=== PATIENT | female | born 1960 | race Caucasian/White ===

== ENCOUNTER 2019-11-22 10:07 | Outpatient (CLI) | payer BC, MEDICARE, SELFPAY ==
--- NOTE | ~2019-11-22 | MM_ITS ---
EXAMINATION: MM screening [facility] BI w mei HISTORY: Screening mammogram TECHNIQUE: Craniocaudal and mediolateral oblique 3-D tomosynthesis images were obtained and synthetic 2-D images were generated. CAD analysis was submitted and interpreted. COMPARISON: 08/11/2017, 01/24/2016, 01/02/2015 BREAST PARENCHYMAL COMPOSITION: The breasts are almost entirely fatty. FINDINGS: There is no evidence of suspicious mass, calcification, or architectural distortion to sugg est malignancy in either breast. There has been no suspicious interval change. IMPRESSION: 1. No mammographic evidence of malignancy. 2. Recommend routine screening mammography in one year. BI-RADS Category 1: Negative Reviewed, dictated and finalized at location A. 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
== END 2019-11-22 10:08 | disposition home or self-care (01) ==
PROVIDERS: PCP Family Medicine; Visit Provider Family Medicine
DX: Z12.31 Encounter for screening mammogram for malignant neoplasm of breast (principal)
CPT/HCPCS: 77063; 77067

== ENCOUNTER 2020-08-05 08:58 | Outpatient (CLI) | payer BC, MEDICARE, SELFPAY ==
--- NOTE | ~2020-08-05 | CT_ITS ---
EXAMINATION:CT chest wo con DATE: 08/05/2020 09:32 INDICATION: Lung nodule. TECHNIQUE: Computed tomography (CT) of the chest was performed without intravenous contrast. Automate d exposure control and iterative reconstruction technique were employed. The dose-length product (DLP ) was 928.08 mGy-cm. COMPARISON: Chest CT 10/05/2019, 09/29/2018 FINDINGS: The lungs demonstrate mild atelectasis. Again seen is a 3 mm nodule in right upper lobe. Ag ain seen is a 4 mm nodule at the minor fissure. There is smooth septal thickening in the lungs, consi stent with mild pulmonary edema. There is a 14 mm nodule with central calcification in left lower lob e, consistent with granulomatous disease. Calcified right lung nodules are consistent with old granul omatous disease. There is a small right pleural effusion. There is mild elevation of right hemidiaphr agm. There is left atrial and left ventricular enlargement of the heart. There are coronary artery ca lcifications. No pericardial effusion. There are changes of cholecystectomy. There are bridging endpl ate osteophytes at multiple levels in the spine, consistent with diffuse idiopathic skeletal hyperost osis (DISH). Again seen is sclerosis in T11 vertebral body, likely degenerative. IMPRESSION: 1. Stable pulmonary nodules, likely benign. 2. Mild pulmonary edema with small right pleural effusion. Reviewed, dictated and finalized at location A.
== END 2020-08-05 08:59 | disposition home or self-care (01) ==
PROVIDERS: PCP Family Medicine; Visit Provider Nurse Practitioner Family
DX: R91.1 Solitary pulmonary nodule (principal); J98.4 Other disorders of lung; R91.8 Other nonspecific abnormal finding of lung field
CPT/HCPCS: 71250

== ENCOUNTER 2020-09-20 07:05 | Outpatient (NON) | payer BC, MEDICARE, SELFPAY ==
[2020-09-20 18:30] LABS: SARS-CoV-2 RNA PCR Positive
== END 2020-09-20 07:06 ==
PROVIDERS: PCP Family Medicine; Visit Provider Physician Assistant
DX: U07.1 COVID-19 (principal)
CPT/HCPCS: 87635; C9803; U0003

== ENCOUNTER 2020-10-20 09:14 | Emergency (ER) | payer BC, MEDICARE, SELFPAY ==
--- NOTE | 2020-10-20 09:18 | ED.SKABFB ---
HPI - Skin/Abscess/Foreign Bdy General Chief complaint: Skin/Abscess/Foreign Body Stated complaint: RASH ON LEG Time Seen by Provider: 10/20/20 09:18 Source: patient and RN notes reviewed History of Present Illness HPI narrative: Patient is a 59-year-old female who presents the urgent care with complaints of a rash on the back of the right leg. Patient states that it started yesterday and she was itching/scratching the right leg and applied lotion. Patient states that it is slightly painful and the leg has been having some increased swelling. Patient states that she does have bilateral lower leg swelling at times. Denies of any shortness of breath or chest pain. Patient is currently on warfarin for history of a stroke approximately 20 years ago. Denies any recent history of DVT or blood clot elsewhere. Denies of any fever, nausea, vomiting. Denies of any history of cellulitis. No other acute complaints. No acute distress noted. Patient aware of the plan of care. Some parts of this dictation were generated by voice recognition software and may contain typographical and/or grammatical inaccuracies. Related Data Home Medications Medication Instructions Recorded Confirmed aspirin 81 mg tablet,delayed 81 mg PO DAILY 12/05/19 10/20/20 release warfarin 2.5 mg tablet 2.5 mg PO ONCE tablet 07/09/20 10/20/20 albuterol sulfate [ProAir HFA] 2 inh INHALATION Q4H PRN 10/20/20 10/20/20 Allergies Allergy/AdvReac Type Severity Reaction Status Date / Time No Known Allergies Allergy Verified 08/09/20 09:48 Review of Systems Review of Systems: Narrative: CONSTITUTIONAL: Denies fever, chills, or sweats. EYES: Denies visual changes, redness, or discharge. ENT: Denies rhinorrhea, congestion, sore throat, or otalgia. CARDIOVASCULAR: Denies chest pain, palpitations, or edema. RESPIRATORY: Denies cough or dyspnea. GASTROINTESTINAL: Denies abdominal pain, nausea, vomiting, or diarrhea. GENITOURINARY: Denies dysuria or hematuria. SKIN: Reports of rash to the right lower extremity MUSCULOSKELETAL: Denies back pain, joint pain, or myalgia. NEUROLOGIC: Denies headache, numbness, or weakness. All other systems reviewed are negative, except as documented in HPI. 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 Kidney stone Lung nodule Non-Hodgkin lymphoma Stroke Surgical History Surgical History H/O colonoscopy H/O lymph node biopsy History of appendectomy History of tonsillectomy Hx of cholecystectomy Family History Family History Father Hypertension, Onset Age: 46 Family history of elevated blood lipids, Onset Age: 46 Acute myocardial infarction Family history of coronary artery disease, Onset Age: 46 Hyperlipidemia Sibling FH: testicular cancer Family history of Hodgkin's lymphoma Mother Family history of malignant neoplasm of ovary Other Family history of malignant neoplasm Social History Social History Smoking status: Never smoker Alcohol intake: current Comments At the time of my signature, I reviewed and agree with the nursing past medical, surgical, social, and family history. There is no relevant family history pertinent to the patient complaint. Exam Narrative: Exam Narrative: GENERAL: This is a well-nourished, well-developed patient, in no apparent distress. HEAD: normocephalic, atraumatic. EYES: PERRL. Sclera clear/white. Vision is grossly intact. EARS: External ears normal NOSE: External nose normal with no obvious nasal discharge, nares without redness, no rhinorrhea. THROAT: Mucous membranes moist NECK: Neck supple CARDIOVASCULAR: Regular rate and rhythm
[2020-10-20 09:20] VITALS: BP 155/95; PULSE 107; RESP 20; TEMP 36.1; O2SAT 100
[2020-10-20 09:25] VITALS: BP 155/95; PULSE 107; RESP 20; TEMP 36.1; O2SAT 100
--- NOTE | 2020-10-20 09:37 | PC.NURSE ---
right calf measures 15.5 cm and left calf measures 15cm
== END 2020-10-20 09:37 | disposition home or self-care (01) ==
PROVIDERS: Emergency Provider Nurse Practitioner Family; PCP Family Medicine
DX: L03.115 Cellulitis of right lower limb (principal); Z86.73 Personal history of transient ischemic attack (TIA), and cerebral infarction without residual deficits; Z85.72 Personal history of non-Hodgkin lymphomas
CPT/HCPCS: 99213; G0463

== ENCOUNTER 2020-10-30 07:33 | Outpatient (CLI) | payer BC, MEDICARE, SELFPAY ==
--- NOTE | ~2020-10-30 | XR_ITS ---
EXAMINATION: XR abdomen/kub 1V INDICATION: Right flank pain TECHNIQUE: Supine views of the abdomen were obtained on 2 radiographs. COMPARISON: 06/07/[address] from today FINDINGS: There is a subtle 3 mm calcification projecting near the right L3 transverse process which may reflect the proximal right ureteral stone seen on the comparison CT. The bowel gas pattern is nor mal. There is mild osteoarthritis of the hips. IMPRESSION: 1. Subtle 3 mm calcification projecting in the expected location of the proximal right ureter. Reviewed, dictated and finalized at location A. HOLOGICAL ANTHROPOLOGIST IMPRESSION: 1. Subtle 3 mm calcification projecting in the expected location of the proxima l right ureter.
--- NOTE | ~2020-10-30 | CT_ITS ---
EXAMINATION: CT abdomen pelvis wo con DATE: 10/30/2020 07:53 INDICATION: Right flank pain TECHNIQUE: Computed tomography (CT) of the abdomen and pelvis was performed without intravenous contr ast. The dose-length product (DLP) was 1616.86 mGy-cm. Automated exposure control and iterative recon struction technique were employed. COMPARISON: None FINDINGS: There are patchy airspace opacities of the visualized lung bases. A stable 1.3 cm nodule is present in the left lower lobe. There is a small right pleural effusion. The heart size is normal. T he gallbladder is surgically absent. There is a 3 mm stone of the proximal right ureter which does no t cause significant hydronephrosis. Punctate nonobstructing stones are present in both kidneys. No pa thologically enlarged abdominal or pelvic lymph nodes are identified. There is no free intraperitonea l gas or evidence of bowel obstruction. There is severe lumbar spondylosis. IMPRESSION: 1. 3 mm stone of the proximal right ureter without significant hydroureter nephrosis. 2. Punctate nonobstructing bilateral nephrolithiasis. 3. Patchy opacities throughout the visualized lung bases, likely pneumonia. Reviewed, dictated and finalized at location A. 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 3 mm stone of the proximal right ureter without significant hydroureter neph rosis. 2. Punctate nonobstructing bilateral nephrolithiasis. 3. Patchy opacities throughout the visualized lung bases, likely pneumonia.
== END 2020-10-30 07:34 | disposition home or self-care (01) ==
PROVIDERS: PCP Family Medicine; Visit Provider Nurse Practitioner Adult Health
DX: R10.9 Unspecified abdominal pain (principal); N20.2 Calculus of kidney with calculus of ureter
CPT/HCPCS: 74018; 74176

== ENCOUNTER 2020-11-06 10:40 | Outpatient (CLI) | payer BC, MEDICARE, SELFPAY ==
--- NOTE | ~2020-11-06 | XR_ITS ---
EXAMINATION: XR abdomen/kub 1V EXAM DATE: 11/06/2020 11:15 INDICATION: RT ureteral stone . TECHNIQUE: Frontal projection of the upper abdomen, frontal projection lower abdomen/pelvis for inter pretation. Comparison is made to prior examination from 10/30/2020. FINDINGS: Difficult to definitively identify the suspected right UPJ stone indicated on prior study a valorie the L3 transverse process. Renal contours are unremarkable. No pelvic calcifications. Nonobstruc tive bowel gas pattern. Mild lumbar levoscoliosis. Moderate bony degenerative changes. IMPRESSION: No suspicious calcifications identified. Reviewed, dictated and finalized at location A. IDE COLLECTOR
== END 2020-11-06 10:41 | disposition home or self-care (01) ==
LOC: ANHIMG 10:47
PROVIDERS: PCP Family Medicine; Visit Provider Nurse Practitioner Adult Health
DX: N20.1 Calculus of ureter (principal)
CPT/HCPCS: 74018

== ENCOUNTER 2020-11-27 16:21 | Outpatient (CLI) | payer BC, MEDICARE, SELFPAY ==
--- NOTE | ~2020-11-27 | MM_ITS ---
EXAMINATION: MM screening tan BI w mei HISTORY: Screening mammogram TECHNIQUE: Craniocaudal and mediolateral oblique 3-D tomosynthesis images were obtained and synthetic 2-D images were generated. CAD analysis was submitted and interpreted. COMPARISON: November 22, 2019 bilateral digital screening mammogram 08/11/2017, 01/24/2016 bilateral digital screening mammogram examinations BREAST PARENCHYMAL COMPOSITION: The breasts are almost entirely fatty. FINDINGS: There is no evidence of suspicious mass, calcification, or architectural distortion to sugg est malignancy in either breast. There has been no suspicious interval change. IMPRESSION: 1. No mammographic evidence of malignancy. 2. Recommend routine screening mammography in one year. BI-RADS Category 1: Negative Reviewed, dictated and finalized at location A. GUARD TESTER
== END 2020-11-27 16:22 | disposition home or self-care (01) ==
LOC: ANHIMG 16:23
PROVIDERS: PCP Family Medicine; Visit Provider Family Medicine
DX: Z12.31 Encounter for screening mammogram for malignant neoplasm of breast (principal)
CPT/HCPCS: 77063; 77067

== ENCOUNTER 2020-12-18 09:25 | Outpatient (CLI) | payer BC, MEDICARE, SELFPAY | END 2020-12-18 09:26 | disposition home or self-care (01) | LOC: ANHCOVIDVC 09:25 | PROVIDERS: PCP Family Medicine; Visit Provider Family Medicine | DX: Z23 Encounter for immunization (principal) | CPT/HCPCS: 0001A; 91300 ==

== ENCOUNTER 2021-01-08 09:24 | Outpatient (CLI) | payer BC, MEDICARE, SELFPAY | END 2021-01-08 09:25 | disposition home or self-care (01) | LOC: ANHCOVIDVC 09:24 | PROVIDERS: PCP Family Medicine | DX: Z23 Encounter for immunization (principal) | CPT/HCPCS: 0002A; 91300 ==

== ENCOUNTER 2021-09-23 16:06 | Outpatient (CLI) | payer BC, MEDICARE, SELFPAY ==
--- NOTE | ~2021-09-23 | XR_ITS ---
EXAMINATION: XR abdomen/kub 1V EXAM DATE: 09/23/2021 16:25 INDICATION: M54.9 - Dorsalgia, unspecified, right flank pain since 09/21. TECHNIQUE: Frontal projection of the upper abdomen, frontal projection lower abdomen/pelvis for inter pretation. Comparison is made to prior examination from 11/06/2020. FINDINGS: There are cholecystectomy clips. There is expected amount of colonic stool and gas. No small bowel dilation, nonobstructive bowel gas pattern. There are no suspicious calcifications jerald ntified. There is no organomegaly suspected. There are bony degenerative changes. There is left lower lobe 1-1.5 cm nodule. This has been previously reported on imaging and is unchanged, probably benign. There are cholecystectomy clips. IMPRESSION: No suspicious calcifications identified. Reviewed, dictated and finalized at location A. 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
== END 2021-09-23 16:07 | disposition home or self-care (01) ==
PROVIDERS: PCP Family Medicine; Visit Provider Family Medicine
DX: M54.9 Dorsalgia, unspecified (principal); R82.90 Unspecified abnormal findings in urine
CPT/HCPCS: 74018

== ENCOUNTER 2021-12-07 07:19 | Outpatient (CLI) | payer BC, MEDICARE, SELFPAY ==
--- NOTE | ~2021-12-07 | MM_ITS ---
EXAMINATION: MM screening tan BI w mei HISTORY: Screening mammogram TECHNIQUE: Craniocaudal and mediolateral oblique 3-D tomosynthesis images were obtained and synthetic 2-D images were generated. CAD analysis was submitted and interpreted. COMPARISON: November 27, 2020, November 22, 2019, August 11, 2017 bilateral screening mammogram examin ations BREAST PARENCHYMAL COMPOSITION: The breasts are almost entirely fatty. FINDINGS: There is no evidence of suspicious mass, calcification, or architectural distortion to sugg est malignancy in either breast. There has been no suspicious interval change. IMPRESSION: 1. No mammographic evidence of malignancy. 2. Recommend routine screening mammography in one year. BI-RADS Category 1: Negative Reviewed, dictated and finalized at location A. 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
== END 2021-12-07 07:20 | disposition home or self-care (01) ==
LOC: ANHIMG 07:23
PROVIDERS: PCP Family Medicine; Visit Provider Family Medicine
DX: Z12.31 Encounter for screening mammogram for malignant neoplasm of breast (principal)
CPT/HCPCS: 77063; 77067

== ENCOUNTER 2022-10-17 08:42 | Inpatient (IN) | payer MEDICARE, BC, SELFPAY ==
[2022-10-17] VITALS (16 sets, daily range): BP systolic 149–205; BP diastolic 44–89; PULSE 31–44; RESP 13–24; TEMP 36.4–37; O2SAT 98–100; BMI 49.4
--- NOTE | 2022-10-17 | ECHO_ITS ---
Patient Info Name: Genesis Griggs Age: 61 years : 1960 Gender: Female Ht: 66 in Wt: 306 lbs BSA: 2.62 m2 HR: 38 bpm BP: 199 / 76 mmHg Heart Rhythm: Sinus Rhythm Technical Quality: Fair Exam Date: 10/17/2022 12:34 PM Exam Location: [facility] Patient Status: Inpatient Admit Date: 10/17/2022 Staff Ordering Physician: Mauro Ridley MD Editing Intern: Meg Blair RDCS Attending Provider: Miles Hartley MD Referring Physician: Khai WOMACK; Exam Type: CA echo dop color flow w con Study Info Indications - heart block Complete two-dimensional, color flow and Doppler transthoracic echocardiogram is performed with contrast to opacify the left ventricle and to improve the deliniation of the left ventricle endocardial borders. Contrast/Agitated Saline Contrast/Ag. Saline: Definity Amount: 3.00 ml Administered By: Meg Blair RDCS Existing IV Access: Yes IV Access Condition: patent with no signs of infiltration Summary 1. Technically difficultEchocardiogram because of obesity. 2. Definity contrast injectedTo improve visualization. 3. Normal appearing left ventricular sizeAnd systolic function. 4. MildlySclerotic aorticValve which is not stenotic. 5. Thickening of mitralValve leaflets withNo stenosis or and trivial regurgitation. Left Ventricle Left ventricular chamber dimension is normal. Left ventricular systolic function is normal, estimated at 55-60%. The left ventricular diastolic function is grade I diastolic dysfunction. Right Ventricle Right ventricular chamber dimension is normal. Left Atria Left atrial chamber dimension is mildly enlarged. Right Atria Right atrial chamber dimension is not well visualized. Aortic Valve The aortic valve is trileaflet. There is mild aortic valve sclerosis. Pulmonic Valve The pulmonic valve is not well visualized. Mitral Valve The mitral valve has thickened leaflets. There is trace mitral valve regurgitation. Tricuspid Valve The tricuspid valve leaflets are normal. Pericardium/Pleural The pericardium appears normal. Aorta The aortic root size at the sinus of Valsalva is normal. Left Ventricular Outflow Tract Name Value Normal LVOT 2D LVOT Diameter 2.04 cm LVOT Doppler LVOT Peak Gradient 2 mmHg LVOT Mean Gradient 1 mmHg LVOT VTI 20.41 cm LVOT VTI/AV VTI Ratio 0.68 LVOT Stroke Volume 66.73 ml LVOT CO 2.12 l/min LVOT CI 0.81 L/min/m2 Pulmonic Valve Name Value Normal RVOT Doppler RVOT Peak Gradient 2 mmHg PV Doppler
--- NOTE | ~2022-10-17 | XR_ITS ---
EXAMINATION: XR chest 1V portable DATE: 10/18/2022 06:34 INDICATION: Shortness of breath. TECHNIQUE: A single frontal view of the chest was obtained. COMPARISON: Chest single view 10/17/2022, chest 2 views 03/02/2019 FINDINGS: There is chronic mild elevation of right hemidiaphragm. There are airspace opacities in the lower lung zones. No pleural effusion or pneumothorax. The heart size is normal. IMPRESSION: 1. Worsened airspace opacities in the lower lung zones, consistent with atelectasis versus pneumonia. Reviewed, dictated and finalized at location A. MAKER IMPRESSION: 1. Worsened airspace opacities in the lower lung zones, consistent with atelect asis versus pneumonia.
--- NOTE | ~2022-10-17 | XR_ITS ---
EXAMINATION: XR chest 1V portable Exam Date/Time: 10/21/2022 13:50 SUBSTATION DESIGN DRAFTSPERSON HISTORY: pacemaker insertion Comparison: 10/18/2022. RESULT: Lines, tubes, and devices: Left chest pacer with intact leads, lead tips projecting over the right a nd left ventricles. Lungs and pleura: Diffuse reticular pattern, slightly decreased since the prior study. Improved bila teral lower lung aeration, with minimal subsegmental bibasilar opacities. Cardiomediastinal silhouette: Stable. Other: No acute osseous or upper abdominal finding. IMPRESSION: New left chest pacer. Mild interstitial edema and bibasilar atelectasis. Reviewed, dictated and finalized at location K. TATION DESIGN DRAFTSPERSON
--- NOTE | ~2022-10-17 | US_ITS ---
EXAMINATION: US venous doppler UE RT DATE: 10/20/2022 12:25 INDICATION: Right upper limb swelling. TECHNIQUE: Grayscale ultrasound images without and with compression and Doppler ultrasound images of the right upper extremity veins were obtained. COMPARISON: PET/CT 06/22/18 FINDINGS: The visualized portions of the right subclavian vein, axillary vein, brachial veins, basilic vein, ce phalic vein, radial vein, and ulnar vein are patent. Again seen is chronic nonocclusive calcified thr ombus in right internal jugular vein. IMPRESSION: 1. 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 Reviewed, dictated and finalized at location A. ING AGENT IMPRESSION: 1. 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
--- NOTE | ~2022-10-17 | XR_ITS ---
Portable chest x-ray Comparison: 03/02/2019 Clinical History: Weakness Findings: Lungs are clear, without focal consolidation or pleural effusion. Cardiomediastinal silho uette is stable. Bones and soft tissues are unremarkable. Impression: Clear lungs. No change from prior exam. Reviewed, dictated and finalized at [facility]. WEAVER CLOTH Impression: Clear lungs. No change from prior exam.
--- NOTE | ~2022-10-17 | XR_ITS ---
Clinical Indication: Pacemaker placement AP view of the chest: Comparison: 10/21/2022 Findings: The lungs are clear, without evidence of focal consolidation or pleural effusion. Cardiome diastinal silhouette is stable, with pacemaker device. Bones and soft tissues are unremarkable. Impression: Pacemaker device in place. Clear lungs. No pneumothorax. Reviewed, dictated and finalized at location . RIDER Impression: Pacemaker device in place. Clear lungs. No pneumothorax.
--- NOTE | 2022-10-17 08:48 | ECG_ITS ---
Measurements Intervals [place] Rate: 42 P: AK: 0 QRS: -49 QRSD: 106 T: 48 QT: 521 QTc: 439 Interpretive Statements NORMAL SINUS RHYTHM WITH THIRD-DEGREE AV BLOCK AND JUNCTIONAL ESCAPE RHYTHM OCCASIONAL PVC INCOMPLETE LEFT BUNDLE BRANCH BLOCK ABNORMAL ECG COMPARED TO ECG 03/02/2019 01:21:52 THIRD-DEGREE AV BLOCK IS NEW Electronically Signed On 10-17-2022 14:52:16 PATHOLOGY SECRETARY/TRANSCRIPTIONIST by Tomy Mejia M.D.
[2022-10-17 09:11] LABS: Basophils Percent Auto 0.2 % (0.2-1.2); Eosinophils Absolute Auto 0.1 K/mm3 (0-0.3); Eosinophils Percent Auto 0.4 % (0-4.4); Hematocrit 42.6 % (37.0-47.0); Hemoglobin 12.9 g/dL (12.0-15.0); Immature Granulocyte Absolute 0.07 K/mm3 (0.00-0.031); Immature Granulocyte Percent A 0.6 % (0-0.5); Lymphocytes Absolute Auto 1.87 K/mm3 (0.9-3.2); Lymphocytes Percent Auto 15.5 % (18.3-44.2); Mean Corpuscular HGB Conc 30.3 g/dl (32-36); Mean Corpuscular Hemoglobin 24.6 pg (26-34); Mean Corpuscular Volume 81.1 fl (80-100); Mean Platelet Volume 10.6 fl (7.4-10.4); Monocytes Absolute Auto 0.5 K/mm3 (0.1-0.6); Monocytes Percent Auto 3.8 % (2.6-8.5); Neutrophils Absolute Auto 9.6 K/mm3 (1.3-6.7); Neutrophils Percent Auto 79.5 % (45.5-73.1); Platelet Count Result 347 k/mm3 (150-375); Red Blood Count 5.25 M/mm3 (4.2-5.4); Red Cell Distribution Width 17.8 % (11.5-14.5)
[2022-10-17] MEDS: GLUCAGON FOR INJ 1 MG VIAL IV PUSH (09:16)
[2022-10-17] MEDS: SODIUM CHLORIDE 0.9% IV 1,000 ML 150 ML IV CONT (09:17)
[2022-10-17 09:20] LABS: Alanine Aminotransferase 62 U/L (6-35); Albumin Level 4.3 g/dL (3.5-5.1); Alkaline Phosphatase 175 U/L (38-126); Anion Gap 11 mmol/L (8-16); Aspartate Amino Transferase 43 U/L (14-36); Bilirubin,Total 1.1 mg/dL (0.2-1.3); Blood Urea Nitrogen 25 mg/dL (7-17); Calcium 8.9 mg/dL (8.4-10.2); Carbon Dioxide 19 mmol/L (22-30); Chloride 105 mmol/L (98-107); Estimated CRCL calculation 59 ml/min; Estimated Glomerular Filt Rate 42; Glucose 192 mg/dL (65-110); Potassium 4.3 mmol/L (3.4-5.0); Sodium 135 mmol/L (137-145)
[2022-10-17 09:21] LABS: INR 3.2; Prothrombin Time 31.6 Seconds (11.1-14.7)
[2022-10-17 09:31] LABS: NT Pro B Type Natriuretic Pept 5170 pg/mL (5-100); Troponin I 0.013 ng/mL (0.000-0.034)
--- NOTE | 2022-10-17 10:28 | ED.GENADULT ---
HPI - General Adult General Chief complaint: Arrhythmia/Palpitations Stated complaint: Low HR Time Seen by Provider: 10/17/22 08:54 Source: patient and family Mode of arrival: wheelchair Limitations: no limitations History of Present Illness HPI narrative: 61-year-old with a history of hypertension, remote history of stroke approximately 20 years ago on warfarin here with complaints of generalized weakness for 2 weeks. Patient states that heart rate has been low for the past several days. She states that she went to her primary doctor who reduce the dosage of metoprolol to 25 mg daily. However patient denies any chest pain complains of shortness of breath with exertion. No history of fever or chills denies any cough. Patient states that heart rate is in 30s. Onset (ago): week(s) (2) Radiation: non-radiation Severity: moderate Pain Consistency: constant Relieving factors: none Exacerbating factors: none Associated symptoms: denies other symptoms Treatments prior to arrival: none Related Data Home Medications Medication Instructions Recorded Confirmed aspirin 81 mg tablet,delayed 81 mg PO DAILY 12/05/19 10/16/22 release metformin 500 mg tablet 500 mg PO BID 10/16/22 10/16/22 Allergies Allergy/AdvReac Type Severity Reaction Status Date / Time No Known Allergies Allergy Verified 10/16/22 14:02 Review of Systems Review of Systems: All systems reviewed & are unremarkable except as noted in HPI and below Constitutional: Constitutional: Reports no additional constitutional complaints Eyes: Eyes: Reports no additional eye complaints ENT: Reports system reviewed and no additional complaints, except as documented Cardiovascular: Cardiovascular: Reports as per HPI Respiratory: Respiratory: Reports no additional respiratory complaints Gastrointestinal: Gastrointestinal: Reports no additional gastrointestinal complaints Genitourinary: Genitourinary: Reports no additional female genitourinary complaints Musculoskeletal: Musculoskeletal: Reports no additional musculoskeletal complaints Integumentary/Breasts: Skin/Breast: Reports system reviewed and no additional complaints, except as docu Neurologic: Reports system reviewed and no additional complaints, except as documented PMFSH Past Medical History Medical History COVID-19 H/O solitary pulmonary nodule Hepatitis C antibody test negative (12/16/17) 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 Kidney stone Lung nodule Non-Hodgkin lymphoma Stroke Visual field loss following cerebrovascular accident Surgical History Surgical History H/O colonoscopy H/O lymph node biopsy History of appendectomy History of tonsillectomy Hx of cholecystectomy Family History Family History Father Hypertension, Onset Age: 46 Family history of elevated blood lipids, Onset Age: 46 Acute myocardial infarction Family history of coronary artery disease, Onset Age: 46 Hyperlipidemia Sibling FH: testicular cancer Family history of Hodgkin's lymphoma Mother Family history of malignant neoplasm of ovary Other Family history of malignant neoplasm Social History Social History Smoking status: Never smoker Second hand tobacco smoke exposure: No Alcohol intake: current Alcohol use details: Social only a couple once a month. Substance use: never Substance use type: does not use Lack of Transportation: No Lack of Food: Never True Current Housing: I Have Housing Concerned About Future Housing: No Difficulty Paying Gas/Electric Bills: No Difficulty Paying for Meds: No Currently Unemployed: Decline to Answer Education: Trade/Vocational Certificate Difficulty w/ Childcare or Family Care: No Gender identity (if verbalized by the pa
[2022-10-17 10:29] LABS: Influenza A QL RT-PCR Negative (Negative); Influenza B QL RT-PCR Negative (Negative); SARS-CoV-2 RNA PCR Negative
--- NOTE | 2022-10-17 11:36 | PC.NURSE ---
Report received by JESSA Howard with the ED department at 1113.
--- NOTE | 2022-10-17 11:36 | ADMGEN ---
This patient, Genesis Griggs, was admitted to Intensive Care Unit-2 at 1130. Patient/family oriented to hospital policies and general routines including ID bracelet, bed and alarms, visiting hours, pain management, procedures, bathroom and other care routines, personal items, smoking policy, room service/diet, and visiting hours. Information on how to activate the Rapid Response Team has been discussed. Patient/Family are encouraged to report perceived risks to care and to ask questions if they do not understand what they are told or what they should do.
--- NOTE | 2022-10-17 12:36 | WPDCNINT ---
Assessment and Plan Assessment and plan (1) High degree atrioventricular block: Code(s): I44.39 - Other atrioventricular block Status: Acute Assessment and Plan: Patient on metoprolol at home, recently the PCP decreased the dose to 25 mg p.o. daily -patient presented with generalized weakness, dizziness, was found to be bradycardic in 30s -glucagon 1 mg IV was given, will repeat glucagon in the ICU -calcium chloride was given -will place pacer pads put patient -she is currently hemodynamically stable -EKG showed with high degree AV block -troponins negative x1 -proBNP of 5170 -will wait for metoprolol to wean off and continue to monitor heart rate closely -cardiology has been consulted, awaiting their evaluation and recommendations (2) Bradycardia: Code(s): R00.1 - Bradycardia, unspecified Status: Acute Assessment and Plan: As above (3) Essential (primary) hypertension: Code(s): I10 - Essential (primary) hypertension Status: Acute Assessment and Plan: Essential hypertension, systolic blood pressures have been elevated in the 180s to 200s -p.r.n. hydralazine has been ordered, given the bradycardia I do not want to drop the blood pressures too low -hold lisinopril which is a home med due to elevated creatinine (4) senior care (current) use of anticoagulants: Code(s): Z79.01 - senior care (current) use of anticoagulants Status: Acute Assessment and Plan: Patient is on Coumadin for a previous stroke, she denies any residual weakness except for some blind spots -will currently hold Coumadin, if patient requires any procedures -INR is therapeutic, for now and if needed will bridge with therapeutic Lovenox -continue aspirin 81 mg (5) Hyperlipidemia: Code(s): E78.5 - Hyperlipidemia, unspecified Status: Acute Assessment and Plan: Continue atorvastatin (6) Diabetes: Code(s): E11.9 - Type 2 diabetes mellitus without complications Status: Acute Assessment and Plan: Accu-Cheks and sliding scale insulin Plan DVT prophylaxis: Currently therapeutic INR, Stress ulcer prophylaxis: Not indicated Nutrition: Will start p.o. diet Code Status: Full code Critical Care Time Spent: 46 minutes Due to a high probability of clinically significant, life threatening deterioration, the patient required my highest level of preparedness to intervene emergently and I personally spent this critical care time directly and personally managing the patient. This critical care time included obtaining a history; examining the patient; pulse oximetry; ordering and review of studies; arranging urgent treatment with development of a management plan; evaluation of patient's response to treatment; frequent reassessment; and discussions with other providers. It was exclusive of separately billable procedures and treating other patients and teaching time. Please see Assessment and Plan section and the rest of the note for further information on patient assessment and treatment This dictation may have been done utilizing a voice recognition system. Attempts have been made to correct errors. However, there may be uncorrected grammatical, spelling, and recognitions errors present. Train Operator Consult Note Consult date: 10/17/22 Reason for consult: Bradycardia, weakness, lightheadedness, high degree AV block HPI: Genesis Griggs is a 61 year old female with past medical history of essential hypertension, stroke with no residual weakness except for some blind spots, on Coumadin for the stroke,, hyperlipidemia, essential hypertension presented the ED on 10/17/2022 with complains of generalized weakness for approximately 2 weeks with slow heart rate for the past few days, she had gone to her primary care doctor who reduced her dose of metoprolol to 25 mg p.o. daily. She denies any chest pain, shortness of breath, abdominal pain, nausea vomiting. Heart rates were found to
[2022-10-17] MEDS: CALCIUM CHLOR 1,000MG/100ML NS 1,000 MG/100 ML BAG 100 MG IVPB (12:40)
[2022-10-17] MEDS: hydrALAZINE HCL 20 MG/ML VIAL 10 MG IV PUSH ×2 (12:40→19:11)
[2022-10-17] MEDS: SODIUM CHLORIDE 0.9% IV 500 ML IV CONT (12:41)
[2022-10-17] MEDS: GLUCAGON FOR INJ 1 MG VIAL 3 MG IV PUSH (12:44)
[2022-10-17] MEDS: PERFLUTREN LIPID MICROSPHERES 1.5 ML VIAL DILUTED TO 10 ML TOTAL VOLUME IV PUSH (13:20)
--- NOTE | 2022-10-17 13:21 | IVDEFINITY ---
Prior to administration of IV Definity the patient was educated on the risks and benefits of the imaging enhancing agent including potential adverse side effects. The patient verbalized understanding. Allergies were verified. No exclusion criteria were identified and at least one of the following inclusion criteria were met: 1) physician request, 2) patient technically difficult to image (per the [place] [employer] guidelines of two or more segments not discernable within the apical view), or 3) questionable left ventricular function. ?
[2022-10-17 13:50] LABS: Glucose Point of Care 80 mg/dl (65-105)
[2022-10-17 14:07] LABS: Add Urine Microscopic? NO; Appearance Urine Clear (Clear); Bilirubin Urine Negative (Negative); Blood Urine Negative (Negative); Color Urine Yellow (Yellow); Glucose Urine UA Negative (Negative); Ketones Urine Negative (Negative); Leukocyte Esterase Ur Negative LEU/UL (Negative); Nitrate Urine Negative (Negative); Protein Urine Negative (Negative); Urobilinogen Urine 0.2 mg/dL (<2.0); pH Urine 5.5 (5.0-9.0)
--- NOTE | 2022-10-17 14:19 | PM.CNCAR ---
Assessment and Plan Assessment and plan (1) High degree atrioventricular block: Code(s): I44.39 - Other atrioventricular block Status: Acute Plan This is a 61-year-old woman with a longstanding hypertension MARCELL-inhibitor and beta-george she also has non insulin-dependent diabetes in the remote history of non-Hodgkin's lymphoma. She presents with bradycardia symptoms of weakness and fatigue and has complete heart block on her ECG. Is anticoagulated with warfarin chronically since the diagnosis of lymphoma couple of decades ago. Her INR is therapeutic. It is almost certain this patient will require a pacemaker as I doubt that withdrawal of the beta-george is going to resolve this issue. Obviously she cannot safely receive a pacemaker implant today in the setting of systemic anticoagulation. Unfortunately it is a 3 day holiday weekend and if she remains stable like this implantation of her pacemaker will presumably occur next week Thursday. Tomy Mejia MD [facility] History of Present Illness History of Present Illness Consult date/time: 10/17/22 14:19 Reason For Visit: Complete Heart Block Narrative: This is a 61-year-old woman I am seeing this afternoon at the request of the hospitalist because of bradycardia in the setting of complete heart block. The patient does not have any complaints seeing her at bed rest in the ICU her only physical complaint recently has been that of generalized fatigue and weakness. She apparently went to her primary care physician yesterday with these complaints and was found to be bradycardic with heart rate in the 40s. She was on a beta-george which was reduced. An electrocardiogram was not done during that office appointment. She was told to call back today and report her heart rate. She had today she was recording heart rates in the 30s at home so rather than calling her doctor she came to the emergency room where she was evaluated and admitted to the hospital. Her electrocardiogram shows sinus rhythm with complete heart block with QRS morphology of right bundle branch block. She has a stable escape rhythm with heart rate in the range of about 40 beats per minute and has occasional ventricular ectopics Pac. Echocardiogram been ordered and not yet performed as of the time of this consultation. She feels well and offers no other complaints she is not having any history of lightheadedness syncope or presyncope. She denies any symptoms with chest pain orthopnea PND or accumulating edema. Once again she said she has never had any cardiac problems in the past. She does see her PCP for treatment of hypertension and diabetes she also has a history of non-Hodgkin's lymphoma in the chest which was treated 20 years ago with chemotherapy. She can not remember getting any radiation therapy. Around the same time she suffered a stroke and anticoagulation with warfarin was recommended apparently an indefinite basis because she is still taking warfarin about 20 years later. I do not have access to any notes from her oncology appointments as to the reason that indefinite anticoagulation was felt to be needed in that setting. In any event I am seeing her in consultation because of this and we discussed her situation a little likelihood that we will have to be recommending a pacemaker implant. Her medical regimen for hypertension did include metoprolol 50 mg per day which obviously has been stopped. Review of Systems Constitutional: Constitutional: Reports lethargy Eyes: Eyes: Reports no additional eye complaints ENT: Reports system reviewed and no additional complaints, except as documented Cardiovascular: Comments: Patient's observation of bradycardia Respiratory: Respiratory: Reports no additional respiratory complaints Gastrointestinal: Gastrointestinal: Reports no additional gastrointestinal complaints Musculoskeletal: Musculoskeletal: Reports no additional musculoskeletal complaints Integumen
--- NOTE | 2022-10-17 14:35 | PM.IMHP ---
H&P: HPI History of Present Illness Date/Time: 10/17/22 12:35 Chief Complaint: Arrhythmia/palpitations Narrative: This is a 61-year-old female patient who has had a history of hypertension and a CVA over 20 years ago. The patient has been complaining of generalized weakness for the last 2 weeks. She noticed that her heart rate has been low for the past several days. She spoke with her primary care doctor who reduce her dosage of metoprolol to 25 mg daily.. The patient denies any dizziness or any syncopal episodes. The patient denies any chest pain or shortness of breath. No fever chills or cough. The patient stated that her heart rate has been in the 30s. The patient has been on both high Dipesh inhibitors and beta-blockers for her hypertension. Her EKG shows a complete heart block. Cardiology has seen the patient and reported that a pacemaker insertion most likely will occur on Thursday. The patient is awake and alert and is talking. White count is 12.0. Creatinine is 1.3. Blood sugar is 192 which is nonfasting. Last A1c was 7.3 on 08/09/2022. Liver enzymes are elevated AST slightly elevated 43 ALT slightly elevated 62 alkaline phosphatase 172. 1st troponin is nonreactive. BNP is 5170. The rn heart has been consulted has already seen the patient. The patient was receiving an echo during my examination. The patient was found to be negative for influenza A/B and COVID. The patient is being admitted to inpatient status on 10/17/2022. Review of Systems Review of Systems: See HPI All systems reviewed & are unremarkable except as noted in HPI and below Constitutional: Constitutional: Reports as per HPI and Reports no additional constitutional complaints Eyes: Eyes: Reports as per HPI and Reports no additional eye complaints ENT: Reports system reviewed and no additional complaints, except as documented and Reports Normal hearing present Cardiovascular: Cardiovascular: Reports no additional cardiovascular complaints Respiratory: Respiratory: Reports no additional respiratory complaints and Reports no additional respiratory complaints Gastrointestinal: Gastrointestinal: Reports as per HPI and Reports no additional gastrointestinal complaints Musculoskeletal: Musculoskeletal: Reports no additional musculoskeletal complaints Integumentary/Breasts: Skin/Breast: Reports system reviewed and no additional complaints, except as docu and Reports as per HPI Neurologic: Reports system reviewed and no additional complaints, except as documented, Reports as per HPI and Reports Normal hearing present Psychiatric: Psychiatric: Reports no additional psychiatric complaints and Reports as per HPI Endocrine: Endocrine: Reports no additional endocrine complaints Hematologic/Lymphatic: Hematologic/Lymphatic: Reports no additional hematologic/lymphatic complaints Allergic/Immunologic: Allergic/Immunologic: Reports no additional allergic/immunologic complaints [facility] Past Medical History Medical History (Updated 10/17/22 @ 14:58 by Fatmata Garsia NP) Anal fistula COVID-19 H/O solitary pulmonary nodule Hepatitis C antibody test negative (12/16/17) 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 had chemotherapy and bone marrow transplant Stroke Visual field loss following cerebrovascular accident Surgical History Surgical History (Updated 10/17/22 @ 14:58 by Fatmata Garsia NP) H/O colonoscopy H/O cystoscopy H/O lymph node biopsy History of appendectomy History of bone marrow transplant History of removal of Port-a-Cath History of tonsillectomy Hx of cholecystectomy Family History Family History Father Hypertension, Onset Age: 46 Family history of elevated blood lipids, Onset Age: 46 Acute myocardial infarction Family history of coronary artery disease, Onset Age: 46 Hyperlipidemia Sibling FH:
[2022-10-17 14:48] LABS: Troponin I 0.015 ng/mL (0.000-0.034)
[2022-10-17 17:39] LABS: Troponin I 0.015 ng/mL (0.000-0.034)
[2022-10-17 19:07] LABS: Glucose Point of Care 133 mg/dl (65-105)
[2022-10-17] MEDS: ACETAMINOPHEN 325 MG TABLET 650 MG PO (19:11)
[2022-10-17] MEDS: ATORVASTATIN 10 MG TABLET PO (20:19)
[2022-10-17 20:25] LABS: Glucose Point of Care 125 mg/dl (65-105)
[2022-10-18] VITALS (15 sets, daily range): BP systolic 143–171; BP diastolic 48–88; PULSE 30–37; RESP 14–22; TEMP 36.1–36.7; O2SAT 97–100
[2022-10-18] MEDS: hydrALAZINE HCL 20 MG/ML VIAL 10 MG IV PUSH (00:15)
[2022-10-18 03:42] LABS: Basophils Percent Auto 0.3 % (0.2-1.2); Eosinophils Percent Auto 0.3 % (0-4.4); Hemoglobin 11.4 g/dL (12.0-15.0); Immature Granulocyte Absolute 0.05 K/mm3 (0.00-0.031); Immature Granulocyte Percent A 0.5 % (0-0.5); Lymphocytes Absolute Auto 1.01 K/mm3 (0.9-3.2); Lymphocytes Percent Auto 9.7 % (18.3-44.2); Mean Corpuscular HGB Conc 30.8 g/dl (32-36); Mean Corpuscular Hemoglobin 24.6 pg (26-34); Mean Corpuscular Volume 79.9 fl (80-100); Monocytes Absolute Auto 0.5 K/mm3 (0.1-0.6); Monocytes Percent Auto 4.7 % (2.6-8.5); Neutrophils Absolute Auto 8.9 K/mm3 (1.3-6.7); Neutrophils Percent Auto 84.5 % (45.5-73.1); Platelet Count Result 263 k/mm3 (150-375); Red Blood Count 4.63 M/mm3 (4.2-5.4); Red Cell Distribution Width 17.8 % (11.5-14.5); White Blood Count 10.5 K/mm3 (4.5-10.0)
[2022-10-18 03:47] LABS: Alanine Aminotransferase 52 U/L (6-35); Albumin Level 3.6 g/dL (3.5-5.1); Alkaline Phosphatase 138 U/L (38-126); Anion Gap 9 mmol/L (8-16); Aspartate Amino Transferase 34 U/L (14-36); Blood Urea Nitrogen 22 mg/dL (7-17); Calcium 8.7 mg/dL (8.4-10.2); Carbon Dioxide 17 mmol/L (22-30); Chloride 109 mmol/L (98-107); Estimated CRCL calculation 70 ml/min; Estimated Glomerular Filt Rate 51; Glucose 137 mg/dL (65-110); Magnesium 1.6 mg/dL (1.6-2.3); Phosphorus 3.1 mg/dL (2.5-4.5); Potassium 4.3 mmol/L (3.4-5.0); Sodium 135 mmol/L (137-145)
[2022-10-18 03:53] LABS: INR 3.4; Prothrombin Time 33.4 Seconds (11.1-14.7)
[2022-10-18] MEDS: MAGNESIUM SULF 2 GM/WATER 50ML 2 GM/50 ML BAG IVPB (05:09)
--- NOTE | 2022-10-18 06:00 | ECG_ITS ---
Measurements Intervals [place] Rate: 37 P: CA: 0 QRS: -49 QRSD: 113 T: 46 QT: 561 QTc: 445 Interpretive Statements SINUS RHYTHM WITH THIRD-DEGREE AV BLOCK AND JUNCTIONAL ESCAPE RHYTHM WITH LEFT BUNDLE BRANCH BLOCK MORPHOLOGY OCCASIONAL PVC ABNORMAL ECG COMPARED TO ECG 10/17/2022 08:54:36 NO SIGNIFICANT DIFFERENCE Electronically Signed On 10-18-2022 9:55:11 RADIAL DRILL PRESS SET UP OPERATOR by Tomy Mejia M.D.
--- NOTE | 2022-10-18 07:46 | PC.NURSE ---
Addendum entered by Racheal White RN 10/18/22 07:52: Pt is in Aflutter with a complete heart block Original Note: Pt now in aflutter. Dr. Mejia at bedside and aware of situation. No new orders.
--- NOTE | 2022-10-18 07:52 | PM.PNCARD ---
Progress Note: A&P Assessment and Plan (1) High degree atrioventricular block: Code(s): I44.39 - Other atrioventricular block Status: Acute (2) Atrial flutter: Code(s): I48.92 - Unspecified atrial flutter Status: Acute Plan 61-year-old lady with complete heart block symptomatic with shortness of breath with modest activity. No syncope or presyncope. This morning she converted from sinus to atrial flutter with slow ventricular response. Obviously has no AV node conduction at all. Continue to follow her as her Coumadin washes out and anticipate implantation of permanent pacemaker device on Thursday. Of course will proceed sooner if this becomes urgent/emergent. we should start seeing the INR declined tomorrow Tomy Mejia MD [facility] Subjective Date/time seen: Date of service:10/18/22 07:52 Interval history: Follow-up visit in this 61-year-old lady with: Symptomatic complete heart block with weakness fatigue and shortness of breath. Plans for permanent pacemaker implant discussed again with the patient this morning. Interestingly this morning while the patient was on the commode she converted from sinus to atrial flutter. Heart rate really has not changed much as she has no AV node conduction. Today's INR is still therapeutic Exam Const: General: comfortable and no acute distress Other: pleasant obese lady no complaints while at bed rest HENMT: Mouth: Yes moist mucous membranes Eyes: Sclera: sclerae normal Neck: Neck: supple Resp: Effort & Inspection: normal respiratory effort Auscultation: clear to auscultation bilaterally Cardio: Rate: bradycardic Rhythm: regular rhythm GI: GI Palp: Yes Soft to palpation Auscultation: normal bowel sounds Skin: General skin exam: normal color Neuro: Other: alert and oriented x3 Extrem: Other: adequate perfusion, no pitting edema Objective Data Vital Signs Vital Signs: Vital Signs - 24 hr 10/17/22 08:51 10/17/22 10:00 10/17/22 09:30 Temperature 36.4 C Pulse Rate 39 L 36 L 44 L Respiratory Rate 16 20 16 Blood Pressure 171/44 H 162/56 H 176/51 H Pulse Oximetry 100 98 98 Oxygen Delivery Room Air 10/17/22 09:00 10/17/22 11:37 10/17/22 11:10 Temperature Pulse Rate 39 L 37 L 39 L Respiratory Rate 16 24 H 18 Blood Pressure 187/52 H 199/76 H 160/45 H Pulse Oximetry 98 98 99 Oxygen Delivery 10/17/22 10:30 10/17/22 12:00 10/17/22 12:40 Temperature 36.6 C Pulse Rate 40 L 36 L Respiratory Rate 16 22 H Blood Pressure 174/44 H 205/74 H 180/53 H Pulse Oximetry 98 98 Oxygen Delivery 10/17/22 13:28 10/17/22 14:00 10/17/22 16:00 Temperature 37.0 C Pulse Rate 37 L 36 L Respiratory Rate 16 15 Blood Pressure 192/74 H 178/89 H 189/69 H Pulse Oximetry 100 99 Oxygen Delivery 10/17/22 12:00 10/17/22 14:00 10/17/22 16:00 Temperature Pulse Rate 36 L 37 L 36 L Respiratory Rate Blood Pressure Pulse Oximetry Oxygen Delivery 10/17/22 16:00 10/17/22 18:00 10/17/22 19:10 Temperature Pulse Rate 35 L Respiratory Rate 18 Blood Pressure 180/55 H 165/64 H Pulse Oximetry 99 Oxygen Delivery Room Air 10/17/22 18:00 10/17/22 20:00 10/17/22 20:00 Temperature 36.9 C Pulse Rate 35 L 34 L Respiratory Rate 13 Blood Pressure 149/53 H Pulse Oximetry 100 Oxygen Delivery Room Air 10/17/22 20:00 10/17/22 22:00 10/18/22 00:00 Temperature 36.7 C Pulse Rate 34 L 31 L 36 L Respiratory Rate 17 Blood Pressure 166/59 H Pulse Oximetry 99 Oxygen Delivery 10/18/22 00:00 10/18/22 00:00 10/18/22 01:30 Temperature Pulse Rate 32 L Respiratory Rate Blood Pressure 152/68 H Pulse Oximetry Oxygen Delivery Room Air 10/18/22 04:00 10/18/22 02:00 10/18/22 04:00 Temperature Pulse Rate 34 L 30 L Respiratory Rate Blood Pressure Pulse Oximetry Oxygen Delivery Room Air 10/18/22 04:02 10/18/22 06
[2022-10-18 08:20] LABS: Glucose Point of Care 131 mg/dl (65-105)
[2022-10-18] MEDS: ASPIRIN 81 MG ENTERIC TABLET PO (08:43)
--- NOTE | 2022-10-18 09:12 | PC.NURSE ---
This patient, Genesis Griggs, was transferred to [ [id number]] on 10/18/22 at 0905. Personal belongings sent with patient. Report given to [JESSA Freeman @ 05 at bedside ]. Appropriate documentation sent with patient.
--- NOTE | 2022-10-18 09:35 | PC.NURSE ---
at 09:23 patient had 11 beat run of VTACH. EKG complete. Dr. Mejia notified. Continue to monitor.
[2022-10-18 12:54] LABS: Glucose Point of Care 164 mg/dl (65-105)
--- NOTE | 2022-10-18 14:15 | PM.IMPN ---
Progress Note: A&P Assessment and Plan (1) Bradycardia: Code(s): R00.1 - Bradycardia, unspecified Status: Acute Assessment and Plan: Complete heart block on EKG. Asymptomatic Coumadin on hold for planned pacemaker in 2 stay on S aunt/impression Hold metoprolol Received: Consent chloride Pacer pads on (2) Essential (primary) hypertension: Code(s): I10 - Essential (primary) hypertension Status: Acute Assessment and Plan: -the patient has p.r.n. hydralazine. -hold lisinopril and metoprolol for now. Patient's heart rate is 30-40. (3) [facility]CI (current) use of anticoagulants: Code(s): Z79.01 - [facility]CI (current) use of anticoagulants Status: Acute Assessment and Plan: -holding Coumadin for possible procedure/pacemaker this next Thursday. -daily PT INR Continue to monitor INR (4) Mixed hyperlipidemia: Code(s): E78.2 - Mixed hyperlipidemia Status: Acute Assessment and Plan: -continue with atorvastatin (5) Type 2 diabetes mellitus without complications: Code(s): E11.9 - Type 2 diabetes mellitus without complications Status: Acute Assessment and Plan: -Accu-Cheks AC and HS with hypoglycemic protocol and sliding scale insulin -last hemoglobin A1c was 7.3 on 08/09/2022. Hold metformin Subjective Date/time seen: 10/18/22 14:15 Interval history: No overnight events. History reviewed. Denies any dizziness or lightheadedness. charge entry reviewed Review of Systems Review of Systems: All systems reviewed & are unremarkable except as noted in HPI and below Exam Narrative: General: Pleasant female in no acute distress HEENT:? Pupils equal reactive, sclera is clear, dry oral mucosa Neck:? Supple, no lymphadenopathy Respiratory:? Clear to auscultation bilaterally, adequate air entry, no wheezing Cardiac:? Bradycardia with irregular rhythm Abdomen:? Soft, nontender, nondistended, normoactive bowel sounds, obese Extremities:? 1+ pitting edema left lower extremities, pedal pulses Neuro:? Patient is awake, alert oriented x3, nonfocal Skin:? Warm and dry, no lesions noted Psych:? Normal affect and mentation Objective Data Vital Signs Vital Signs: Vital Signs - 24 hr 10/17/22 16:00 10/17/22 16:00 10/17/22 16:00 Temperature 98.6 F Pulse Rate 36 L 36 L Respiratory Rate 15 Blood Pressure 189/69 H Pulse Oximetry 99 Oxygen Delivery Room Air 10/17/22 18:00 10/17/22 19:10 10/17/22 18:00 Temperature Pulse Rate 35 L 35 L Respiratory Rate 18 Blood Pressure 180/55 H 165/64 H Pulse Oximetry 99 Oxygen Delivery 10/17/22 20:00 10/17/22 20:00 10/17/22 20:00 Temperature 98.4 F Pulse Rate 34 L 34 L Respiratory Rate 13 Blood Pressure 149/53 H Pulse Oximetry 100 Oxygen Delivery Room Air 10/17/22 22:00 10/18/22 00:00 10/18/22 00:00 Temperature 98.1 F Pulse Rate 31 L 36 L Respiratory Rate 17 Blood Pressure 166/59 H Pulse Oximetry 99 Oxygen Delivery Room Air 10/18/22 00:00 10/18/22 01:30 10/18/22 04:00 Temperature Pulse Rate 32 L Respiratory Rate Blood Pressure 152/68 H Pulse Oximetry Oxygen Delivery Room Air 10/18/22 02:00 10/18/22 04:00 10/18/22 04:02 Temperature 97.7 F Pulse Rate 34 L 30 L 31 L Respiratory Rate 14 Blood Pressure 147/88 H Pulse Oximetry 97 Oxygen Delivery 10/18/22 06:00 10/18/22 08:00 10/18/22 08:00 Temperature 97.4 F L Pulse Rate 30 L 31 L 31 L Respiratory Rate 15 Blood Pressure 155/53 H Pulse Oximetry 98 Oxygen Delivery 10/18/22 08:00 10/18/22 12:00 Temperature 97.5 F L Pulse Rate 35 L Respiratory Rate 18 Blood Pressure 146/51 H Pulse Oximetry 100 Oxygen Delivery Room Air Intake/Output Intake/Output: Intake & Output 10/15/22 10/16/22 10/17/22 10/18/22 23:59 23:59 23:59 23:59 Intake Total 1240 830 Output Total 600 210 Balance 640 620 Meds/Resul
[2022-10-18 17:39] LABS: Glucose Point of Care 102 mg/dl (65-105)
[2022-10-18] MEDS: ATORVASTATIN 10 MG TABLET PO (19:48)
[2022-10-18 20:53] LABS: Glucose Point of Care 126 mg/dl (65-105)
[2022-10-19] VITALS (17 sets, daily range): BP systolic 145–184; BP diastolic 43–88; PULSE 32–83; RESP 20–36; TEMP 35.7–36.6; O2SAT 97–100
[2022-10-19 04:52] LABS: Basophils Percent Auto 0.4 % (0.2-1.2); Eosinophils Absolute Auto 0.1 K/mm3 (0-0.3); Eosinophils Percent Auto 1.3 % (0-4.4); Hematocrit 38.8 % (37.0-47.0); Immature Granulocyte Absolute 0.04 K/mm3 (0.00-0.031); Immature Granulocyte Percent A 0.4 % (0-0.5); Lymphocytes Absolute Auto 1.59 K/mm3 (0.9-3.2); Lymphocytes Percent Auto 16.4 % (18.3-44.2); Mean Corpuscular HGB Conc 30.9 g/dl (32-36); Mean Corpuscular Hemoglobin 24.6 pg (26-34); Mean Corpuscular Volume 79.7 fl (80-100); Mean Platelet Volume 10.1 fl (7.4-10.4); Monocytes Absolute Auto 0.6 K/mm3 (0.1-0.6); Monocytes Percent Auto 6.2 % (2.6-8.5); Neutrophils Absolute Auto 7.3 K/mm3 (1.3-6.7); Neutrophils Percent Auto 75.3 % (45.5-73.1); Platelet Count Result 309 k/mm3 (150-375); Red Blood Count 4.87 M/mm3 (4.2-5.4); Red Cell Distribution Width 17.9 % (11.5-14.5); White Blood Count 9.7 K/mm3 (4.5-10.0)
[2022-10-19 05:03] LABS: Alanine Aminotransferase 46 U/L (6-35); Albumin Level 3.9 g/dL (3.5-5.1); Alkaline Phosphatase 144 U/L (38-126); Anion Gap 8 mmol/L (8-16); Aspartate Amino Transferase 31 U/L (14-36); Blood Urea Nitrogen 23 mg/dL (7-17); Calcium 8.7 mg/dL (8.4-10.2); Carbon Dioxide 18 mmol/L (22-30); Chloride 109 mmol/L (98-107); Estimated CRCL calculation 70 ml/min; Estimated Glomerular Filt Rate 51; Glucose 131 mg/dL (65-110); Magnesium 1.9 mg/dL (1.6-2.3); Potassium 4.2 mmol/L (3.4-5.0); Sodium 135 mmol/L (137-145)
[2022-10-19 08:16] LABS: Glucose Point of Care 117 mg/dl (65-105)
[2022-10-19] MEDS: ASPIRIN 81 MG ENTERIC TABLET PO (09:04)
[2022-10-19 10:11] LABS: Prothrombin Time 30.3 Seconds (11.1-14.7)
--- NOTE | 2022-10-19 10:46 | PM.PNCARD ---
Progress Note: A&P Assessment and Plan (1) High degree atrioventricular block: Code(s): I44.39 - Other atrioventricular block Status: Acute Plan 61-year-old lady with acquired complete heart block requiring pacemaker implantation which is scheduled for Thursday. Because her INR is not coming down at like I would expect I am going to give her some vitamin K today. She did have an episode of asymptomatic atrial flutter/atrial fib yesterday which was self-limited. As her AV node function is non-existent this did not change her ventricular rhythm at all. Tomy Mejia MD [facility] Subjective Date/time seen: Date of service: 10/19/22 10:46 Interval history: Follow-up visit in this 61-year-old lady with: Symptomatic bradycardia with acquired complete heart block. Plans are for pacemaker implantation Thursday. Discussed with patient this morning and her again the details of the procedure. Also discussed with them id of giving her some vitamin K this morning as her INR is still 3 Exam Const: General: comfortable and no acute distress Other: pleasant obese lady no complaints while at bed rest HENMT: Mouth: Yes moist mucous membranes Eyes: Sclera: sclerae normal Neck: Neck: supple Other: Carotid pulses are intact bilaterally there are no audible bruits. The patient has a very thick neck I cannot discern presence or absence of JVD Resp: Effort & Inspection: normal respiratory effort Auscultation: clear to auscultation bilaterally Cardio: Rate: bradycardic Rhythm: regular rhythm Other: PMI is not palpable no murmur no gallop GI: Auscultation: normal bowel sounds Skin: General skin exam: normal color Neuro: Other: alert and oriented x3 Extrem: Other: adequate perfusion, no pitting edema Objective Data Vital Signs Vital Signs: Vital Signs - 24 hr 10/18/22 12:00 10/18/22 12:00 10/18/22 16:00 Temperature 36.4 C L Pulse Rate 35 L Respiratory Rate 18 Blood Pressure 146/51 H Pulse Oximetry 100 100 100 Oxygen Delivery Room Air Room Air 10/18/22 16:00 10/18/22 12:00 10/18/22 14:00 Temperature 36.4 C Pulse Rate 34 L 35 L 35 L Respiratory Rate 22 H Blood Pressure 143/48 H Pulse Oximetry 99 Oxygen Delivery 10/18/22 16:00 12/31/22 18:00 10/18/22 20:00 Temperature 36.1 C L Pulse Rate 35 L 37 L 36 L Respiratory Rate 20 Blood Pressure 171/62 H Pulse Oximetry 99 Oxygen Delivery 10/18/22 20:00 10/18/22 20:00 10/18/22 22:00 Temperature Pulse Rate 37 L 34 L Respiratory Rate Blood Pressure Pulse Oximetry Oxygen Delivery Room Air 10/18/22 23:53 10/19/22 00:00 10/19/22 00:00 Temperature 36.4 C L Pulse Rate 34 L 33 L Respiratory Rate 20 Blood Pressure 158/64 H Pulse Oximetry 98 Oxygen Delivery Room Air 10/19/22 02:00 10/19/22 04:00 10/19/22 04:00 Temperature 36.3 C L Pulse Rate 33 L 83 Respiratory Rate 20 Blood Pressure 157/47 H Pulse Oximetry 98 Oxygen Delivery Room Air 10/19/22 04:00 10/19/22 06:00 10/19/22 08:15 Temperature 35.7 C L Pulse Rate 36 L 32 L 34 L Respiratory Rate 22 H Blood Pressure 178/53 H Pulse Oximetry 98 Oxygen Delivery 10/19/22 08:00 Temperature Pulse Rate Respiratory Rate Blood Pressure Pulse Oximetry Oxygen Delivery Room Air Intake/Output Intake/Output: Intake & Output 10/16/22 10/17/22 10/18/22 10/19/22 23:59 23:59 23:59 23:59 Intake Total 1240 2170 450 Output Total 600 1010 750 Balance 640 1160 -300 Meds/Results Medications: Active Medications Generic Name Dose Route Start Last Admin Trade Name Karissa PRN Reason Stop Dose Admin Acetaminophen 650 mg 10/17/22 10:36 10/17/22 19:11 Acetaminophen 325 Mg Tablet PO 650 mg Q4H PRN Administration Mild Pain (1-3) or Fever Aspirin 81 mg 10/18/22 09:00 10/19/22 09:04 Aspirin 81 Mg Enteric Tablet PO 81 mg DAILY [facility] Ad
[2022-10-19 12:03] LABS: Glucose Point of Care 116 mg/dl (65-105)
[2022-10-19] MEDS: PHYTONADIONE INJ 10 MG/ML AMP SUB-Q (12:20)
--- NOTE | 2022-10-19 13:48 | PM.IMPN ---
Progress Note: A&P Assessment and Plan (1) Bradycardia: Code(s): R00.1 - Bradycardia, unspecified Status: Acute Assessment and Plan: Complete heart block on EKG. Asymptomatic Coumadin on hold for planned pacemaker in 2 stay on S aunt/impression Hold metoprolol Received glucagon and calcium chloride Pacer pads on (2) Essential (primary) hypertension: Code(s): I10 - Essential (primary) hypertension Status: Acute Assessment and Plan: -the patient has p.r.n. hydralazine. -hold lisinopril and metoprolol for now. Patient's heart rate is 30-40. 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 -daily PT INR Continue to monitor INR Vitamin K for reversal as ordered by [employer] products glazer (4) Mixed hyperlipidemia: Code(s): E78.2 - Mixed hyperlipidemia Status: Acute Assessment and Plan: -continue with atorvastatin (5) Type 2 diabetes mellitus without complications: Code(s): E11.9 - Type 2 diabetes mellitus without complications Status: Acute Assessment and Plan: -Accu-Cheks AC and HS with hypoglycemic protocol and sliding scale insulin -last hemoglobin A1c was 7.3 on 08/09/2022. Hold metformin Subjective Date/time seen: 10/19/22 13:48 Interval history: No overnight events. No new complaints. Remains bradycardic with complete heart block telemetry reviewed Review of Systems Review of Systems: All systems reviewed & are unremarkable except as noted in HPI and below Exam Narrative: General: Pleasant female in no acute distress HEENT:? Pupils equal reactive, sclera is clear, dry oral mucosa Neck:? Supple, no lymphadenopathy Respiratory:? Clear to auscultation bilaterally, adequate air entry, no wheezing Cardiac:? Bradycardia with irregular rhythm Abdomen:? Soft, nontender, nondistended, normoactive bowel sounds, obese Extremities:? 1+ pitting edema left lower extremities, pedal pulses Neuro:? Patient is awake, alert oriented x3, nonfocal Skin:? Warm and dry, no lesions noted Psych:? Normal affect and mentation Objective Data Vital Signs Vital Signs: Vital Signs - 24 hr 12/31/22 16:00 10/18/22 16:00 10/18/22 14:00 Temperature 97.6 F Pulse Rate 34 L 35 L Respiratory Rate 22 H Blood Pressure 143/48 H Pulse Oximetry 100 99 Oxygen Delivery Room Air 10/18/22 16:00 10/18/22 18:00 10/18/22 20:00 Temperature 96.9 F L Pulse Rate 35 L 37 L 36 L Respiratory Rate 20 Blood Pressure 171/62 H Pulse Oximetry 99 Oxygen Delivery 10/18/22 20:00 10/18/22 20:00 10/18/22 22:00 Temperature Pulse Rate 37 L 34 L Respiratory Rate Blood Pressure Pulse Oximetry Oxygen Delivery Room Air 10/18/22 23:53 10/19/22 00:00 10/19/22 00:00 Temperature 97.5 F L Pulse Rate 34 L 33 L Respiratory Rate 20 Blood Pressure 158/64 H Pulse Oximetry 98 Oxygen Delivery Room Air 10/19/22 02:00 10/19/22 04:00 10/19/22 04:00 Temperature 97.3 F L Pulse Rate 33 L 83 Respiratory Rate 20 Blood Pressure 157/47 H Pulse Oximetry 98 Oxygen Delivery Room Air 10/19/22 04:00 10/19/22 06:00 10/19/22 08:15 Temperature 96.2 F L Pulse Rate 36 L 32 L 34 L Respiratory Rate 22 H Blood Pressure 178/53 H Pulse Oximetry 98 Oxygen Delivery 10/19/22 08:00 10/19/22 08:00 10/19/22 10:00 Temperature Pulse Rate 33 L 40 L Respiratory Rate Blood Pressure Pulse Oximetry Oxygen Delivery Room Air 10/19/22 12:03 10/19/22 12:00 10/19/22 12:00 Temperature 96.7 F L Pulse Rate 35 L 36 L Respiratory Rate 36 H Blood Pressure 174/53 H Pulse Oximetry 98 Oxygen Delivery Room Air Intake/Output Intake/Output: Intake & Output 10/16/2210/17
[2022-10-19] MEDS: lisinopriL 5 MG TABLET PO (14:58)
[2022-10-19] MEDS: hydrALAZINE HCL 20 MG/ML VIAL 10 MG IV PUSH (15:05)
[2022-10-19 15:25] LABS: Glucose Point of Care 94 mg/dl (65-105)
[2022-10-19] MEDS: FUROSEMIDE INJ 40 MG/4 ML VIAL 20 MG IV PUSH (17:16)
[2022-10-19] MEDS: ATORVASTATIN 10 MG TABLET PO (20:02)
[2022-10-19 20:08] LABS: Glucose Point of Care 145 mg/dl (65-105)
[2022-10-20] VITALS (13 sets, daily range): BP systolic 104–173; BP diastolic 47–77; PULSE 47–98; RESP 12–97; TEMP 36–36.7; O2SAT 97–100
[2022-10-20 04:35] LABS: Basophils Percent Auto 0.2 % (0.2-1.2); Eosinophils Absolute Auto 0.2 K/mm3 (0-0.3); Eosinophils Percent Auto 2.7 % (0-4.4); Hematocrit 36.3 % (37.0-47.0); Hemoglobin 11.1 g/dL (12.0-15.0); Immature Granulocyte Absolute 0.03 K/mm3 (0.00-0.031); Immature Granulocyte Percent A 0.3 % (0-0.5); Lymphocytes Absolute Auto 1.47 K/mm3 (0.9-3.2); Lymphocytes Percent Auto 17.1 % (18.3-44.2); Mean Corpuscular HGB Conc 30.6 g/dl (32-36); Mean Corpuscular Hemoglobin 24.7 pg (26-34); Mean Corpuscular Volume 80.7 fl (80-100); Mean Platelet Volume 9.7 fl (7.4-10.4); Monocytes Absolute Auto 0.6 K/mm3 (0.1-0.6); Monocytes Percent Auto 6.4 % (2.6-8.5); Neutrophils Absolute Auto 6.3 K/mm3 (1.3-6.7); Neutrophils Percent Auto 73.3 % (45.5-73.1); Platelet Count Result 256 k/mm3 (150-375); White Blood Count 8.6 K/mm3 (4.5-10.0)
[2022-10-20 04:48] LABS: Alanine Aminotransferase 37 U/L (6-35); Albumin Level 3.5 g/dL (3.5-5.1); Alkaline Phosphatase 125 U/L (38-126); Anion Gap 7 mmol/L (8-16); Aspartate Amino Transferase 28 U/L (14-36); Bilirubin,Total 1.2 mg/dL (0.2-1.3); Blood Urea Nitrogen 21 mg/dL (7-17); Calcium 8.4 mg/dL (8.4-10.2); Carbon Dioxide 21 mmol/L (22-30); Chloride 108 mmol/L (98-107); Estimated CRCL calculation 78 ml/min; Estimated Glomerular Filt Rate 57; Glucose 112 mg/dL (65-110); Magnesium 1.7 mg/dL (1.6-2.3); Potassium 3.7 mmol/L (3.4-5.0); Sodium 136 mmol/L (137-145)
[2022-10-20 04:51] LABS: INR 1.9; Prothrombin Time 21.1 Seconds (11.1-14.7)
[2022-10-20 08:04] LABS: Glucose Point of Care 113 mg/dl (65-105)
[2022-10-20] MEDS: ASPIRIN 81 MG ENTERIC TABLET PO (08:49)
[2022-10-20] MEDS: lisinopriL 5 MG TABLET PO (08:49)
--- NOTE | 2022-10-20 09:26 | ECG_ITS ---
Measurements Intervals [place] Rate: 45 P: VT: 0 QRS: -47 QRSD: 142 T: 56 QT: 575 QTc: 499 Interpretive Statements SINUS RHYTHM WITH 2ND DEGREE AV BLOCK, 2:1 AV CONDUCTION LEFT BUNDLE BRANCH BLOCK BASELINE ARTIFACT- V6 ABNORMAL ECG COMPARED TO ECG 10/18/2022 09:27:01 THIRD DEGREE AV BLOCK CHANGES TO SECOND DEGREE AV BLOCK Electronically Signed On 10-20-2022 11:23:21 DIRECTOR POST by Vu Leon D.O.
--- NOTE | 2022-10-20 09:33 | PM.PNCARD ---
Progress Note: A&P Assessment and Plan (1) High degree atrioventricular block: Code(s): I44.39 - Other atrioventricular block Status: Acute (2) Bradycardia: Code(s): R00.1 - Bradycardia, unspecified Status: Acute Plan 61-year-old woman with acquired complete heart block symptomatic with bradycardia and plans are for implantation of permanent pacemaker tomorrow. INR has come down to 1.9 with dose of vitamin K yesterday. I am going to repeat another dose today to ensure that she has sufficient reversal of her anticoagulation for tomorrow's procedure. Procedure once again discussed in detail with the patient. I am not sure that it is necessary that she continue anticoagulation indefinitely following this implant as the thrombotic complication that resulted in her being on Coumadin occurred 20 years ago in the setting of chemotherapy for lymphoma. This issue can be revisited with her PCP and if necessary a security test engineer as well. Today's telemetry demonstrates she is less tachycardic and now has 2-1 conduction. Tomy Mejia MD [facility] Subjective Date/time seen: Date of service: 10/20/22 09:33 Interval history: Follow-up visit in this 61-year-old woman with: Symptomatic bradycardia with complete heart block. Patient has been also anticoagulated with Coumadin following blood clots complicating chemotherapy 20 years ago. Anticipating pacemaker implantation. Patient feels relatively well this morning offers no complaints. Exam Const: General: comfortable and no acute distress Other: Very pleasant obese lady no distress HENMT: Mouth: Yes moist mucous membranes Eyes: Sclera: sclerae normal Neck: Neck: supple Other: Normal carotid pulses Resp: Effort & Inspection: normal respiratory effort Auscultation: clear to auscultation bilaterally Cardio: Rate: bradycardic Rhythm: regular rhythm Other: No murmur no gallop GI: GI Palp: Yes Soft to palpation Auscultation: normal bowel sounds Skin: General skin exam: normal color Neuro: Other: Alert and oriented x3 Extrem: General: normal to inspection Objective Data Vital Signs Vital Signs: Vital Signs - 24 hr 10/19/22 10:00 10/19/22 12:03 10/19/22 12:00 Temperature 35.9 C L Pulse Rate 40 L 35 L Respiratory Rate 36 H Blood Pressure 174/53 H Pulse Oximetry 98 Oxygen Delivery Room Air 10/19/22 12:00 10/19/22 14:00 10/19/22 14:55 Temperature Pulse Rate 36 L 37 L 40 L Respiratory Rate Blood Pressure 184/60 H Pulse Oximetry Oxygen Delivery 10/19/22 15:30 10/19/22 16:30 10/19/22 17:44 Temperature 36.1 C L Pulse Rate 38 L 38 L 48 L Respiratory Rate 22 H Blood Pressure 145/88 H Pulse Oximetry Oxygen Delivery 10/19/22 20:00 10/19/22 20:00 10/19/22 20:00 Temperature 36.5 C Pulse Rate 48 L 42 L 43 L Respiratory Rate 22 H 20 Blood Pressure 149/43 H Pulse Oximetry 98 100 Oxygen Delivery Room Air 10/19/22 22:00 10/19/22 23:32 10/20/22 00:00 Temperature 36.6 C Pulse Rate 56 L 62 58 L Respiratory Rate 20 Blood Pressure 159/51 H Pulse Oximetry 97 98 Oxygen Delivery Room Air 10/20/22 00:00 10/20/22 02:00 10/20/22 04:00 Temperature 36.7 C Pulse Rate 56 L 61 98 Respiratory Rate 20 Blood Pressure 138/58 L Pulse Oximetry 99 Oxygen Delivery 10/20/22 04:00 10/20/22 04:00 10/20/22 06:00 Temperature Pulse Rate 66 58 L 47 L Respiratory Rate Blood Pressure Pulse Oximetry 98 Oxygen Delivery Room Air 10/20/22 08:00 10/20/22 08:00 10/20/22 08:00 Temperature 36.0 C L Pulse Rate 49 L 51 L 51 L Respiratory Rate 16 Blood Pressure 159/59 H Pulse Oximetry 100 99 Oxygen Delivery Room Air Intake/Output Intake/Output: Intake & Output 10/17/22 10/18/22 10/19/22 10/20/22 23:59 23:59 23:59 23:59 Intake Total 1240 2170 1640 710 Output Total 600 1010 1150 2150 Balance 640 1160 091 -5361 Meds/Results Med
[2022-10-20] MEDS: PHYTONADIONE INJ 10 MG/ML AMP SUB-Q (10:29)
[2022-10-20 11:58] LABS: Glucose Point of Care 131 mg/dl (65-105)
--- NOTE | 2022-10-20 15:36 | PM.IMPN ---
Progress Note: A&P Assessment and Plan (1) Bradycardia: Code(s): R00.1 - Bradycardia, unspecified Status: Acute Assessment and Plan: Complete heart block on EKG. Asymptomatic Coumadin on hold for planned pacemaker implantation in a.m. INR reversed with vitamin K Hold metoprolol Received glucagon and calcium chloride Pacer pads on (2) Essential (primary) hypertension: Code(s): I10 - Essential (primary) hypertension Status: Acute Assessment and Plan: -the patient has p.r.n. hydralazine. -hold lisinopril and metoprolol for now. Patient's heart rate is 30-40. Resume lisinopril as blood pressure has been high (3) longterm (current) use of anticoagulants: Code(s): Z79.01 - vermin exterminator (current) use of anticoagulants Status: Acute Assessment and Plan: -holding Coumadin for possible procedure/pacemaker this next Thursday. -daily PT INR Continue to monitor INR Vitamin K for reversal as ordered by bagging salvager (4) Mixed hyperlipidemia: Code(s): E78.2 - Mixed hyperlipidemia Status: Acute Assessment and Plan: -continue with atorvastatin (5) Type 2 diabetes mellitus without complications: Code(s): E11.9 - Type 2 diabetes mellitus without complications Status: Acute Assessment and Plan: -Accu-Cheks AC and HS with hypoglycemic protocol and sliding scale insulin -last hemoglobin A1c was 7.3 on 08/09/2022. 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 On anticoagulation. She had a port in the past for chemotherapy Subjective Date/time seen: 10/20/22 15:36 Interval history: She reported some swelling in her right arm yesterday. Unclear etiology. Feels a little bit better today. Heart rate is improved. Telemetry reviewed Review of Systems Review of Systems: All systems reviewed & are unremarkable except as noted in HPI and below Exam Narrative: General: Pleasant female in no acute distress HEENT:? Pupils equal reactive, sclera is clear, dry oral mucosa Neck:? Supple, no lymphadenopathy Respiratory:? Clear to auscultation bilaterally, adequate air entry, no wheezing Cardiac:? Bradycardia with irregular rhythm Abdomen:? Soft, nontender, nondistended, normoactive bowel sounds, obese Extremities:? 1+ pitting edema left lower extremities, pedal pulses, right arm swollen Neuro:? Patient is awake, alert oriented x3, nonfocal Skin:? Warm and dry, no lesions noted Psych:? Normal affect and mentation Objective Data Vital Signs Vital Signs: Vital Signs - 24 hr 10/19/22 16:30 10/19/22 17:44 10/19/22 20:00 Temperature Pulse Rate 38 L 48 L 48 L Respiratory Rate 22 H Blood Pressure Pulse Oximetry 98 Oxygen Delivery Room Air 10/19/22 20:00 10/19/22 20:00 10/19/22 22:00 Temperature 97.7 F Pulse Rate 42 L 43 L 56 L Respiratory Rate 20 Blood Pressure 149/43 H Pulse Oximetry 100 Oxygen Delivery 10/19/22 23:32 10/20/22 00:00 10/20/22 00:00 Temperature 97.9 F Pulse Rate 62 58 L 56 L Respiratory Rate 20 Blood Pressure 159/51 H Pulse Oximetry 97 98 Oxygen Delivery Room Air 10/20/22 02:00 10/20/22 04:00 10/20/22 04:00 Temperature 98.0 F Pulse Rate 61 98 66 Respiratory Rate 20 Blood Pressure 138/58 L Pulse Oximetry 99 Oxygen Delivery 10/20/22 04:00 10/20/22 06:00 10/20/22 08:00 Temperature 96.8 F L Pulse Rate 58 L 47 L 49 L Respiratory Rate 16 Blood Pressure 159/59 H Pulse Oximetry 98 100 Oxygen Delivery Room Air 10/20/22 08:00 10/20/22 08:00 10/20/22 10:00 Temperature Pulse Rate 51 L 51 L 84 Respiratory Rate Blood Pressure Pulse Oximetry 99 Oxygen Delivery Room Air 10/20/22 12:00 10/20/22 12:00 10/20/22 12:00 Temperature 97.3 F L Pulse Rate 50 L 50 L 64 Respiratory Rate 97 H 18 Blood Pressure 173/59 H Pulse Oximetry 100 Oxygen Delivery Room Air Inta
[2022-10-20 16:33] LABS: Glucose Point of Care 102 mg/dl (65-105)
[2022-10-20] MEDS: ATORVASTATIN 10 MG TABLET PO (20:04)
[2022-10-20 20:39] LABS: Glucose Point of Care 129 mg/dl (65-105)
[2022-10-21] VITALS (21 sets, daily range): BP systolic 125–165; BP diastolic 44–76; PULSE 49–99; RESP 11–22; TEMP 36.3–36.7; O2SAT 96–100
[2022-10-21 07:54] LABS: INR 1.3; Prothrombin Time 15.5 Seconds (11.1-14.7)
[2022-10-21 08:33] LABS: Glucose Point of Care 130 mg/dl (65-105)
[2022-10-21] MEDS: ASPIRIN 81 MG ENTERIC TABLET PO (08:52)
[2022-10-21] MEDS: lisinopriL 5 MG TABLET PO (08:52)
--- NOTE | 2022-10-21 09:45 | P.HPUP_ITS ---
History and Physical Update Update Date/Time: 10/21/22 09:45 History and Physical has been reviewed, including an updated exam of the patient. Pt has no known JODY, though says she snores a lot. Right handed, no clavicular fx. INR down to 1.3 There are NO changes in the patient 's condition. Risks, benefits, and alternatives have been discussed and questions answered. Reviewed risks of pacemaker implant with patient. These include breathing problems( particularly with her obesity; BMI 51), allergic reactions, bleeding, infection, pneumothorax, cardiac puncture, need for unanticipated surgery, lead dislodgement among others.Patient agrees to proceed with procedure.
--- NOTE | 2022-10-21 09:49 | WPDMODSED ---
Moderate Sedation Note-Pt Data Patient Data Diagnosis: symptomatic second-degree AV block and intermittent complete heart block Present Complaint: Patient admitted with fatigue and bradycardia, found to have intermittent complete heart block and second-degree AV block type 2. She appears to be in mild diastolic CHF. Echo shows normal systolic fxn. Chronically anticoagulated with warfarin which has been held. INR is down to 1.3 today. History of morbid obesity, remote history of non-Hodgkin's lymphoma, DVT and PE. Has a chronic nonocclusive thrombus of the right IJ. No known sleep apnea. Procedure to be performed/Plan: Conscious sedation Venogram Implantation of permanent dual-chamber pacemaker Allergies Allergy/AdvReac Type Severity Reaction Status Date / Time No Known Allergies Allergy Verified 10/16/22 14:02 Home Medications Medication Instructions Recorded Confirmed Type aspirin 81 mg tablet,delayed 81 mg PO DAILY 12/05/19 10/17/22 History release metoprolol succinate 50 mg 50 mg PO DAILY #90 tabs 09/24/22 10/17/22 Rx tablet,extended release 24 hr lisinopril 5 mg tablet 5 mg PO DAILY #90 tabs 10/07/22 10/17/22 Rx metformin 500 mg tablet 500 mg PO BID 10/16/22 10/17/22 History atorvastatin 10 mg tablet 10 mg PO HS 10/17/22 10/17/22 History warfarin 5 mg tablet 5 mg PO HS 10/17/22 10/17/22 History Current Medications: Active Medications Acetaminophen (Acetaminophen 325 Mg Tablet) 650 mg PO Q4H PRN PRN Reason: Mild Pain (1-3) or Fever Last Admin: 10/17/22 19:11 Dose: 650 mg Aspirin (Aspirin 81 Mg Enteric Tablet) 81 mg PO DAILY [facility] Last Admin: 10/21/22 08:52 Dose: 81 mg Atorvastatin Calcium (Atorvastatin 10 Mg Tablet) 10 mg PO HS [facility] Last Admin: 10/20/22 20:04 Dose: 10 mg Dextrose (Dextrose 50% 25 Gm/50 Ml Syringe) 12.5 gm IV PUSH PRN PRN; Protocol PRN Reason: Hypoglycemia Glucagon (Glucagon For Inj 1 Mg Vial) 1 mg IM PRN PRN; Protocol PRN Reason: Hypoglycemia Glucose (Glucose Oral Gel 15 Gm Of Glucse In 37.5 Gm Tube) 15 gm PO PRN PRN; Protocol PRN Reason: Hypoglycemia Hydralazine HCl (Hydralazine Hcl 20 Mg/Ml Vial) 10 mg IV PUSH Q4H PRN PRN Reason: Blood Pressure - High Last Admin: 10/19/22 15:05 Dose: 10 mg Dextrose (Dextrose 5% 1,000 Ml) 1,000 mls @ 100 mls/hr IVPB PRN PRN; Protocol PRN Reason: Hypoglycemia Insulin Aspart (Insulin Aspart (*Bkc) 100 Units/Ml) 3 - 6 units SUB-Q TIDWM LEANA; Protocol Last Admin: 10/21/22 08:39 Dose: Not Given Lisinopril (Lisinopril 5 Mg Tablet) 5 mg PO DAILY [facility] Last Admin: 10/21/22 08:52 Dose: 5 mg Sedation/Anesthesia: No previous sedation/anesthesia problems (including family history). 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 had chemotherapy and bone marrow transplant Stroke Visual field loss following cerebrovascular accident Surgical History Surgical History H/O colonoscopy H/O cystoscopy H/O lymph node biopsy History of appendectomy History of bone marrow transplant History of removal of Port-a-Cath History of tonsillectomy Hx of cholecystectomy Family History Family History Father Hypertension, Onset Age: 46 Family history of elevated blood lipids, Onset Age: 46 Acute myocardial infarction Family history of coronary artery disease, Onset Age: 46 Hyperlipidemia Sibling FH: testicular cancer Family history of Hodgkin's lymphoma Mother Family history of malignant neoplasm of ovary Other Family history of malignant neoplasm Social History Social History Social H
--- NOTE | 2022-10-21 13:35 | PM.OP ---
Procedure Note - Brief Procedure Note - Brief Date of procedure: 10/21/22 Pre-op diagnosis: Complete Heart Block Post-op diagnosis: Same Procedure performed: Conscious sedation Venogram Implantation of a permanent dual-chamber Biotron[employer] pacemaker Description of procedure: uneventful implantation permanent dual-chamber Surgeon: Nicki Kramer MD Condition: Stable Disposition: Floor Findings: intermittent atrial flutter versus atrial tachycardia
--- NOTE | 2022-10-21 13:36 | ECG_ITS ---
Measurements Intervals [place] Rate: 76 P: 60 NC: 194 QRS: -74 QRSD: 170 T: 95 QT: 443 QTc: 498 Interpretive Statements ATRIAL SENSE- ELECTRONIC VENTRICULAR PACEMAKER BASELINE ARTIFACT- I, II, AVR NO FURTHER INTERPRETATION IS POSSIBLE ATYPICAL ECG COMPARED TO ECG 10/20/2022 10:28:58 ELECTRONIC VENTRICULAR PACEMAKER NOW PRESENT Electronically Signed On 10-21-2022 14:24:34 QUARTZ MINER by Vu Leon D.O.
--- NOTE | 2022-10-21 15:52 | PM.IMPN ---
Progress Note: A&P Assessment and Plan (1) Bradycardia: Code(s): R00.1 - Bradycardia, unspecified Status: Acute Assessment and Plan: Complete heart block on EKG. Asymptomatic Coumadin on hold for planned pacemaker implantation in a.m. INR reversed with vitamin K Hold metoprolol Received glucagon and calcium chloride Pacer pads on Planned pacemaker implantation today (2) Essential (primary) hypertension: Code(s): I10 - Essential (primary) hypertension Status: Acute Assessment and Plan: -the patient has p.r.n. hydralazine. -hold lisinopril and metoprolol for now. Patient's heart rate is 30-40. Resume lisinopril as blood pressure has been high (3) senior living (current) use of anticoagulants: Code(s): Z79.01 - senior living (current) use of anticoagulants Status: Acute Assessment and Plan: -holding Coumadin for possible procedure/pacemaker this next Thursday. -daily PT INR Continue to monitor INR Vitamin K for reversal as ordered by ese teacher (4) Mixed hyperlipidemia: Code(s): E78.2 - Mixed hyperlipidemia Status: Acute Assessment and Plan: -continue with atorvastatin (5) Type 2 diabetes mellitus without complications: Code(s): E11.9 - Type 2 diabetes mellitus without complications Status: Acute Assessment and Plan: -Accu-Cheks AC and HS with hypoglycemic protocol and sliding scale insulin -last hemoglobin A1c was 7.3 on 08/09/2022. 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 On anticoagulation. She had a port in the past for chemotherapy Subjective Date/time seen: 10/21/22 15:52 Interval history: No overnight events. For pacemaker implantation this afternoon. No shortness of breath or chest pain. Review of Systems Review of Systems: All systems reviewed & are unremarkable except as noted in HPI and below Exam Narrative: General: Pleasant female in no acute distress HEENT:? Pupils equal reactive, sclera is clear, dry oral mucosa Neck:? Supple, no lymphadenopathy Respiratory:? Clear to auscultation bilaterally, adequate air entry, no wheezing Cardiac:? Bradycardia with irregular rhythm Abdomen:? Soft, nontender, nondistended, normoactive bowel sounds, obese Extremities:? 1+ pitting edema lower extremities, pedal pulses, right arm swollen but improved slightly Neuro:? Patient is awake, alert oriented x3, nonfocal Skin:? Warm and dry, no lesions noted Psych:? Normal affect and mentation Objective Data Vital Signs Vital Signs: Vital Signs - 24 hr 10/20/22 16:00 10/20/22 16:00 10/20/22 16:00 Temperature 97.8 F Pulse Rate 50 L 49 L 50 L Respiratory Rate 12 97 H Blood Pressure 167/77 H Pulse Oximetry 100 Oxygen Delivery Room Air 10/20/22 18:00 10/20/22 20:00 10/20/22 20:00 Temperature 97.7 F Pulse Rate 58 L 55 L Respiratory Rate 20 Blood Pressure 104/77 Pulse Oximetry 97 Oxygen Delivery Room Air 10/20/22 20:00 10/20/22 22:56 10/20/22 22:00 Temperature 97.8 F Pulse Rate 55 L 54 L 68 Respiratory Rate 20 Blood Pressure 147/47 H Pulse Oximetry 97 Oxygen Delivery 10/21/22 00:00 10/21/22 00:00 10/21/22 02:00 Temperature Pulse Rate 67 79 Respiratory Rate Blood Pressure Pulse Oximetry Oxygen Delivery Room Air 10/21/22 04:00 10/21/22 04:00 10/21/22 04:00 Temperature 97.9 F Pulse Rate 67 49 L Respiratory Rate 20 Blood Pressure 159/45 H Pulse Oximetry 98 Oxygen Delivery Room Air 10/21/22 06:00 10/21/22 08:00 10/21/22 08:00 Temperature 97.7 F Pulse Rate 62 49 L 50 L Respiratory Rate 16 Blood Pressure 153/62 H Pulse Oximetry 97 Oxygen Delivery 10/21/22 10:00 10/21/22 08:00 10/21/22 14:00 Temperature 97.4 F L Pulse Rate 49 L 77 Respiratory Rate 22 H Blood Pressure 143/61 H Pulse Oximetry 97 Oxygen Delivery Room Air Room Air 10/21
[2022-10-21 16:47] LABS: Glucose Point of Care 106 mg/dl (65-105)
[2022-10-21] MEDS: ceFAZolin 2 GM/D5W 50 ML 2 GM/50 ML BAG IVPB (17:04)
[2022-10-21] MEDS: FUROSEMIDE INJ 40 MG/4 ML VIAL IV PUSH (17:04)
--- NOTE | 2022-10-21 19:26 | W.PM.PROC2 ---
Procedure Note - Detailed Date of Procedure 10/21/22 Pre-op Diagnosis Complete Heart Block Post-op Diagnosis Other (Status post dual chamber pacemaker) Procedure Performed Conscious sedation Venogram Implantation of a permanent dual-chamber pacemaker Surgeon Nicki Kramer MD Anesthesia Local (With conscious sedation) Indications 61-year-old female admitted with symptomatic bradycardia, complete heart block and intermittent second-degree AV block. Acute diastolic CHF. Normal left ventricular function. Transient atrial flutter noted yesterday. Findings Intermittent atrial flutter rate 130 during the procedure. Description of Procedure PROCEDURE PERFORMED: Conscious sedation Venogram Placement of a permanent dual-chamber pacemaker SITE: Left prepectoral area MEDICATIONS GIVEN IN SHREDDED FILLER MACHINE WRAPPER LAYER: Ancef 2 gram IV piggyback CONSCIOUS SEDATION: Assessment: The patient has no history of anesthesia problems. The patient's oropharynx is clear. The patient was deemed to be a good candidate for conscious sedation. The patient had continuous hemodynamic monitoring during the procedure. Start time: 11:43 a.m. Completion time: 1:28 p.m. Total conscious sedation time: 105 min Medications: Versed 4 mg, fentanyl 200 mcg IV push Trained observer: Ruel Betancourt RN Outcome: The patient tolerated the procedure well with no complications. PROCEDURE: After informed consent , the patient was brought to the aquatic life laborer and the left prepectoral area was prepped and draped in usual fashion . The patient received preop antibiotic and conscious sedation . The left prepectoral area was anesthetized with lidocaine . A venogram was performed showing the course of the left subclavian vein,which was patent though a bit tortuous. Next a skin incision was made and carried down to the prepectoral fascia. Hemostasis was obtained using electrocautery . The pacer pocket was formed. The left subclavian vein was easily accessed with the micropuncture technique, and a J-tipped guide wire was passed into the right ventricle under fluoroscopic guidance. The needle was withdrawn. A 2nd wire was introduced in an identical fashion. A 6 Malian safety sheath was passed over the lateral wire, the wire withdrawn, and the right ventricular lead was passed into the inferior vena cava under fluoroscopic guidance . The lead was then prolapsed through the tricuspid valve and advanced into the right ventricular apex. When suitable sensing and pacing thresholds were obtained, it was screwed into place. No extra cardiac stimulation was obtained using 10 volts. The sheath was withdrawn. Next, another 6 Malian safety sheath was passed over the more medial wire, the wire withdrawn, and the right atrial lead was passed into the inferior vena cava under fluoroscopic guidance. Right atrial lead was then pulled back to the level of the right atrium and manipulated into the right atrial appendage . When suitable sensing and pacing thresholds were obtained , it was screwed into place . The atrial lead need to be repositioned 3 times as it became dislodged. No extra cardiac stimulation was obtained using 10 volts. The sheath was withdrawn. Both leads were secured to the prepectoral fascia using 2-0 silk over their respective sleeves. The pocket was cleansed with antibiotic containing solution . The pulse generator was introduced into the operative field, and both leads were secured into the generator . A gentle tug showed the leads were securely fastened. The device was introduced into the pocket and sutured to the prepectoral fascia using 2-0 silk suture.. The subcutaneous tissues were closed in a double layer fashion with interrupted sutures, using 2-0 Vicryl suture , and the skin was closed in a continuous fashion using 4-0 Vicryl suture in a continuous fashion. The area was cleansed, and an Aquacel dressing was applied . The patient tolerated the procedure wel
[2022-10-21 19:56] LABS: Glucose Point of Care 149 mg/dl (65-105)
[2022-10-21] MEDS: ATORVASTATIN 10 MG TABLET PO (20:15)
[2022-10-22] VITALS (13 sets, daily range): BP systolic 117–156; BP diastolic 46–88; PULSE 69–113; RESP 18; TEMP 36.1–36.6; O2SAT 97–99
[2022-10-22] MEDS: ceFAZolin 2 GM/D5W 50 ML 2 GM/50 ML BAG IVPB (02:15)
[2022-10-22 05:27] LABS: Alanine Aminotransferase 29 U/L (6-35); Albumin Level 3.5 g/dL (3.5-5.1); Alkaline Phosphatase 129 U/L (38-126); Anion Gap 6 mmol/L (8-16); Aspartate Amino Transferase 32 U/L (14-36); Bilirubin,Total 1.3 mg/dL (0.2-1.3); Blood Urea Nitrogen 15 mg/dL (7-17); Calcium 8.3 mg/dL (8.4-10.2); Carbon Dioxide 25 mmol/L (22-30); Chloride 106 mmol/L (98-107); Estimated CRCL calculation 86 ml/min; Estimated Glomerular Filt Rate > 60; Glucose 128 mg/dL (65-110); Magnesium 1.7 mg/dL (1.6-2.3); Potassium 3.9 mmol/L (3.4-5.0); Sodium 137 mmol/L (137-145)
[2022-10-22 06:55] LABS: Basophils Percent Auto 0.5 % (0.2-1.2); Eosinophils Absolute Auto 0.1 K/mm3 (0-0.3); Eosinophils Percent Auto 1.6 % (0-4.4); Hematocrit 38.1 % (37.0-47.0); Hemoglobin 11.9 g/dL (12.0-15.0); Immature Granulocyte Absolute 0.03 K/mm3 (0.00-0.031); Immature Granulocyte Percent A 0.4 % (0-0.5); Lymphocytes Absolute Auto 1.19 K/mm3 (0.9-3.2); Lymphocytes Percent Auto 14.2 % (18.3-44.2); Mean Corpuscular HGB Conc 31.2 g/dl (32-36); Mean Corpuscular Hemoglobin 24.5 pg (26-34); Mean Corpuscular Volume 78.6 fl (80-100); Mean Platelet Volume 9.4 fl (7.4-10.4); Monocytes Absolute Auto 0.5 K/mm3 (0.1-0.6); Monocytes Percent Auto 6.4 % (2.6-8.5); Neutrophils Absolute Auto 6.5 K/mm3 (1.3-6.7); Neutrophils Percent Auto 76.9 % (45.5-73.1); Platelet Count Result 216 k/mm3 (150-375); Red Blood Count 4.85 M/mm3 (4.2-5.4); Red Cell Distribution Width 17.4 % (11.5-14.5); White Blood Count 8.4 K/mm3 (4.5-10.0)
[2022-10-22 07:54] LABS: Glucose Point of Care 110 mg/dl (65-105)
[2022-10-22] MEDS: ASPIRIN 81 MG ENTERIC TABLET PO (09:39)
[2022-10-22] MEDS: lisinopriL 5 MG TABLET PO (09:39)
[2022-10-22] MEDS: FUROSEMIDE INJ 40 MG/4 ML VIAL IV PUSH (09:39)
[2022-10-22 12:37] LABS: Glucose Point of Care 150 mg/dl (65-105)
--- NOTE | 2022-10-22 13:52 | PM.PNCARD ---
Progress Note: A&P Assessment and Plan (1) Complete heart block: Code(s): I44.2 - Atrioventricular block, complete Status: Acute Assessment and Plan: Patient admitted with complete heart block, symptomatic, with acute diastolic heart failure. Improved after pacemaker implant and IV furosemide. Reviewed patient's discharge instructions and follow-up. Okay for discharge from my point of view. (2) Status post biventricular pacemaker: Code(s): Z95.0 - Presence of cardiac pacemaker Status: Acute Assessment and Plan: Dual-chamber Biotronik pacemaker placed yesterday, normal function. (3) Atrial flutter: Code(s): I48.92 - Unspecified atrial flutter Status: Acute Assessment and Plan: Noted to have paroxysmal atrial flutter over the weekend, no prior history. Still having episodes of modest tachycardia, probably atrial flutter being conducted now to the ventricles. asymptomatic Metoprolol resumed will continue to monitor as an outpatient through the pacemaker interrogations patient has been taking warfarin for history of stroke. Recommend she continue warfarin, resume on . (4) Acute diastolic CHF (congestive heart failure): Code(s): I50.31 - Acute diastolic (congestive) heart failure Status: Acute Assessment and Plan: Acute diastolic CHF due to bradycardia and complete heart block. Improved with pacemaker and IV diuretics. Patient has other predisposing factors for ongoing diastolic CHF and will monitor as an outpatient. Subjective Date/time seen: 61-year-old woman with acquired complete heart block symptomatic with bradycardia and acute diastolic CHF. She underwent a dual-chamber pacemaker implant 10/21/2022. She was noted to have some transient atrial flutter prior to the implant. She has been chronically anticoagulated with warfarin for uncertain reasons. 10/22/22 13:52 Doign well after pacer implant. Given 2 doses of IV Lasix with good diuresis, edema better. NO SOB or CP. Tele shows normal pacer fxn. Occ has tachycardia, HR 100-105 BPM, prob in atrial flutter but p0acer is set to devlope Wenkebach behavior at fast HBso there is a lid on tachycardia. Interogation of pacer shows good thresholds. Review of Systems Review of Systems: No shortness of breath, chest pain, palpitations, dizziness. Up and about in her room with no problems. Minimal discomfort from the pacemaker. Exam Const: General: cooperative and comfortable; No confusion Orientation/consciousness: oriented to person, patient oriented x3 and No confusion Other: Obese HENMT: Mouth: Yes moist mucous membranes Eyes: General: appearance normal, both eyes and all related structures Neck: Neck: supple Resp: Effort & Inspection: normal respiratory effort Auscultation: clear to auscultation bilaterally Cardio: Rate: regular rate Rhythm: regular rhythm Heart sounds: no murmurs GI: Inspection: normal to inspection GI Palp: No abdominal tenderness Skin: Other: pacemaker bandage intact, no surrounding erythema or ecchymosis. Neuro: General: oriented to person, patient oriented x3 and No confusion Extrem: Right lower extremity: edema Left lower extremity: edema Other: Trace to mild lower extremity edema Psych: Appearance: grossly normal Mental Status: mental status grossly normal Objective Data Vital Signs Vital Signs: Vital Signs - 24 hr 10/21/22 14:00 10/21/22 14:30 10/21/22 14:15 Temperature 97.4 F L Pulse Rate 77 77 77 Respiratory Rate 22 H 20 18 Blood Pressure 143/61 H 125/56 L 125/56 L Pulse Oximetry 97 96 96 Oxygen Delivery Room Air Room Air Room Air 10/21/22 14:45 10/21/22 15:00 10/21/22 15:15 Temperature Pulse Rate 73 72 76 Respiratory Rate 12 11 L 16 Blood Pressure 140/61 139/76 134/63 Pulse Oximetry 98 96 97 Oxygen Delivery Room Air Room Air Room Air 10/21/22 15:21 10/21/22 17:15
[2022-10-22] MEDS: METOPROLOL SUCCINATE EXT REL 50 MG TABCR PO (17:01)
--- NOTE | 2022-10-22 18:05 | PM.DS ---
DS: Admitting Diagnosis Discharge Date 10/22/2022 Admitting Diagnosis Arrhythmia/palpitations DS: Discharge Diagnosis Discharge Diagnosis (1) Bradycardia: Code(s): R00.1 - Bradycardia, unspecified Status: Acute Assessment and Plan: Complete heart block on EKG. Asymptomatic Coumadin on hold for planned pacemaker implantation in a.m. INR reversed with vitamin K Hold metoprolol Received glucagon and calcium chloride Pacer pads on Planned pacemaker implantation today (2) Essential (primary) hypertension: Code(s): I10 - Essential (primary) hypertension Status: Acute Assessment and Plan: -the patient has p.r.n. hydralazine. -hold lisinopril and metoprolol for now. Patient's heart rate is 30-40. 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 -daily PT INR Continue to monitor INR Vitamin K for reversal as ordered by answerer (4) Mixed hyperlipidemia: Code(s): E78.2 - Mixed hyperlipidemia Status: Acute Assessment and Plan: -continue with atorvastatin (5) Type 2 diabetes mellitus without complications: Code(s): E11.9 - Type 2 diabetes mellitus without complications Status: Acute Assessment and Plan: -Accu-Cheks AC and HS with hypoglycemic protocol and sliding scale insulin -last hemoglobin A1c was 7.3 on 08/09/2022. 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 On anticoagulation. She had a port in the past for chemotherapy DS: Summary Hospital Course Reason for hospitalization: Arrhythmia/palpitations Narrative: This is a 61-year-old female patient who has had a history of hypertension and a CVA over 20 years ago.? The patient has been complaining of generalized weakness for the last 2 weeks.? She noticed that her heart rate has been low for the past several days.? She spoke with her primary care doctor who reduce her dosage of metoprolol to 25 mg daily..? The patient denies any dizziness or any syncopal episodes.? The patient denies any chest pain or shortness of breath.? No fever chills or cough.? The patient stated that her heart rate has been in the 30s.? The patient has been on both high Dipesh inhibitors and beta-blockers for her hypertension.? Her EKG shows a complete heart block.? Cardiology has seen the patient and reported that a pacemaker insertion most likely will occur on Thursday.? The patient is awake and alert and is talking.? White count is 12.0.? Creatinine is 1.3.? Blood sugar is 192 which is nonfasting.? Last A1c was 7.3 on 08/09/2022.? Liver enzymes are elevated AST slightly elevated 43 ALT slightly elevated 62 alkaline phosphatase 172.? 1st troponin is nonreactive.? BNP is 5170.? The pan washer hand has been consulted has already seen the patient.? The patient was receiving an echo during my examination.? The patient was found to be negative for influenza A/B and COVID.? The patient is being admitted to inpatient status on 10/17/2022. Hospital Course: Complete heart block on EKG.? Asymptomatic Coumadin on hold for planned pacemaker implantation in a.m. INR reversed with vitamin K Hold metoprolol Received glucagon and calcium chloride Pacer pads on 0n 10/21/2021 Dual-chamber Biotronik pacemaker placed normal function. today patient clinically stable seen by answerer patient to follow-up cardiology discharge instruction, discharge the patient today Time Spent with Patient Time attestation: Total time spent providing and/or coordinating discharge services: Exam Narrative: General: Pleasant female in no acute distress HEENT:? Pupils equal reactive, sclera is clear, dry oral mucosa Neck:? Supple, no lymphadenopathy Respiratory:? Clear to au
== END 2022-10-22 18:30 | disposition home or self-care (01) | DRG 243 ==
LOC: ANHED 09:49 → ANHICU 11:46 → ANHIMU 10-18 09:13
PROVIDERS: Internal Medicine; Internal Medicine Cardiovascular Disease; Nurse Practitioner; Admitting Provider Internal Medicine; Emergency Provider Family Medicine; PCP Family Medicine; Visit Provider Family Medicine
PROC: 0JH606Z Insertion of Pacemaker, Dual Chamber into Chest Subcutaneous Tissue and Fascia, Open Approach (ICD-10-PCS; CPT 33208; principal; 2022-10-21 11:00)
DX: I44.2 Atrioventricular block, complete (principal); I82.C21 Chronic embolism and thrombosis of right internal jugular vein; I44.1 Atrioventricular block, second degree; E11.9 Type 2 diabetes mellitus without complications; I69.312 Visuospatial deficit and spatial neglect following cerebral infarction; R91.1 Solitary pulmonary nodule; Z20.822 Contact with and (suspected) exposure to COVID-19; Z79.01 Long term (current) use of anticoagulants; Z86.19 Personal history of other infectious and parasitic diseases; Z87.442 Personal history of urinary calculi; Z85.71 Personal history of Hodgkin lymphoma; Z86.16 Personal history of COVID-19
CPT/HCPCS: 33208; 36415; 71045; 71046; 80053; 81003; 82948; 83735; 83880; 84100; 84443; 84484; 85025; 85610; 87636; 93005; 93971; 96361; 96367; 96372; 96375; 96376; 99285; A9270; C1779; C1785; C1894; C8929; G0378; J0360; J0690; J1610; J1940; J2250; J3010; J3430; J3475; J7030; J7040; Q9957

== ENCOUNTER 2022-11-10 10:35 | Outpatient (CLI) | payer MEDICARE, BC, SELFPAY ==
[2022-11-11 13:40] LABS: Kit Draw Collected
== END 2022-11-10 10:36 | disposition home or self-care (01) ==
LOC: ANHGOSHLAB 10:42
PROVIDERS: PCP Family Medicine; Visit Provider Family Medicine
DX: Z79.01 Long term (current) use of anticoagulants (principal)
CPT/HCPCS: 36415

== ENCOUNTER 2022-12-11 09:01 | Outpatient (CLI) | payer MEDICARE, BC, SELFPAY ==
[2022-12-11 21:23] LABS: Alanine Aminotransferase 27 U/L (6-35); Albumin Level 3.8 g/dL (3.5-5.1); Alkaline Phosphatase 146 U/L (38-126); Anion Gap 8 mmol/L (8-16); Aspartate Amino Transferase 51 U/L (14-36); Bilirubin,Total 0.6 mg/dL (0.2-1.3); Blood Urea Nitrogen 15 mg/dL (7-17); Calcium 8.4 mg/dL (8.4-10.2); Carbon Dioxide 26 mmol/L (22-30); Chloride 102 mmol/L (98-107); Cholesterol 122 mg/dL (0-200); Estimated Glomerular Filt Rate > 60; Glucose 122 mg/dL (65-110); HDL Direct 32 mg/dL; Potassium 4.1 mmol/L (3.4-5.0); Sodium 136 mmol/L (137-145); Triglycerides 119 mg/dL (<150)
[2022-12-11 21:34] LABS: LDL Cholesterol Direct 56 mg/dL
[2022-12-11 22:18] LABS: Hemoglobin A1C 7.1 % (<5.7)
== END 2022-12-11 09:02 | disposition home or self-care (01) ==
LOC: ANHGOSHLAB 09:02
PROVIDERS: PCP Family Medicine; Visit Provider Family Medicine
DX: E11.9 Type 2 diabetes mellitus without complications (principal); E78.2 Mixed hyperlipidemia; E88.81 Metabolic syndrome and other insulin resistance; I10 Essential (primary) hypertension; Z79.01 Long term (current) use of anticoagulants
CPT/HCPCS: 36415; 80053; 80061; 83036

== ENCOUNTER 2022-12-23 10:40 | Outpatient (CLI) | payer MEDICARE, BC, SELFPAY ==
--- NOTE | ~2022-12-23 | US_ITS ---
US right upper quadrant DATE: 12/23/2022 11:16 INDICATION: Elevated serum liver enzymes TECHNIQUE: Real-time imaging of liver, pancreas, gallbladder fossa, Doppler and color flow analysis COMPARISON: 09/23/2021 [facility] 10/30/2020 CT abdomen pelvis FINDINGS: No hepatic space-occupying mass lesion is evident. Normal hepatopedal portal venous flow di rection. The common bile duct measures 4 mm, normal. Status post cholecystectomy. The pancreas is partially visualized, without abnormality identified IMPRESSION: Status post cholecystectomy Reviewed, dictated and finalized at [facility]. Reviewed, dictated and finalized at [facility]. [employer] IMPRESSION: Status post cholecystectomy
== END 2022-12-23 10:41 | disposition home or self-care (01) ==
PROVIDERS: PCP Family Medicine; Visit Provider Family Medicine
DX: R74.8 Abnormal levels of other serum enzymes (principal); Z90.49 Acquired absence of other specified parts of digestive tract
CPT/HCPCS: 76705

== ENCOUNTER 2023-02-03 01:01 | Day surgery (SDC) | payer MEDICARE, BC, SELFPAY ==
[2023-01-21 11:05] VITALS: BMI 45.5
--- NOTE | 2023-02-02 10:07 | WPDANESEPPF ---
Anes - Initial Pre Proc Eval Procedure: Operation Date: 02/03/23 08:30 Proposed Procedures p Screening Colonoscopy - Vasile Castellon MD Date/Time: 02/02/23 10:07 Surgeon: Vasile Castellon MD Pre Op Diagnosis: neoplasm screening Patient Data Age: 62 Gender: F Height: 1.7 m Weight: 131.8 kg Allergies Allergy/AdvReac Type Severity Reaction Status Date / Time No Known Allergies Allergy Verified 02/03/23 07:14 Home Medications Medication Instructions Recorded Confirmed Type aspirin 81 mg tablet,delayed 81 mg PO DAILY 12/05/19 02/03/23 History release metoprolol succinate 50 mg 50 mg PO DAILY #90 tabs 09/24/22 02/03/23 Rx tablet,extended release 24 hr lisinopril 5 mg tablet 5 mg PO DAILY #90 tabs 10/07/22 02/03/23 Rx metformin 500 mg tablet 500 mg PO BID 10/16/22 02/03/23 History atorvastatin 10 mg tablet 10 mg PO HS 10/17/22 02/03/23 History warfarin 5 mg tablet 5 mg PO [id number] 11/21/22 02/03/23 History Patient hx anesthesia problems: none Family hx anesthesia problems: none Results Review: All pre-operative results and documents have been reviewed as part of the pre-operative evaluation. 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 had chemotherapy and bone marrow transplant Stroke Visual field loss following cerebrovascular accident Surgical History Surgical History H/O colonoscopy H/O cystoscopy H/O lymph node biopsy History of appendectomy History of bone marrow transplant History of removal of Port-a-Cath History of tonsillectomy Hx of cholecystectomy Status post biventricular pacemaker 10/2022, Biotronik, for complete heart block Family History Family History Father Hypertension, Onset Age: 46 Family history of elevated blood lipids, Onset Age: 46 Acute myocardial infarction Family history of coronary artery disease, Onset Age: 46 Hyperlipidemia Sibling FH: testicular cancer Family history of Hodgkin's lymphoma Mother Family history of malignant neoplasm of ovary Other Family history of malignant neoplasm Social History Social History (Updated 12/16/22 @ 09:07 by Beatriz Garcia) Social History: She lives with her who is a durable power commonwealth attorney for healthcare. She has no biological children and has 2 step children. She is on disability. She is a lifelong nonsmoker. She denies any alcohol marijuana or illicit drug. Code status full code Caffeine-none Smoking status: Never smoker Second hand tobacco smoke exposure: No Alcohol intake: current Alcohol use details: social Substance use: never Substance use type: does not use Lack of Transportation: No Lack of Food: Never True Current Housing: I Have Housing Concerned About Future Housing: No Difficulty Paying Gas/Electric Bills: No Difficulty Paying for Meds: No Currently Unemployed: No Education: Associate Degree Difficulty w/ Childcare or Family Care: No Living arrangements: with family Occupation/Education: retired Gender identity (if verbalized by the patient): Female Spiritual care concerns: No Agree to blood products: Yes Anes - Eval Final PreProcedure Day of Procedure 02/02/23 10:07 Patient weight: morbidly obese Heart: regular rate and rhythm Lungs: clear to auscultation Airway: Mallampati scale class II Neurological: alert and oriented Last oral intake: >/= 8 hours ASA classification: III Emergent: no Anesthetic plan: proceed Anesthesia type and monitoring: general GIVS and standard monitoring R
[2023-02-03 07:10] VITALS: BP 163/74; PULSE 98; RESP 20; TEMP 36.2; O2SAT 100; BMI 44.9
[2023-02-03] MEDS: LACTATED RINGERS 1,000 ML 150 ML IV CONT (07:41)
[2023-02-03 07:43] LABS: Glucose Point of Care 131 mg/dl (65-105)
--- NOTE | 2023-02-03 07:48 | PM.HPGS ---
History of Present Illness History of Present Illness Consent: Risks, benefits, and alternatives have been discussed and questions answered. Patient agrees to proceed with procedure. Chief complaint: neoplasm screening Narrative: Genesis Griggs is a 62 year old female Presents for screening colonoscopy. Patient's current weight appetite and bowel movements are normal. Patient denies abdominal pain. She has had no bleeding. Family history is noncontributory. Patient has previous colonoscopy 10 years ago was unremarkable. Review of Systems Review of Systems: Review of systems noncontributory. 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 Stroke Visual field loss following cerebrovascular accident Surgical History Surgical History H/O colonoscopy H/O cystoscopy H/O lymph node biopsy History of appendectomy History of bone marrow transplant History of removal of Port-a-Cath History of tonsillectomy Hx of cholecystectomy Status post biventricular pacemaker 10/2022, Biotronik, for complete heart block Family History Family History Father Hypertension, Onset Age: 46 Family history of elevated blood lipids, Onset Age: 46 Acute myocardial infarction Family history of coronary artery disease, Onset Age: 46 Hyperlipidemia Sibling FH: testicular cancer Family history of Hodgkin's lymphoma Mother Family history of malignant neoplasm of ovary Other Family history of malignant neoplasm Social History Social History (Updated 12/16/22 @ 09:07 by Beatriz Garcia) Social History: She lives with her who is a durable power privacy attorney for healthcare. She has no biological children and has 2 step children. She is on disability. She is a lifelong nonsmoker. She denies any alcohol marijuana or illicit drug. Code status full code Caffeine-none Smoking status: Never smoker Second hand tobacco smoke exposure: No Alcohol intake: current Alcohol use details: social Substance use: never Substance use type: does not use Lack of Transportation: No Lack of Food: Never True Current Housing: I Have Housing Concerned About Future Housing: No Difficulty Paying Gas/Electric Bills: No Difficulty Paying for Meds: No Currently Unemployed: No Education: Associate Degree Difficulty w/ Childcare or Family Care: No Living arrangements: with family Occupation/Education: retired Gender identity (if verbalized by the patient): Female Spiritual care concerns: No Agree to blood products: Yes Meds Home Medications and Allergies Home Medications Medication Instructions Recorded Confirmed Type aspirin 81 mg tablet,delayed 81 mg PO DAILY 12/05/19 02/03/23 History release metoprolol succinate 50 mg 50 mg PO DAILY #90 tabs 09/24/22 02/03/23 Rx tablet,extended release 24 hr lisinopril 5 mg tablet 5 mg PO DAILY #90 tabs 10/07/22 02/03/23 Rx metformin 500 mg tablet 500 mg PO BID 10/16/22 02/03/23 History atorvastatin 10 mg tablet 10 mg PO HS 10/17/22 02/03/23 History warfarin 5 mg tablet 5 mg PO [id number] 11/21/22 02/03/23 History Allergies Allergy/AdvReac Type Severity Reaction Status Date / Time No Known Allergies Allergy Verified 02/03/23 07:14 Vital Signs Vital Signs - 24 hr 02/03/23 07:10 Temperature 97.2 F L Pulse Rate 98 Respiratory Rate 20 Blood Pressure 163/74 H Pulse Oximetry 100 Oxygen Delivery Room Air Exam Narrative: Physical exam reveals patient to be aler
[2023-02-03 08:03] LABS: INR 1.4; Prothrombin Time 16.5 Seconds (11.1-14.7)
[2023-02-03 09:01] VITALS: BP 97/65; PULSE 77; RESP 22; O2SAT 97
[2023-02-03 09:11] VITALS: BP 104/65; PULSE 84; RESP 20; O2SAT 97
[2023-02-03 09:21] VITALS: BP 116/70; PULSE 75; RESP 22; O2SAT 98
== END 2023-02-03 09:20 | disposition home or self-care (01) ==
PROVIDERS: PCP Family Medicine; Visit Provider Internal Medicine Gastroenterology
PROC: 0DJD8ZZ Inspection of Lower Intestinal Tract, Via Natural or Artificial Opening Endoscopic (ICD-10-PCS; CPT 45378; principal; 2023-02-03 08:30)
DX: Z12.11 Encounter for screening for malignant neoplasm of colon (principal); K57.30 Diverticulosis of large intestine without perforation or abscess without bleeding; I50.9 Heart failure, unspecified; I44.2 Atrioventricular block, complete; Z79.82 Long term (current) use of aspirin; Z79.01 Long term (current) use of anticoagulants; Z79.84 Long term (current) use of oral hypoglycemic drugs; Z95.0 Presence of cardiac pacemaker; Z85.72 Personal history of non-Hodgkin lymphomas; Z92.21 Personal history of antineoplastic chemotherapy; Z86.73 Personal history of transient ischemic attack (TIA), and cerebral infarction without residual deficits; E66.01 Morbid (severe) obesity due to excess calories; Z68.42 Body mass index [BMI] 45.0-49.9, adult
CPT/HCPCS: G0121; 36415; 82948; 85610; J2704; J7120

== ENCOUNTER 2023-03-04 11:47 | Outpatient (CLI) | payer MEDICARE, BC, SELFPAY ==
--- NOTE | ~2023-03-04 | MM_ITS ---
EXAMINATION: MM screening [facility] BI w mei HISTORY: Screening mammogram TECHNIQUE: Craniocaudal and mediolateral oblique 3-D tomosynthesis images were obtained and synthetic 2-D images were generated. CAD analysis was submitted and interpreted. COMPARISON: 12/07/2021, 11/27/2020, 11/22/2019 BREAST PARENCHYMAL COMPOSITION: The breasts are almost entirely fatty. FINDINGS: No suspicious mass, calcification, or architectural distortion are identified in either maddie ast to suggest malignancy. There has been no suspicious interval change. IMPRESSION: 1. No mammographic evidence of malignancy. 2. Recommend routine screening mammography in one year. BI-RADS Category 1: Negative Reviewed, dictated and finalized at location A.
== END 2023-03-04 11:48 | disposition home or self-care (01) ==
LOC: ANHIMG 11:48
PROVIDERS: PCP Family Medicine; Visit Provider Family Medicine
DX: Z12.31 Encounter for screening mammogram for malignant neoplasm of breast (principal)
CPT/HCPCS: 77063; 77067

== ENCOUNTER 2023-04-13 09:19 | Outpatient (RCR) | payer MEDICARE, BC, SELFPAY ==
[2023-01-20 20:17] LABS: INR 2.7; Prothrombin Time 27.8 Seconds (11.1-14.7)
[2023-03-18 15:19] LABS: INR 2.1; Prothrombin Time 25.4 Seconds (11.1-14.7)
[2023-04-13 16:07] LABS: INR 2.7; Prothrombin Time 30.4 Seconds (11.1-14.7)
== END 2023-04-20 23:59 | disposition home or self-care (01) ==
LOC: ANHGOSHLAB 09:19
PROVIDERS: PCP Family Medicine; Visit Provider Family Medicine
DX: Z51.81 Encounter for therapeutic drug level monitoring (principal); Z79.01 Long term (current) use of anticoagulants
CPT/HCPCS: 36415; 80053; 80061; 83036; 85610

== ENCOUNTER 2023-04-13 09:34 | Outpatient (CLI) | payer MEDICARE, BC, SELFPAY ==
[2023-04-13 18:05] LABS: Hemoglobin A1C 7.1 % (<5.7)
[2023-04-13 18:12] LABS: LDL Cholesterol Direct 54 mg/dL
[2023-04-13 18:24] LABS: Alanine Aminotransferase 32 U/L (6-35); Albumin Level 4.1 g/dL (3.5-5.1); Alkaline Phosphatase 142 U/L (38-126); Anion Gap 8 mmol/L (8-16); Aspartate Amino Transferase 53 U/L (14-36); Bilirubin,Total 0.5 mg/dL (0.2-1.3); Blood Urea Nitrogen 16 mg/dL (7-17); Calcium 9.1 mg/dL (8.4-10.2); Carbon Dioxide 28 mmol/L (22-30); Chloride 103 mmol/L (98-107); Cholesterol 119 mg/dL (0-200); Estimated Glomerular Filt Rate > 60; Glucose 131 mg/dL (65-110); HDL Direct 39 mg/dL; Potassium 3.9 mmol/L (3.4-5.0); Sodium 139 mmol/L (137-145); Triglycerides 119 mg/dL (<150)
== END 2023-04-13 09:35 | disposition home or self-care (01) ==
LOC: ANHGOSHLAB 09:36
PROVIDERS: PCP Family Medicine; Visit Provider Family Medicine
DX: E78.2 Mixed hyperlipidemia (principal); E11.9 Type 2 diabetes mellitus without complications; I10 Essential (primary) hypertension
CPT/HCPCS: 36415; 80053; 80061; 83036

== ENCOUNTER 2023-08-05 08:43 | Outpatient (CLI) | payer MEDICARE, BC, SELFPAY ==
--- NOTE | 2023-08-24 21:07 | WPDSLEEPSTUD ---
Sleep Study Date of Study: 08/05/23 Ordering Provider: Jessy Cobian DO Interpreting Physician: Jessy Cobian DO Sleep Study Type: Split Polysomnogram Height: 1.7 m Weight: 127.006 kg Body Mass Index: 43.8 Neck Circumference (inches): 16 [place]: 6 Reason for Sleep Study Apneic episodes during colonoscopy. Sleep History The patient is a 62-year-old female that had a sleep study ordered for evaluation of sleep apnea. The patient denies awakening from sleep short of breath. She denies awakening at night with heartburn, belching or cough. She frequently snores and is frequently loud enough that others complain. She denies having trouble sleeping when she has a cold. She denies waking up gasping for air throughout the night. She occasionally has breathing problems at night observed by herself or others. She denies sweating excessively at night. She denies having heart palpitations or irregular heartbeats during the night. She frequently falls asleep during the day but never while driving. She denies sleep paralysis, cataplexy and hypnagogic / hypnopompic hallucinations. She denies feeling afraid of going to sleep. He denies having. She rarely remembers her dreams. She denies having thoughts racing through her mind. She denies feeling sad, depressed or anxious. She denies having muscular tension. She rarely notices parts of her body jerk. She denies kicking during the night. He denies having crawling and aching feelings in her legs and denies having leg pain during the night. She denies grinding her teeth during sleep and denies awakening with morning jaw pain. She denies being bothered by pain during the day and denies being awakened by pain during the night. She denies waking up feeling stiff in the morning. She denies waking up with sore or achy muscles. She denies waking up with pain in neck, spine or other joints. She goes to bed at 10:00 p.m. on both weekdays and weekends. She is able to fall asleep immediately. She wakes up twice throughout the night at most to urinate and is able to fall back asleep within 10 minutes. She wakes up at 4:30 a.m. on both weekdays and weekends. She typically gets 7-8 hours of sleep per night. She does not stay in bed after waking up in. He currently lives with her . She denies consuming any caffeinated beverages within 2 hours of bedtime. He denies engaging in physical exercise before bedtime. She denies reading and watching television before falling asleep. She will take naps in afternoon or the evening and they refreshing. She denies consuming caffeinated beverages throughout the day. She denies tobacco, alcohol and recreational drug use. 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 had chemotherapy and bone marrow transplant Stroke Visual field loss following cerebrovascular accident Surgical History Surgical History H/O colonoscopy H/O cystoscopy H/O lymph node biopsy History of appendectomy History of bone marrow transplant History of removal of Port-a-Cath History of tonsillectomy Hx of cholecystectomy Status post biventricular pacemaker 10/2022, Biotronik, for complete heart block Family History Family History Father Hypertension, Onset Age: 46 Family history of elevated blood lipids, Onset Age: 46 Acute myocardial infarction Family history of coronary artery disease, Onset Age: 46 Hyperlipidemia Sibling FH: testicular cancer Family history of Hodgkin's lymphoma Mother Family history of m
[2023-08-24 21:09] VITALS: BMI 43.8
== END 2023-08-06 06:16 | disposition home or self-care (01) ==
LOC: ANHCSM 08:44
PROVIDERS: PCP Family Medicine; Visit Provider Family Medicine
DX: G47.9 Sleep disorder, unspecified (principal); G47.33 Obstructive sleep apnea (adult) (pediatric)
CPT/HCPCS: 95811

== ENCOUNTER 2023-08-11 08:58 | Outpatient (RCR) | payer MEDICARE, BC, SELFPAY ==
[2023-06-17 18:38] LABS: INR 2.3; Prothrombin Time 26.5 Seconds (11.1-14.7)
[2023-08-11 13:04] LABS: INR 2.5; Prothrombin Time 28.9 Seconds (11.1-14.7)
== END 2023-09-15 23:59 | disposition home or self-care (01) ==
LOC: ANHGOSHLAB 08:58
PROVIDERS: PCP Family Medicine; Visit Provider Nurse Practitioner
DX: Z51.81 Encounter for therapeutic drug level monitoring (principal); Z79.01 Long term (current) use of anticoagulants
CPT/HCPCS: 36415; 85610

== ENCOUNTER 2023-08-11 08:59 | Outpatient (CLI) | payer MEDICARE, BC, SELFPAY ==
[2023-08-11 13:01] LABS: Alanine Aminotransferase 27 U/L (6-35); Alkaline Phosphatase 140 U/L (38-126); Anion Gap 7 mmol/L (8-16); Aspartate Amino Transferase 42 U/L (14-36); Bilirubin,Total 0.8 mg/dL (0.2-1.3); Blood Urea Nitrogen 15 mg/dL (7-17); Calcium 8.9 mg/dL (8.4-10.2); Carbon Dioxide 26 mmol/L (22-30); Chloride 102 mmol/L (98-107); Cholesterol 122 mg/dL (0-200); Estimated Glomerular Filt Rate > 60; Glucose 131 mg/dL (65-110); HDL Direct 39 mg/dL; Potassium 4.2 mmol/L (3.4-5.0); Sodium 135 mmol/L (137-145); Triglycerides 123 mg/dL (<150)
[2023-08-11 13:13] LABS: Iron 43 ug/dL (37-170)
[2023-08-11 13:21] LABS: LDL Cholesterol Direct 62 mg/dL
[2023-08-11 13:26] LABS: Percent Iron Saturation 12 % (20-50)
[2023-08-11 13:29] LABS: Hepatitis B Surface Antigen Negative (Negative)
[2023-08-11 13:35] LABS: HAV RESULT Negative (Negative); Hepatitis B Core IgM Result Negative (Negative)
[2023-08-11 13:46] LABS: Hepatitis C Virus Antibody Negative (Negative)
[2023-08-11 15:58] LABS: Hemoglobin A1C 7.2 % (<5.7)
[2023-08-13 15:29] LABS: GGT 23 U/L (3-65)
[2023-08-13 21:29] LABS: Mitochondrial (M2) Ab (IgG) <=20.0 U (<=20.0)
== END 2023-08-11 09:00 | disposition home or self-care (01) ==
PROVIDERS: PCP Family Medicine; Visit Provider Family Medicine
DX: E78.5 Hyperlipidemia, unspecified (principal); R74.8 Abnormal levels of other serum enzymes; E78.2 Mixed hyperlipidemia; I10 Essential (primary) hypertension; E88.819 Insulin resistance, unspecified; R10.9 Unspecified abdominal pain; E11.9 Type 2 diabetes mellitus without complications; E66.9 Obesity, unspecified; Z79.01 Long term (current) use of anticoagulants
CPT/HCPCS: 36415; 80053; 80061; 80074; 82248; 82977; 83036; 83520; 83540; 83550; 84443; 85610

== ENCOUNTER 2023-12-04 09:08 | Outpatient (CLI) | payer MEDICARE, BC, SELFPAY ==
[2023-12-04 17:39] LABS: Iron 51 ug/dL (37-170)
[2023-12-04 17:49] LABS: Percent Iron Saturation 14 % (20-50)
[2023-12-04 18:02] LABS: Alanine Aminotransferase 32 U/L (6-35); Albumin Level 3.8 g/dL (3.5-5.1); Alkaline Phosphatase 156 U/L (38-126); Anion Gap 6 mmol/L (8-16); Aspartate Amino Transferase 57 U/L (14-36); Bilirubin,Total 0.5 mg/dL (0.2-1.3); Blood Urea Nitrogen 21 mg/dL (7-17); Carbon Dioxide 25 mmol/L (22-30); Chloride 103 mmol/L (98-107); Cholesterol 131 mg/dL (0-200); Estimated Glomerular Filt Rate > 60; Glucose 155 mg/dL (65-110); HDL Direct 36 mg/dL; Potassium 4.1 mmol/L (3.4-5.0); Sodium 134 mmol/L (137-145); Triglycerides 128 mg/dL (<150)
[2023-12-04 18:13] LABS: LDL Cholesterol Direct 67 mg/dL
[2023-12-04 18:35] LABS: Hemoglobin A1C 7.9 % (<5.7)
[2023-12-04 19:07] LABS: Hematocrit 37.8 % (37.0-47.0); Hemoglobin 11.3 g/dL (12.0-15.0); Mean Corpuscular HGB Conc 29.9 g/dl (32-36); Mean Corpuscular Hemoglobin 23.3 pg (26-34); Mean Corpuscular Volume 78.1 fl (80-100); Mean Platelet Volume 10.7 fl (7.4-10.4); Platelet Count Result 256 k/mm3 (150-375); Red Blood Count 4.84 M/mm3 (4.2-5.4); Red Cell Distribution Width 17.6 % (11.5-14.5); White Blood Count 8.7 K/mm3 (4.5-10.0)
== END 2023-12-04 09:09 | disposition home or self-care (01) ==
PROVIDERS: PCP Family Medicine; Visit Provider Family Medicine
DX: E11.9 Type 2 diabetes mellitus without complications (principal); E78.2 Mixed hyperlipidemia; I10 Essential (primary) hypertension; R74.8 Abnormal levels of other serum enzymes; Z79.01 Long term (current) use of anticoagulants; E88.810 Metabolic syndrome
CPT/HCPCS: 36415; 80053; 80061; 82728; 83036; 83540; 83550; 85027; 85610

== ENCOUNTER 2023-12-04 09:12 | Outpatient (RCR) | payer MEDICARE, BC, SELFPAY ==
[2023-10-05 19:54] LABS: INR 2.3; Prothrombin Time 26.6 Seconds (11.1-14.7)
[2023-12-04 17:44] LABS: INR 2.5; Prothrombin Time 28.8 Seconds (11.1-14.7)
== END 2024-01-03 23:59 | disposition home or self-care (01) ==
LOC: ANHGOSHLAB 09:12
PROVIDERS: PCP Family Medicine; Visit Provider Nurse Practitioner
DX: Z51.81 Encounter for therapeutic drug level monitoring (principal); Z79.01 Long term (current) use of anticoagulants
CPT/HCPCS: 36415; 85610

== ENCOUNTER 2024-04-04 08:18 | Outpatient (CLI) | payer MEDICARE, BC, SELFPAY ==
[2024-04-04 13:35] LABS: Hematocrit 36.3 % (37.0-47.0); Hemoglobin 11.4 g/dL (12.0-15.0); Mean Corpuscular HGB Conc 31.4 g/dl (32-36); Mean Corpuscular Hemoglobin 25.2 pg (26-34); Mean Corpuscular Volume 80.3 fl (80-100); Mean Platelet Volume 10.9 fl (7.4-10.4); Platelet Count Result 239 k/mm3 (150-375); Red Blood Count 4.52 M/mm3 (4.2-5.4); White Blood Count 7.6 K/mm3 (4.5-10.0)
[2024-04-04 13:49] LABS: Alanine Aminotransferase 26 U/L (6-35); Albumin Level 3.9 g/dL (3.5-5.1); Alkaline Phosphatase 131 U/L (38-126); Anion Gap 8 mmol/L (4-12); Aspartate Amino Transferase 62 U/L (14-36); Bilirubin,Total 0.6 mg/dL (0.2-1.3); Blood Urea Nitrogen 16 mg/dL (7-17); Carbon Dioxide 24 mmol/L (22-30); Chloride 105 mmol/L (98-107); Cholesterol 125 mg/dL (0-200); Estimated Glomerular Filt Rate > 60; Glucose 164 mg/dL (65-110); HDL Direct 36 mg/dL; Potassium 4.3 mmol/L (3.4-5.0); Sodium 137 mmol/L (137-145); Triglycerides 161 mg/dL (<150)
[2024-04-04 14:00] LABS: Iron 45 ug/dL (37-170)
[2024-04-04 14:01] LABS: LDL Cholesterol Direct 66 mg/dL
[2024-04-04 14:09] LABS: Percent Iron Saturation 12 % (20-50)
[2024-04-04 14:12] LABS: Creatinine Urine 96.4 mg/dL; MALB Creatinine Ratio 52.2 mg/g (0-30); Microalbumin Urine Random 50.3 mg/L (0-16.7)
[2024-04-04 14:37] LABS: Hepatitis B Surface Antigen Negative (Negative)
[2024-04-04 14:42] LABS: HAV RESULT Negative (Negative); Hepatitis B Core IgM Result Negative (Negative)
[2024-04-04 14:54] LABS: Hepatitis C Virus Antibody Negative (Negative)
[2024-04-04 15:06] LABS: Hemoglobin A1C 7.4 % (<5.7)
== END 2024-04-04 08:19 | disposition home or self-care (01) ==
PROVIDERS: PCP Family Medicine; Visit Provider Family Medicine
DX: R74.8 Abnormal levels of other serum enzymes (principal); I10 Essential (primary) hypertension; Z79.01 Long term (current) use of anticoagulants; E78.2 Mixed hyperlipidemia; E66.9 Obesity, unspecified; D64.9 Anemia, unspecified; Z11.59 Encounter for screening for other viral diseases; E11.9 Type 2 diabetes mellitus without complications
CPT/HCPCS: 83036; 36415; 80053; 80061; 80074; 82043; 82248; 82728; 82977; 83540; 83550; 84443; 85027

== ENCOUNTER 2024-04-04 08:23 | Outpatient (RCR) | payer MEDICARE, BC, SELFPAY ==
[2024-01-11 13:58] LABS: INR 2.9; Prothrombin Time 32.1 Seconds (11.1-14.7)
[2024-04-04 13:48] LABS: INR 2.9; Prothrombin Time 30.8 Seconds (11.1-14.7)
== END 2024-04-10 23:59 | disposition home or self-care (01) ==
LOC: ANHGOSHLAB 08:23
PROVIDERS: PCP Family Medicine; Visit Provider Nurse Practitioner
DX: Z51.81 Encounter for therapeutic drug level monitoring (principal); Z79.01 Long term (current) use of anticoagulants
CPT/HCPCS: 36415; 80053; 80061; 80074; 82043; 82248; 82728; 82977; 83036; 83540; 83550; 84443; 85027; 85610

== ENCOUNTER 2024-05-18 10:08 | Outpatient (CLI) | payer MEDICARE, BC, SELFPAY ==
--- NOTE | ~2024-05-18 | MM_ITS ---
EXAMINATION: MM screening tan BI w mei HISTORY: Screening TECHNIQUE: Craniocaudal and mediolateral oblique 3-D tomosynthesis images were obtained and synthetic 2-D images were generated. CAD analysis was submitted and interpreted. COMPARISON: Comparison to multiple prior studies sequentially, with oldest reviewed study dated 07/20. BREAST PARENCHYMAL COMPOSITION: Not Dense: The breasts are almost entirely fatty. FINDINGS: There are 2 clusters of developing calcifications in the right breast in the lateral half o f the right breast. The left breast is stable without evidence for malignancy. IMPRESSION: 1. Developing clusters of right breast calcifications. 2. Additional mammographic views and possible breast ultrasound are recommended. BI-RADS Category 0: Incomplete: Needs additional imaging evaluation. Reviewed, dictated and finalized at location B. IMPRESSION: 1. Developing clusters of right breast calcifications. 2. Additional mammographic views and possible breast ultrasound are recommended . BI-RADS Category 0: Incomplete: Needs additional imaging evaluation.
== END 2024-05-18 10:09 | disposition home or self-care (01) ==
LOC: ANHIMG 10:09
PROVIDERS: PCP Family Medicine; Visit Provider Family Medicine
DX: Z12.31 Encounter for screening mammogram for malignant neoplasm of breast (principal); R92.8 Other abnormal and inconclusive findings on diagnostic imaging of breast
CPT/HCPCS: 77063; 77067

== ENCOUNTER 2024-06-06 10:53 | Outpatient (CLI) | payer MEDICARE, BC, SELFPAY ==
--- NOTE | ~2024-06-06 | MM_ITS ---
EXAMINATION: MM diagnostic tan RT w mei HISTORY: Follow-up right breast calcifications TECHNIQUE: Additional 3-D tomosynthesis images of the right breast were performed and synthetic 2-D i mages were generated. CAD analysis was submitted and interpreted. COMPARISON: Comparison to multiple prior studies sequentially, with oldest reviewed study dated 01/2020. BREAST PARENCHYMAL COMPOSITION: Not dense: There are scattered areas of fibroglandular density. FINDINGS: There is a developing cluster of indeterminate calcifications in the upper outer quadrant o f the right breast, middle third. There are additional clusters of punctate calcifications in the rig ht axillary region as well as the lower outer quadrant posteriorly which are likely benign. Six-month follow-up mammogram recommended to assess stability of these calcifications. IMPRESSION: 1. Developing cluster of punctate indeterminate calcifications in the upper outer quadrant of the rig ht breast, middle third. 2. Stereotactic right breast biopsy recommended. BI-RADS category 4, suspicious findings. Reviewed, dictated and finalized at location B. IMPRESSION: 1. Developing cluster of punctate indeterminate calcifications in the upper out er quadrant of the right breast, middle third. 2. Stereotactic right breast biopsy recommended. BI-RADS category 4, suspicious findings.
== END 2024-06-06 10:54 | disposition home or self-care (01) ==
LOC: ANHIMG 10:54
PROVIDERS: PCP Family Medicine; Visit Provider Nurse Practitioner
DX: R92.8 Other abnormal and inconclusive findings on diagnostic imaging of breast (principal)
CPT/HCPCS: 77061; 77065; G0279

== ENCOUNTER 2024-07-01 09:38 | Outpatient (RCR) | payer MEDICARE, BC, SELFPAY ==
[2024-05-13 19:16] LABS: INR 2.2; Prothrombin Time 25.1 Seconds (11.1-14.7)
[2024-07-01 16:33] LABS: INR 2.4; Prothrombin Time 27.1 Seconds (11.1-14.7)
== END 2024-08-11 23:59 | disposition home or self-care (01) ==
LOC: ANHGOSHLAB 09:38
PROVIDERS: PCP Family Medicine; Visit Provider Nurse Practitioner
DX: Z51.81 Encounter for therapeutic drug level monitoring (principal); Z79.01 Long term (current) use of anticoagulants
CPT/HCPCS: 36415; 85610

== ENCOUNTER 2024-07-21 08:59 | Outpatient (CLI) | payer MEDICARE, BC, SELFPAY ==
--- NOTE | ~2024-07-21 | MM_ITS ---
EXAMINATION: MM stereotactic specimen RT, MM post biopsy diagnostic RT, MM stereotactic bx RT INDICATION: Abnormal calcifications in the right breast. Stereotactic core biopsy is requested evalu ate for malignancy.] BREAST PARENCHYMAL COMPOSITION: Not dense: There are scattered areas of fibroglandular density. TECHNIQUE AND FINDINGS: The risks and potential benefits of the procedure were discussed with the patient and written informe d consent was obtained. The patient was placed in the prone position clustered at the table with the right breast in craniocaudal compression, and the area of interest was localized and targeted utiliz ing digital imaging with stereotaxis. After sterile preparation of the skin, 1% lidocaine was utilized for local anesthesia at the skin pun cture site and 1% lidocaine with epinephrine was utilized for deeper local anesthesia/is about the bi opsy site. A 9G [employer] vacuum assisted biopsy needle was advanced to the level of the calcification o f interest from a cephalad/caudal/medial/lateral approach utilizing stereotactic guidance and a total of 6 tissue core biopsies were obtained. A specimen radiograph demonstrates that the calcifications of interest are included within the tissue cores. A tissue marker clip was then placed at the biopsy site. The needle was removed and hemosta sis was achieved. The patient tolerated the procedure well and there is no evidence of significant i mmediate complication. The patient was given verbal as well as written postprocedural instructions p rior to discharge from the department. Tissue cores were submitted to surgical pathology for histolo gic analysis. A 2-view right unilateral digital mammogram was obtained post procedure and this demonstrates that th e tissue marker clip is in expected position.] IMPRESSION: 1. Successful stereotactic biopsy of calcifications in the upper outer quadrant of the right breast with post procedure mammogram for marker placement. Please refer to pathology report for histologic analysis. Reviewed, dictated and finalized at location B. IMPRESSION: 1. Successful stereotactic biopsy of calcifications in the upper outer quadran t of the right breast with post procedure mammogram for marker placement. Plea se refer to pathology report for histologic analysis. IMPRESSION: 1. Successful stereotactic biopsy of calcifications in the upper outer quadran t of the right breast with post procedure mammogram for marker placement. Plea se refer to pathology report for histologic analysis.
== END 2024-07-21 09:00 | disposition home or self-care (01) ==
PROVIDERS: PCP Family Medicine; Visit Provider Nurse Practitioner
DX: R92.8 Other abnormal and inconclusive findings on diagnostic imaging of breast (principal)
CPT/HCPCS: 19081; 77065; 88305

== ENCOUNTER 2024-07-29 09:21 | Outpatient (CLI) | payer MEDICARE, BC, SELFPAY ==
[2024-07-29 16:40] LABS: Hemoglobin A1C 6.4 % (<5.7)
[2024-07-29 17:02] LABS: Creatinine Urine 152.4 mg/dL
[2024-07-29 17:02] LABS: Alanine Aminotransferase 25 U/L (6-35); Albumin Level 3.6 g/dL (3.5-5.1); Alkaline Phosphatase 125 U/L (38-126); Anion Gap 5 mmol/L (4-12); Aspartate Amino Transferase 41 U/L (14-36); Bilirubin,Total 0.5 mg/dL (0.2-1.3); Blood Urea Nitrogen 13 mg/dL (7-17); Calcium 8.6 mg/dL (8.4-10.2); Carbon Dioxide 28 mmol/L (22-30); Chloride 103 mmol/L (98-107); Cholesterol 107 mg/dL (0-200); Estimated Glomerular Filt Rate > 60; Glucose 94 mg/dL (65-110); HDL Direct 38 mg/dL; Potassium 4.2 mmol/L (3.4-5.0); Sodium 136 mmol/L (137-145); Triglycerides 92 mg/dL (<150)
[2024-07-29 17:04] LABS: MALB Creatinine Ratio 19.4 mg/g (0-30); Microalbumin Urine Random 29.6 mg/L (0-16.7)
[2024-07-29 17:12] LABS: LDL Cholesterol Direct 43 mg/dL
[2024-07-29 17:20] LABS: Hematocrit 37.9 % (37.0-47.0); Hemoglobin 11.5 g/dL (12.0-15.0); Mean Corpuscular HGB Conc 30.3 g/dl (32-36); Mean Corpuscular Hemoglobin 24.8 pg (26-34); Mean Corpuscular Volume 81.9 fl (80-100); Mean Platelet Volume 11.1 fl (7.4-10.4); Platelet Count Result 231 k/mm3 (150-375); Red Blood Count 4.63 M/mm3 (4.2-5.4); Red Cell Distribution Width 18.2 % (11.5-14.5); White Blood Count 8.5 K/mm3 (4.5-10.0)
[2024-07-29 18:44] LABS: Iron 46 ug/dL (37-170)
[2024-07-29 18:53] LABS: Percent Iron Saturation 14 % (20-50)
== END 2024-07-29 09:22 | disposition home or self-care (01) ==
PROVIDERS: PCP Family Medicine; Visit Provider Family Medicine
DX: D64.9 Anemia, unspecified (principal); E66.9 Obesity, unspecified; E78.2 Mixed hyperlipidemia; I10 Essential (primary) hypertension; R74.8 Abnormal levels of other serum enzymes; E11.29 Type 2 diabetes mellitus with other diabetic kidney complication; R80.9 Proteinuria, unspecified
CPT/HCPCS: 36415; 80053; 80061; 82043; 82728; 83036; 83540; 83550; 84443; 85027

== ENCOUNTER 2024-10-26 14:21 | Outpatient (CLI) | payer MEDICARE, BC, SELFPAY ==
[2024-10-26 20:08] LABS: Influenza A QL RT-PCR Negative (Negative); Influenza B QL RT-PCR Negative (Negative); RSV RNA, RT-PCR Positive (Negative); SARS-CoV-2 RNA PCR Positive (Negative)
== END 2024-10-26 14:22 | disposition home or self-care (01) ==
LOC: ANHGOSHLAB 14:22
PROVIDERS: PCP Family Medicine; Visit Provider Nurse Practitioner
DX: U07.1 COVID-19 (principal); R50.9 Fever, unspecified
CPT/HCPCS: 87637

== ENCOUNTER 2024-12-01 08:27 | Outpatient (CLI) | payer MEDICARE, BC, SELFPAY ==
--- OUTSIDE RECORDS SUMMARY | 2024-12-01 08:32 | XMS_ITS | Referral Summary ---
Author Organization [facility] Address [address] [place] [address] Care Team Providers Care Mortgage Broker Name Role Phone Colby Soliz MD Primary Care Provider [phone] Source Comments [facility],non-[facility] Affiliates and Associated Physician Practices is amultiple site organization consisting of ambulatory clinics and hospital sitesin [place], [place], [place]. This disclosure is being madepursuant to the Care Everywhere program and may not contain all information available regarding this patient. Last updated 18.[facility] Social History Tobacco Use Types Packs/Day Years Used Date Smoking Tobacco: Never Assessed Sex and Gender Information Value Date Recorded Sex Assigned at Not on file Gender Identity Not on file Sexual Orientation Not on file Plan of Treatment Not on file Administered Medications Care Teams Mortgage Broker Relationship Specialty Start Date End Date Colby Soliz MD [address] [place] [id number] PCP - General Family Medicine 11/11/16
--- OUTSIDE RECORDS SUMMARY | 2024-12-01 08:32 | XMS_ITS | Patient Health Summary ---
Author Organization [facility] Address [address] [place] [address] Care Team Providers Care Metal Furniture Panel Coverer Name Role Phone Colby Soliz MD Primary Care Provider [phone] Note from [facility] [place],non-owned Affiliates and Associated Physician Practices is amultiple site organization consisting of ambulatory clinics and hospital sitesin [place], [place], [place] and [place]. This disclosure is being madepursuant to the Care Everywhere program and may not contain all information available regarding this patient. Last updated 18.[facility] Social History Tobacco Use Types Packs/Day Years Used Date Smoking Tobacco: Never Assessed Sex and Gender Information Value Date Recorded Sex Assigned at Not on file Gender Identity Not on file Sexual Orientation Not on file Procedures * SKIN TEST PPD - POINT OF CARE(Performed 11/11/2016) Performed for Screening-pulmonary TB * LDH BLOOD(Performed 06/17/2012) * COMPREHENSIVE METABOLIC PANEL(Performed 06/17/2012) * RETIC COUNT(Performed 06/17/2012) * CBC W AUTO DIFFERENTIAL(Performed 06/17/2012) * LDH BLOOD(Performed 05/22/2011) * COMPREHENSIVE METABOLIC PANEL(Performed 05/22/2011) * CBC W AUTO DIFFERENTIAL(Performed 05/22/2011) Results * SKIN TEST PPD - POINT OF CARE (11/11/2016) PPD neg MISCELLANEOUS SAMPLE S / Unknown 11/11/2016 Pati Lynn APRN-ASSEMBLER FOR [facility] LAB - POINT OF CARE ORDERABLES * RETIC COUNT (06/17/2012 9:01 AM CDT) Reticulocyte % 1.1 0.3 - 2.0 % [facility] Reticulocyte Absolute 0.05 0.02 - 0.10 # [facility] 06/17/2012 9:01 AM CDT 06/17/2012 9:11 AM CDT Yasir Chadwick MD LAB - HEMATOLOGY ORD ERABLES [facility] [address] [place] [address] * (ABNORMAL) CBC W AUTO DIFFERENTIAL (06/17/2012 9:01 AM CDT) Only the most recent of2 resultswithin the time period is included. Pathologist [facility] WBC 6.2 3.5 - 10.5 10^3/uL [facility] WBC (corrected for NRBC) COMMENT [facility] Comment:THE WBC COUNT IS COR RECTED BY THE INSTRUMENT FOR NRBC'S. RBC 5.00 3.90 - 5.00 10^6/uL [facility] Hemoglobin 12.6 12.0 - 15.5 g/dL [facility] Hematocrit 39.5 35.0 - 45.0 % [facility] MCV 79.0(L) 81.0 - 97.0 FL [facility] MCH 25.2(L) 28.0 - 34.0 PG [facility] MCHC 31.9(L) 32.0 - 36.0 G/DL [facility] Platelet 199 150 - 400 10^3/uL [facility] RDW 15.3(H) 11.2 - 14.8 % [facility] RDW-SD 44.0 36 - 50 FL [facility] MPV 10.3 9.3 - 12.8 FL [facility] Differential Type MANUAL [facility] Neutrophils Absolute Manual 4.53 1.7 - 7.0 10^3/uL [facility] Comment:(BANDS AND SEGS) X W BC = NEUT # (ANC) Lymphocytes Absolute Manual 1.43 0.9 - 2.9 10^3/uL [facility] Monocyte Absolute Manual 0.19(L) 0.3 - 0.9 10^3/uL [facility] Eosinophils Absolute Manual 0.06 0.05 - 0.50 10^3/uL [facility] Neutrophils % manual 73(H) 30 - 60 % [facility] Lymphocytes % manual 23 20 - 45 % [facility] Monocytes % Manual 3 2 - 10 % [facility] Eosinophils % Manual 1 1 - 6 % [facility] Platelet Estimate ADEQUATE [facility] Microcytosis D 1+ [facility] 06/17/2012 9:01 AM CDT 06/17/2012 9:11 AM CDT Yasir Chadwick MD LAB - HEMATOLOGY ORD ERABLES [facility] [address] [phone] * (ABNORMAL) COMPREHENSIVE METABOLIC PANEL (06/17/2012 9:01 AM CDT) Only the most recent of2 resultswithin the time period is included. BUN 18 7 - 26 mg/dL [facility] Creatinine 0.9 0.6 - 1.2 mg/dL [facility] eGFR by MDRD > 60 ML/MIN [facility] Comment: Chronic kidney disease: <60 ml/min Kidney failure: <15 ml/min Based on BSA of 1.73m2. Sodium 142 136 - 145 mmol/L [facility] Potassium 4.0 3.5 - 4.5 mmol/L [facility] Chloride 107 98 - 107 mmol/L [facility] CO2 25 22 - 29 mmol/L [facility] Glucose 97 70 - 115 mg/dL [facility] Calcium 9.4 8.4 - 10.2 mg/dL [facility] Protein Total 7.1 6.0 - 8.3 g/dL [facility] Albumin 3.4 3.4 - 5.0 g/dL [facility] Bilirubin Total 0.6 0.2 - 1.2 mg/dL [facility] Alkaline Phosphatase 109 40 - 150 Units/L [facility] ALT 17 0 - 55 Units/L [facility] AST 22 5 - 34 Units/L [facility] Anion Gap 14 8 - 18 [facility] BUN/Creatinine Ratio 20 7 - 23 [facility] Osmolality Calculation 280 270 - 300 mOsm/kg [facility] Albumin/Globulin Ratio 0.9(L) 1.1 - 2.3 [facility] 06/17/2012 9:01 AM CDT 06/17/2012 9:11 AM CDT Yasir Chadwick MD LAB - CHEMISTRY LEONARDO STEWARD [address] [phone] * (ABNORMAL) LDH BLOOD (06/17/2012 9:01 AM CDT) Only the most recent of2 resultswithin the time period is included. LDH Total 260(H) 125 - 243 Units/L [facility] 06/17/2012 9:01 AM CDT 06/17/2012 9:11 AM CDT Yasir Chadwick MD LAB - CHEMISTRY LEONARDO STEWARD [address] [phone] Care Teams Metal Furniture Panel Coverer Relationship Specialty Start Date End Date Colby Soliz MD [address] [place] [address] PCP - General Family Medicine 11/11/16
--- OUTSIDE RECORDS SUMMARY | 2024-12-01 08:33 | XMS_ITS | Clinical Summary ---
Author Organization [facility] Address [address] [place] [address] Care Team Providers Care Ticket Sorter Name Role Phone Colby Soliz MD Primary Care Provider [phone] Source Comments [facility] [employer],non-owned Affiliates and Associated Physician Practices is amultiple site organization consisting of ambulatory clinics and hospital sitesin [place], [place], [place] and [place]. This disclosure is being madepursuant to the Care Everywhere program and may not contain all information available regarding this patient. Last updated 18.[facility] [employer] Social History Tobacco Use Types Packs/Day Years Used Date Smoking Tobacco: Never Assessed Sex and Gender Information Value Date Recorded Sex Assigned at Not on file Gender Identity Not on file Sexual Orientation Not on file Plan of Treatment Health Maintenance Due Date Last Done Comments COLOGUARD (AGES 45-75) - COL ON CA SCREENING 1961 COLON MONITORING 1961 COLONOSCOPY - COLON CA SCREENING 1961 CT COLONOGRAPHY - COLON CA SCREENING 1961 Colorectal Cancer Screening 1961 FIT - COLON CA SCREENING 1961 FLEX SIG - COLON CA SCREENING 1961 LIPID TESTING 1961 MAMMOGRAM 1961 MEDICARE AWV 12 MONTHS 1961 PAP SMEAR 1961 HIV SCREENING 1976 HEPATITIS C SCREENING 12/10/1979 DTAP/TDAP/TD VACCINES (1 - Tdap) 1980 PNEUMOCOCCAL VACCINE 50+ (1 of 1 - PCV) 2011 ZOSTER VACCINE (1 of 2) 2011 COVID-19 VACCINE (1 - 2023-2 5 season) 2024 INFLUENZA VACCINE (#1) 2024 DEPRESSION SCREENING 10/19/2024 Respiratory Syncytial Virus (RSV) Vaccine Pt: or over 60 yrs (1 - 1-dose 75+ series) 2036 HEPATITIS B VACCINE Aged Out No longe r eligible based on patient's age to complete this topic HIB VACCINE Aged Out No longer eligi ble based on patient's age to complete this topic HPV VACCINE Aged Out No longer eligi ble based on patient's age to complete this topic MENINGOCOCCAL (Group B) VACCINE Aged Out No longer eligible based on patient's age to complete this topic MENINGOCOCCAL VACCINE Aged Out No pascual kelly eligible based on patient's age to complete this topic PNEUMOCOCCAL VACCINE Aged Out No long er eligible based on patient's age to complete this topic Care Teams Ticket Sorter Relationship Specialty Start Date End Date Colby Soliz MD [address] [place] [address] PCP - General Family Medicine 11/11/16
--- OUTSIDE RECORDS SUMMARY | 2024-12-01 08:33 | XMS_ITS | Continuity of Care Document ---
Author Organization [facility] Address [address] [facility] [address] [place] [address] Phone Care Team Providers Care Salon Assistant Name Role Phone Kam Lezama Unavailable Unavailable Procedures Procedure Date Office/outpatient Visit, Est Advance Directives Directive Yes / No Effective Date File Name No Information Encounters Encounter Description Practice Location Reason(s) For Visit Diagnoses Date Provider Providers Copied on Encounter Office/outpat ient Visit, Est [facility], [address], [place], [place], [id number], [place] tel:[phone] [facility] No Information 7 Lise Humphrey. [address], [address], [place], [place], [facility], . tel:[phone] Referring Provider: Kam Sr [address], [place], [place], [facility]. tel:[phone] Family History Family Member Type Diagnosis Age At Onset No Information Payers Payer name Insurance type Covered alliance party ID Authoriza tion(s) No Information Social History [...]
[2024-12-01 19:18] LABS: Hematocrit 21.6 % (37.0-47.0); Hemoglobin 11.4 g/dL (12.0-15.0); Mean Corpuscular HGB Conc 52.8 g/dl (32-36); Mean Corpuscular Hemoglobin 46.3 pg (26-34); Mean Corpuscular Volume 87.8 fl (80-100); Mean Platelet Volume 11.3 fl (7.4-10.4); Platelet Count Result 219 k/mm3 (150-375); Red Blood Count 2.46 M/mm3 (4.2-5.4); White Blood Count 8.1 K/mm3 (4.5-10.0)
[2024-12-01 19:45] LABS: Alanine Aminotransferase 23 U/L (6-35); Albumin Level 3.6 g/dL (3.5-5.1); Alkaline Phosphatase 118 U/L (38-126); Anion Gap 7 mmol/L (4-12); Aspartate Amino Transferase 31 U/L (14-36); Bilirubin,Total 0.6 mg/dL (0.2-1.3); Blood Urea Nitrogen 18 mg/dL (7-17); Carbon Dioxide 27 mmol/L (22-30); Chloride 104 mmol/L (98-107); Cholesterol 106 mg/dL (0-200); Estimated Glomerular Filt Rate > 60; Glucose 86 mg/dL (65-110); HDL Direct 39 mg/dL; Potassium 4.4 mmol/L (3.4-5.0); Sodium 138 mmol/L (137-145); Triglycerides 106 mg/dL (<150)
[2024-12-01 19:56] LABS: LDL Cholesterol Direct 46 mg/dL
[2024-12-01 21:12] LABS: Hemoglobin A1C 6.3 % (<5.7)
== END 2024-12-01 08:28 | disposition home or self-care (01) ==
PROVIDERS: PCP Family Medicine; Visit Provider Nurse Practitioner
DX: E11.29 Type 2 diabetes mellitus with other diabetic kidney complication (principal); R80.9 Proteinuria, unspecified; D64.9 Anemia, unspecified; R74.8 Abnormal levels of other serum enzymes; I10 Essential (primary) hypertension; E78.2 Mixed hyperlipidemia; E66.9 Obesity, unspecified; Z79.01 Long term (current) use of anticoagulants
CPT/HCPCS: 36415; 80053; 80061; 83036; 84443; 85027

== ENCOUNTER 2024-12-01 08:37 | Outpatient (RCR) | payer MEDICARE, BC, SELFPAY ==
[2024-09-07 14:15] LABS: INR 2.9; Prothrombin Time 31.1 Seconds (11.1-14.7)
[2024-12-01 19:28] LABS: INR 2.8; Prothrombin Time 30.2 Seconds (11.1-14.7)
== END 2024-12-06 23:59 | disposition home or self-care (01) ==
LOC: ANHGOSHLAB 08:37
PROVIDERS: PCP Family Medicine; Visit Provider Nurse Practitioner
DX: Z51.81 Encounter for therapeutic drug level monitoring (principal); Z79.01 Long term (current) use of anticoagulants
CPT/HCPCS: 36415; 85610

== ENCOUNTER 2025-02-21 11:25 | Outpatient (CLI) | payer MEDICARE, BC, SELFPAY ==
--- OUTSIDE RECORDS SUMMARY | 2025-02-21 12:15 | XMS_ITS | Continuity of Care Document ---
Author Organization [facility] Address [address] [facility] [address] [place] [address] Phone Care Team Providers Care Club Lounge Attendant Name Role Phone Kam Lezama Unavailable Unavailable Procedures Procedure Date Office/outpatient Visit, Est Advance Directives Directive Yes / No Effective Date File Name No Information Encounters Encounter Description Practice Location Reason(s) For Visit Diagnoses Date Provider Providers Copied on Encounter Office/outpat ient Visit, Est [facility], [address], [place], [place], [id number], [place] tel:[phone] [facility] No Information 7 Lise Humphrey. [address], [address], [place], [place], [facility], . tel:[phone] Referring Provider: Kam Sr [address], [place], [place], [facility]. tel:[phone] Family History Family Member Type Diagnosis Age At Onset No Information Payers Payer name Insurance type Covered green party ID Authoriza tion(s) No Information Social [...]
--- OUTSIDE RECORDS SUMMARY | 2025-02-21 12:15 | XMS_ITS | Clinical Summary ---
Author Organization [facility] Address [address] [place] [address] Care Team Providers Care Network Professional Name Role Phone Colby Soliz MD Primary Care Provider [phone] Source Comments [facility],non-owned Affiliates and Associated Physician Practices is amultiple site organization consisting of ambulatory clinics and hospital sitesin [place], [place], [place] and [place]. This disclosure is being madepursuant to the Care Everywhere program and may not contain all information available regarding this patient. Last updated 18.[facility] [employer] 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 Gender Identity Not on file Sexual Orientation [...] VACCINE (1 of 2) 2011 COVID-19 VACCINE (2023-2 5 season) 2024 DEPRESSION SCREENING 10/19/2024 INFLUENZA VACCINE (Season Ended) 2025 Respiratory Syncytial Virus (RSV) Vaccine Pt: or [...] to complete this topic MENINGOCOCCAL (Group B) VACC INE SHARED DECISION-MAKING Aged Out No longer eligibl e based on patient's age to complete this topic MENINGOCOCCAL GROUPS A/C/Y/W VACCINE Aged Out No longer eligible b ased on patient's age to complete this topic Insurance [facility] MEDICARE [facility] SELF PAY NO INSURANCE Member Subscriber Plan / Payer (Ef fective for All Dates) Name:Genesis Griggs Member ID:Not on file Relation to Subscriber:Not on file Name:GENESIS GRIGGS Subscriber ID:Not on file (Home) Address: [address] [address] Payer ID:Not on file Group ID:Not on file Type:Self Pay Address: [place], [place] Care Teams Network Professional Relationship Specialty Start Date End Date Colby Soliz MD [address] [place] [address] PCP - General Family Medicine 11/11/16
[2025-02-21 12:44] LABS: Hematocrit 39.6 % (37.0-47.0); Hemoglobin 11.7 g/dL (12.0-15.0); Mean Corpuscular HGB Conc 29.5 g/dl (32-36); Mean Corpuscular Hemoglobin 23.8 pg (26-34); Mean Corpuscular Volume 80.5 fl (80-100); Mean Platelet Volume 10.8 fl (7.4-10.4); Platelet Count Result 268 k/mm3 (150-375); Red Blood Count 4.92 M/mm3 (4.2-5.4); Red Cell Distribution Width 16.6 % (11.5-14.5); White Blood Count 9.3 K/mm3 (4.5-10.0)
[2025-02-21 12:56] LABS: Iron 46 ug/dL (37-170)
[2025-02-21 13:15] LABS: Percent Iron Saturation 14 % (20-50)
[2025-02-21 13:23] LABS: Hemoglobin A1C 6.1 % (<5.7)
== END 2025-02-21 11:26 | disposition home or self-care (01) ==
PROVIDERS: PCP Family Medicine; Visit Provider Family Medicine
DX: D64.9 Anemia, unspecified (principal); Z79.01 Long term (current) use of anticoagulants; E11.9 Type 2 diabetes mellitus without complications; I10 Essential (primary) hypertension; E78.5 Hyperlipidemia, unspecified; E11.29 Type 2 diabetes mellitus with other diabetic kidney complication; R80.9 Proteinuria, unspecified; E66.01 Morbid (severe) obesity due to excess calories; E88.810 Metabolic syndrome
CPT/HCPCS: 36415; 82728; 83036; 83540; 83550; 85027

== ENCOUNTER 2025-02-21 11:27 | Outpatient (RCR) | payer MEDICARE, BC, SELFPAY ==
[2025-01-23 11:34] LABS: INR 3.0; Prothrombin Time 31.5 Seconds (11.1-14.7)
[2025-02-21 13:23] LABS: INR 2.6; Prothrombin Time 28.5 Seconds (11.1-14.7)
== END 2025-04-23 23:59 | disposition home or self-care (01) ==
LOC: ANHGOSHLAB 11:27
PROVIDERS: PCP Family Medicine; Visit Provider Nurse Practitioner
DX: Z79.01 Long term (current) use of anticoagulants (principal); D64.9 Anemia, unspecified
CPT/HCPCS: 36415; 82728; 83036; 83540; 83550; 85027; 85610

== ENCOUNTER 2025-03-24 15:11 | Emergency (ER) | payer MEDICARE, BC, SELFPAY ==
--- NOTE | ~2025-03-24 | CT_ITS ---
EXAMINATION: CT abdomen pelvis wo con DATE: 03/24/2025 19:22 INDICATION: left flank pain TECHNIQUE: Computed tomography (CT) of the abdomen and pelvis was performed without intravenous contr ast. Automated exposure control and iterative reconstruction technique were employed. The dose-length product was 883.48 mGy-cm. COMPARISON: 10/30/2020. FINDINGS: Lower thorax: Moderate right and small left pleural effusions. Cardiac regular. Cardiac pacing wires terminating in good position. Stable 1.3 cm left lower lobe granuloma/hamartoma Liver: Normal. Biliary/Gallbladder: Gallbladder is absent. No bile duct dilation. Pancreas: Severe atrophy. Spleen: Normal. Adrenals:No mass. Kidneys: Multiple nonobstructing right renal calcifications. Right kidney otherwise normal. Moderate left pelviectasis and caliectasis, with mild perinephric stranding. 9 mm calcification in the left UP J. Additional punctate nonobstructing left renal calcifications also noted. GI tract: No small or large bowel dilation. Normal appendix. Diverticulosis without diverticulitis. Mesentery/Peritoneum: No ascites, mass, or free air. Retroperitoneum: No mass. Atherosclerotic calcifications of intra-abdominal arterial vessels. Pelvis: Pelvic organs are within normal limits. Soft Tissues: Soft tissues and body wall unremarkable. Bones: No acute osseous finding. The level severe lumbar degenerative disc disease and facet arthrop athy. Severe central canal narrowing at L3-4 and L4-5 secondary to degenerative changes. IMPRESSION: Moderate right and small left pleural effusions. 9 mm left UPJ stone causing moderate obstructive uropathy. Reviewed, dictated and finalized at location K.
[2025-03-24 15:13] VITALS: BP 130/56; PULSE 88; RESP 16; TEMP 36.5; O2SAT 99
--- OUTSIDE RECORDS SUMMARY | 2025-03-24 15:13 | XMS_ITS | Continuity of Care Document ---
Author Organization [facility] Address [address] [facility] [address] [place] [address] Phone Care Team Providers Care Prop And Scenery Maker Name Role Phone Kam Lezama Unavailable Unavailable Procedures Procedure Date Office/outpatient Visit, Est Advance Directives Directive Yes / No Effective Date File Name No Information Encounters Encounter Description Practice Location Reason(s) For Visit Diagnoses Date Provider Providers Copied on Encounter Office/outpat ient Visit, Est [facility], [address], [place], [place], [id number], [place] tel:[phone] [facility] No Information 7 Lise Humphrey. [address], [address], [place], [place], [facility], . tel:[phone] Referring Provider: Kam Sr [address], [place], [place], [facility]. tel:[phone] Family History Family Member Type Diagnosis Age [...]
--- OUTSIDE RECORDS SUMMARY | 2025-03-24 15:13 | XMS_ITS | Clinical Summary ---
Author Organization [facility] Address [address] [place] [address] Care Team Providers Care Database Consultant Name Role Phone Colby Soliz MD Primary Care Provider [phone] Source Comments [facility],non-owned Affiliates and Associated Physician Practices is amultiple site organization consisting of ambulatory clinics and hospital sitesin [place], [place], [place] and [place]. This disclosure is being madepursuant to the Care Everywhere program and may not contain all information available regarding this patient. 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 Gender Identity Not on file Sexual Orientation [...] patient's age to complete this topic Insurance [facility] Address: [address] [place] [address] MEDICARE [facility] SELF PAY NO INSURANCE Member Subscriber Plan / Payer (Ef fective for All Dates) Name:Genesis Griggs Member ID:Not on file Relation to Subscriber:Not on file Name:GENESIS GRIGGS Subscriber ID:Not on file (Home) Address: [address] [address] Payer ID:Not on file Group ID:Not on file Type:Self Pay Address: [place], [place] Care Teams Database Consultant Relationship Specialty Start Date End Date Colby Soliz MD [address] [place] [address] PCP - General Family Medicine 11/11/16
[2025-03-24 17:26] VITALS: BP 149/81; PULSE 71; RESP 16; TEMP 36.4; O2SAT 100
[2025-03-24 18:13] LABS: Add Urine Microscopic? YES; Appearance Urine Clear (Clear); Bacteria Urine None Seen /hpf; Bilirubin Urine Negative (Negative); Blood Urine 3+ (Negative); Color Urine Yellow (Yellow); Glucose Urine UA Negative (Negative); Ketones Urine Negative (Negative); Leukocyte Esterase Ur 2+ LEU/UL (Negative); Nitrate Urine Negative (Negative); Non Pathogenic Casts 0-2; Protein Urine Negative (Negative); RBC Urine 0-2 /hpf (0-2); Specific Grav Ur 1.007 (1.001-1.035); Squamous Epithelial Cell Urine None Seen /hpf (Few); Urobilinogen Urine 0.2 mg/dL (<2.0); pH Urine 5.5 (5.0-9.0)
--- OUTSIDE RECORDS SUMMARY | 2025-03-24 18:33 | XMS_ITS | Continuity of Care Document ---
Author Organization [facility] Address [address] [facility] [address] [place] [address] Phone Care Team Providers Care Word Processing Supervisor Name Role Phone Kam Lezama Unavailable Unavailable Procedures Procedure Date Office/outpatient Visit, Est Advance Directives Directive Yes / No Effective Date File Name No Information Encounters Encounter Description Practice Location Reason(s) For Visit Diagnoses Date Provider Providers Copied on Encounter Office/outpat ient Visit, Est [facility], [address], [place], [place], [id number], [place] tel:[phone] [facility] No Information 7 Lise Humphrey. [address], [place], [place], [facility], . tel:[phone] Referring Provider: Kam Sr [address], [place], [place], [facility]. tel:[phone] Family History Family Member Type Diagnosis Age At Onset No Information Payers Payer name Insurance type Covered constitution party ID Authoriza tion(s) No Information Social [...]
--- OUTSIDE RECORDS SUMMARY | 2025-03-24 18:33 | XMS_ITS | Clinical Summary ---
Author Organization [facility] Address [address] [place] [address] Care Team Providers Care Entry Level Sales Representative Name Role Phone Colby Soliz MD Primary Care Provider [phone] Source Comments [facility],non-owned Affiliates and Associated Physician Practices is amultiple site organization consisting of ambulatory clinics and hospital sitesin [place], [place], [place] and [place]. This disclosure is being madepursuant to the Care Everywhere program and may not contain all information available regarding this patient. 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 Gender Identity Not on file Sexual [...] patient's age to complete this topic Insurance [facility] MEDICARE [facility] SELF PAY NO INSURANCE Member Subscriber Plan / Payer (Ef fective for All Dates) Name:Genesis Griggs Member ID:Not on file Relation to Subscriber:Not on file Name:GENESIS GRIGGS Subscriber ID:Not on file (Home) Address: [address] [address] Payer ID:Not on file Group ID:Not on file Type:Self Pay Address: [place], [place] Care Teams Entry Level Sales Representative Relationship Specialty Start Date End Date Colby Soliz MD [address] [place] [address] PCP - General Family Medicine 11/11/16
[2025-03-24 18:53] LABS: Basophils Percent Auto 0.3 % (0.2-1.2); Eosinophils Percent Auto 0.2 % (0-4.4); Hematocrit 41.3 % (37.0-47.0); Hemoglobin 12.8 g/dL (12.0-15.0); Immature Granulocyte Absolute 0.03 K/mm3 (0.00-0.031); Immature Granulocyte Percent A 0.3 % (0-0.5); Lymphocytes Absolute Auto 1.97 K/mm3 (0.9-3.2); Lymphocytes Percent Auto 18.6 % (18.3-44.2); Mean Corpuscular Hemoglobin 23.8 pg (26-34); Mean Corpuscular Volume 76.8 fl (80-100); Mean Platelet Volume 10.1 fl (7.4-10.4); Monocytes Absolute Auto 0.6 K/mm3 (0.1-0.6); Monocytes Percent Auto 5.5 % (2.6-8.5); Neutrophils Percent Auto 75.1 % (45.5-73.1); Platelet Count Result 301 k/mm3 (150-375); Red Blood Count 5.38 M/mm3 (4.2-5.4); Red Cell Distribution Width 16.3 % (11.5-14.5); White Blood Count 10.6 K/mm3 (4.5-10.0)
[2025-03-24 18:59] LABS: INR 2.3; Partial Thromboplastin Time 29.5 Seconds (22.3-36.8); Prothrombin Time 24.6 Seconds (11.1-14.7)
--- NOTE | 2025-03-24 19:08 | ED_ITS ---
HPI - General Adult General Chief complaint: Urogenital-Female Stated complaint: L flank pain Time Seen by Provider: 03/24/25 17:45 History of Present Illness HPI narrative: 64-year-old female with history of ureteral calculi presented to the emergency department for evaluation for left flank pain that started yesterday. Patient describes left lower quadrant and left flank plain. Patient did have some associated nausea and vomiting. Patient denies any dysuria. Patient denies any current hematuria. Patient's most recent kidney stone requiring lithotripsy was approximately 4 years ago that was performed at this hospital. Patient does have a history of a pacemaker due to complete heart block, type 2 diabetes, hypertension, high cholesterol, metabolic syndrome Related Data Home Medications ?Medication ?Instructions ?Recorded ?Confirmed ?Last Taken ?Type aspirin 81 mg tablet,delayed 81 mg PO DAILY 12/05/19 02/21/25 10/16/22 History release Allergies Allergy/AdvReac Type Severity Reaction Status Date / Time No Known Allergies Allergy Verified 03/24/25 15:11 Review of Systems 2 Review of Systems: All systems reviewed & are unremarkable except as noted in HPI and below PMFSH Past Medical History Medical History CHF (congestive heart failure) EF 55-60% Complete heart block Anal fistula Visual field loss following cerebrovascular accident COVID-19 H/O solitary pulmonary nodule 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 had chemotherapy and bone marrow transplant Stroke Kidney stone Hepatitis C antibody test negative (12/16/17) Surgical History Surgical History Status post biventricular pacemaker 10/2022, Biotronik, for complete heart block H/O cystoscopy History of removal of Port-a-Cath History of bone marrow transplant History of tonsillectomy History of appendectomy H/O lymph node biopsy Hx of cholecystectomy H/O colonoscopy Family History Family History Father Hypertension, Onset Age: 46 Family history of elevated blood lipids, Onset Age: 46 Acute myocardial infarction Family history of coronary artery disease, Onset Age: 46 Hyperlipidemia Sibling FH: testicular cancer Family history of Hodgkin's lymphoma Mother Family history of malignant neoplasm of ovary Other Family history of malignant neoplasm Social History Social History Social History: She lives with her who is a durable power assistant city attorney for healthcare. She has no biological children and has 2 step children. She is on disability. She is a lifelong nonsmoker. She denies any alcohol marijuana or illicit drug. Code status full code Caffeine-none Smoking status: Never smoker Second hand tobacco smoke exposure: No Alcohol intake: current Alcohol use details: social Substance use: never Substance use type: does not use Lack of Transportation: No Lack of Food: Never True Current Housing: I Have Housing Concerned About Future Housing: No Difficulty Paying Gas/Electric Bills: No Difficulty Paying for Meds: No Currently Unemployed: No Education: Associate Degree Difficulty w/ Childcare or Family Care: No Living arrangements: with family Occupation/Education: retired Gender identity (if verbalized by the patient): Female Spiritual care concerns: No Agree to blood products: Yes Exam 2 Narrative: APPEARANCE: Well appearing, no pain, no distress, well-nourished. HEAD: normocephalic, atraumatic. EYES: PERRLA/EOMI, conjunctivae clear. NOSE: Normal no drainage EARS:TMS clear with good light reflex. THROAT: Pharynx clear, no exudate. NECK: Supple. No adenopathy, no masses. RESPIRATORY: Airway patent, respirations nonlabored. Clear to auscultation bilaterally, no rales, rhonchi, wheezing. CARDIOVASCULAR: Regular rate and rhythm without murmurs rubs or gallops. ABDOMINAL: no significant reproducible left lower quadrant tenderness to palpation or left CVA tender MUSCULOSKELETAL: Moves all extremities. Strength/ROM intact, No edema, No calf tenderness. NEURO: Alert. Cranial nerves II through XII intact. Good gait. Good coordination SKIN: Warm, dry. Normal Color Course Vital Signs Vital signs: Vital Signs Temperature 97.7 F 03/24/25 15:13 Pulse Rate 88 03/24/25 15:13 Respiratory Rate 16 03/24/25 15:13 Blood Pressure 130/56 L 03/24/25 15:13 Pulse Oximetry 99 03/24/25 15:13 Oxygen Delivery Room Air 03/24/25 15:13 Temperature 97.6 F 03/24/25 17:26 Pulse Rate 88 03/24/25 20:06 Respiratory Rate 16 03/24/25 20:06 Blood Pressure 147/86 H 03/24/25 20:06 Pulse Oximetry 98 03/24/25 20:06 Oxygen Delivery Room Air 03/24/25 15:13 Medical Decision Making [facility] Narrative Medical decision making narrative: 64-year-old female presents emergency department for evaluation for left flank pain. Patient is currently afebrile with a leukocytosis of 10.7, hemoglobin 12.8. Patient has mild elevation in her kidney function. Patient does have some blood in her urine with no bacteria seen on the UA. CT scan does show a 9 mm UPJ stone. Patient was offered admission for pain control and anticipated stent placement but patient prefers to be discharged to home with medications for pain control. Patient is comfortable appearing in the emergency department. Differential Diagnosis Differential Diagnosis: Infected stone, urinary tract infection colitis, diverticulitis Vital Signs Vital Signs: Vital Signs Temperature 97.7 F 03/24/25 15:13 Pulse Rate 88 03/24/25 15:13 Respiratory Rate 16 03/24/25 15:13 Blood Pressure 130/56 L 03/24/25 15:13 Pulse Oximetry 99 03/24/25 15:13 Oxygen Delivery Room Air 03/24/25 15:13 Temperature 97.6 F 03/24/25 17:26 Pulse Rate 88 03/24/25 20:06 Respiratory Rate 16 03/24/25 20:06 Blood Pressure 147/86 H 03/24/25 20:06 Pulse Oximetry 98 03/24/25 20:06 Oxygen Delivery Room Air 03/24/25 15:13 Lab Data Lab results reviewed: Yes I reviewed the patient's lab results. 03/24/25 18:03 03/24/25 19:48 Labs: Lab Results 03/24/25 03/24/25 Range/Units 18:03 19:48 WBC 10.6 H (4.5-10.0) K/mm3 RBC 5.38 (4.2-5.4) M/mm3 Hgb 12.8 (12.0-15.0) g/dL Hct 41.3 (37.0-47.0) % MCV 76.8 L (80-100) fl MCH 23.8 L (26-34) pg MCHC 31.0 L (32-36) g/dl RDW 16.3 H (11.5-14.5) % Plt Count 301 (150-375) k/mm3 MPV 10.1 (7.4-10.4) fl Immature Gran % (Auto) 0.3 (0-0.5) % Neut % (Auto) 75.1 H (45.5-73.1) % Lymph % (Auto) 18.6 (18.3-44.2) % [place] % (Auto) 5.5 (2.6-8.5) % Eos % (Auto) 0.2 (0-4.4) % Baso % (Auto) 0.3 (0.2-1.2) % Lymph # (Auto) 1.97 (0.9-3.2) K/mm3 [place] # (Auto) 0.6 (0.1-0.6) K/mm3 Eos # (Auto) 0.0 (0-0.3) K/mm3 Baso # (Auto) 0.0 (0.0-0.1) K/mm3 Abs Immat Gran (auto) 0.03 (0.00-0.031) K/mm3 Absolute Neuts (auto) 8.0 H (1.3-6.7) K/mm3 Absolute Nucleated RBC 0.000 (0.0-0.012) K/mm3 Nucleated RBC % 0.0 (0.0-0.2) % PT 24.6 H (11.1-14.7) Seconds INR 2.3 APTT 29.5 (22.3-36.8) Seconds Sodium 136 L (137-145) mmol/L Potassium 3.9 (3.4-5.0) mmol/L Chloride 105 (98-107) mmol/L Carbon Dioxide 20 L (22-30) mmol/L Anion Gap 11 (4-12) mmol/L BUN 16 (7-17) mg/dL Creatinine 1.09 H (0.7-1.0) mg/dL Estim Creat Clear Calc 60 ml/min Estimated GFR 51 L (59 - ) Glucose 86 (65-110) mg/dL Calcium 9.4 (8.4-10.2) mg/dL Total Bilirubin 1.0 (0.2-1.3) mg/dL AST 41 H (14-36) U/L ALT 24 (6-35) U/L Alkaline Phosphatase 100 (38-126) U/L Total Protein 7.4 (6.3-8.2) g/dL Albumin 3.9 (3.5-5.1) g/dL Urine Color Yellow (Yellow) Urine Appearance Clear (Clear) Urine pH 5.5 (5.0-9.0) Ur Specific [place] 1.007 (1.001-1.035) Urine Protein Negative (Negative) mg/dL Urine Glucose (UA) Negative (Negative) mg/dL Urine Ketones Negative (Negative) mg/dL Ur Blood (Man) 3+ H (Negative) Urine Nitrate Negative (Negative) Urine Bilirubin Negative (Negative) Urine Urobilinogen 0.2 (<2.0) mg/dL Leukocyte Esterase Rfl 2+ H (Negative) ARIA/UL Urine RBC 0-2 (0-2) /hpf Urine WBC 6-10 H (0-3) /hpf Ur Squamous Epith Cells None seen (Few) /hpf Urine Bacteria None seen /hpf Urine Casts 0-2 Imaging Data Radiologist's impression: Impressions Abdomen/Pelvis CT 03/24/25 19:25 IMPRESSION: Moderate right and small left pleural effusions. 9 mm left UPJ stone causing moderate obstructive uropathy. Discharge Plan Discharge Clinical Impression: Calculi, ureter Patient Disposition: Home Condition: Stable Instructions: Antibiotic Form, Kidney Stones (ED) Additional Instructions: [place] for pain control. Zofran as needed for nausea control. You were offered admission for pain control but you preferred to be discharged home with close outpatient follow-up. Call Urology on Thursday morning. If you have any worsening symptoms then please call or return to the emergency department. Patient Language: Telugu Prescriptions: New hydrocodone-acetaminophen 5-325 mg tablet 1 tablet PO Q12H PRN (Reason: pain) Qty: 14 0RF ondansetron 4 mg tablet,disintegrating 4 mg PO Q8H PRN (Reason: nausea and vomiting) Qty: 14 0RF No Action aspirin 81 mg tablet,delayed release (DR/EC) 81 mg PO DAILY (DME) CPAP Equipment See Rx Instructions .Route .MEDSUPPLY Qty: 1 0RF Rx Instructions: Rx: Resmed AirSense 11 CPAP 9 cm H2O, CPAP mask/filters/tubing and heated humidity Dx: G47.33 Length of treatment: 99+ months *Please link me to the patient's CPAP machine through [facility]* Physician: Dr. Jessy Cobian DO ferrous sulfate 324 mg (65 mg iron) tablet,delayed release (/EC) See Rx Instructions .ROUTE .COMPLEX Qty: 180 1RF Dose Instruction: TAKE 1 TABLET BY MOUTH TWICE A DAY Rx Instructions: TAKE 1 TABLET BY MOUTH TWICE A DAY warfarin 5 mg tablet See Rx Instructions .ROUTE .COMPLEX Qty: 30 5RF Dose Instruction: Take 1 tablet by mouth once daily Rx Instructions: Take 1 tablet by mouth once daily Ozempic 2 mg/dose (8 mg/3 mL) pen injector See Rx Instructions .ROUTE .COMPLEX Qty: 9 2RF Dose Instruction: INJECT 2 MG (0.75 ML) SUBCUTANEOUSLY WEEKLY Rx Instructions: INJECT 2 MG (0.75 ML) SUBCUTANEOUSLY WEEKLY metformin 500 mg tablet 500 mg PO BID Qty: 180 3RF metoprolol succinate 50 mg tablet extended release 24 hr 50 mg PO DAILY Qty: 90 1RF lisinopril 5 mg tablet 5 mg PO DAILY Qty: 90 1RF atorvastatin 10 mg tablet 10 mg PO HS Qty: 90 1RF Follow-up/Referrals: Ion Ball MD [Physician] - eDann Chavis DO [Primary Care Provider] -
[2025-03-24] MEDS: HYDROmorphone HCL INJ (*CRX) 2 MG/ML VIAL 0.5 MG IV PUSH (19:43)
[2025-03-24 19:44] VITALS: BP 149/91; PULSE 93; RESP 16; O2SAT 98
[2025-03-24] MEDS: ONDANSETRON INJ 4 MG/2 ML VIAL IV PUSH (19:44)
[2025-03-24 20:06] VITALS: BP 147/86; PULSE 88; RESP 16; O2SAT 98
[2025-03-24 20:09] LABS: Alanine Aminotransferase 24 U/L (6-35); Albumin Level 3.9 g/dL (3.5-5.1); Alkaline Phosphatase 100 U/L (38-126); Anion Gap 11 mmol/L (4-12); Aspartate Amino Transferase 41 U/L (14-36); Blood Urea Nitrogen 16 mg/dL (7-17); Calcium 9.4 mg/dL (8.4-10.2); Carbon Dioxide 20 mmol/L (22-30); Chloride 105 mmol/L (98-107); Estimated CRCL calculation 60 ml/min; Estimated Glomerular Filt Rate 51; Glucose 86 mg/dL (65-110); Potassium 3.9 mmol/L (3.4-5.0); Sodium 136 mmol/L (137-145); Total Protein 7.4 g/dL (6.3-8.2)
[2025-03-24] MEDS: HYDROcodone/acetaminophen (*CRX) 5-325 MG TABLET 1 TAB PO (20:35)
== END 2025-03-24 20:42 | disposition home or self-care (01) ==
PROVIDERS: Emergency Provider Emergency Medicine; PCP Family Medicine
DX: N13.9 Obstructive and reflux uropathy, unspecified (principal); N20.1 Calculus of ureter; I50.9 Heart failure, unspecified; I11.0 Hypertensive heart disease with heart failure; E11.9 Type 2 diabetes mellitus without complications; E78.00 Pure hypercholesterolemia, unspecified; Z98.84 Bariatric surgery status; Z94.81 Bone marrow transplant status; Z87.442 Personal history of urinary calculi; Z86.16 Personal history of COVID-19; Z92.21 Personal history of antineoplastic chemotherapy; Z86.73 Personal history of transient ischemic attack (TIA), and cerebral infarction without residual deficits; Z90.49 Acquired absence of other specified parts of digestive tract; J90 Pleural effusion, not elsewhere classified; Z79.82 Long term (current) use of aspirin
CPT/HCPCS: 36415; 74176; 80053; 81001; 85025; 85610; 85730; 87086; 96374; 96375; 99284; A9270; J1171; J2405

== ENCOUNTER 2025-03-28 12:39 | Outpatient (CLI) | payer MEDICARE, BC, SELFPAY ==
--- NOTE | ~2025-03-28 | XR_ITS ---
Supine and upright views of the abdomen Clinical history: Kidney stone COMPARISON: CT dated 03/24/2025 Findings: Bowel gas pattern is nonspecific. No evidence for obstruction or free air. 7 mm stone prese nt in the region of the proximal left ureter, projecting left of the L3 vertebral body. Nonspecific r ound calcification projecting over the posterior left 10th rib is stable from prior radiograph from 11/24/2020, nonspecific. Osseous structures are intact. Impression: 7 mm proximal left ureteral stone, as seen on recent CT. Reviewed, dictated and finalized at location M. Impression: 7 mm proximal left ureteral stone, as seen on recent CT.
--- OUTSIDE RECORDS SUMMARY | 2025-03-28 13:35 | XMS_ITS | Clinical Summary ---
Author Organization [facility] Address [address] [place] [address] Care Team Providers Care Lopper Name Role Phone Colby Soliz MD Primary Care Provider [phone] Source Comments [facility],non-owned Affiliates and Associated Physician Practices is amultiple site organization consisting of ambulatory clinics and hospital sitesin [place], [place], [place] and [place]. This disclosure is being madepursuant to the Care Everywhere program and may not contain all information available regarding this patient. 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 Gender Identity Not on file Sexual Orientation [...] patient's age to complete this topic Insurance [facility] Address: [address] [place] [address] MEDICARE [facility] SELF PAY NO INSURANCE Member Subscriber Plan / Payer (Ef fective for All Dates) Name:Genesis Griggs Member ID:Not on file Relation to Subscriber:Not on file Name:GENESIS GRIGGS Subscriber ID:Not on file (Home) Address: [address] [address] Payer ID:Not on file Group ID:Not on file Type:Self Pay Address: [place], [place] Care Teams Lopper Relationship Specialty Start Date End Date Colby Soliz MD [address] [place] [address] PCP - General Family Medicine 11/11/16
== END 2025-03-28 12:40 | disposition home or self-care (01) ==
PROVIDERS: PCP Family Medicine; Visit Provider Urology
DX: N20.0 Calculus of kidney (principal); N20.1 Calculus of ureter
CPT/HCPCS: 74018

== ENCOUNTER 2025-04-04 11:28 | Outpatient (CLI) | payer MEDICARE, BC, SELFPAY ==
--- NOTE | 2025-04-04 11:51 | ECG_ITS ---
Test Date: 2025-04-04 11:55:51 Measurements Intervals [place] Rate: 83 P: 36 OR: 196 QRS: -72 QRSD: 168 T: 100 QT: 415 QTc: 489 Interpretive Statements ATRIAL SENSE- ELECTRONIC VENTRICULAR PACEMAKER BASELINE ARTIFACT- I, III, AVR, AVL NO FURTHER INTERPRETATION IS POSSIBLE ATYPICAL ECG No previous ECG available for comparison Electronically Signed On 04-04-2025 12:03:39 CDT by Vu Leon D.O.
--- OUTSIDE RECORDS SUMMARY | 2025-04-04 12:33 | XMS_ITS | Continuity of Care Document ---
Author Organization [facility] Address [address] [facility] [address] [place] [address] Phone Care Team Providers Care Dough Molder Hand Name Role Phone Kam Lezama Unavailable Unavailable Procedures Procedure Date Office/outpatient Visit, Est Advance Directives Directive Yes / No Effective Date File Name No Information Encounters Encounter Description Practice Location Reason(s) For Visit Diagnoses Date Provider Providers Copied on Encounter Office/outpat ient Visit, Est [facility], [address], [place], [place], [id number], [place] tel:[phone] [facility] (formerly [facility]) No Information 7 Lise Humphrey. [address], [place], [place], [facility], . tel:[phone] Referring Provider: Kam Sr [address], [place], [place], [facility]. tel:[phone] Family History Family Member Type Diagnosis Age [...]
--- OUTSIDE RECORDS SUMMARY | 2025-04-04 12:33 | XMS_ITS | Clinical Summary ---
Author Organization [facility] Address [address] [place] [address] Care Team Providers Care Vocational Psychologist Name Role Phone Colby Soliz MD Primary Care Provider [phone] Source Comments [facility],non-owned Affiliates and Associated Physician Practices is amultiple site organization consisting of ambulatory clinics and hospital sitesin [place], [place], [place] and [place]. This disclosure is being madepursuant to the Care Everywhere program and may not contain all information available regarding this patient. Last updated 18.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 Gender Identity Not on file Sexual Orientation [...] MAMMOGRAM 1961 MEDICARE AWV 12 MONTHS 1961 HIV SCREENING 1976 HEPATITIS C SCREENING 12/10/1979 DTAP/TDAP/TD VACCINES (1 - Tdap) 1980 PAP SMEAR 1982 PAP with HPV 1991 PNEUMOCOCCAL VACCINE 50+ (1 of 1 - PCV) 2011 ZOSTER VACCINE (1 of 2) 2011 COVID-19 VACCINE (1 - 2023-2 5 season) 2024 DEPRESSION SCREENING 10/19/2024 INFLUENZA [...] patient's age to complete this topic Insurance [facility] MEDICARE [facility] SELF PAY NO INSURANCE Member Subscriber Plan / Payer (Ef fective for All Dates) Name:Genesis Griggs Member ID:Not on file Relation to Subscriber:Not on file Name:GENESIS GRIGGS Subscriber ID:Not on file (Home) Address: [address] [address] Payer ID:Not on file Group ID:Not on file Type:Self Pay Address: [place], [place] Care Teams Vocational Psychologist Relationship Specialty Start Date End Date Colby Soliz MD [address] [place] [id number] PCP - General Family Medicine 11/11/16
== END 2025-04-04 11:29 | disposition home or self-care (01) ==
LOC: ANHSURGERY 11:34
PROVIDERS: PCP Family Medicine; Visit Provider Urology
DX: I44.2 Atrioventricular block, complete (principal)
CPT/HCPCS: 93005

== ENCOUNTER 2025-04-07 00:40 | Day surgery (SDC) | payer MEDICARE, BC, SELFPAY ==
[2025-04-04 08:18] VITALS: BMI 40.4
--- NOTE | 2025-04-04 08:26 | PC.NURSE ---
Report to the Outpatient Waiting Room, entrance under the green pavilion located off [facility], at time _0600_ on date _[id number]_. Planned Procedure Time: _0730_.? Time changes happen often and if your time is changed the preop area will call you the afternoon before. - You and your visitor will be asked to self-screen and do not enter if you have any COVID symptoms. Please call surgeon if you need to reschedule. - A mask is optional within the hospital at this time. Patients may have clear liquids (water, carbonated beverages, clear teas, apple juice) until 3 hours prior to surgery with a maximum of 20 ounces. - No food from midnight until time of surgery and no smoking, or chewing tobacco (or any form of nicotine). No chewing gum, candy or mints. Take only the following medications with a SIP of water on the morning of surgery: ___Metoprolol DO NOT STOP ANY OF YOUR OTHER PRESCRIPTION MEDICATIONS PRIOR TO SURGERY EXCEPT THE FOLLOWING Hold all vitamins and supplements for 3 days per anesthesiologist. Medications to discontinue per physician ___Patient spoke with her heart doctor and stopped aspirin and warfarin [id number] Date to take last dose Please no make-up, nail swedish, hairspray, perfume, deodorant, or body powder the day of surgery.? No jewelry (including any body piercings) or valuables the day of surgery, leave them at home.? Please take a shower or bath the night before, or the morning of, surgery with an antibacterial soap.? Wear comfortable, loose fitting clothing.? - Jewelry must be removed prior to entering the operating room.? Rings and piercings that are not removed may be cut off. - The hospital will not accept responsibility for valuables.? - Please leave all valuables, including medications, at home the day of surgery. If you are going home after surgery, a licensed experienced truck driver must drive you home.? - NO public transportation without another adult if you receive anesthesia. - We recommend that an adult stay with you for 24 hours following discharge. - We also recommend that you do not drive, make important decision, drink alcoholic beverages, or take any drugs that were not prescribed by your health care provider for at least 24 hours after your discharge time. Follow any additional instructions given to you from your surgeon. Telephone instructions given to __Genesis___and asked if any additional questions and then verbalized understanding. Patient advised to call surgeon office or pre surgery nurse liaison [phone] if any additional questions.
[2025-04-07] VITALS (8 sets, daily range): BP systolic 111–135; BP diastolic 47–72; PULSE 63–90; RESP 16–22; TEMP 36.4–36.7; O2SAT 96–100; BMI 40.6
--- NOTE | ~2025-04-07 | XR_ITS ---
Supine and upright views of the abdomen Clinical history: Lithotripsy COMPARISON: 03/28/2025 Findings: Bowel gas pattern is nonspecific. No evidence for obstruction or free air. Probable [address] one again present projecting just left of the L3 transverse process, presumably in the left mid urete r. Osseous structures are intact. Impression: 8 mm stone at the proximal to mid left ureter. Reviewed, dictated and finalized at location . Impression: 8 mm stone at the proximal to mid left ureter.
--- OUTSIDE RECORDS SUMMARY | 2025-04-07 00:46 | XMS_ITS | Clinical Summary ---
Author Organization [facility] Address [address] [place] [address] Care Team Providers Care Freezer Tunnel Operator Name Role Phone Colby Soliz MD Primary Care Provider [phone] Source Comments [facility],non-owned Affiliates and Associated Physician Practices is amultiple site organization consisting of ambulatory clinics and hospital sitesin [place], [place], [place]. This disclosure is being madepursuant to the Care Everywhere program and may not contain all information available regarding this patient. 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 Gender Identity Not on file Sexual Orientation [...] patient's age to complete this topic Insurance [facility] Address: [address] [place] [address] MEDICARE [facility] SELF PAY NO INSURANCE Member Subscriber Plan / Payer (Ef fective for All Dates) Name:Genesis Griggs Member ID:Not on file Relation to Subscriber:Not on file Name:GENESIS GRIGGS Subscriber ID:Not on file (Home) Address: [address] [address] Payer ID:Not on file Group ID:Not on file Type:Self Pay Address: [place], [place] Care Teams Freezer Tunnel Operator Relationship Specialty Start Date End Date Colby Soliz MD [address] [place] [phone] PCP - General Family Medicine 11/11/16
--- OUTSIDE RECORDS SUMMARY | 2025-04-07 00:46 | XMS_ITS | Continuity of Care Document ---
Author Organization [facility] Address [address] [facility] [address] [place] [address] Phone Care Team Providers Care Field Artillery Operations Specialist Name Role Phone Kam Lezama Unavailable Unavailable Procedures Procedure Date Office/outpatient Visit, Est Advance Directives Directive Yes / No Effective Date File Name No Information Encounters Encounter Description Practice Location Reason(s) For Visit Diagnoses Date Provider Providers Copied on Encounter Office/outpat ient Visit, Est [facility], [address], [place], [place], [id number], [place] tel:[phone] [facility] No Information 7 Lise Humphrey. [address], [place], [place], [facility], . tel:[phone] Referring Provider: Kam Sr [address], [place], [place], [facility]. tel:[phone] Family History Family Member Type Diagnosis Age At Onset No Information Payers Payer name Insurance type Covered republican ID Authoriza tion(s) No Information Social History [...]
--- NOTE | 2025-04-07 06:58 | P.PNAN_ITS ---
Anes - Initial Pre Proc Eval Procedure: Operation Date: 04/07/25 07:30 Proposed Procedures p Left Ureteral Extracorporeal Shock Wave Lithotripsy, - Ion Ball MD s Possible Cystoscopy, Left Retrograde Pyelogram, Left Ureteroscopy, Left Stent Placement, Possible Holmium Laser - Ion Ball MD Date/Time: 04/07/25 06:58 Surgeon: Ion Ball MD Pre Op Diagnosis: left kidney stone Patient Data Age: 64 Gender: F Height: 1.68 m Weight: 113.6 kg Last Vital Signs Temp 36.4 C 04/07/25 06:00 Pulse 90 04/07/25 06:00 Resp 16 04/07/25 06:00 BP 111/60 04/07/25 06:00 Pulse Ox 100 04/07/25 06:00 O2 Del Method Room Air 04/07/25 06:00 Allergies Allergy/AdvReac Type Severity Reaction Status Date / Time No Known Allergies Allergy Verified 04/07/25 06:25 Home Medications ?Medication ?Instructions ?Recorded ?Confirmed ?Type aspirin 81 mg tablet,delayed 81 mg PO DAILY 12/05/19 04/07/25 History release CPAP Equipment #1 ea 11/13/23 04/04/25 Rx semaglutide 2 mg/dose (8 mg/3 mL) See Rx Instructions .Route 12/13/24 04/07/25 Rx subcutaneous pen injector (Ozempic) .COMPLEX #9 mL warfarin 5 mg tablet See Rx Instructions .Route 12/13/24 04/07/25 Rx .COMPLEX #30 tabs metformin 500 mg tablet 500 mg PO BID #180 tabs 01/12/25 04/07/25 Rx atorvastatin 10 mg tablet 10 mg PO HS #90 tabs 03/06/25 04/04/25 Rx lisinopril 5 mg tablet 5 mg PO DAILY #90 tabs 03/06/25 04/04/25 Rx metoprolol succinate 50 mg 50 mg PO DAILY #90 tabs 03/06/25 04/07/25 Rx tablet,extended release 24 hr hydrocodone 5 mg-acetaminophen 325 1 tablet PO Q12H PRN pain #14 tabs 03/24/25 04/04/25 Rx mg tablet ondansetron 4 mg disintegrating 4 mg PO Q8H PRN nausea and 03/24/25 04/04/25 Rx tablet vomiting #14 tabs ferrous sulfate 324 mg (65 mg See Rx Instructions .Route 03/27/25 04/07/25 Rx iron) tablet,delayed release .COMPLEX #180 tabs Laboratory Tests 04/07/25 06:39 PT Pending INR Pending APTT Pending Patient hx anesthesia problems: none Family hx anesthesia problems: none Results Review: All pre-operative results and documents have been reviewed as part of the pre- operative evaluation. 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 had chemotherapy and bone marrow transplant Stroke Kidney stone Hepatitis C antibody test negative (12/16/17) Surgical History Surgical History Status post biventricular pacemaker 10/2022, Biotronik, for complete heart block H/O cystoscopy History of removal of Port-a-Cath History of bone marrow transplant History of tonsillectomy History of appendectomy H/O lymph node biopsy Hx of cholecystectomy H/O colonoscopy Family History Family History Father Hypertension, Onset Age: 46 Family history of elevated blood lipids, Onset Age: 46 Acute myocardial infarction Family history of coronary artery disease, Onset Age: 46 Hyperlipidemia Sibling FH: testicular cancer Family history of Hodgkin's lymphoma Mother Family history of malignant neoplasm of ovary Other Family history of malignant neoplasm Social History Social History Social History: She lives with her who is a durable power title attorney for healthcare. She has no biological children and has 2 step children. She is on disability. She is a lifelong nonsmoker. She denies any alcohol marijuana or illicit drug. Code status full code Caffeine-none Smoking status: Never smoker Second hand tobacco smoke exposure: No Alcohol intake: current Alcohol use details: social Substance use: never Substance use type: does not use Lack of Transportation: No Lack of Food: Never True Current Housing: I Have Housing Concerned About Future Housing: No Difficulty Paying Gas/Electric Bills: No Difficulty Paying for Meds: No Currently Unemployed: No Education: Associate Degree Difficulty w/ Childcare or Family Care: No Living arrangements: with family Occupation/Education: retired Gender identity (if verbalized by the patient): Female Spiritual care concerns: No Agree to blood products: Yes Anes - Eval Final PreProcedure Day of Procedure 04/07/25 06:58 Patient weight: morbidly obese Heart: regular rate and rhythm Lungs: clear to auscultation Airway: Mallampati scale class II Neurological: alert and oriented Last oral intake: >/= 8 hours ASA classification: III Emergent: no Anesthetic plan: proceed Anesthesia type and monitoring: general LMA and standard monitoring Results Review: All pre-operative results and documents have been reviewed as part of the pre- operative evaluation. Informed Consent: The patient's anesthetic plan and its attendant risks and benefits were discussed with the patient/family/POA. Questions were solicited and answers provided to the satisfaction of the patient/family/POA.
[2025-04-07 07:03] LABS: INR 1.5; Prothrombin Time 18.3 Seconds (11.1-14.7)
[2025-04-07 07:03] LABS: Glucose Point of Care 108 mg/dl (65-105)
[2025-04-07 07:04] LABS: Partial Thromboplastin Time 34.5 Seconds (22.3-36.8)
--- NOTE | 2025-04-07 07:06 | WPDHPUPDATE1 ---
History and Physical Update Update Date/Time: 04/07/25 07:06 History and Physical has been reviewed, including an updated exam of the patient. There are NO changes in the patient's condition. Risks, benefits, and alternatives have been discussed and questions answered. Patient agrees to proceed with procedure. Proceed with left ureteral eswl.
[2025-04-07] MEDS: ceFAZolin 2 GM/D5W 50 ML 2 GM/50 ML BAG IVPB (07:23)
--- NOTE | 2025-04-07 08:14 | W.PM.PROC2 ---
Procedure Note - Detailed Date of Procedure 04/07/25 Pre-op Diagnosis left proximal ureteral stone Post-op Diagnosis Same Procedure Performed ESWL of left proximal ureteral calculus Surgeon Ion Ball MD Anesthesia General Description of Procedure Patient was taken to the operative suite correctly identified. Once anesthesia was obtained she was placed in position where the stone was localized in both planes. Two thousand five hundred shocks were given to the stone. Patient tolerated procedure well without any complications was taken recovery stable condition. She will follow-up in a week's time with a KUB. This completes dictation. Please send a copy to my office Estimated Blood Loss 0 Drains No Packing No Pathology None sent Complications No immediate complications Condition Stable Disposition PACU
[2025-04-07] MEDS: LACTATED RINGERS 1,000 ML 30 ML IV CONT (08:17)
[2025-04-07 08:32] LABS: Glucose Point of Care 98 mg/dl (65-105)
== END 2025-04-07 10:12 | disposition home or self-care (01) ==
PROVIDERS: PCP Family Medicine; Visit Provider Urology
PROC: (CPT 50590; principal; 2025-04-07 07:30)
DX: N20.1 Calculus of ureter (principal); Z79.84 Long term (current) use of oral hypoglycemic drugs; Z79.01 Long term (current) use of anticoagulants
CPT/HCPCS: 50590; 36415; 74018; 82948; 85610; 85730; J0690; J1100; J2405; J2704; J7120

== ENCOUNTER 2025-04-30 14:29 | Inpatient (IN) | payer MEDICARE, BC, SELFPAY ==
--- NOTE | ~2025-04-30 | XR_ITS ---
EXAMINATION: XR retrograde pyelo w/stent LT DATE: 05/01/2025 14:45 CDT INDICATION: LEFT STENT PLACEMENT . TECHNIQUE: 4 fluoroscopic images and 2 cine clips of the abdomen and pelvis were obtained during left retrograde pyelography with stent placement. Fluoroscopy exposure time was 17.5 seconds. Air Kerma 1 1.24 mGy. DAP [id number] mGym2. COMPARISON: CT abdomen pelvis 04/30/2025 FINDINGS/IMPRESSION: Fluoroscopic documentation of left retrograde pyelography with stent placement. Please refer to the o perative note for complete procedural details. Reviewed, dictated and finalized at location K.
--- NOTE | ~2025-04-30 | CT_ITS ---
CT abdomen pelvis wo con Ordering provider: Adelita Cortes PA-C History: 64 years Female with . joyce flank pain, L>R, hx stones, N/V . Comparison: March 24, 2025 Technique: CT abdomen and pelvis without IV and without oral contrast. Automated exposure control and iterative reconstruction technique were employed. The dose-length product was 1108.79 mGy-cm. Findings: VISUALIZED LOWER CHEST: Large right pleural effusion with adjacent atelectasis. Small left pleural ef fusion with adjacent atelectasis. Nodule measuring 1.2 cm is seen in the left lung base. UPPER ABDOMINAL ORGANS: Liver: Normal. Gallbladder: Status post cholecystectomy. Spleen: Normal. Stomach/duodenum: Small sliding hiatus hernia. Pancreas: Atrophic. Adrenals: Normal. Kidneys: Tiny stone in the right kidney upper pole. Multiple small stones in the right kidney lower p ole of the largest measures 5 mm. No right hydronephrotic changes seen. Multiple tiny stones are seen in the left kidney with severe hydronephrotic changes. Hydroureter is s een with a stone in the left lower ureter measuring 8 mm. PELVIC ORGANS: The bladder is underfilled. BOWEL AND MESENTERY: Colon: No evidence of diverticulitis. Appendix is not demonstrated.. . Small Bowel: Normal. No obstruction. Peritoneum/mesentery: No free air or free fluid. No mesenteric lymphadenopathy. RETROPERITONEUM: Mild atheromatous disease of the abdominal aorta. No retroperitoneal lymphadenopat hy. MUSCULOSKELETAL: Superficial soft tissues: The superficial soft tissues are normal. Bones: Age appropriate degenerative changes of the spine. Bilateral sacroiliacs. Bilateral hip osteoa rthritic changes. Osteopenia of the bones. IMPRESSION: 1. Bilateral pleural effusion larger on the right side with adjacent atelectasis. 2. Nodule in the left lung base unchanged from previous examination. 3 months follow-up advised. 3. Left lower ureteric stone with severe left hydronephrotic changes. 4. Multiple bilateral renal stones. 5. No evidence of appendicitis, diverticulitis or intestinal obstruction. Reviewed, dictated and finalized at location A. IMPRESSION: 1. Bilateral pleural effusion larger on the right side with adjacent atelectas is. 2. Nodule in the left lung base unchanged from previous examination. 3 months follow-up advised. 3. Left lower ureteric stone with severe left hydronephrotic changes. 4. Multiple bilateral renal stones. 5. No evidence of appendicitis, diverticulitis or intestinal obstruction.
--- NOTE | ~2025-04-30 | XR_ITS ---
XR chest 1V portable Ordering provider: Franki Jenkins MD History: 64 years Female with . CHF . Comparison: October 22, 2022 FINDINGS: MEDIASTINUM: The cardiac silhouette is slightly enlarged. Left bipolar pacemaker. Congestive dhaval. LUNGS: No infiltrates, effusions or pneumothorax. Bilateral interstitial thickening is seen more prom inent in the lower lobes with possible infiltrate. OTHER: No free air under the diaphragm. IMPRESSION: Cardiomegaly with congestive dhaval. Bilateral interstitial thickening with minimal infiltrate in the lower lobes suggestive of pneumoniti s versus pulmonary edema. Reviewed, dictated and finalized at location A. IMPRESSION: Cardiomegaly with congestive dhaval. Bilateral interstitial thickening with minimal infiltrate in the lower lobes leon ggestive of pneumonitis versus pulmonary edema.
[2025-04-30 14:30] VITALS: BP 136/93; PULSE 100; RESP 16; TEMP 36.6; O2SAT 100
--- OUTSIDE RECORDS SUMMARY | 2025-04-30 14:31 | XMS_ITS | Clinical Summary ---
Author Organization [facility] Address [address] [place] [address] Care Team Providers Care Litigation Paralegal Name Role Phone Colby Soliz MD Primary Care Provider [phone] Source Comments [facility],non-owned Affiliates and Associated Physician Practices is amultiple site organization consisting of ambulatory clinics and hospital sitesin [place], [place], [place] and [place]. This disclosure is being madepursuant to the Care Everywhere program and may not contain all information available regarding this patient. 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 Gender Identity Not on file Sexual Orientation [...] (1 - Tdap) 1980 PAP SMEAR 1982 PNEUMOCOCCAL VACCINE 50+ (1 of 1 - PCV) 2011 ZOSTER VACCINE (1 of 2) 2011 COVID-19 VACCINE (2023-2 5 season) 2024 DEPRESSION SCREENING 10/19/2024 INFLUENZA VACCINE (#1) 2025 Respiratory Syncytial Virus (RSV) Vaccine Pt: [...] age to complete this topic Insurance [facility] MEDICARE [facility] SELF PAY NO INSURANCE Member Subscriber Plan / Payer (Ef fective for All Dates) Name:Genesis Griggs Member ID:Not on file Relation to Subscriber:Not on file Name:GENESIS GRIGGS Subscriber ID:Not on file (Home) Address: [address] [address] Payer ID:Not on file Group ID:Not on file Type:Self Pay Address: [place], [place] Care Teams Litigation Paralegal Relationship Specialty Start Date End Date Colby Soliz MD [address] [place] [address] PCP - General Family Medicine 11/11/16
--- OUTSIDE RECORDS SUMMARY | 2025-04-30 14:31 | XMS_ITS | Continuity of Care Document ---
Author Organization [facility] Address [address] [facility] [address] [place] [address] Phone Care Team Providers Care Ecological Economist Name Role Phone Kam Lezama Unavailable Unavailable Procedures Procedure Date Office/outpatient Visit, Est Advance Directives Directive Yes / No Effective Date File Name No Information Encounters Encounter Description Practice Location Reason(s) For Visit Diagnoses Date Provider Providers Copied on Encounter Office/outpat ient Visit, Est [facility], [address], [place], [place], [id number], [place] tel:[phone] [facility] [place] No Information 7 Lise Humphrey. [address], [place], [place], [facility], . tel:[phone] Referring Provider: Kam Sr [address], [place], [place], [facility]. tel:[phone] Family History Family Member Type Diagnosis Age [...]
--- OUTSIDE RECORDS SUMMARY | 2025-04-30 16:05 | XMS_ITS | Continuity of Care Document ---
Author Organization [facility] Address [address] [facility] [address] [place] [address] Phone Care Team Providers Care Organic Preparation Technician Name Role Phone Kam Lezama Unavailable Unavailable Procedures Procedure Date Office/outpatient Visit, Est Advance Directives Directive Yes / No Effective Date File Name No Information Encounters Encounter Description Practice Location Reason(s) For Visit Diagnoses Date Provider Providers Copied on Encounter Office/outpat ient Visit, Est [facility], [address], [place], [place], [id number], [place] tel:[phone] [facility] No Information 7 Lise Humphrey. [address], [place], [place], [facility], . tel:[phone] Referring Provider: Kam Sr [address], [place], [place], [facility]. tel:[phone] Family History Family Member Type Diagnosis Age [...]
--- OUTSIDE RECORDS SUMMARY | 2025-04-30 16:05 | XMS_ITS | Clinical Summary ---
Author Organization [facility] Address [address] [place] [address] Care Team Providers Care Industrial Specialist Name Role Phone Colby Soliz MD Primary Care Provider [phone] Source Comments [facility],non-owned Affiliates and Associated Physician Practices is amultiple site organization consisting of ambulatory clinics and hospital sitesin [place], [place], [place] and [place]. This disclosure is being madepursuant to the Care Everywhere program and may not contain all information available regarding this patient. 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 Gender Identity Not on file Sexual [...] patient's age to complete this topic Insurance [facility] MEDICARE [facility] SELF PAY NO INSURANCE Member Subscriber Plan / Payer (Ef fective for All Dates) Name:Genesis Griggs Member ID:Not on file Relation to Subscriber:Not on file Name:GENESIS GRIGGS Subscriber ID:Not on file (Home) Address: [address] [address] Payer ID:Not on file Group ID:Not on file Type:Self Pay Address: [place], [place] Care Teams Industrial Specialist Relationship Specialty Start Date End Date Colby Soliz MD [address] [place] [address] PCP - General Family Medicine 11/11/16
[2025-04-30 16:26] LABS: Hematocrit 43.7 % (37.0-47.0); Hemoglobin 13.4 g/dL (12.0-15.0); Immature Granulocyte Percent A 0.7 % (0-0.5); Lymphocytes Absolute Auto 0.70 K/mm3 (0.9-3.2); Mean Corpuscular HGB Conc 30.7 g/dl (32-36); Mean Corpuscular Hemoglobin 24.0 pg (26-34); Mean Corpuscular Volume 78.2 fl (80-100); Nucleated Red Blood Cells Absolute Auto 0.000 K/mm3 (0.0-0.012); Nucleated Red Blood Cells Perc 0.0 % (0.0-0.2); Platelet Count Result 270 k/mm3 (150-375); Red Blood Count 5.59 M/mm3 (4.2-5.4); White Blood Count 15.1 K/mm3 (4.5-10.0)
[2025-04-30] MEDS: SODIUM CHLORIDE 0.9% IV 1,000 ML 999 ML IV CONT ×2 (16:50→18:12)
[2025-04-30] MEDS: ONDANSETRON INJ 4 MG/2 ML VIAL IV PUSH ×2 (16:50→21:15)
[2025-04-30] MEDS: MORPHINE SULFATE (*CRX) 4 MG/ML INJ IV PUSH (16:50)
--- NOTE | 2025-04-30 17:04 | ED_ITS ---
HPI - Nausea/Vomiting/Diarrhea General Chief complaint: Nausea/Vomiting/Diarrhea <ROSALIO Jefferson Last Filed: 04/30/25 22:22> Stated complaint: n/v since 1900 last night <ROSALIO Jefferson Last Filed: 04/30/25 22:22> Time Seen by Provider: 04/30/25 15:36 <ROSALIO Jefferson Last Filed: 04/30/25 22:22> Source: patient <ROSALIO Jefferson Last Filed: 04/30/25 22:22> Mode of arrival: ambulatory <ROSALIO Jefferson Last Filed: 04/30/25 22:22> Limitations: no limitations <ROSALIO Jefferson Last Filed: 04/30/25 22:22> History of Present Illness HPI Narrative: Patient is a 64 year old female who presents the ED with report of bilateral flank pain. Patient reports history of recent kidney stones. States she underwent a lithotripsy procedure on 04/[address] Ball for large L ureteral stone. Patient reports last night around 7 p.m., she began having increased pain throughout bilateral flank regions, worse throughout her left flank, left lower abdomen. States this feels similar to previous kidney stones. She also reports N/V persistently since last night and hematuria for the past 2 days. Denies dysuria, fevers, diarrhea, constipation. <JOHN Jefferson Last Filed: 04/30/25 22:22> Related Data Home medications: Home Medications ?Medication ?Instructions ?Recorded ?Confirmed ?Last Taken ?Type aspirin 81 mg tablet,delayed 81 mg PO DAILY 12/05/19 05/01/25 03/30/25 History release <ROSALIO Jefferson Last Filed: 04/30/25 22:22> Allergies/Adverse reactions: Allergies Allergy/AdvReac Type Severity Reaction Status Date / Time No Known Allergies Allergy Verified 04/30/25 14:32 <ROSALIO Jefferson Last Filed: 04/30/25 22:22> Review of Systems 2 Review of Systems: All systems reviewed & are unremarkable except as noted in HPI. 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 had chemotherapy and bone marrow transplant Stroke Kidney stone Hepatitis C antibody test negative (12/16/17) <Adelita Cortes PA-C - Last Filed: 04/30/25 22:22> Surgical History Surgical History: Surgical History Status post biventricular pacemaker 10/2022, Biotronik, for complete heart block H/O cystoscopy History of removal of Port-a-Cath History of bone marrow transplant History of tonsillectomy History of appendectomy H/O lymph node biopsy Hx of cholecystectomy H/O colonoscopy <Adelita Cortes PA-C - Last Filed: 04/30/25 22:22> Family History Family History: Family History Father Hypertension, Onset Age: 46 Family history of elevated blood lipids, Onset Age: 46 Acute myocardial infarction Family history of coronary artery disease, Onset Age: 46 Hyperlipidemia Sibling FH: testicular cancer Family history of Hodgkin's lymphoma Mother Family history of malignant neoplasm of ovary Other Family history of malignant neoplasm <Adelita Cortes PA-C - Last Filed: 04/30/25 22:22> Social History Social History: Social History Social History: She lives with her who is a durable power trade mark attorney for healthcare. She has no biological children and has 2 step children. She is on disability. She is a lifelong nonsmoker. She denies any alcohol marijuana or illicit drug. Code status full code Caffeine-none Smoking status: Never smoker Second hand tobacco smoke exposure: No Alcohol intake: never Alcohol use details: social Substance use: never Substance use type: does not use Do You Feel Safe in your Home?: Yes Lack of Transportation: YES Lack of Food: Never True Current Housing: I Have Housing Concerned About Future Housing: No Difficulty Paying Gas/Electric Bills: No Difficulty Paying for Meds: No Currently Unemployed: No Education: High School Diploma/GED Difficulty w/ Childcare or Family Care: No Living arrangements: with family Occupation/Education: retired Gender identity (if verbalized by the patient): Female Spiritual care concerns: No Agree to blood products: Yes <Adelita Cortes PA-C - Last Filed: 04/30/25 22:22> Exam 2 Narrative: GENERAL: Mildly uncomfortable appearing, obese with BMI of 39.5, non-toxic, in no acute distress. HEAD: Normocephalic, atraumatic. RESPIRATORY: Airway patent, respirations nonlabored. Clear to auscultation bilaterally, no rales, rhonchi, wheezing. CARDIOVASCULAR: Regular rate and rhythm without murmurs, rubs, or gallops. ABDOMINAL: Soft, mild diffuse tenderness throughout L sided abdomen/L flank region, nondistended. Normoactive BS. MUSCULOSKELETAL: Moves all extremities. No gross deformities. SKIN: Warm, dry, normal color. NEURO: A&O X3. Speech clear. No ataxic movements. PSYCHIATRIC: Appropriate mood and affect. Normal interaction. <Adelita Cortes PA-C - Last Filed: 04/30/25 22:22> Course [employer] WORK DISPATCHER/PA Physician Supervision For this patient encounter, I reviewed the LINEM[employer] OR WORK DISPATCHER or PA documentation, treatment plan, and medical decision making and had [id number] time with this patient. I performed all aspects of the MDM as documented. <Fidelina Garcia MD - Last Filed: 05/01/25 07:07> Vital Signs Vital signs: Vital Signs Temperature 97.8 F 04/30/25 14:30 Pulse Rate 100 04/30/25 14:30 Respiratory Rate 16 04/30/25 14:30 Blood Pressure 136/93 H 04/30/25 14:30 Pulse Oximetry 100 04/30/25 14:30 Oxygen Delivery Room Air 04/30/25 14:30 Temperature 98.1 F 05/01/25 06:00 Pulse Rate 91 05/01/25 06:00 Respiratory Rate 18 05/01/25 06:00 Blood Pressure 129/53 L 05/01/25 06:00 Pulse Oximetry 97 05/01/25 06:00 Oxygen Delivery Room Air 05/01/25 06:45 <Adelita Cortes PA-C - Last Filed: 04/30/25 22:22> Vital Signs Temperature 97.8 F 04/30/25 14:30 Pulse Rate 100 04/30/25 14:30 Respiratory Rate 16 04/30/25 14:30 Blood Pressure 136/93 H 04/30/25 14:30 Pulse Oximetry 100 04/30/25 14:30 Oxygen Delivery Room Air 04/30/25 14:30 Temperature 98.1 F 05/01/25 06:00 Pulse Rate 91 05/01/25 06:00 Respiratory Rate 18 05/01/25 06:00 Blood Pressure 129/53 L 05/01/25 06:00 Pulse Oximetry 97 05/01/25 06:00 Oxygen Delivery Room Air 05/01/25 06:45 <Fidelina Garcia MD - Last Filed: 05/01/25 07:07> MDM - Nausea/Vomiting/Diarrhea MDM Narrative Medical decision making narrative: Patient presented to ED with bilateral flank pain, N/V, hx of frequent kidney stones w/ recent lithotripsy. Vital signs are stable upon arrival. Patient mildly uncomfortable. Afebrile. Cbc with blood cell count of 15.1. Neutrophil predominance. No bandemia. Stable H&H. CMP with evidence of dehydration. Bicarb 21, anion gap of 15. Kidney function is stable, but slightly increased from baseline more around 0.8. Fluids are ongoing. UA concerning for infection, 2+ leuk esterase, 51-100 WBC, 1+ urine bacteria. Only 3-5 RBC. Urine sent for culture. Will treat. Given dose of Rocephin in the ED. CT abd/pelvis obtained and showing left lower ureteral stone measuring 8 mm, severe hydronephrosis with hydroureter present. Discussed case with Dr. Chavez, urology, recommended admission for continued IV antibiotics, flomax, will need likely stent tomorrow. No evidence of septic stone at this time. Patient has been afebrile. Will keep NPO. Will admit to hospitalist team. Discussed case with Dr. Solorzano, hospitalist, accepted patient for admission. Patient and family in agreement with plan and need for admission. <Adelita Cortes PA-C - Last Filed: 04/30/25 22:22> Medical Records Attestation: I reviewed the patient's medical records. <Adelita Cortes PA-C - Last Filed: 04/30/25 22:22> Lab Data Attestation: I reviewed the patient's lab results. <Adelita Cortes PA-C - Last Filed: 04/30/25 22:22> Result diagrams: 04/30/25 16:20 04/30/25 16:41 <ROSALIO Jefferson Last Filed: 04/30/25 22:22> Labs: Lab Results 04/30/25 04/30/25 04/30/25 Range/Units 16:20 16:41 19:24 WBC 15.1 H (4.5-10.0) K/mm3 RBC 5.59 H (4.2-5.4) M/mm3 Hgb 13.4 (12.0-15.0) g/dL Hct 43.7 (37.0-47.0) % MCV 78.2 L (80-100) fl MCH 24.0 L (26-34) pg MCHC 30.7 L (32-36) g/dl RDW 17.6 H (11.5-14.5) % Plt Count 270 (150-375) k/mm3 MPV 10.3 (7.4-10.4) fl Immature Gran % (Auto) 0.7 H (0-0.5) % Neut % (Auto) 93.5 H (45.5-73.1) % Lymph % (Auto) 4.6 L (18.3-44.2) % [place] % (Auto) 1.0 L (2.6-8.5) % Eos % (Auto) 0.1 (0-4.4) % Baso % (Auto) 0.1 L (0.2-1.2) % Lymph # (Auto) 0.70 L (0.9-3.2) K/mm3 [place] # (Auto) 0.2 (0.1-0.6) K/mm3 Eos # (Auto) 0.0 (0-0.3) K/mm3 Baso # (Auto) 0.0 (0.0-0.1) K/mm3 Abs Immat Gran (auto) 0.10 H (0.00-0.031) K/mm3 Absolute Neuts (auto) 14.2 H (1.3-6.7) K/mm3 Absolute Nucleated RBC 0.000 (0.0-0.012) K/mm3 Nucleated RBC % 0.0 (0.0-0.2) % Sodium 139 (137-145) mmol/L Potassium 3.9 (3.4-5.0) mmol/L Chloride 103 (98-107) mmol/L Carbon Dioxide 21 L (22-30) mmol/L Anion Gap 15 H (4-12) mmol/L BUN 21 H (7-17) mg/dL Creatinine 1.00 (0.7-1.0) mg/dL Estim Creat Clear Calc 64 ml/min Estimated GFR 56 L (59 - ) Glucose 164 H (65-110) mg/dL Calcium 9.7 (8.4-10.2) mg/dL Total Bilirubin 0.6 (0.2-1.3) mg/dL AST 33 (14-36) U/L ALT 29 (6-35) U/L Alkaline Phosphatase 128 H (38-126) U/L Total Protein 8.3 H (6.3-8.2) g/dL Albumin 4.3 (3.5-5.1) g/dL Urine Color Yellow (Yellow) Urine Appearance Cloudy H (Clear) Urine pH 5.0 (5.0-9.0) Ur Specific [place] 1.027 (1.001-1.035) Urine Protein 2+ H (Negative) mg/dL Urine Glucose (UA) Negative (Negative) mg/dL Urine Ketones Trace H (Negative) mg/dL Ur Blood (Man) 2+ H (Negative) Urine Nitrate Negative (Negative) Urine Bilirubin Negative (Negative) Urine Urobilinogen 1.0 (<2.0) mg/dL Add Ur Microanalysis Reviewed Leukocyte Esterase Rfl 2+ H (Negative) ARIA/UL Urine RBC 3-5 H (0-2) /hpf Urine WBC 51-100 H (0-3) /hpf Ur Squamous Epith Cells Few (Few) /hpf Urine Bacteria 1+ H /hpf Urine Casts 6-10 Urine Mucus Present /lpf <Adelita Cortes PA-C - Last Filed: 04/30/25 22:22> Lab Results 04/30/25 04/30/25 04/30/25 Range/Units 16:20 16:41 19:24 WBC 15.1 H (4.5-10.0) K/mm3 RBC 5.59 H (4.2-5.4) M/mm3 Hgb 13.4 (12.0-15.0) g/dL Hct 43.7 (37.0-47.0) % MCV 78.2 L (80-100) fl MCH 24.0 L (26-34) pg MCHC 30.7 L (32-36) g/dl RDW 17.6 H (11.5-14.5) % Plt Count 270 (150-375) k/mm3 MPV 10.3 (7.4-10.4) fl Immature Gran % (Auto) 0.7 H (0-0.5) % Neut % (Auto) 93.5 H (45.5-73.1) % Lymph % (Auto) 4.6 L (18.3-44.2) % [place] % (Auto) 1.0 L (2.6-8.5) % Eos % (Auto) 0.1 (0-4.4) % Baso % (Auto) 0.1 L (0.2-1.2) % Lymph # (Auto) 0.70 L (0.9-3.2) K/mm3 [place] # (Auto) 0.2 (0.1-0.6) K/mm3 Eos # (Auto) 0.0 (0-0.3) K/mm3 Baso # (Auto) 0.0 (0.0-0.1) K/mm3 Abs Immat Gran (auto) 0.10 H (0.00-0.031) K/mm3 Absolute Neuts (auto) 14.2 H (1.3-6.7) K/mm3 Absolute Nucleated RBC 0.000 (0.0-0.012) K/mm3 Nucleated RBC % 0.0 (0.0-0.2) % Sodium 139 (137-145) mmol/L Potassium 3.9 (3.4-5.0) mmol/L Chloride 103 (98-107) mmol/L Carbon Dioxide 21 L (22-30) mmol/L Anion Gap 15 H (4-12) mmol/L BUN 21 H (7-17) mg/dL Creatinine 1.00 (0.7-1.0) mg/dL Estim Creat Clear Calc 64 ml/min Estimated GFR 56 L (59 - ) Glucose 164 H (65-110) mg/dL Calcium 9.7 (8.4-10.2) mg/dL Total Bilirubin 0.6 (0.2-1.3) mg/dL AST 33 (14-36) U/L ALT 29 (6-35) U/L Alkaline Phosphatase 128 H (38-126) U/L Total Protein 8.3 H (6.3-8.2) g/dL Albumin 4.3 (3.5-5.1) g/dL Urine Color Yellow (Yellow) Urine Appearance Cloudy H (Clear) Urine pH 5.0 (5.0-9.0) Ur Specific [place] 1.027 (1.001-1.035) Urine Protein 2+ H (Negative) mg/dL Urine Glucose (UA) Negative (Negative) mg/dL Urine Ketones Trace H (Negative) mg/dL Ur Blood (Man) 2+ H (Negative) Urine Nitrate Negative (Negative) Urine Bilirubin Negative (Negative) Urine Urobilinogen 1.0 (<2.0) mg/dL Add Ur Microanalysis Reviewed Leukocyte Esterase Rfl 2+ H (Negative) ARIA/UL Urine RBC 3-5 H (0-2) /hpf Urine WBC 51-100 H (0-3) /hpf Ur Squamous Epith Cells Few (Few) /hpf Urine Bacteria 1+ H /hpf Urine Casts 6-10 Urine Mucus Present /lpf <Fidelina Garcia MD - Last Filed: 05/01/25 07:07> Imaging Data Attestation: I personally reviewed and interpreted this imaging study as follows: < Adelita Cortes PA-C - Last Filed: 04/30/25 22:22> Radiologist's impression: ITS Impressions Abdomen/Pelvis CT 04/30/25 19:01 IMPRESSION: 1. Bilateral pleural effusion larger on the right side with adjacent atelectasis. 2. Nodule in the left lung base unchanged from previous examination. 3 months follow-up advised. 3. Left lower ureteric stone with severe left hydronephrotic changes. 4. Multiple bilateral renal stones. 5. No evidence of appendicitis, diverticulitis or intestinal obstruction. <Adelita Cortes PA-C - Last Filed: 04/30/25 22:22> Discharge Plan Discharge Clinical Impression: Calculus of distal left ureter UTI (urinary tract infection) Qualifiers: Urinary tract infection type: acute cystitis Hematuria presence: with hematuria Qualified Code(s): N30.01 - Acute cystitis with hematuria Hydronephrosis Qualifiers: Hydronephrosis type: unspecified Qualified Code(s): N13.30 - Unspecified hydronephrosis <Adelita Cortes PA-C - Last Filed: 04/30/25 22:22> Patient Disposition: Still a Patient <ROSALIO Jefferson Last Filed: 04/30/25 22:22> Condition: Stable <ROSALIO Jefferson Last Filed: 04/30/25 22:22>
[2025-04-30 17:06] LABS: Alanine Aminotransferase 29 U/L (6-35); Albumin Level 4.3 g/dL (3.5-5.1); Alkaline Phosphatase 128 U/L (38-126); Anion Gap 15 mmol/L (4-12); Aspartate Amino Transferase 33 U/L (14-36); Bilirubin,Total 0.6 mg/dL (0.2-1.3); Blood Urea Nitrogen 21 mg/dL (7-17); Calcium 9.7 mg/dL (8.4-10.2); Carbon Dioxide 21 mmol/L (22-30); Chloride 103 mmol/L (98-107); Estimated CRCL calculation 64 ml/min; Estimated Glomerular Filt Rate 56; Glucose 164 mg/dL (65-110); Potassium 3.9 mmol/L (3.4-5.0); Sodium 139 mmol/L (137-145); Total Protein 8.3 g/dL (6.3-8.2)
[2025-04-30] MEDS: FAMOTIDINE 20 MG/2 ML VIAL IV PUSH (18:12)
[2025-04-30 19:26] VITALS: BP 132/90; PULSE 89; RESP 17; O2SAT 99
[2025-04-30 19:41] LABS: Add Urine Microscopic? YES; Appearance Urine Cloudy (Clear); Glucose Urine UA Negative (Negative); Leukocyte Esterase Ur 2+ LEU/UL (Negative); Need Manual Microscopic Reviewed; Nitrate Urine Negative (Negative); Specific Grav Ur 1.027 (1.001-1.035)
[2025-04-30] MEDS: TAMSULOSIN HCL 0.4 MG CAPSULE PO (20:38)
[2025-04-30] MEDS: cefTRIAXone 1 GM in SODIUM CHLORIDE 0.9% IV 50 ML 100 ML IVPB (20:39)
--- NOTE | 2025-04-30 22:00 | PM.IMHP ---
H&P: HPI History of Present Illness Date/Time: 04/30/25 22:00 Chief Complaint: Left flank pain and vomiting. Narrative: 64-year-old female past medical history of hypertension diabetes, hypertension stroke CHF pacemaker presented to the ER on account of right flank pain and vomiting. Patient noted she had stone extraction done about 2 weeks ago however the last 2 days she has been having left multiple described as sharp 6/10 in intensity associated with vomiting and bloody urine. For worsening pain she presented to the ER for proper evaluation care. Denies any chest pain shortness a brief no fever no diarrhea no focal symptoms. ER evaluation notable for vital signs stable and within normal limits. Labs notable for WBC 15.1, UA positive for leukocyte Estrace and pyuria with bacteriuria. CT abdomen pelvis showed left ureter 8 stone with severe hydronephrosis. Bilateral pleural effusion. Urology was consulted patient was started on Rocephin IV fluid and tamsulosin. Urine culture was sent. Review of Systems Review of Systems: Cauda systems reviewed and negative except as noted in the history above. 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 had chemotherapy and bone marrow transplant Stroke Kidney stone Hepatitis C antibody test negative (12/16/17) Surgical History Surgical History Status post biventricular pacemaker 10/2022, Biotronik, for complete heart block H/O cystoscopy History of removal of Port-a-Cath History of bone marrow transplant History of tonsillectomy History of appendectomy H/O lymph node biopsy Hx of cholecystectomy H/O colonoscopy Family History Family History Father Hypertension, Onset Age: 46 Family history of elevated blood lipids, Onset Age: 46 Acute myocardial infarction Family history of coronary artery disease, Onset Age: 46 Hyperlipidemia Sibling FH: testicular cancer Family history of Hodgkin's lymphoma Mother Family history of malignant neoplasm of ovary Other Family history of malignant neoplasm Social History Social History Social History: She lives with her who is a durable power employee benefits attorney for healthcare. She has no biological children and has 2 step children. She is on disability. She is a lifelong nonsmoker. She denies any alcohol marijuana or illicit drug. Code status full code Caffeine-none Smoking status: Never smoker Second hand tobacco smoke exposure: No Alcohol intake: current Alcohol use details: social Substance use: never Substance use type: does not use Lack of Transportation: No Lack of Food: Never True Current Housing: I Have Housing Concerned About Future Housing: No Difficulty Paying Gas/Electric Bills: No Difficulty Paying for Meds: No Currently Unemployed: No Education: Associate Degree Difficulty w/ Childcare or Family Care: No Living arrangements: with family Occupation/Education: retired Gender identity (if verbalized by the patient): Female Spiritual care concerns: No Agree to blood products: Yes Meds Home Medications and Allergies Home Medications ?Medication ?Instructions ?Recorded ?Confirmed ?Type aspirin 81 mg tablet,delayed 81 mg PO DAILY 12/05/19 04/07/25 History release CPAP Equipment #1 ea 11/13/23 04/04/25 Rx semaglutide 2 mg/dose (8 mg/3 mL) See Rx Instructions .Route 12/13/24 04/07/25 Rx subcutaneous pen injector (Ozempic) .COMPLEX #9 mL warfarin 5 mg tablet See Rx Instructions .Route 12/13/24 04/07/25 Rx .COMPLEX #30 tabs metformin 500 mg tablet 500 mg PO BID #180 tabs 01/12/25 04/07/25 Rx atorvastatin 10 mg tablet 10 mg PO HS #90 tabs 03/06/25 04/04/25 Rx lisinopril 5 mg tablet 5 mg PO DAILY #90 tabs 03/06/25 04/04/25 Rx metoprolol succinate 50 mg 50 mg PO DAILY #90 tabs 03/06/25 04/07/25 Rx tablet,extended release 24 hr hydrocodone 5 mg-acetaminophen 325 1 tablet PO Q12H PRN pain #14 tabs 03/24/25 04/04/25 Rx mg tablet ondansetron 4 mg disintegrating 4 mg PO Q8H PRN nausea and 03/24/25 04/04/25 Rx tablet vomiting #14 tabs ferrous sulfate 324 mg (65 mg See Rx Instructions .Route 03/27/25 04/07/25 Rx iron) tablet,delayed release .COMPLEX #180 tabs sulfamethoxazole 800 1 tablet PO Q12H #6 tabs 04/07/25 Rx mg-trimethoprim 160 mg tablet (Bactrim DS) tramadol 50 mg tablet 50 mg PO Q6H PRN pain #20 tabs 04/07/25 Rx Allergies Allergy/AdvReac Type Severity Reaction Status Date / Time No Known Allergies Allergy Verified 04/30/25 14:32 Vital Signs Vital Signs - 24 hr 04/30/25 14:30 04/30/25 19:26 Temperature 97.8 F Pulse Rate 100 89 Respiratory Rate 16 17 Blood Pressure 136/93 H 132/90 Pulse Oximetry 100 99 Oxygen Delivery Room Air Exam Narrative: General: alert and comfortable Eyes: EOMI, PERRLA ENNT External ears normal, Neck is supple, no masses, Respiratory systems: Clear to auscultation Cardiovascular S1, S2, normal rhythm, no murmur, rub, or gallop; no thrill or palpable murmurs on palpation. Gastrointestinal: soft, non-tender, and non-distended abdomen with no masses; BS present Skin: no rash, lesions, ulcerations, subcutaneous nodules or induration Musculoskeletal: no abnormality and no tenderness, normal ROM Neurologic: Alert and oriented x3, non focal Mental Status Exam: normal affect H&P: Results Labs Labs: Short CBC 04/30/25 Range/Units 16:20 WBC 15.1 H (4.5-10.0) K/mm3 Hgb 13.4 (12.0-15.0) g/dL Hct 43.7 (37.0-47.0) % Plt Count 270 (150-375) k/mm3 BMP 04/30/25 16:41 Sodium 139 Potassium 3.9 Chloride 103 Carbon Dioxide 21 L BUN 21 H Creatinine 1.00 Glucose 164 H Calcium 9.7 Liver Function 04/30/25 Range/Units 16:41 Total Bilirubin 0.6 (0.2-1.3) mg/dL AST 33 (14-36) U/L ALT 29 (6-35) U/L Alkaline Phosphatase 128 H (38-126) U/L Albumin 4.3 (3.5-5.1) g/dL Urine 07/13/25 Range/Units 19:24 Urine Color Yellow (Yellow) Urine Appearance Cloudy H (Clear) Urine pH 5.0 (5.0-9.0) Ur Specific [place] 1.027 (1.001-1.035) Urine Protein 2+ H (Negative) mg/dL Urine Glucose (UA) Negative (Negative) mg/dL Assessment and Plan Assessment and plan (1) Type 2 diabetes mellitus without complications: Code(s): E11.9 - Type 2 diabetes mellitus without complications Status: Acute (2) Left ureteral calculus: Code(s): N20.1 - Calculus of ureter Status: Acute Plan Left ureteral with severe hydronephrosis Presented with left flank pain, vomiting and hematuria CT AP reviewed Continue Tamsulosin and PRN pain control with IV morphine Urine culture ordered from the ER, continue Rocephin PRN pain control Urology consulted from the ER Possible UTI urine culture pending continue Rocephin CHF exacerbation Patient noted she is on pacemaker, last ECHO was in 2021 Obtain ECHO, CXR showed bilateral Pleural effusions No IVF, although was given boluses in the ER Lasix 20mg bid monitor DM2 SSI with accucheks HTN Titrate home meds with clinical course Hx of stroke contineu home meds once reconciled DVT prophylaxis on SCDs, no AC due to hematuria Full code SDM: [facility] Hospitalist MIPS Advance Care Plan I have confirmed that the patient's Advanced Care Plan is present, code status is documented, or surrogate decision maker is listed in patient medical record.: Yes Medication Reconciliation I have utilized all available resources to obtain, update and review the patients current medications (includes all prescriptions, OTC, herbals, cannabis, and nutritional supplements).: Yes
[2025-04-30 23:07] VITALS: BP 128/88; PULSE 93; RESP 20; TEMP 37; O2SAT 99
[2025-04-30] MEDS: METOCLOPRAMIDE HCL INJ 10 MG/2 ML VIAL IV PUSH (23:17)
[2025-04-30 23:21] VITALS: BP 128/88; PULSE 93; RESP 20; TEMP 37; O2SAT 99
[2025-04-30 23:28] VITALS: BMI 42.0
[2025-05-01] VITALS (13 sets, daily range): BP systolic 126–149; BP diastolic 53–85; PULSE 70–105; RESP 16–26; TEMP 36.2–36.8; O2SAT 93–99
--- NOTE | 2025-05-01 | ECHO_ITS ---
Patient Info Name: Genesis Griggs Age: 64 years : 1960 Gender: Female Ht: 66 in Wt: 244 lbs BSA: 2.32 m2 HR: 70 bpm BP: 128 / 88 mmHg Technical Quality: Good Exam Date: 05/01/2025 11:54 AM Patient Status: O Admit Date: 04/30/2025 Exam Type: CA echo dop color flow w con Complete two-dimensional, color flow and Doppler transthoracic echocardiogram is performed with contrast to opacify the left ventricle and to improve the deliniation of the left ventricle endocardial borders. Staff Referring Physician: Lorne Lynn MD Or [facility] Assist Registered Nurse: Krysta Collins Attending Provider: Franki Jenkins Contrast/Agitated Saline Contrast/Ag. Saline: Definity Amount: 2.00 ml Administered By: Krysta Collins Existing IV Access: Yes IV Access Condition: patent with no signs of infiltration Summary 1. The left ventricle is moderately dilated with severely reduced systolic function. The left ventricular ejection fraction visually estimated to be 20-25%. The basal florez are normal functioning and the remaining florez are severely hypokinetic suggestive of multivessel coronary artery disease versus stress cardiomyopathy. 2. The right ventricle is normal in size and systolic function. 3. There is a pacemaker lead in the right ventricle. 4. There is moderate pulmonary hypertension with a PASP estimated to be 55 mmHg. 5. Dilated inferior vena cava with <50% collapse upon inspiration consistent with significantly elevated right atrial pressure, 15 mmHg. Left Ventricle The left ventricle is moderately dilated with severely reduced systolic function. The left ventricular ejection fraction visually estimated to be 20-25%. The basal florez are normal functioning and the remaining florez are severely hypokinetic suggestive of multivessel coronary artery disease versus stress cardiomyopathy. Right Ventricle The right ventricle is normal in size and systolic function. There is a pacemaker lead in the right ventricle. Right Atria There is a pacemaker lead in the right atrium. Atrial Septum The atrial septum is grossly intact. Aortic Valve The aortic valve is trileaflet and opens well. There is trace aortic regurgitation. Pulmonic Valve The pulmonic valve is not well visualized. Mitral Valve The mitral valve leaflets are sclerotic. There is annular calcification. There is no mitral stenosis. There is mild mitral regurgitation. Tricuspid Valve The tricuspid valve is grossly normal. There is trace tricuspid regurgitation. There is moderate pulmonary hypertension with a PASP estimated to be 55 mmHg. Pericardium/Pleural Pericardium is normal in appearance with no evidence for significant pericardial effusion. Inferior Vena Cava Dilated inferior vena cava with <50% collapse upon inspiration consistent with significantly elevated right atrial pressure, 15 mmHg. Aorta The aortic root at the level of the sinus of Valsalva measures 3.0 cm in diameter. Left Ventricular Outflow Tract Name Value Normal LVOT 2D LVOT Diameter 2.1 cm LVOT Doppler LVOT Peak Velocity 87 cm/s LVOT Peak Gradient 3 mmHg LVOT Mean Gradient 2 mmHg LVOT VTI 18 cm LVOT VTI/AV VTI Ratio 0.9 LVOT Stroke Volume 64 ml LVOT CO 5.1 l/min LVOT CI 2.2 l/min/m2 Pulmonic Valve Name Value Normal PV Doppler PV Peak Velocity 106 cm/s PV Peak Gradient 5 mmHg PV Regurgitation Doppler VA Peak End Diastolic Velocity 89 cm/s Mitral Valve Name Value Normal MV Regurgitation Doppler MR Peak Gradient 51 mmHg Tricuspid Valve Name Value Normal TV Regurgitation Doppler TR Peak Velocity 318 cm/s TR Peak Gradient 40 mmHg Estimated PAP/RSVP RA Pressure 15 mmHg <=5 PA Systolic Pressure 55 mmHg <36 RV Systolic Pressure 55 mmHg <36 TV Annular TDI TV Lateral Precious s' Velocity 9.5 cm/s >=9.5 Aortic Valve Name Value Normal AV Doppler AV Peak Velocity 116 cm/s AV Peak Gradient 5 mmHg AV Mean Gradient 3 mmHg AV VTI 20 cm AV Area (Cont Eq VTI) 3.2 cm2 >=3.0 AV Area (Cont Eq Terrell) 2.6 cm2 AV DI (Terrell) 0.75 AV Regurgitation 2D LVOT Area 3.5 cm2 Ventricles Name Value Normal LV Dimensions 2D/MM IVS Diastolic Thickness (2D) 0.8 cm 0.6-1.0 LVID Diastole (2D) 6.3 cm 3.8-5.2 LVIW Diastolic Thickness (2D) 0.9 cm 0.6-0.9 LVID Systole (2D) 4.7 cm 2.2-3.5 LVOT Diameter 2.1 cm LV Mass (2D Cubed) 221.70 g 67.00-162.00 LV Mass Index (2D Cubed) 95 g/m2 43-95 Relative Wall Thickness (2D) 0.28 <=0.42 LV Fractional Shortening/Ejection Fraction 2D/MM LV Fractional Shortening (2D) 26 % 27-45 LV EF (2D Teichholz) 50 % LV Diastolic Volume (4C MOD) 151 ml LV EF (4C MOD) 21 % LV Diastolic Volume (2C MOD) 165 ml LV EF (2C MOD) 23 % LV Diastolic Volume (BP MOD) 160 ml 46-106 LV Diastolic Volume Index (BP MOD) 69 ml/m2 29-61 LV Systolic Volume (BP MOD) 124 ml 14-42 LV Systolic Volume Index (BP MOD) 53 ml/m2 8-24 LV EF (BP MOD) 23 % 54-74 LV Diastolic Length (4C) 8.3 cm LV Systolic Length (4C) 8.3 cm LV Stroke Volume (4C MOD) 32 ml Atria Name Value Normal LA Dimensions LA Volume (4C A-L) 78 ml LA Volume (BP A-L) 79 ml RA Dimensions RA Systolic Major [place] Length (4C) 3.9 cm 2.2-2.8 RA Area (4C) 14.6 cm2 <=18.0 Report Signatures
[2025-05-01] MEDS: ONDANSETRON INJ 4 MG/2 ML VIAL IV PUSH ×2 (03:57→13:51)
[2025-05-01] MEDS: MORPHINE SULFATE (*CRX) 4 MG/ML INJ IV PUSH (06:35)
[2025-05-01] MEDS: FUROSEMIDE INJ 40 MG/4 ML VIAL 20 MG IV PUSH ×2 (08:03→18:01)
[2025-05-01 08:08] LABS: Hematocrit 39.9 % (37.0-47.0); Hemoglobin 11.7 g/dL (12.0-15.0); Immature Granulocyte Percent A 0.5 % (0-0.5); Lymphocytes Absolute Auto 0.64 K/mm3 (0.9-3.2); Mean Corpuscular HGB Conc 29.3 g/dl (32-36); Mean Corpuscular Hemoglobin 24.0 pg (26-34); Mean Corpuscular Volume 81.8 fl (80-100); Nucleated Red Blood Cells Absolute Auto 0.000 K/mm3 (0.0-0.012); Nucleated Red Blood Cells Perc 0.0 % (0.0-0.2); Platelet Count Result 209 k/mm3 (150-375); Red Blood Count 4.88 M/mm3 (4.2-5.4); White Blood Count 13.5 K/mm3 (4.5-10.0)
[2025-05-01 08:23] LABS: Alanine Aminotransferase 16 U/L (6-35); Albumin Level 3.4 g/dL (3.5-5.1); Alkaline Phosphatase 104 U/L (38-126); Anion Gap 11 mmol/L (4-12); Aspartate Amino Transferase 30 U/L (14-36); Bilirubin,Total 0.7 mg/dL (0.2-1.3); Blood Urea Nitrogen 20 mg/dL (7-17); Calcium 8.8 mg/dL (8.4-10.2); Carbon Dioxide 15 mmol/L (22-30); Chloride 110 mmol/L (98-107); Estimated CRCL calculation 60 ml/min; Estimated Glomerular Filt Rate 50; Glucose 139 mg/dL (65-110); Magnesium 1.4 mg/dL (1.6-2.3); Potassium 4.7 mmol/L (3.4-5.0); Sodium 136 mmol/L (137-145); Total Protein 6.5 g/dL (6.3-8.2)
--- NOTE | 2025-05-01 10:19 | P.CONUR_ITS ---
Assessment and Plan Assessment and plan (1) Calculus, kidney: Code(s): N20.0 - Calculus of kidney Status: Acute (2) Calculus of distal ureter: Code(s): N20.1 - Calculus of ureter Status: Acute Plan Will plan to take her to the operating room today for procedure on her stone. Will plan on cystoscopy, left retrograde pyelogram, left ureteroscopy, holmium laser lithotripsy, stone extraction, stent. Can likely go home post procedure with outpatient follow-up Urology Consult Note HPI Date Seen: 05/01/25 Requesting Physician: Franki Jenkins MD Primary Care Provider: Deann Chavis DO Consult Narrative Narrative: Genesis Griggs is a 64 year old female with history of stone disease. She has had successful lithotripsy in the past. She underwent a left lithotripsy nearly 2 weeks ago. She did well postoperatively until yesterday when she noted recurrence of her left flank pain. No fevers or chills. No symptoms of urinary tract infection there was nausea. CT scan shows a left mid to distal ureteral stone with severe hydronephrosis. 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 had chemotherapy and bone marrow transplant Stroke Kidney stone Hepatitis C antibody test negative (12/16/17) Surgical History Surgical History Status post biventricular pacemaker 10/2022, Biotronik, for complete heart block H/O cystoscopy History of removal of Port-a-Cath History of bone marrow transplant History of tonsillectomy History of appendectomy H/O lymph node biopsy Hx of cholecystectomy H/O colonoscopy Family History Family History Father Hypertension, Onset Age: 46 Family history of elevated blood lipids, Onset Age: 46 Acute myocardial infarction Family history of coronary artery disease, Onset Age: 46 Hyperlipidemia Sibling FH: testicular cancer Family history of Hodgkin's lymphoma Mother Family history of malignant neoplasm of ovary Other Family history of malignant neoplasm Social History Social History Social History: She lives with her who is a durable power director 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 She has no biological children and has 2 step children. She is on disability. She is a lifelong nonsmoker. She denies any alcohol marijuana or illicit drug. Code status full code Caffeine-none Smoking status: Never smoker Second hand tobacco smoke exposure: No Alcohol intake: never Alcohol use details: social Substance use: never Substance use type: does not use Do You Feel Safe in your Home?: Yes Lack of Transportation: YES Lack of Food: Never True Current Housing: I Have Housing Concerned About Future Housing: No Difficulty Paying Gas/Electric Bills: No Difficulty Paying for Meds: No Currently Unemployed: No Education: High School Diploma/GED Difficulty w/ Childcare or Family Care: No Living arrangements: with family Occupation/Education: retired Gender identity (if verbalized by the patient): Female Spiritual care concerns: No Agree to blood products: Yes Meds Home Medications and Allergies Home Medications ?Medication ?Instructions ?Recorded ?Confirmed ?Type aspirin 81 mg tablet,delayed 81 mg PO DAILY 12/05/19 05/01/25 History release CPAP Equipment #1 ea 11/13/23 04/30/25 Rx semaglutide 2 mg/dose (8 mg/3 mL) See Rx Instructions .Route 12/13/24 05/01/25 Rx subcutaneous pen injector (Ozempic) .COMPLEX #9 mL warfarin 5 mg tablet See Rx Instructions .Route 12/13/24 05/01/25 Rx .COMPLEX #30 tabs metformin 500 mg tablet 500 mg PO BID #180 tabs 01/12/25 05/01/25 Rx atorvastatin 10 mg tablet 10 mg PO HS #90 tabs 03/06/25 05/01/25 Rx lisinopril 5 mg tablet 5 mg PO DAILY #90 tabs 03/06/25 05/01/25 Rx metoprolol succinate 50 mg 50 mg PO DAILY #90 tabs 03/06/25 05/01/25 Rx tablet,extended release 24 hr hydrocodone 5 mg-acetaminophen 325 1 tablet PO Q12H PRN pain #14 tabs 03/24/25 05/01/25 Rx mg tablet ondansetron 4 mg disintegrating 4 mg PO Q8H PRN nausea and 03/24/25 05/01/25 Rx tablet vomiting #14 tabs ferrous sulfate 324 mg (65 mg See Rx Instructions .Route 03/27/25 05/01/25 Rx iron) tablet,delayed release .COMPLEX #180 tabs Allergies Allergy/AdvReac Type Severity Reaction Status Date / Time No Known Allergies Allergy Verified 04/30/25 14:32 Vital Signs Vital Signs - 24 hr 04/30/25 14:30 04/30/25 19:26 04/30/25 23:07 Temperature 97.8 F 98.6 F Pulse Rate 100 89 93 Respiratory Rate 16 17 20 Blood Pressure 136/93 H 132/90 128/88 Pulse Oximetry 100 99 99 Oxygen Delivery Room Air 04/30/25 23:21 05/01/25 06:00 05/01/25 06:45 Temperature 98.6 F 98.1 F Pulse Rate 93 91 Respiratory Rate 20 18 Blood Pressure 128/88 129/53 L Pulse Oximetry 99 97 Oxygen Delivery Room Air Exam 2 Const: General: cooperative and healthy appearing Nutritional Appearance: a verage body habitus HENMT: Head: normal to inspection Eyes: General: appearance normal, both eyes and all related structures Resp: Effort & Inspection: normal respiratory effort, able to speak in complete sentences and no cough Skin: General skin exam: normal color Neuro: General: patient oriented x3 Extrem: General: normal to inspection Psych: Appearance: grossly normal Results Labs 05/01/25 07:41 05/01/25 07:41 Labs: Short CBC 04/30/25 05/01/25 Range/Units 16:20 07:41 WBC 15.1 H 13.5 H (4.5-10.0) K/mm3 Hgb 13.4 11.7 L (12.0-15.0) g/dL Hct 43.7 39.9 (37.0-47.0) % Plt Count 270 209 (150-375) k/mm3 [facility] 04/30/25 05/01/25 16:41 07:41 Sodium 139 136 L Potassium 3.9 4.7 Chloride 103 110 H Carbon Dioxide 21 L 15 L BUN 21 H 20 H Creatinine 1.00 1.11 H Glucose 164 H 139 H Calcium 9.7 8.8 Liver Function 04/30/25 05/01/25 Range/Units 16:41 07:41 Total Bilirubin 0.6 0.7 (0.2-1.3) mg/dL AST 33 30 (14-36) U/L ALT 29 16 (6-35) U/L Alkaline Phosphatase 128 H 104 (38-126) U/L Albumin 4.3 3.4 L (3.5-5.1) g/dL Urine 04/30/25 Range/Units 19:24 Urine Color Yellow (Yellow) Urine Appearance Cloudy H (Clear) Urine pH 5.0 (5.0-9.0) Ur Specific [place] 1.027 (1.001-1.035) Urine Protein 2+ H (Negative) mg/dL Urine Glucose (UA) Negative (Negative) mg/dL Imaging My impression: Small nonobstructing renal stones, low left mid to distal ureteral stone with significant
--- NOTE | 2025-05-01 11:38 | P.PNIM_ITS ---
Progress Note: A&P Assessment and Plan (1) Type 2 diabetes mellitus without complications: Code(s): E11.9 - Type 2 diabetes mellitus without complications Status: Acute (2) Left ureteral calculus: Code(s): N20.1 - Calculus of ureter Status: Acute Plan Left ureteral with severe hydronephrosis Presented with left flank pain, vomiting and hematuria CT AP reviewed Continue Tamsulosin and PRN pain control with IV morphine Urine culture ordered from the ER, continue Rocephin PRN pain control Urology on board for cystoscopy today Possible UTI urine culture pending continue Rocephin CHF exacerbation Patient noted she is on pacemaker, last ECHO was in 2021 Obtain ECHO, CXR showed bilateral Pleural effusions No IVF, although was given boluses in the ER Lasix 20mg bid, adjust with ECHO result monitor DM2 SSI with accucheks HTN Titrate home meds with clinical course Hx of stroke contineu home meds once reconciled DVT prophylaxis on SCDs, no AC due to hematuria Full code SDM: Guanako Griggs Subjective Date/time seen: 05/01/25 11:38 Interval history: COmfortable at bedside awaiting Cystoscopy and ECHO Review of Systems Review of Systems: Cauda systems reviewed and negative except as noted in the history above. Exam Narrative: General: alert and comfortable Eyes: EOMI, PERRLA ENNT External ears normal, Neck is supple, no masses, Respiratory systems: Clear to auscultation Cardiovascular S1, S2, normal rhythm, no murmur, rub, or gallop; no thrill or palpable murmurs on palpation. Gastrointestinal: soft, non-tender, and non-distended abdomen with no masses; BS present Skin: no rash, lesions, ulcerations, subcutaneous nodules or induration Musculoskeletal: no abnormality and no tenderness, normal ROM Neurologic: Alert and oriented x3, non focal Mental Status Exam: normal affect Objective Data Vital Signs Vital Signs: Vital Signs - 24 hr 04/30/25 14:30 04/30/25 19:26 04/30/25 23:07 Temperature 97.8 F 98.6 F Pulse Rate 100 89 93 Respiratory Rate 16 17 20 Blood Pressure 136/93 H 132/90 128/88 Pulse Oximetry 100 99 99 Oxygen Delivery Room Air 04/30/25 23:21 05/01/25 06:00 05/01/25 06:45 Temperature 98.6 F 98.1 F Pulse Rate 93 91 Respiratory Rate 20 18 Blood Pressure 128/88 129/53 L Pulse Oximetry 99 97 Oxygen Delivery Room Air Intake/Output Intake/Output: Intake & Output 04/28/25 04/29/25 04/30/25 05/01/25 23:59 23:59 23:59 23:59 Intake Total 2049 Balance 2049 Meds/Results Medications: Active Medications Generic Name Dose Route Start Last Admin Trade Name Freq PRN Reason Stop Dose Admin Acetaminophen 650 mg 04/30/25 21:43 Acetaminophen 325 Mg Tablet PO Q4H PRN Mild Pain (1-3) or Fever Dextrose 12.5 gm 04/30/25 21:43 Dextrose 50% 25 Gm/50 Ml Syringe IV PUSH PRN PRN Hypoglycemia Protocol Furosemide 20 mg 04/30/25 22:05 05/01/25 08:03 Furosemide Inj 40 Mg/4 Ml Vial IV PUSH 20 mg BID LEANA Administration Glucagon 1 mg 04/30/25 21:43 Glucagon For Inj 1 Mg Vial IM PRN PRN Hypoglycemia Protocol Glucose 15 gm 04/30/25 21:43 Glucose Oral Gel 15 Gm Of Glucse In 37.5 Gm Tube PO PRN PRN Hypoglycemia Protocol Dextrose 1,000 mls @ 100 mls/hr 04/30/25 21:43 Dextrose 5% 1,000 Ml IVPB PRN PRN Hypoglycemia Protocol Ceftriaxone Sodium 1 gm/ 50 mls @ 100 mls/hr 05/01/25 22:00 Sodium Chloride IVPB Q24H [facility] Insulin Aspart 2 - 5 units 05/01/25 08:00 05/01/25 07:59 Insulin Aspart (*Bkc) 100 Units/Ml SUB-Q Not Given TIDWM [facility] Protocol Morphine Sulfate 4 mg 04/30/25 21:43 05/01/25 06:35 Morphine Sulfate (*Crx) 4 Mg/Ml Inj IV PUSH 4 mg Q2H PRN Administration Pain Rated 7-10 Ondansetron HCl 4 mg 04/30/25 21:43 05/01/25 03:57 Ondansetron Inj 4 Mg/2 Ml Vial IV PUSH 4 mg Q4H PRN Administration Nausea Perflutren Lipid Microsphere 0 ml 04/30/25 22:05 Perflutren Lipid Microspheres 1.5 Ml Vial Diluted To 10 Ml Total Volume IV PUSH 05/03/25 22:05 ONCE PRN adequate visualization Protocol Tamsulosin HCl 0.4 mg 05/01/25 09:00 Tamsulosin Hcl 0.4 Mg Capsule PO QAM [facility] Radiology Results: ITS Impressions Abdomen/Pelvis CT 04/30/25 19:01 IMPRESSION: 1. Bilateral pleural effusion larger on the right side with adjacent atelectasis. 2. Nodule in the left lung base unchanged from previous examination. 3 months follow-up advised. 3. Left lower ureteric stone with severe left hydronephrotic changes. 4. Multiple bilateral renal stones. 5. No evidence of appendicitis, diverticulitis or intestinal obstruction. Chest X-Ray 04/30/25 22:14 IMPRESSION: Cardiomegaly with congestive dhaval. Bilateral interstitial thickening with minimal infiltrate in the lower lobes suggestive of pneumonitis versus pulmonary edema. Labs Labs: Laboratory Results - last 24 hr 04/30/25 04/30/25 04/30/25 16:20 16:41 19:24 WBC 15.1 H RBC 5.59 H Hgb 13.4 Hct 43.7 MCV 78.2 L MCH 24.0 L MCHC 30.7 L RDW 17.6 H Plt Count 270 MPV 10.3 Immature Gran % (Auto) 0.7 H Neut % (Auto) 93.5 H Lymph % (Auto) 4.6 L [place] % (Auto) 1.0 L Eos % (Auto) 0.1 Baso % (Auto) 0.1 L Lymph # (Auto) 0.70 L [place] # (Auto) 0.2 Eos # (Auto) 0.0 Baso # (Auto) 0.0 Abs Immat Gran (auto) 0.10 H Absolute Neuts (auto) 14.2 H Absolute Nucleated RBC 0.000 Nucleated RBC % 0.0 Sodium 139 Potassium 3.9 Chloride 103 Carbon Dioxide 21 L Anion Gap 15 H BUN 21 H Creatinine 1.00 Estim Creat Clear Calc 64 Estimated GFR 56 L Glucose 164 H POC Capillary Glucose Lactic Acid Calcium 9.7 Magnesium Total Bilirubin 0.6 AST 33 ALT 29 Alkaline Phosphatase 128 H Total Protein 8.3 H Albumin 4.3 Urine Color Yellow Urine Appearance Cloudy H Urine pH 5.0 Ur Specific [place] 1.027 Urine Protein 2+ H Urine Glucose (UA) Negative Urine Ketones Trace H Ur Blood (Man) 2+ H Urine Nitrate Negative Urine Bilirubin Negative Urine Urobilinogen 1.0 Add Ur Microanalysis Reviewed Leukocyte Esterase Rfl 2+ H Urine RBC 3-5 H Urine WBC 51-100 H Ur Squamous Epith Cells Few Urine Bacteria 1+ H Urine Casts 6-10 Urine Mucus Present 05/01/25 05/01/25 05/01/25 07:27 07:41 08:41 WBC 13.5 H RBC 4.88 Hgb 11.7 L Hct 39.9 MCV 81.8 MCH 24.0 L MCHC 29.3 L RDW 17.2 H Plt Count 209 MPV 10.5 H Immature Gran % (Auto) 0.5 Neut % (Auto) 90.5 H Lymph % (Auto) 4.7 L [place] % (Auto) 4.2 Eos % (Auto) 0.0 Baso % (Auto) 0.1 L Lymph # (Auto) 0.64 L [place] # (Auto) 0.6 Eos # (Auto) 0.0 Baso # (Auto) 0.0 Abs Immat Gran (auto) 0.07 H Absolute Neuts (auto) 12.2 H Absolute Nucleated RBC 0.000 Nucleated RBC % 0.0 Sodium 136 L Potassium 4.7 Chloride 110 H Carbon Dioxide 15 L Anion Gap 11 BUN 20 H Creatinine 1.11 H Estim Creat Clear Calc 60 Estimated GFR 50 L Glucose 139 H POC Capillary Glucose 134 H Lactic Acid 2.0 Calcium 8.8 Magnesium 1.4 L Total Bilirubin 0.7 AST 30 ALT 16 Alkaline Phosphatase 104 Total Protein 6.5 Albumin 3.4 L Urine Color Urine Appearance Urine pH Ur Specific [place] Urine Protein Urine Glucose (UA) Urine Ketones Ur Blood (Man) Urine Nitrate Urine Bilirubin Urine Urobilinogen Add Ur Microanalysis Leukocyte Esterase Rfl Urine RBC Urine WBC Ur Squamous Epith Cells Urine Bacteria Urine Casts Urine Mucus 05/01/25 11:21 WBC RBC Hgb Hct MCV MCH MCHC RDW Plt Count MPV Immature Gran % (Auto) Neut % (Auto) Lymph % (Auto) [place] % (Auto) Eos % (Auto) Baso % (Auto) Lymph # (Auto) [place] # (Auto) Eos # (Auto) Baso # (Auto) Abs Immat Gran (auto) Absolute Neuts (auto) Absolute Nucleated RBC Nucleated RBC % Sodium Potassium Chloride Carbon Dioxide Anion Gap BUN Creatinine Estim Creat Clear Calc Estimated GFR Glucose POC Capillary Glucose 121 H Lactic Acid Calcium Magnesium Total Bilirubin AST ALT Alkaline Phosphatase Total Protein Albumin Urine Color Urine Appearance Urine pH Ur Specific [place] Urine Protein Urine Glucose (UA) Urine Ketones Ur Blood (Man) Urine Nitrate Urine Bilirubin Urine Urobilinogen Add Ur Microanalysis Leukocyte Esterase Rfl Urine RBC Urine WBC Ur Squamous Epith Cells Urine Bacteria Urine Casts Urine Mucus
[2025-05-01] MEDS: PERFLUTREN LIPID MICROSPHERES 1.5 ML VIAL DILUTED TO 10 ML TOTAL VOLUME IV PUSH (12:30)
--- NOTE | 2025-05-01 12:40 | IVDEFINITY ---
Prior to administration of IV Definity the patient was educated on the risks and benefits of the imaging enhancing agent including potential adverse side effects. The patient verbalized understanding. Allergies were verified. No exclusion criteria were identified and at least one of the following inclusion criteria were met: 1) physician request, 2) patient technically difficult to image (per the [place] [employer]chocardi[employer] guidelines of two or more segments not discernable within the apical view), or 3) questionable left ventricular function. ?
--- NOTE | 2025-05-01 13:05 | PC.NURSE ---
To OR via stretcher.
[2025-05-01] MEDS: FAMOTIDINE 20 MG/2 ML VIAL IV PUSH (13:51)
--- NOTE | 2025-05-01 14:27 | WPDANESEPPF ---
Anes - Initial Pre Proc Eval Procedure: Operation Date: 05/01/25 14:45 Proposed Procedures p Cystoscopy, Left Ureteroscopy, Possible Left Retrograde Pyelogram, Possible Left Stone Extraction, Possible Left Stent Placement, Possible Holmium Laser - Lorne Lynn MD Date/Time: 05/01/25 14:27 Surgeon: Franki Jenkins MD Pre Op Diagnosis: L distal ureteral stone, hydronephrosis, UTI Patient Data Age: 64 Gender: F Height: 1.68 m Weight: 118 kg Last Vital Signs Temp 98.1 F 05/01/25 13:52 Pulse 70 05/01/25 13:52 Resp 16 05/01/25 13:52 BP 140/77 05/01/25 13:52 Pulse Ox 99 05/01/25 13:52 O2 Del Method Room Air 05/01/25 13:52 Allergies Allergy/AdvReac Type Severity Reaction Status Date / Time No Known Allergies Allergy Verified 05/01/25 13:56 Home Medications ?Medication ?Instructions ?Recorded ?Confirmed ?Type aspirin 81 mg tablet,delayed 81 mg PO DAILY 12/05/19 05/01/25 History release CPAP Equipment #1 ea 11/13/23 04/30/25 Rx semaglutide 2 mg/dose (8 mg/3 mL) See Rx Instructions .Route 12/13/24 05/01/25 Rx subcutaneous pen injector (Ozempic) .COMPLEX #9 mL warfarin 5 mg tablet See Rx Instructions .Route 12/13/24 05/01/25 Rx .COMPLEX #30 tabs metformin 500 mg tablet 500 mg PO BID #180 tabs 01/12/25 05/01/25 Rx atorvastatin 10 mg tablet 10 mg PO HS #90 tabs 03/06/25 05/01/25 Rx lisinopril 5 mg tablet 5 mg PO DAILY #90 tabs 03/06/25 05/01/25 Rx metoprolol succinate 50 mg 50 mg PO DAILY #90 tabs 03/06/25 05/01/25 Rx tablet,extended release 24 hr hydrocodone 5 mg-acetaminophen 325 1 tablet PO Q12H PRN pain #14 tabs 03/24/25 05/01/25 Rx mg tablet ondansetron 4 mg disintegrating 4 mg PO Q8H PRN nausea and 03/24/25 05/01/25 Rx tablet vomiting #14 tabs ferrous sulfate 324 mg (65 mg See Rx Instructions .Route 03/27/25 05/01/25 Rx iron) tablet,delayed release .COMPLEX #180 tabs Laboratory Tests 04/30/25 04/30/25 04/30/25 16:20 16:41 19:24 WBC 15.1 H K/mm3 (4.5-10.0) RBC 5.59 H M/mm3 (4.2-5.4) Hgb 13.4 g/dL (12.0-15.0) Hct 43.7 % (37.0-47.0) MCV 78.2 L fl (80-100) MCH 24.0 L pg (26-34) MCHC 30.7 L g/dl (32-36) RDW 17.6 H % (11.5-14.5) Plt Count 270 k/mm3 (150-375) MPV 10.3 fl (7.4-10.4) Immature Gran % (Auto) 0.7 H % (0-0.5) Neut % (Auto) 93.5 H % (45.5-73.1) Lymph % (Auto) 4.6 L % (18.3-44.2) O'Brien % (Auto) 1.0 L % (2.6-8.5) Eos % (Auto) 0.1 % (0-4.4) Baso % (Auto) 0.1 L % (0.2-1.2) Lymph # (Auto) 0.70 L K/mm3 (0.9-3.2) O'Brien # (Auto) 0.2 K/mm3 (0.1-0.6) Eos # (Auto) 0.0 K/mm3 (0-0.3) Baso # (Auto) 0.0 K/mm3 (0.0-0.1) Abs Immat Gran (auto) 0.10 H K/mm3 (0.00-0.031) Absolute Neuts (auto) 14.2 H K/mm3 (1.3-6.7) Absolute Nucleated RBC 0.000 K/mm3 (0.0-0.012) Nucleated RBC % 0.0 % (0.0-0.2) Sodium 139 mmol/L (137-145) Potassium 3.9 mmol/L (3.4-5.0) Chloride 103 mmol/L (98-107) Carbon Dioxide 21 L mmol/L (22-30) Anion Gap 15 H mmol/L (4-12) BUN 21 H mg/dL (7-17) Creatinine 1.00 mg/dL (0.7-1.0) Estim Creat Clear Calc 64 ml/min Estimated GFR 56 L (59 - ) Glucose 164 H mg/dL (65-110) POC Capillary Glucose Lactic Acid Calcium 9.7 mg/dL (8.4-10.2) Magnesium Total Bilirubin 0.6 mg/dL (0.2-1.3) AST 33 U/L (14-36) ALT 29 U/L (6-35) Alkaline Phosphatase 128 H U/L (38-126) Total Protein 8.3 H g/dL (6.3-8.2) Albumin 4.3 g/dL (3.5-5.1) Urine Color Yellow (Yellow) Urine Appearance Cloudy H (Clear) Urine pH 5.0 (5.0-9.0) Ur Specific [place] 1.027 (1.001-1.035) Urine Protein 2+ H mg/dL (Negative) Urine Glucose (UA) Negative mg/dL (Negative) Urine Ketones Trace H mg/dL (Negative) Ur Blood (Man) 2+ H (Negative) Urine Nitrate Negative (Negative) Urine Bilirubin Negative (Negative) Urine Urobilinogen 1.0 mg/dL (<2.0) Add Ur Microanalysis Reviewed Leukocyte Esterase Rfl 2+ H ARIA/UL (Negative) Urine RBC 3-5 H /hpf (0-2) Urine WBC 51-100 H /hpf (0-3) Ur Squamous Epith Cells Few /hpf (Few) Urine Bacteria 1+ H /hpf Urine Casts 6-10 Urine Mucus Present /lpf 05/01/25 05/01/25 05/01/25 07:27 07:41 08:41 WBC 13.5 H K/mm3 (4.5-10.0) RBC 4.88 M/mm3 (4.2-5.4) Hgb 11.7 L g/dL (12.0-15.0) Hct 39.9 % (37.0-47.0) MCV 81.8 fl (80-100) MCH 24.0 L pg (26-34) MCHC 29.3 L g/dl (32-36) RDW 17.2 H % (11.5-14.5) Plt Count 209 k/mm3 (150-375) MPV 10.5 H fl (7.4-10.4) Immature Gran % (Auto) 0.5 % (0-0.5) Neut % (Auto) 90.5 H % (45.5-73.1) Lymph % (Auto) 4.7 L % (18.3-44.2) O'Brien % (Auto) 4.2 % (2.6-8.5) Eos % (Auto) 0.0 % (0-4.4) Baso % (Auto) 0.1 L % (0.2-1.2) Lymph # (Auto) 0.64 L K/mm3 (0.9-3.2) O'Brien # (Auto) 0.6 K/mm3 (0.1-0.6) Eos # (Auto) 0.0 K/mm3 (0-0.3) Baso # (Auto) 0.0 K/mm3 (0.0-0.1) Abs Immat Gran (auto) 0.07 H K/mm3 (0.00-0.031) Absolute Neuts (auto) 12.2 H K/mm3 (1.3-6.7) Absolute Nucleated RBC 0.000 K/mm3 (0.0-0.012) Nucleated RBC % 0.0 % (0.0-0.2) Sodium 136 L mmol/L (137-145) Potassium 4.7 mmol/L (3.4-5.0) Chloride 110 H mmol/L (98-107) Carbon Dioxide 15 L mmol/L (22-30) Anion Gap 11 mmol/L (4-12) BUN 20 H mg/dL (7-17) Creatinine 1.11 H mg/dL (0.7-1.0) Estim Creat Clear Calc 60 ml/min Estimated GFR 50 L (59 - ) Glucose 139 H mg/dL (65-110) POC Capillary Glucose 134 H mg/dl (65-105) Lactic Acid 2.0 mmol/L (0.7-2.0) Calcium 8.8 mg/dL (8.4-10.2) Magnesium 1.4 L mg/dL (1.6-2.3) Total Bilirubin 0.7 mg/dL (0.2-1.3) AST 30 U/L (14-36) ALT 16 U/L (6-35) Alkaline Phosphatase 104 U/L (38-126) Total Protein 6.5 g/dL (6.3-8.2) Albumin 3.4 L g/dL (3.5-5.1) Urine Color Urine Appearance Urine pH Ur Specific Gas[place] Urine Protein Urine Glucose (UA) Urine Ketones Ur Blood (Man) Urine Nitrate Urine Bilirubin Urine Urobilinogen Add Ur Microanalysis Leukocyte Esterase Rfl Urine RBC Urine WBC Ur Squamous Epith Cells Urine Bacteria Urine Casts Urine Mucus 05/01/25 05/01/25 11:21 13:59 WBC RBC Hgb Hct MCV MCH MCHC RDW Plt Count MPV Immature Gran % (Auto) Neut % (Auto) Lymph % (Auto) O'Brien % (Auto) Eos % (Auto) Baso % (Auto) Lymph # (Auto) O'Brien # (Auto) Eos # (Auto) Baso # (Auto) Abs Immat Gran (auto) Absolute Neuts (auto) Absolute Nucleated RBC Nucleated RBC % Sodium Potassium Chloride Carbon Dioxide Anion Gap BUN Creatinine Estim Creat Clear Calc Estimated GFR Glucose POC Capillary Glucose 121 H mg/dl 133 H mg/dl (65-105) (65-105) Lactic Acid Calcium Magnesium Total Bilirubin AST ALT Alkaline Phosphatase Total Protein Albumin Urine Color Urine Appearance Urine pH Ur Specific [place] Urine Protein Urine Glucose (UA) Urine Ketones Ur Blood (Man) Urine Nitrate Urine Bilirubin Urine Urobilinogen Add Ur Microanalysis Leukocyte Esterase Rfl Urine RBC Urine WBC Ur Squamous Epith Cells Urine Bacteria Urine Casts Urine Mucus Patient hx anesthesia problems: none Family hx anesthesia problems: none Results Review: All pre-operative results and documents have been reviewed as part of the pre-operative evaluation. [facility] Past Medical History Medical History CHF (congestive heart failure) EF 55-60% Complete heart block Anal fistula Visual field loss following cerebrovascular accident COVID-19 H/O solitary pulmonary nodule 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 had chemotherapy and bone marrow transplant Stroke Kidney stone Hepatitis C antibody test negative (12/16/17) Surgical History Surgical History Status post biventricular pacemaker 10/2022, Biotronik, for complete heart block H/O cystoscopy History of removal of Port-a-Cath History of bone marrow transplant History of tonsillectomy History of appendectomy H/O lymph node biopsy Hx of cholecystectomy H/O colonoscopy Family History Family History Father Hypertension, Onset Age: 46 Family history of elevated blood lipids, Onset Age: 46 Acute myocardial infarction Family history of coronary artery disease, Onset Age: 46 Hyperlipidemia Sibling FH: testicular cancer Family history of Hodgkin's lymphoma Mother Family history of malignant neoplasm of ovary Other Family history of malignant neoplasm Social History Social History Social History: She lives with her who is a durable power trial attorney for healthcare. She has no biological children and has 2 step children. She is on disability. She is a lifelong nonsmoker. She denies any alcohol marijuana or illicit drug. Code status full code Caffeine-none Smoking status: Never smoker Second hand tobacco smoke exposure: No Alcohol intake: never Alcohol use details: social Substance use: never Substance use type: does not use Do You Feel Safe in your Home?: Yes Lack of Transportation: YES Lack of Food: Never True Current Housing: I Have Housing Concerned About Future Housing: No Difficulty Paying Gas/Electric Bills: No Difficulty Paying for Meds: No Currently Unemployed: No Education: High School Diploma/GED Difficulty w/ Childcare or Family Care: No Living arrangements: with family Occupation/Education: retired Gender identity (if verbalized by the patient): Female Spiritual care concerns: No Agree to blood products: Yes Anes - Eval Final PreProcedure Day of Procedure 05/01/25 14:27 Patient weight: morbidly obese Lungs: normal air movement Airway: Mallampati scale class II and special considerations (Missing several teeth, upper and lower, most noted on the right. ) Neurological: alert and oriented Last oral intake: >/= 8 hours ASA classification: III Emergent: no Anesthetic plan: proceed Anesthesia type and monitoring: general ETT and standard monitoring Results Review: All pre-operative results and documents have been reviewed as part of the pre-operative evaluation. HTN, hyperlipidemia, JODY on CPAP, DM fsbs 133, pacemaker secondary to CHB and recently checked by her cell attendant without any intervention, reported as nml. Pt has overall poor functional status limited by orthopedic problems, no cp or sob w walking short distances. Informed Consent: The patient's anesthetic plan and its attendant risks and benefits were discussed with the patient/family/POA. Questions were solicited and answers provided to the satisfaction of the patient/family/POA.
--- NOTE | 2025-05-01 14:29 | WPDHPUPDATE1 ---
History and Physical Update Update Date/Time: 05/01/25 14:29 History and Physical has been reviewed, including an updated exam of the patient. There are NO changes in the patient's condition. Risks, benefits, and alternatives have been discussed and questions answered. Patient agrees to proceed with procedure.
[2025-05-01] MEDS: LIDOCAINE 2% GEL UROJET 10 ML PKG MUCOUS MEM (15:00)
--- NOTE | 2025-05-01 15:16 | S_PTH ---
PATIENT: Genesis Griggs LOC: ANHIMU #:[id number] AGE/SX: 64/F ROOM: 203 RE05/01/[address]: Crystal Godwin MD : 1960 BED: 01 DIS: 05/04/2025 SPEC #: [id number] RECD: 05/02/25 08:26 STATUS: HANY REQ #: [id number] MARY: 05/01/25 15:[address]: Lorne Lynn DEPT: [facility] Surgical RECD BY: Nurys Salinas ENTERED: 05/02/25 08:27 SP TYPE: Surgical OTHR DR: MD Franki Boo MD Gina M. Vernace, DO Brad C. White, MD Tissues: A - Stone Procedures: Gross Exam Level 1 Crystalline Analysis
[2025-05-01] MEDS: LACTATED RINGERS 1,000 ML 30 ML IV CONT (15:32)
--- NOTE | 2025-05-01 17:48 | PC.NURSE ---
Back from OR.
[2025-05-01] MEDS: ACETAMINOPHEN 325 MG TABLET 650 MG PO (21:04)
[2025-05-01] MEDS: cefTRIAXone 1 GM in SODIUM CHLORIDE 0.9% IV 50 ML 100 ML IVPB (21:05)
[2025-05-01] MEDS: HYDROcodone/acetaminophen (*CRX) 5-325 MG TABLET 1 TAB PO (23:26)
[2025-05-02 00:40] VITALS: BP 127/65; PULSE 91; RESP 16; TEMP 36.1; O2SAT 93
[2025-05-02] MEDS: ONDANSETRON INJ 4 MG/2 ML VIAL IV PUSH ×3 (02:07→22:54)
[2025-05-02 05:00] VITALS: BP 160/86; PULSE 88; RESP 20; TEMP 36.1; O2SAT 94
[2025-05-02 06:15] LABS: Hematocrit 40.7 % (37.0-47.0); Hemoglobin 12.3 g/dL (12.0-15.0); Immature Granulocyte Percent A 0.6 % (0-0.5); Lymphocytes Absolute Auto 1.09 K/mm3 (0.9-3.2); Mean Corpuscular HGB Conc 30.2 g/dl (32-36); Mean Corpuscular Hemoglobin 24.5 pg (26-34); Mean Corpuscular Volume 80.9 fl (80-100); Nucleated Red Blood Cells Absolute Auto 0.000 K/mm3 (0.0-0.012); Nucleated Red Blood Cells Perc 0.0 % (0.0-0.2); Platelet Count Result 249 k/mm3 (150-375); Red Blood Count 5.03 M/mm3 (4.2-5.4); White Blood Count 15.9 K/mm3 (4.5-10.0)
[2025-05-02 06:26] LABS: Alanine Aminotransferase 24 U/L (6-35); Albumin Level 3.9 g/dL (3.5-5.1); Alkaline Phosphatase 108 U/L (38-126); Anion Gap 11 mmol/L (4-12); Aspartate Amino Transferase 32 U/L (14-36); Bilirubin,Total 0.8 mg/dL (0.2-1.3); Blood Urea Nitrogen 22 mg/dL (7-17); Calcium 8.8 mg/dL (8.4-10.2); Carbon Dioxide 20 mmol/L (22-30); Chloride 104 mmol/L (98-107); Estimated CRCL calculation 48 ml/min; Estimated Glomerular Filt Rate 37; Glucose 156 mg/dL (65-110); Magnesium 1.4 mg/dL (1.6-2.3); Potassium 4.2 mmol/L (3.4-5.0); Sodium 135 mmol/L (137-145); Total Protein 7.3 g/dL (6.3-8.2)
[2025-05-02] MEDS: FERROUS SULFATE 325 MG TABLET DR BY MOUTH ×2 (08:48→18:09)
[2025-05-02] MEDS: METOPROLOL SUCCINATE EXT REL 50 MG TABCR PO (08:48)
[2025-05-02] MEDS: ASPIRIN 81 MG ENTERIC TABLET PO (08:48)
[2025-05-02] MEDS: FUROSEMIDE INJ 40 MG/4 ML VIAL 20 MG IV PUSH ×2 (08:49→18:09)
--- NOTE | 2025-05-02 09:38 | P.CDI_ITS ---
CDI Query Clarification Request 1)Patient with a BMI of 42.0 please provide a diagnosis to accompany this finding: * Overweight * Obesity * Morbid Obesity * Other/Unknown 2)Please specify type of heart failure if known. * Systolic * Diastolic * Combined Systolic and Diastolic * Unknown The medical chart reflects the following: CHF exacerbation Patient noted she is on pacemaker, last ECHO was in 2021 Obtain ECHO, CXR showed bilateral Pleural effusions No IVF, although was given boluses in the ER Lasix 20mg bid, adjust with ECHO result monitor Echo: Summary 1. The left ventricle is moderately dilated with severely reduced systolic function. The left ventricular ejection fraction visually estimated to be 20-25%. The basal florez are normal functioning and the remaining florez are severely hypokinetic suggestive of multivessel coronary artery disease versus stress cardiomyopathy. 2. The right ventricle is normal in size and systolic function. 3. There is a pacemaker lead in the right ventricle. 4. There is moderate pulmonary hypertension with a PASP estimated to be 55 mmHg. 5. Dilated inferior vena cava with <50% collapse upon inspiration consistent with significantly elevated right atrial pressure, 15 mmHg. <Juliet Woods RN - Last Filed: 05/02/25 09:41> Provider Comments Morbid obesity, HFrEF, combined CHF <Crystal Godwin MD - Last Filed: 05/02/25 15:33>
--- NOTE | 2025-05-02 10:37 | WPDANESPN ---
Anes - Prog Note Post-Op Date/Time: 05/02/25 10:37 Cardiovascular status: normal Respiratory status: normal Airway patency: baseline Mental status: baseline Vital Signs: Last Vital Signs Temp 36.1 C L 05/02/25 05:00 Pulse 88 05/02/25 05:00 Resp 20 05/02/25 05:00 BP 160/86 H 05/02/25 05:00 Pulse Ox 94 05/02/25 05:00 O2 Del Method Room Air 05/01/25 21:05 O2 Flow Rate 2 05/01/25 17:30 Pain Score (VAS): 2 I/O: Intake & Output 05/01/25 05/02/25 05/02/25 23:59 07:59 15:59 Intake Total 500 350 60 Balance 500 350 60 Laboratory Tests 05/02/25 05:43 05/02/25 05:43 05/01/25 05/01/25 05/01/25 11:21 13:59 17:23 WBC RBC Hgb Hct MCV MCH MCHC RDW Plt Count MPV Immature Gran % (Auto) Neut % (Auto) Lymph % (Auto) Isabela % (Auto) Eos % (Auto) Baso % (Auto) Lymph # (Auto) Isabela # (Auto) Eos # (Auto) Baso # (Auto) Abs Immat Gran (auto) Absolute Neuts (auto) Absolute Nucleated RBC Nucleated RBC % Sodium Potassium Chloride Carbon Dioxide Anion Gap BUN Creatinine Estim Creat Clear Calc Estimated GFR Glucose POC Capillary Glucose 121 H 133 H 128 H Calcium Magnesium Total Bilirubin AST ALT Alkaline Phosphatase Total Protein Albumin 05/01/25 05/02/25 05/02/25 20:35 05:43 07:49 WBC 15.9 H RBC 5.03 Hgb 12.3 Hct 40.7 MCV 80.9 MCH 24.5 L MCHC 30.2 L RDW 17.6 H Plt Count 249 MPV 10.6 H Immature Gran % (Auto) 0.6 H Neut % (Auto) 87.5 H Lymph % (Auto) 6.8 L Isabel[place] % (Auto) 4.9 Eos % (Auto) 0.0 Baso % (Auto) 0.2 Lymph # (Auto) 1.09 Isabela # (Auto) 0.8 H Eos # (Auto) 0.0 Baso # (Auto) 0.0 Abs Immat Gran (auto) 0.10 H Absolute Neuts (auto) 13.9 H Absolute Nucleated RBC 0.000 Nucleated RBC % 0.0 Sodium 135 L Potassium 4.2 Chloride 104 Carbon Dioxide 20 L Anion Gap 11 BUN 22 H Creatinine 1.42 H Estim Creat Clear Calc 48 Estimated GFR 37 L Glucose 156 H POC Capillary Glucose 148 H 127 H Calcium 8.8 Magnesium 1.4 L Total Bilirubin 0.8 AST 32 ALT 24 Alkaline Phosphatase 108 Total Protein 7.3 Albumin 3.9 Patient Feedback: Patient satisfied with anesthetic care.
--- NOTE | 2025-05-02 12:29 | P.CONCA_ITS ---
Assessment and Plan Assessment and plan (1) High degree atrioventricular block: Code(s): I44.39 - Other atrioventricular block Status: Acute (2) Status post biventricular pacemaker: Code(s): Z95.0 - Presence of cardiac pacemaker Status: Acute Plan This is a 64-year-old lady with a history of chronic complete heart block and a normally functioning dual-chamber pacemaker that was implanted in October of 2022. She entered the hospital with severe pain with rule out renal colic and obstructive uropathy. She has had removal of her obstructive kidney stone and feels much better. An echocardiogram has been done which appears to show significant LV systolic dysfunction which is a new finding for her. There are no symptoms to suggest ischemia. Most likely this represents an example of takotsubo stress cardiomyopathy because of the severe pain with which she presented but she should undergo an ischemia evaluation to ensure that coronary disease is not part of the picture. The ID of angiography was discussed and recommended in detail. Will schedule this for tomorrow morning. Will check a BMP in the morning to ensure that her creatinine is improving before proceeding with an angiogram Tomy Mejia MD [facility] History of Present Illness History of Present Illness Consult date/time: 05/02/25 12:29 Reason For Visit: L distal ureteral stone, hydronephrosis, UTI Narrative: This is a 64-year-old woman with history of complete heart block who I know and follow in the office with a chronically implanted pacemaker device. I am seeing her today at the request of the hospitalist because of left ventricular systolic dysfunction that was noticed on echocardiogram yesterday. The patient does not have any prior history of this. She was admitted to this hospital on the for severe left flank pain and she had an obstructive renal stone which was treated by Urology, removed and she feels much better. The patient was in significant pain with flank pain for about 10-14 days prior to coming in the hospital. She had an echocardiogram ordered by the hospitalists according to the note because of small pleural effusions that were noted on her chest x-ray. On my personal expected on the x-ray at really see much of the of that. In any event he echocardiogram demonstrated significant LV systolic dysfunction in a pattern that is somewhat suspicious for takotsubo cardiomyopathy. Prior to her pacemaker implantation she had normal left ventricular systolic function. I saw this patient in October of 2022 when she came to the hospital with symptomatic bradycardia with complete heart block. Here at again as mentioned above her echocardiogram looked relatively unremarkable at that time and she had a Biotronik dual-chamber pacemaker implanted uneventfully and that has been followed in the office and is functioning normally. She does not have any complaints of shortness of breath chest pain orthopnea PND or accumulating edema. Her electrocardiogram shows sinus rhythm with atrial sensing and ventricular pacing. Review of Systems 2 Constitutional: Constitutional: Reports no additional constitutional complaints Eyes: Eyes: Reports no additional eye complaints ENT: Reports system reviewed and no additional complaints, except as documented Cardiovascular: Cardiovascular: Reports no additional cardiovascular complaints Respiratory: Respiratory: Reports no additional respiratory complaints Gastrointestinal: Gastrointestinal: Reports no additional gastrointestinal complaints Genitourinary: Genitourinary: Reports as per HPI and Reports flank pain Musculoskeletal: Musculoskeletal: Reports no additional musculoskeletal complaints Integumentary/Breasts: Skin/Breast: Reports system reviewed and no additional complaints, except as docu Neurologic: Reports system reviewed and no additional complaints, except as documented Endocrine: Endocrine: Reports no additional endocrine complaints Hematologic/Lymphatic: Hematologic/Lymphatic: Reports no additional hematologic/lymphatic complaints Allergic/Immunologic: Allergic/Immunologic: Reports no additional allergic/immunologic complaints PMFSH Past Medical History Medical History CHF (congestive heart failure) EF 55-60% Complete heart block Anal fistula Visual field loss following cerebrovascular accident COVID-19 H/O solitary pulmonary nodule 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 had chemotherapy and bone marrow transplant Stroke Kidney stone Hepatitis C antibody test negative (12/16/17) Surgical History Surgical History Status post biventricular pacemaker 10/2022, Biotronik, for complete heart block H/O cystoscopy History of removal of Port-a-Cath History of bone marrow transplant History of tonsillectomy History of appendectomy H/O lymph node biopsy Hx of cholecystectomy H/O colonoscopy Family History Family History Father Hypertension, Onset Age: 46 Family history of elevated blood lipids, Onset Age: 46 Acute myocardial infarction Family history of coronary artery disease, Onset Age: 46 Hyperlipidemia Sibling FH: testicular cancer Family history of Hodgkin's lymphoma Mother Family history of malignant neoplasm of ovary Other Family history of malignant neoplasm Social History Social History Social History: She lives with her who is a durable power range management specialist for healthcare. She has no biological children and has 2 step children. She is on disability. She is a lifelong nonsmoker. She denies any alcohol marijuana or illicit drug. Code status full code Caffeine-none Smoking status: Never smoker Second hand tobacco smoke exposure: No Alcohol intake: never Alcohol use details: social Substance use: never Substance use type: does not use Do You Feel Safe in your Home?: Yes Lack of Transportation: YES Lack of Food: Never True Current Housing: I Have Housing Concerned About Future Housing: No Difficulty Paying Gas/Electric Bills: No Difficulty Paying for Meds: No Currently Unemployed: No Education: High School Diploma/GED Difficulty w/ Childcare or Family Care: No Living arrangements: with family Occupation/Education: retired Gender identity (if verbalized by the patient): Female Spiritual care concerns: No Agree to blood products: Yes Meds Home Medications and Allergies Home Medications ?Medication ?Instructions ?Recorded ?Confirmed ?Type aspirin 81 mg tablet,delayed 81 mg PO DAILY 12/05/19 05/01/25 History release CPAP Equipment #1 ea 11/13/23 04/30/25 Rx semaglutide 2 mg/dose (8 mg/3 mL) See Rx Instructions .Route 12/13/24 05/01/25 Rx subcutaneous pen injector (Ozempic) .COMPLEX #9 mL warfarin 5 mg tablet See Rx Instructions .Route 12/13/24 05/01/25 Rx .COMPLEX #30 tabs metformin 500 mg tablet 500 mg PO BID #180 tabs 01/12/25 05/01/25 Rx atorvastatin 10 mg tablet 10 mg PO HS #90 tabs 03/06/25 05/01/25 Rx lisinopril 5 mg tablet 5 mg PO DAILY #90 tabs 03/06/25 05/01/25 Rx metoprolol succinate 50 mg 50 mg PO DAILY #90 tabs 03/06/25 05/01/25 Rx tablet,extended release 24 hr hydrocodone 5 mg-acetaminophen 325 1 tablet PO Q12H PRN pain #14 tabs 03/24/25 05/01/25 Rx mg tablet ondansetron 4 mg disintegrating 4 mg PO Q8H PRN nausea and 03/24/25 05/01/25 Rx tablet vomiting #14 tabs ferrous sulfate 324 mg (65 mg See Rx Instructions .Route 03/27/25 05/01/25 Rx iron) tablet,delayed release .COMPLEX #180 tabs hydrocodone 5 mg-acetaminophen 325 1 tablet PO Q6H PRN pain #15 tabs 05/01/25 Rx mg tablet Allergies Allergy/AdvReac Type Severity Reaction Status Date / Time No Known Allergies Allergy Verified 05/01/25 13:56 Vital Signs Vital Signs - 24 hr 05/01/25 13:52 05/01/25 15:32 05/01/25 15:45 Temperature 36.7 C Pulse Rate 70 104 H 100 Respiratory Rate 16 26 H 24 H Blood Pressure 140/77 144/76 H 126/84 Pulse Oximetry 99 96 97 Oxygen Delivery Room Air Simple Face Mask Simple Face Mask Oxygen Flow Rate 10 10 05/01/25 16:00 05/01/25 16:15 05/01/25 16:30 Temperature Pulse Rate 102 H 103 H 105 H Respiratory Rate 24 H 22 H 24 H Blood Pressure 135/65 141/85 H 145/81 H Pulse Oximetry 94 95 94 Oxygen Delivery Simple Face Mask Nasal Cannula Nasal Cannula Oxygen Flow Rate 10 2 2 05/01/25 16:45 05/01/25 17:00 05/01/25 17:15 Temperature Pulse Rate 104 H 103 H 101 H Respiratory Rate 22 H 22 H 20 Blood Pressure 148/83 H 148/83 H 149/75 H Pulse Oximetry 94 94 94 Oxygen Delivery Nasal Cannula Nasal Cannula Nasal Cannula Oxygen Flow Rate 2 2 2 05/01/25 17:30 05/01/25 19:07 05/01/25 20:35 Temperature 36.8 C 36.2 C L Pulse Rate 71 99 96 Respiratory Rate 22 H 21 H 16 Blood Pressure 142/78 H 143/83 H 135/82 Pulse Oximetry 96 98 93 Oxygen Delivery Nasal Cannula Oxygen Flow Rate 2 05/01/25 21:05 05/02/25 00:40 05/02/25 05:00 Temperature 36.1 C L 36.1 C L Pulse Rate 91 88 Respiratory Rate 16 20 Blood Pressure 127/65 160/86 H Pulse Oximetry 93 94 Oxygen Delivery Room Air Oxygen Flow Rate Exam 2 Const: General: comfortable and no acute distress Other: Pleasant obese lady no apparent distress HENMT: Mouth: Yes moist mucous membranes Eyes: Sclera: sclerae normal Neck: Neck: supple and no JVD Resp: Effort & Inspection: normal respiratory effort Auscultation: clear to auscultation bilaterally Cardio: Rate: regular rate Rhythm: regular rhythm GI: GI Palp: Yes Soft to palpation Auscultation: normal bowel sounds Skin: General skin exam: normal color Neuro: Other: Alert and oriented x3 Extrem: General: normal to inspection Other: Good perfusion, no edema Results Labs and Meds 05/02/25 05:43 05/02/25 05:43 Lab results: Cardiac Enzymes 05/02/25 Range/Units 05:43 AST 32 (14-36) U/L CBC 05/02/25 Range/Units 05:43 WBC 15.9 H (4.5-10.0) K/mm3 RBC 5.03 (4.2-5.4) M/mm3 Hgb 12.3 (12.0-15.0) g/dL Hct 40.7 (37.0-47.0) % Plt Count 249 (150-375) k/mm3 Lymph # (Auto) 1.09 (0.9-3.2) K/mm3 Walker # (Auto) 0.8 H (0.1-0.6) K/mm3 Eos # (Auto) 0.0 (0-0.3) K/mm3 Baso # (Auto) 0.0 (0.0-0.1) K/mm3 Comprehensive Metabolic Panel 05/02/25 Range/Units 05:43 Sodium 135 L (137-145) mmol/L Potassium 4.2 (3.4-5.0) mmol/L Chloride 104 (98-107) mmol/L Carbon Dioxide 20 L (22-30) mmol/L BUN 22 H (7-17) mg/dL Creatinine 1.42 H (0.7-1.0) mg/dL Glucose 156 H (65-110) mg/dL Calcium 8.8 (8.4-10.2) mg/dL AST 32 (14-36) U/L ALT 24 (6-35) U/L Alkaline Phosphatase 108 (38-126) U/L Total Protein 7.3 (6.3-8.2) g/dL Albumin 3.9 (3.5-5.1) g/dL Intake and Output 05/01/25 05/02/25 05/02/25 23:59 07:59 15:59 Intake Total 500 350 297 Balance 500 350 297 Intake: IV 100 Lactated Ringers 1,000 ml @ 30 50 mls/hr IV CONT .Q24H [facility] Rx#: [id number] cefTRIAXone 1 gm In Sodium 50 Chloride 0.9% IV 50 ml @ 100 mls/hr IVPB Q24H [facility] Rx#: [id number] Oral 400 350 60 Oral Supplement 237 Other: # Unmeasured Voids 2 4 1
[2025-05-02 14:00] VITALS: BP 135/85; PULSE 83; RESP 20; TEMP 36.7; O2SAT 96
--- NOTE | 2025-05-02 15:14 | PM.IMPN ---
Progress Note: A&P Assessment and Plan (1) Type 2 diabetes mellitus without complications: Code(s): E11.9 - Type 2 diabetes mellitus without complications Status: Acute (2) Left ureteral calculus: Code(s): N20.1 - Calculus of ureter Status: Acute Plan Left ureteral with severe hydronephrosis Presented with left flank pain, vomiting and hematuria CT AP reviewed Continue Tamsulosin and PRN pain control with IV morphine Urine culture ordered from the ER, continue Rocephin PRN pain control Urology on board S/P Cystoscopy, Left Ureteroscopy, Left Retrograde Pyelogram, Left Stent Placement 05/01/25 Possible UTI urine culture pending continue Rocephin HFrEF ? cardiomyopathy vs multivessel coronary artery disease versus stress cardiomyopathy plan for possible cardiac cath tomorrow Patient noted she is on pacemaker, last ECHO was in 2021 CXR showed bilateral Pleural effusions No IVF, although was given boluses in the ER Lasix 20mg bid on hold with NAINA monitor DM2 SSI with accucheks HTN Titrate home meds with clinical course Hx of stroke continue home meds once reconciled DVT prophylaxis on SCDs, no AC due to hematuria Full code SDM: [place] Griggs BMI 42 morbid obesity Subjective Date/time seen: 05/02/25 15:14 Interval history: per HPi: 64-year-old female past medical history of hypertension diabetes, hypertension stroke CHF pacemaker presented to the ER on account of right flank pain and vomiting. Patient noted she had stone extraction done about 2 weeks ago however the last 2 days she has been having left multiple described as sharp 6/10 in intensity associated with vomiting and bloody urine. For worsening pain she presented to the ER for proper evaluation care. Denies any chest pain shortness a brief no fever no diarrhea no focal symptoms. ER evaluation notable for vital signs stable and within normal limits. Labs notable for WBC 15.1, UA positive for leukocyte Estrace and pyuria with bacteriuria. CT abdomen pelvis showed left ureter 8 stone with severe hydronephrosis. Bilateral pleural effusion. Urology was consulted patient was started on Rocephin IV fluid and tamsulosin. Urine culture was sent. 05/02/25 Patient was seen and examined at bedside. she is feeling better.abd pain improving.urine culture pending. continue with IV Abx. Has worsening NAINA. hold of lasix echo showed LVEF 25% cardiology team was consulted. Plan for cardiac cath today. . Review of Systems Review of Systems: Cauda systems reviewed and negative except as noted in the history above. Exam Narrative: General: alert and comfortable Eyes: EOMI, PERRLA ENNT External ears normal, Neck is supple, no masses, Respiratory systems: Clear to auscultation Cardiovascular S1, S2, normal rhythm, no murmur, rub, or gallop; no thrill or palpable murmurs on palpation. Gastrointestinal: soft, non-tender, and non-distended abdomen with no masses; BS present Skin: no rash, lesions, ulcerations, subcutaneous nodules or induration Musculoskeletal: no abnormality and no tenderness, normal ROM Neurologic: Alert and oriented x3, non focal Mental Status Exam: normal affect Objective Data Vital Signs Vital Signs: Vital Signs - 24 hr 05/01/25 15:32 05/01/25 15:45 05/01/25 16:00 Temperature Pulse Rate 104 H 100 102 H Respiratory Rate 26 H 24 H 24 H Blood Pressure 144/76 H 126/84 135/65 Pulse Oximetry 96 97 94 Oxygen Delivery Simple Face Mask Simple Face Mask Simple Face Mask Oxygen Flow Rate 10 10 10 05/01/25 16:15 05/01/25 16:30 05/01/25 16:45 Temperature Pulse Rate 103 H 105 H 104 H Respiratory Rate 22 H 24 H 22 H Blood Pressure 141/85 H 145/81 H 148/83 H Pulse Oximetry 95 94 94 Oxygen Delivery Nasal Cannula Nasal Cannula Nasal Cannula Oxygen Flow Rate 2 2 2 05/01/25 17:00 05/01/25 17:15 05/01/25 17:30 Temperature Pulse Rate 103 H 101 H 71 Respiratory Rate 22 H 20 22 H Blood Pressure 148/83 H 149/75 H 142/78 H Pulse Oximetry 94 94 96 Oxygen Delivery Nasal Cannula Nasal Cannula Nasal Cannula Oxygen Flow Rate 2 2 2 05/01/25 19:07 05/01/25 20:35 05/01/25 21:05 Temperature 98.3 F 97.2 F L Pulse Rate 99 96 Respiratory Rate 21 H 16 Blood Pressure 143/83 H 135/82 Pulse Oximetry 98 93 Oxygen Delivery Room Air Oxygen Flow Rate 05/02/25 00:40 05/02/25 05:00 Temperature 96.9 F L 97 F L Pulse Rate 91 88 Respiratory Rate 16 20 Blood Pressure 127/65 160/86 H Pulse Oximetry 93 94 Oxygen Delivery Oxygen Flow Rate Intake/Output Intake/Output: Intake & Output 04/29/25 04/30/25 05/01/25 05/02/25 23:59 23:59 23:59 23:59 Intake Total 2049 500 647 Balance 2049 500 647 Meds/Results Medications: Active Medications Generic Name Dose Route Start Last Admin Trade Name Freq PRN Reason Stop Dose Admin Acetaminophen 650 mg 04/30/25 21:43 05/01/25 21:04 Acetaminophen 325 Mg Tablet PO 650 mg Q4H PRN Administration Mild Pain (1-3) or Fever Hydrocodone Bitart/Acetaminophen 1 tab 05/01/25 22:04 05/01/25 23:26 Hydrocodone/Acetaminophen (*Crx) 5-325 Mg Tablet PO 1 tab Q12H PRN Administration Pain Rated 6 or Greater Aspirin 81 mg 05/02/25 09:00 05/02/25 08:48 Aspirin 81 Mg Enteric Tablet PO 81 mg DAILY LEANA Administration Atorvastatin Calcium 10 mg 05/01/25 22:10 05/01/25 22:59 Atorvastatin 10 Mg Tablet PO Not Given HS LEANA Dextrose 12.5 gm 04/30/25 21:43 Dextrose 50% 25 Gm/50 Ml Syringe IV PUSH PRN PRN Hypoglycemia Protocol Ferrous Sulfate 325 mg 05/02/25 09:00 05/02/25 08:48 Ferrous Sulfate [address] BY MOUTH 325 mg BID LEANA Administration Furosemide 20 mg 04/30/25 22:05 05/02/25 08:49 Furosemide Inj 40 Mg/4 Ml Vial IV PUSH 20 mg BID LEANA Administration Glucagon 1 mg 04/30/25 21:43 Glucagon For Inj 1 Mg Vial IM PRN PRN Hypoglycemia Protocol Glucose 15 gm 04/30/25 21:43 Glucose Oral Gel 15 Gm Of Glucse In 37.5 Gm Tube PO PRN PRN Hypoglycemia Protocol Dextrose 1,000 mls @ 100 mls/hr 04/30/25 21:43 Dextrose 5% 1,000 Ml IVPB PRN PRN Hypoglycemia Protocol Ceftriaxone Sodium 1 gm/ 50 mls @ 100 mls/hr 05/01/25 22:00 05/01/25 21:35 Sodium Chloride IVPB Infused Q24H LEANA Infusion Insulin Aspart 2 - 5 units 05/01/25 08:00 05/02/25 08:47 Insulin Aspart (*Bkc) 100 Units/Ml SUB-Q Not Given TIDWM [facility] Protocol Lisinopril 5 mg 05/02/25 09:00 05/02/25 08:48 Lisinopril 5 Mg Tablet PO 5 mg DAILY LEANA Administration Metoprolol Succinate 50 mg 05/02/25 09:00 05/02/25 08:48 Metoprolol Succinate Ext Rel 50 Mg Tabcr PO 50 mg DAILY [facility] Administration Ondansetron HCl 4 mg 04/30/25 21:43 05/02/25 02:07 Ondansetron Inj 4 Mg/2 Ml Vial IV PUSH 4 mg Q4H PRN Administration Nausea Radiology Results: ITS Impressions Abdomen/Pelvis CT 04/30/25 19:01 IMPRESSION: 1. Bilateral pleural effusion larger on the right side with adjacent atelectasis. 2. Nodule in the left lung base unchanged from previous examination. 3 months follow-up advised. 3. Left lower ureteric stone with severe left hydronephrotic changes. 4. Multiple bilateral renal stones. 5. No evidence of appendicitis, diverticulitis or intestinal obstruction. Chest X-Ray 04/30/25 22:14 IMPRESSION: Cardiomegaly with congestive dhaval. Bilateral interstitial thickening with minimal infiltrate in the lower lobes suggestive of pneumonitis versus pulmonary edema. Labs Labs: Laboratory Results - last 24 hr 05/01/25 05/01/25 05/02/25 17:23 20:35 05:43 WBC 15.9 H RBC 5.03 Hgb 12.3 Hct 40.7 MCV 80.9 MCH 24.5 L MCHC 30.2 L RDW 17.6 H Plt Count 249 MPV 10.6 H Immature Gran % (Auto) 0.6 H Neut % (Auto) 87.5 H Lymph % (Auto) 6.8 L Barry % (Auto) 4.9 Eos % (Auto) 0.0 Baso % (Auto) 0.2 Lymph # (Auto) 1.09 Barry # (Auto) 0.8 H Eos # (Auto) 0.0 Baso # (Auto) 0.0 Abs Immat Gran (auto) 0.10 H Absolute Neuts (auto) 13.9 H Absolute Nucleated RBC 0.000 Nucleated RBC % 0.0 Sodium 135 L Potassium 4.2 Chloride 104 Carbon Dioxide 20 L Anion Gap 11 BUN 22 H Creatinine 1.42 H Estim Creat Clear Calc 48 Estimated GFR 37 L Glucose 156 H POC Capillary Glucose 128 H 148 H Calcium 8.8 Magnesium 1.4 L Total Bilirubin 0.8 AST 32 ALT 24 Alkaline Phosphatase 108 Total Protein 7.3 Albumin 3.9 05/02/25 05/02/25 07:49 11:24 WBC RBC Hgb Hct MCV MCH MCHC RDW Plt Count MPV Immature Gran % (Auto) Neut % (Auto) Lymph % (Auto) Barry % (Auto) Eos % (Auto) Baso % (Auto) Lymph # (Auto) Barry # (Auto) Eos # (Auto) Baso # (Auto) Abs Immat Gran (auto) Absolute Neuts (auto) Absolute Nucleated RBC Nucleated RBC % Sodium Potassium Chloride Carbon Dioxide Anion Gap BUN Creatinine Estim Creat Clear Calc Estimated GFR Glucose POC Capillary Glucose 127 H 128 H Calcium Magnesium Total Bilirubin AST ALT Alkaline Phosphatase Total Protein Albumin
[2025-05-02 21:26] VITALS: BP 126/70; PULSE 69; RESP 24; TEMP 36.6; O2SAT 98
[2025-05-02] MEDS: ATORVASTATIN 10 MG TABLET PO (21:28)
[2025-05-02] MEDS: cefTRIAXone 1 GM in SODIUM CHLORIDE 0.9% IV 50 ML 100 ML IVPB (21:31)
--- NOTE | 2025-05-02 23:13 | PC.NURSE ---
Patient transferred to IMU- Room 203 at 2305 via wheelchair. Report was given to receiving nurse, Nelly prior to transfer.
--- NOTE | 2025-05-02 23:16 | PC.NURSE ---
Pt admitted to IMU 203 from room 316 at 2305.
--- NOTE | 2025-05-02 23:17 | PC.NURSE ---
Patient had complaints of nausea prior to transfer. Heather given - see MAR
[2025-05-02 23:39] VITALS: BP 152/75; PULSE 64; RESP 16; TEMP 36.7; O2SAT 95
[2025-05-03] VITALS (34 sets, daily range): BP systolic 84–153; BP diastolic 55–90; PULSE 69–86; RESP 15–21; TEMP 36.3–36.9; O2SAT 95–100
[2025-05-03 04:07] LABS: Hematocrit 39.8 % (37.0-47.0); Hemoglobin 12.3 g/dL (12.0-15.0); Mean Corpuscular HGB Conc 30.9 g/dl (32-36); Mean Corpuscular Hemoglobin 23.8 pg (26-34); Mean Corpuscular Volume 77.1 fl (80-100); Platelet Count Result 315 k/mm3 (150-375); Red Blood Count 5.16 M/mm3 (4.2-5.4); White Blood Count 13.7 K/mm3 (4.5-10.0)
[2025-05-03 04:33] LABS: Anion Gap 10 mmol/L (4-12); Blood Urea Nitrogen 25 mg/dL (7-17); Calcium 9.1 mg/dL (8.4-10.2); Carbon Dioxide 25 mmol/L (22-30); Chloride 101 mmol/L (98-107); Estimated CRCL calculation 50 ml/min; Estimated Glomerular Filt Rate 40; Glucose 144 mg/dL (65-110); Potassium 3.3 mmol/L (3.4-5.0); Sodium 136 mmol/L (137-145)
[2025-05-03] MEDS: ASPIRIN 81 MG ENTERIC TABLET PO (08:51)
[2025-05-03] MEDS: FERROUS SULFATE 325 MG TABLET DR BY MOUTH ×2 (08:52→17:11)
[2025-05-03] MEDS: METOPROLOL SUCCINATE EXT REL 50 MG TABCR PO (08:52)
[2025-05-03 09:34] LABS: Magnesium 1.3 mg/dL (1.6-2.3)
--- NOTE | 2025-05-03 10:50 | WPDHPUPDATE1 ---
History and Physical Update Update Date/Time: 05/03/25 09:20 History and Physical has been reviewed, including an updated exam of the patient. There are NO changes in the patient's condition. Risks, benefits, and alternatives have been discussed and questions answered. Patient agrees to proceed with procedure.
--- NOTE | 2025-05-03 10:50 | WPDMODSED ---
Moderate Sedation Note-Pt Data Patient Data Allergies Allergy/AdvReac Type Severity Reaction Status Date / Time No Known Allergies Allergy Verified 05/01/25 13:56 Home Medications ?Medication ?Instructions ?Recorded ?Confirmed ?Type aspirin 81 mg tablet,delayed 81 mg PO DAILY 12/05/19 05/01/25 History release CPAP Equipment #1 ea 11/13/23 04/30/25 Rx semaglutide 2 mg/dose (8 mg/3 mL) See Rx Instructions .Route 12/13/24 05/01/25 Rx subcutaneous pen injector (Ozempic) .COMPLEX #9 mL warfarin 5 mg tablet See Rx Instructions .Route 12/13/24 05/01/25 Rx .COMPLEX #30 tabs metformin 500 mg tablet 500 mg PO BID #180 tabs 01/12/25 05/01/25 Rx atorvastatin 10 mg tablet 10 mg PO HS #90 tabs 03/06/25 05/01/25 Rx lisinopril 5 mg tablet 5 mg PO DAILY #90 tabs 03/06/25 05/01/25 Rx metoprolol succinate 50 mg 50 mg PO DAILY #90 tabs 03/06/25 05/01/25 Rx tablet,extended release 24 hr hydrocodone 5 mg-acetaminophen 325 1 tablet PO Q12H PRN pain #14 tabs 03/24/25 05/01/25 Rx mg tablet ondansetron 4 mg disintegrating 4 mg PO Q8H PRN nausea and 03/24/25 05/01/25 Rx tablet vomiting #14 tabs ferrous sulfate 324 mg (65 mg See Rx Instructions .Route 03/27/25 05/01/25 Rx iron) tablet,delayed release .COMPLEX #180 tabs hydrocodone 5 mg-acetaminophen 325 1 tablet PO Q6H PRN pain #15 tabs 05/01/25 Rx mg tablet Current Medications: Active Medications Acetaminophen (Acetaminophen 325 Mg Tablet) 650 mg PO Q4H PRN PRN Reason: Mild Pain (1-3) or Fever Last Admin: 05/01/25 21:04 Dose: 650 mg Hydrocodone Bitart/Acetaminophen (Hydrocodone/Acetaminophen (*Crx) 5-325 Mg Tablet) 1 tab PO Q12H PRN PRN Reason: Pain Rated 6 or Greater Last Admin: 05/01/25 23:26 Dose: 1 tab Aspirin (Aspirin 81 Mg Enteric Tablet) 81 mg PO DAILY [facility] Last Admin: 05/03/25 08:51 Dose: 81 mg Atorvastatin Calcium (Atorvastatin 10 Mg Tablet) 10 mg PO HS [facility] Last Admin: 05/02/25 21:28 Dose: 10 mg Dextrose (Dextrose 50% 25 Gm/50 Ml Syringe) 12.5 gm IV PUSH PRN PRN; Protocol PRN Reason: Hypoglycemia Ferrous Sulfate (Ferrous Sulfate [address]) 325 mg BY MOUTH BID [facility] Last Admin: 05/03/25 08:52 Dose: 325 mg Furosemide (Furosemide Inj 40 Mg/4 Ml Vial) 20 mg IV PUSH BID [facility] Last Admin: 05/03/25 09:00 Dose: Not Given Glucagon (Glucagon For Inj 1 Mg Vial) 1 mg IM PRN PRN; Protocol PRN Reason: Hypoglycemia Glucose (Glucose Oral Gel 15 Gm Of Glucse In 37.5 Gm Tube) 15 gm PO PRN PRN; Protocol PRN Reason: Hypoglycemia Dextrose (Dextrose 5% 1,000 Ml) 1,000 mls @ 100 mls/hr IVPB PRN PRN; Protocol PRN Reason: Hypoglycemia Ceftriaxone Sodium 1 gm/ (Sodium Chloride) 50 mls @ 100 mls/hr IVPB Q24H [facility] Last Infusion: 05/02/25 22:01 Dose: Infused Insulin Aspart (Insulin Aspart (*Bkc) 100 Units/Ml) 2 - 5 units SUB-Q TIDWM [facility]; Protocol Last Admin: 05/03/25 07:51 Dose: Not Given Lisinopril (Lisinopril 5 Mg Tablet) 5 mg PO DAILY [facility] Last Admin: 05/03/25 08:51 Dose: 5 mg Metoprolol Succinate (Metoprolol Succinate Ext Rel 50 Mg Tabcr) 50 mg PO DAILY [facility] Last Admin: 05/03/25 08:52 Dose: 50 mg Ondansetron HCl (Ondansetron Inj 4 Mg/2 Ml Vial) 4 mg IV PUSH Q4H PRN PRN Reason: Nausea Last Admin: 05/02/25 22:54 Dose: 4 mg Sedation/Anesthesia: No previous sedation/anesthesia problems (including family history). [facility] Past Medical History Medical History CHF (congestive heart failure) EF 55-60% Complete heart block Anal fistula Visual field loss following cerebrovascular accident COVID-19 H/O solitary pulmonary nodule 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 had chemotherapy and bone marrow transplant Stroke Kidney stone Hepatitis C antibody test negative (12/16/17) Surgical History Surgical History Status post biventricular pacemaker 10/2022, Biotronik, for complete heart block H/O cystoscopy History of removal of Port-a-Cath History of bone marrow transplant History of tonsillectomy History of appendectomy H/O lymph node biopsy Hx of cholecystectomy H/O colonoscopy Family History Family History Father Hypertension, Onset Age: 46 Family history of elevated blood lipids, Onset Age: 46 Acute myocardial infarction Family history of coronary artery disease, Onset Age: 46 Hyperlipidemia Sibling FH: testicular cancer Family history of Hodgkin's lymphoma Mother Family history of malignant neoplasm of ovary Other Family history of malignant neoplasm Social History Social History Social History: She lives with her who is a durable power senior attorney for healthcare. She has no biological children and has 2 step children. She is on disability. She is a lifelong nonsmoker. She denies any alcohol marijuana or illicit drug. Code status full code Caffeine-none Smoking status: Never smoker Second hand tobacco smoke exposure: No Alcohol intake: never Alcohol use details: social Substance use: never Substance use type: does not use Do You Feel Safe in your Home?: Yes Lack of Transportation: YES Lack of Food: Never True Current Housing: I Have Housing Concerned About Future Housing: No Difficulty Paying Gas/Electric Bills: No Difficulty Paying for Meds: No Currently Unemployed: No Education: High School Diploma/GED Difficulty w/ Childcare or Family Care: No Living arrangements: with family Occupation/Education: retired Gender identity (if verbalized by the patient): Female Spiritual care concerns: No Agree to blood products: Yes Mod Sed Physical Exam Physical Exam Pre Procedural Exam: Normal: Lungs, Heart Size, Heart Rate and Heart Rhythm Hours since solid foods: 12 Hours since liquid intake: 12 Mallampati Classification: class II Internal Medicine - PN: Obj Da Vital Signs Vital Signs: Vital Signs - 24 hr 05/02/25 14:00 05/02/25 20:00 05/02/25 21:26 Temperature 36.7 C 36.6 C Pulse Rate 83 69 Respiratory Rate 20 24 H Blood Pressure 135/85 126/70 Pulse Oximetry 96 98 Oxygen Delivery Room Air 05/02/25 23:19 05/02/25 23:39 05/03/25 00:00 Temperature 36.7 C Pulse Rate 64 69 Respiratory Rate 16 Blood Pressure 152/75 H Pulse Oximetry 95 Oxygen Delivery Room Air 05/03/25 02:00 05/03/25 04:00 05/03/25 04:00 Temperature 36.8 C Pulse Rate 69 69 Respiratory Rate 16 Blood Pressure 132/60 Pulse Oximetry 97 Oxygen Delivery Room Air 05/03/25 07:45 05/03/25 08:00 05/03/25 08:52 Temperature 36.3 C L Pulse Rate 69 70 69 Respiratory Rate 20 Blood Pressure 120/59 L Pulse Oximetry 99 Oxygen Delivery 05/03/25 10:00 Temperature Pulse Rate 69 Respiratory Rate Blood Pressure Pulse Oximetry Oxygen Delivery Intake/Output Intake/Output: Intake & Output 04/30/25 05/01/25 05/02/25 05/03/25 23:59 23:59 23:59 23:59 Intake Total 0 500 997 50 Balance 2049 500 997 50 Meds/Results Medications: Active Medications Generic Name Dose Route Start Last Admin Trade Name Freq PRN Reason Stop Dose Admin Acetaminophen 650 mg 04/30/25 21:43 05/01/25 21:04 Acetaminophen 325 Mg Tablet PO 650 mg Q4H PRN Administration Mild Pain (1-3) or Fever Hydrocodone Bitart/Acetaminophen 1 tab 05/01/25 22:04 05/01/25 23:26 Hydrocodone/Acetaminophen (*Crx) 5-325 Mg Tablet PO 1 tab Q12H PRN Administration Pain Rated 6 or Greater Aspirin 81 mg 05/02/25 09:00 05/03/25 08:51 Aspirin 81 Mg Enteric Tablet PO 81 mg DAILY [facility] Administration Atorvastatin Calcium 10 mg 05/01/25 22:10 05/02/25 21:28 Atorvastatin 10 Mg Tablet PO 10 mg HS [facility] Administration Dextrose 12.5 gm 04/30/25 21:43 Dextrose 50% 25 Gm/50 Ml Syringe IV PUSH PRN PRN Hypoglycemia Protocol Ferrous Sulfate 325 mg 05/02/25 09:00 05/03/25 08:52 Ferrous Sulfate [address] BY MOUTH 325 mg BID [facility] Administration Furosemide 20 mg 04/30/25 22:05 05/03/25 09:00 Furosemide Inj 40 Mg/4 Ml Vial IV PUSH Not Given BID [facility]ANA Glucagon 1 mg 04/30/25 21:43 Glucagon For Inj 1 Mg Vial IM PRN PRN Hypoglycemia Protocol Glucose 15 gm 04/30/25 21:43 Glucose Oral Gel 15 Gm Of Glucse In 37.5 Gm Tube PO PRN PRN Hypoglycemia Protocol Dextrose 1,000 mls @ 100 mls/hr 04/30/25 21:43 Dextrose 5% 1,000 Ml IVPB PRN PRN Hypoglycemia Protocol Ceftriaxone Sodium 1 gm/ 50 mls @ 100 mls/hr 05/01/25 22:00 05/02/25 22:01 Sodium Chloride IVPB Infused Q24H [facility] Infusion Insulin Aspart 2 - 5 units 05/01/25 08:00 05/03/25 07:51 Insulin Aspart (*Bkc) 100 Units/Ml SUB-Q Not Given TIDWM [facility] Protocol Lisinopril 5 mg 05/02/25 09:00 05/03/25 08:51 Lisinopril 5 Mg Tablet PO 5 mg DAILY [facility] Administration Metoprolol Succinate 50 mg 05/02/25 09:00 05/03/25 08:52 Metoprolol Succinate Ext Rel 50 Mg Tabcr PO 50 mg DAILY [facility] Administration Ondansetron HCl 4 mg 04/30/25 21:43 05/02/25 22:54 Ondansetron Inj 4 Mg/2 Ml Vial IV PUSH 4 mg Q4H PRN Administration Nausea Radiology Results: ITS Impressions Abdomen/Pelvis CT 04/30/25 19:01 IMPRESSION: 1. Bilateral pleural effusion larger on the right side with adjacent atelectasis. 2. Nodule in the left lung base unchanged from previous examination. 3 months follow-up advised. 3. Left lower ureteric stone with severe left hydronephrotic changes. 4. Multiple bilateral renal stones. 5. No evidence of appendicitis, diverticulitis or intestinal obstruction. Chest X-Ray 04/30/25 22:14 IMPRESSION: Cardiomegaly with congestive dhaval. Bilateral interstitial thickening with minimal infiltrate in the lower lobes suggestive of pneumonitis versus pulmonary edema. Labs 05/03/25 03:25 05/03/25 03:25 Labs: Laboratory Results - last 24 hr 05/02/25 05/02/25 05/02/25 11:24 16:31 20:49 WBC RBC Hgb Hct MCV MCH MCHC RDW Plt Count MPV Sodium Potassium Chloride Carbon Dioxide Anion Gap BUN Creatinine Estim Creat Clear Calc Estimated GFR Glucose POC Capillary Glucose 128 H 114 H 163 H Calcium Magnesium 05/03/25 05/03/25 03:25 07:28 WBC 13.7 H RBC 5.16 Hgb 12.3 Hct 39.8 MCV 77.1 L MCH 23.8 L MCHC 30.9 L RDW 17.1 H Plt Count 315 MPV 10.8 H Sodium 136 L Potassium 3.3 L Chloride 101 Carbon Dioxide 25 Anion Gap 10 BUN 25 H Creatinine 1.35 H Estim Creat Clear Calc 50 Estimated GFR 40 L Glucose 144 H POC Capillary Glucose 133 H Calcium 9.1 Magnesium 1.3 L ASA Classification/Sedation ASA Classification/Sedation ASA Class: III Emergent: No Risks: Risks, benefits and alternatives explained and patient/family accepted plan for sedation. Patient re-evaluated immediately prior to sedation.
--- NOTE | 2025-05-03 12:16 | P.PCNCC_ITS ---
Cardiac Cath Procedure Note Date of procedure:: 05/03/25 Performing physician:: CATHETERIZATION LABORATORY REPORT Procedure Date: 05/03/2025 Referring Physician: Dr. Godwin Anesthesia: Versed and Fentanyl were ordered and given in my presence at 1137, procedure ended at 1150. Supervision of nurse, Tayler Lyn monitored moderate sedation with 2mg Versed and 100mcg Fentanyl was provided for 13 minutes. Pre-op Diagnosis: Systolic cardiomyopathy Post-op Diagnosis: Systolic cardiomyopathy Procedure(s): Left heart catheterization with coronary angiography Access Site: Right radial artery Brief History and Clinical Indications: 64-year-old woman with high-grade AV block status post permanent pacemaker presented with flank pain found to have urolithiasis status post stenting now found to have systolic cardiomyopathy that is likely stress induced however cannot rule out multivessel coronary artery disease for which cardiac catheterization was recommended. All risks, benefits and alternatives to left heart catheterization with or without percutaneous coronary intervention was discussed at length with the patient. Risk of complications including but not limited to bleeding, infection, arrhythmia, stroke, worsening kidney function, blood loss, groin hematoma, limb loss, emergency coronary artery bypass grafting, and even were discussed with the patient and all questions were answered. The patient understood and wished to proceed. Time out called, patient name, date of , medical record number, allergies, procedure performed, identify [employer]her[employer] Engineer, patient and staff member concurred with accurate data, procedure carried on. Findings: LEFT HEART CATHETERIZATION FINDINGS: 1. Left main: The left main coronary artery is angiographically free of stenosis. 2. Left anterior descending: The LAD and the diagonal branches are angiographically free of stenosis. 3. Left circumflex: The left circumflex artery and the main marginal branches are angiographically free of stenosis. 4. Right coronary artery: The RCA is a large dominant vessel angiographically free of stenosis. 5. Left ventricle: A. End-diastolic pressure 23 mmHg. B. LV gram deferred. C. No significant gradient across aortic valve on catheter pullback. 6. Opening AO pressure 130/77 and closing AO pressure 88/60 Description of Procedure: Informed consent signed and placed in the chart. Patient transferred to catheter builder room. Prepped and draped in usual sterile fashion. 2% lidocaine injected subcutaneously in right wrist area. 22-gauge venipuncture catheter used to access the right radial artery with the Seldinger technique. 6-FR slender sheath placed in right radial artery. Nitroglycerin 200mcg, Verapamil 2.5mg, and Heparin 5000U was given intraarterial through the sheath. J wire advanced under fluoroscopy 5F Ultra diagnostic catheter engaged Left Main Coronary Artery. 5F JR4 diagnostic catheter engaged Right Coronary Artery Multiple orthogonal angiogram obtained and reviewed 5F Ultra diagnostic catheter crossed aortic valve to obtain LVEDP, LV angiogram deferred. Hemostasis was achieved by application of TR band. Assessment: Stress cardiomyopathy Post Operative Condition: Stable No significant blood loss Disposition: Floor Plan: The patient will be monitored in the recovery area. Will stop IV diuretics. Start spironolactone 25mg PO daily. Continue lisinopril 5mg PO daily and metoprolol succinate 50mg PO daily Will avoid SGLT2i for now given her recent urolithiasis sp stent on abx now Recommend patient to avoid salt intake and processed food; adhere to heart healthy diet with daily weights at home Likely stable for discharge tomorrow from cardiac perspective [facility]
--- NOTE | 2025-05-03 14:13 | PM.IMPN ---
Progress Note: A&P Assessment and Plan (1) Type 2 diabetes mellitus without complications: Code(s): E11.9 - Type 2 diabetes mellitus without complications Status: Acute (2) Left ureteral calculus: Code(s): N20.1 - Calculus of ureter Status: Acute Plan Left ureteral with severe hydronephrosis Presented with left flank pain, vomiting and hematuria CT AP reviewed Continue Tamsulosin and PRN pain control with IV morphine Urine culture ordered from the ERwas unremarkable, continue Rocephin PRN pain control Urology on board S/P Cystoscopy, Left Ureteroscopy, Left Retrograde Pyelogram, Left Stent Placement 05/01/25 Possible UTI urine culture pending continue Rocephin HFrEF likely stress cardiomyopathy underwent cardiac cath today which was unremarkable. will Start spironolactone 25mg PO daily. Continue lisinopril 5mg PO daily and metoprolol succinate 50mg PO daily. Patient noted she is on pacemaker, last ECHO was in 2021 CXR showed bilateral Pleural effusions No IVF, although was given boluses in the ER Lasix 20mg bid on hold with NAINA monitor DM2 SSI with accucheks HTN Titrate home meds with clinical course Hx of stroke continue home meds once reconciled DVT prophylaxis on SCDs, no AC due to hematuria Full code SDM: [place] Griggs BMI 42 morbid obesity Subjective Date/time seen: 05/03/25 14:13 Interval history: per HPi: 64-year-old female past medical history of hypertension diabetes, hypertension stroke CHF pacemaker presented to the ER on account of right flank pain and vomiting. Patient noted she had stone extraction done about 2 weeks ago however the last 2 days she has been having left multiple described as sharp 6/10 in intensity associated with vomiting and bloody urine. For worsening pain she presented to the ER for proper evaluation care. Denies any chest pain shortness a brief no fever no diarrhea no focal symptoms. ER evaluation notable for vital signs stable and within normal limits. Labs notable for WBC 15.1, UA positive for leukocyte Estrace and pyuria with bacteriuria. CT abdomen pelvis showed left ureter 8 stone with severe hydronephrosis. Bilateral pleural effusion. Urology was consulted patient was started on Rocephin IV fluid and tamsulosin. Urine culture was sent. 05/02/25 Patient was seen and examined at bedside. she is feeling better.abd pain improving.urine culture pending. continue with IV Abx. Has worsening NAINA. hold of lasix echo showed LVEF 25% cardiology team was consulted. Plan for cardiac cath tomorrow. 05/03/25 Patient was seen and examined at bedside. she is feeling fine, denies any chest apin. SOb, abd pain,N/V. underwent cardiac cath today which was unremarkable. UC unremarkable. per cardiologyteam Start spironolactone 25mg PO daily. Continue lisinopril 5mg PO daily and metoprolol succinate 50mg PO daily. Review of Systems Review of Systems: Cauda systems reviewed and negative except as noted in the history above. Exam Narrative: General: alert and comfortable Eyes: EOMI, PERRLA ENNT External ears normal, Neck is supple, no masses, Respiratory systems: Clear to auscultation Cardiovascular S1, S2, normal rhythm, no murmur, rub, or gallop; no thrill or palpable murmurs on palpation. Gastrointestinal: soft, non-tender, and non-distended abdomen with no masses; BS present Skin: no rash, lesions, ulcerations, subcutaneous nodules or induration Musculoskeletal: no abnormality and no tenderness, normal ROM Neurologic: Alert and oriented x3, non focal Mental Status Exam: normal affect Objective Data Vital Signs Vital Signs: Vital Signs - 24 hr 05/02/25 20:00 05/02/25 21:26 05/02/25 23:19 Temperature 97.9 F Pulse Rate 69 Pulse Rate [Bilateral Radial] Respiratory Rate 24 H Blood Pressure 126/70 Pulse Oximetry 98 Oxygen Delivery Room Air Room Air 05/02/25 23:39 05/03/25 00:00 05/03/25 02:00 Temperature 98.0 F Pulse Rate 64 69 69 Pulse Rate [Bilateral Radial] Respiratory Rate 16 Blood Pressure 152/75 H Pulse Oximetry 95 Oxygen Delivery 05/03/25 04:00 05/03/25 04:00 05/03/25 07:45 Temperature 98.2 F 97.3 F L Pulse Rate 69 69 Pulse Rate [Bilateral Radial] Respiratory Rate 16 20 Blood Pressure 132/60 120/59 L Pulse Oximetry 97 99 Oxygen Delivery Room Air 05/03/25 08:00 05/03/25 08:52 05/03/25 10:00 Temperature Pulse Rate 70 69 69 Pulse Rate [Bilateral Radial] Respiratory Rate Blood Pressure Pulse Oximetry Oxygen Delivery 05/03/25 11:37 05/03/25 12:15 05/03/25 12:15 Temperature 97.7 F Pulse Rate 69 69 Pulse Rate [Bilateral Radial] 69 Respiratory Rate 18 20 Blood Pressure 143/73 H 88/57 L Pulse Oximetry 100 96 Oxygen Delivery Room Air 05/03/25 12:30 05/03/25 12:30 05/03/25 12:45 Temperature Pulse Rate 69 Pulse Rate [Bilateral Radial] 69 82 Respiratory Rate 19 Blood Pressure 96/56 L Pulse Oximetry 98 Oxygen Delivery Room Air 05/03/25 12:45 05/03/25 13:00 05/03/25 13:00 Temperature Pulse Rate 82 83 Pulse Rate [Bilateral Radial] 83 Respiratory Rate 15 19 Blood Pressure 90/55 L 90/69 L Pulse Oximetry 95 97 Oxygen Delivery Room Air Room Air 05/03/25 13:15 05/03/25 13:15 05/03/25 13:30 Temperature Pulse Rate 80 Pulse Rate [Bilateral Radial] 80 80 Respiratory Rate 19 Blood Pressure 89/61 L Pulse Oximetry 100 Oxygen Delivery Room Air 05/03/25 13:30 05/03/25 13:45 05/03/25 13:45 Temperature Pulse Rate 80 81 Pulse Rate [Bilateral Radial] 81 Respiratory Rate 20 20 Blood Pressure 87/56 L 84/56 L Pulse Oximetry 100 98 Oxygen Delivery Room Air Room Air 05/03/25 14:00 05/03/25 14:00 Temperature Pulse Rate 77 Pulse Rate [Bilateral Radial] 77 Respiratory Rate 17 Blood Pressure 90/55 L Pulse Oximetry 99 Oxygen Delivery Room Air Intake/Output Intake/Output: Intake & Output 04/30/25 05/01/25 05/02/25 05/03/25 23:59 23:59 23:59 23:59 Intake Total 0 500 997 50 Balance 2049 500 997 50 Meds/Results Medications: Active Medications Generic Name Dose Route Start Last Admin Trade Name Freq PRN Reason Stop Dose Admin Acetaminophen 650 mg 04/30/25 21:43 05/01/25 21:04 Acetaminophen 325 Mg Tablet PO 650 mg Q4H PRN Administration Mild Pain (1-3) or Fever Hydrocodone Bitart/Acetaminophen 1 tab 05/01/25 22:04 05/01/25 23:26 Hydrocodone/Acetaminophen (*Crx) 5-325 Mg Tablet PO 1 tab Q12H PRN Administration Pain Rated 6 or Greater Aspirin 81 mg 05/02/25 09:00 05/03/25 08:51 Aspirin 81 Mg Enteric Tablet PO 81 mg DAILY LEANA Administration Atorvastatin Calcium 10 mg 05/01/25 22:10 05/02/25 21:28 Atorvastatin 10 Mg Tablet PO 10 mg HS [facility] Administration Dextrose 12.5 gm 04/30/25 21:43 Dextrose 50% 25 Gm/50 Ml Syringe IV PUSH PRN PRN Hypoglycemia Protocol Ferrous Sulfate 325 mg 05/02/25 09:00 05/03/25 08:52 Ferrous Sulfate [address] BY MOUTH 325 mg BID LEANA Administration Glucagon 1 mg 04/30/25 21:43 Glucagon For Inj 1 Mg Vial IM PRN PRN Hypoglycemia Protocol Glucose 15 gm 04/30/25 21:43 Glucose Oral Gel 15 Gm Of Glucse In 37.5 Gm Tube PO PRN PRN Hypoglycemia Protocol Dextrose 1,000 mls @ 100 mls/hr 04/30/25 21:43 Dextrose 5% 1,000 Ml IVPB PRN PRN Hypoglycemia Protocol Ceftriaxone Sodium 1 gm/ 50 mls @ 100 mls/hr 05/01/25 22:00 05/02/25 22:01 Sodium Chloride IVPB Infused Q24H [facility] Infusion Insulin Aspart 2 - 5 units 05/01/25 08:00 05/03/25 07:51 Insulin Aspart (*Bkc) 100 Units/Ml SUB-Q Not Given TIDWM [facility] Protocol Lisinopril 5 mg 05/02/25 09:00 05/03/25 08:51 Lisinopril 5 Mg Tablet PO 5 mg DAILY [facility] Administration Metoprolol Succinate 50 mg 05/02/25 09:00 05/03/25 08:52 Metoprolol Succinate Ext Rel 50 Mg Tabcr PO 50 mg DAILY [facility] Administration Ondansetron HCl 4 mg 04/30/25 21:43 05/02/25 22:54 Ondansetron Inj 4 Mg/2 Ml Vial IV PUSH 4 mg Q4H PRN Administration Nausea Spironolactone 25 mg 05/04/25 09:00 Spironolactone 25 Mg Tablet PO QAM [facility] Radiology Results: ITS Impressions Abdomen/Pelvis CT 04/30/25 19:01 IMPRESSION: 1. Bilateral pleural effusion larger on the right side with adjacent atelectasis. 2. Nodule in the left lung base unchanged from previous examination. 3 months follow-up advised. 3. Left lower ureteric stone with severe left hydronephrotic changes. 4. Multiple bilateral renal stones. 5. No evidence of appendicitis, diverticulitis or intestinal obstruction. Chest X-Ray 04/30/25 22:14 IMPRESSION: Cardiomegaly with congestive dhaval. Bilateral interstitial thickening with minimal infiltrate in the lower lobes suggestive of pneumonitis versus pulmonary edema. Labs Labs: Laboratory Results - last 24 hr 05/02/25 05/02/25 05/03/25 16:31 20:49 03:25 WBC 13.7 H RBC 5.16 Hgb 12.3 Hct 39.8 MCV 77.1 L MCH 23.8 L MCHC 30.9 L RDW 17.1 H Plt Count 315 MPV 10.8 H Sodium 136 L Potassium 3.3 L Chloride 101 Carbon Dioxide 25 Anion Gap 10 BUN 25 H Creatinine 1.35 H Estim Creat Clear Calc 50 Estimated GFR 40 L Glucose 144 H POC Capillary Glucose 114 H 163 H Calcium 9.1 Magnesium 1.3 L 05/03/25 05/03/25 07:28 11:08 WBC RBC Hgb Hct MCV MCH MCHC RDW Plt Count MPV Sodium Potassium Chloride Carbon Dioxide Anion Gap BUN Creatinine Estim Creat Clear Calc Estimated GFR Glucose POC Capillary Glucose 133 H 122 H Calcium Magnesium
--- NOTE | 2025-05-03 16:11 | WPDUROPN2 ---
Progress Note: A&P Assessment and Plan (1) Calculus, kidney: Code(s): N20.0 - Calculus of kidney Status: Acute (2) Calculus of distal ureter: Code(s): N20.1 - Calculus of ureter Status: Acute Plan Patient had cystoscopy, left retrograde pyelogram, left ureteroscopy, holmium laser lithotripsy, stone extraction, stent placement on 05/01/2025. Patient will need to keep stent for at least a week post op to prevent complications. She will schedule a follow up for stent removal in office in the next 1-2 weeks. Patient and her are aware and voiced understanding. I have cancelled her appointment for tomorrow that was set up from her previous surgical intervention. she is aware. Subjective Subjective Date/Time Seen: 05/03/25 16:11 Interval history: per HPi: 64-year-old female past medical history of hypertension diabetes, hypertension stroke CHF pacemaker presented to the ER on account of right flank pain and vomiting. Patient noted she had stone extraction done about 2 weeks ago however the last 2 days she has been having left multiple described as sharp 6/10 in intensity associated with vomiting and bloody urine. For worsening pain she presented to the ER for proper evaluation care. Denies any chest pain shortness a brief no fever no diarrhea no focal symptoms. ER evaluation notable for vital signs stable and within normal limits. Labs notable for WBC 15.1, UA positive for leukocyte Estrace and pyuria with bacteriuria. CT abdomen pelvis showed left ureter 8 stone with severe hydronephrosis. Bilateral pleural effusion. Urology was consulted patient was started on Rocephin IV fluid and tamsulosin. Urine culture was sent. Patient and state another provider told them they could have a stent removal before going home. Review of Systems Review of Systems: All systems reviewed & are unremarkable except as noted in HPI and below Exam Const: General: cooperative, healthy appearing and average body habitus Nutritional Appearance: average body habitus Orientation/consciousness: patient oriented x3 HENMT: Head: normal to inspection Eyes: General: appearance normal, both eyes and all related structures Resp: Effort & Inspection: normal respiratory effort, able to speak in complete sentences and no cough Skin: General skin exam: normal color Neuro: General: patient oriented x3 Extrem: General: normal to inspection Psych: Appearance: grossly normal Objective Data Vital Signs Vital Signs: Vital Signs - 24 hr 05/02/25 20:00 05/02/25 21:26 05/02/25 23:19 Temperature 97.9 F Pulse Rate 69 Pulse Rate [Bilateral Radial] Respiratory Rate 24 H Blood Pressure 126/70 Pulse Oximetry 98 Oxygen Delivery Room Air Room Air 05/02/25 23:39 05/03/25 00:00 05/03/25 02:00 Temperature 98.0 F Pulse Rate 64 69 69 Pulse Rate [Bilateral Radial] Respiratory Rate 16 Blood Pressure 152/75 H Pulse Oximetry 95 Oxygen Delivery 05/03/25 04:00 05/03/25 04:00 05/03/25 07:45 Temperature 98.2 F 97.3 F L Pulse Rate 69 69 Pulse Rate [Bilateral Radial] Respiratory Rate 16 20 Blood Pressure 132/60 120/59 L Pulse Oximetry 97 99 Oxygen Delivery Room Air 05/03/25 08:00 05/03/25 08:52 05/03/25 10:00 Temperature Pulse Rate 70 69 69 Pulse Rate [Bilateral Radial] Respiratory Rate Blood Pressure Pulse Oximetry Oxygen Delivery 05/03/25 11:37 05/03/25 12:15 05/03/25 12:15 Temperature 97.7 F Pulse Rate 69 69 Pulse Rate [Bilateral Radial] 69 Respiratory Rate 18 20 Blood Pressure 143/73 H 88/57 L Pulse Oximetry 100 96 Oxygen Delivery Room Air 05/03/25 12:30 05/03/25 12:30 05/03/25 12:45 Temperature Pulse Rate 69 Pulse Rate [Bilateral Radial] 69 82 Respiratory Rate 19 Blood Pressure 96/56 L Pulse Oximetry 98 Oxygen Delivery Room Air 05/03/25 12:45 05/03/25 13:00 05/03/25 13:00 Temperature Pulse Rate 82 83 Pulse Rate [Bilateral Radial] 83 Respiratory Rate 15 19 Blood Pressure 90/55 L 90/69 L Pulse Oximetry 95 97 Oxygen Delivery Room Air Room Air 05/03/25 13:15 05/03/25 13:15 05/03/25 13:30 Temperature Pulse Rate 80 Pulse Rate [Bilateral Radial] 80 80 Respiratory Rate 19 Blood Pressure 89/61 L Pulse Oximetry 100 Oxygen Delivery Room Air 05/03/25 13:30 05/03/25 13:45 05/03/25 13:45 Temperature Pulse Rate 80 81 Pulse Rate [Bilateral Radial] 81 Respiratory Rate 20 20 Blood Pressure 87/56 L 84/56 L Pulse Oximetry 100 98 Oxygen Delivery Room Air Room Air 05/03/25 14:00 05/03/25 14:00 05/03/25 14:15 Temperature Pulse Rate 77 Pulse Rate [Bilateral Radial] 77 73 Respiratory Rate 17 Blood Pressure 90/55 L Pulse Oximetry 99 Oxygen Delivery Room Air 05/03/25 14:15 05/03/25 14:30 05/03/25 14:30 Temperature Pulse Rate 73 73 Pulse Rate [Bilateral Radial] 73 Respiratory Rate 16 18 Blood Pressure 95/57 L 86/55 L Pulse Oximetry 99 100 Oxygen Delivery Room Air Room Air 05/03/25 14:45 05/03/25 14:45 05/03/25 15:00 Temperature Pulse Rate 73 Pulse Rate [Bilateral Radial] 73 74 Respiratory Rate 17 Blood Pressure 94/63 L Pulse Oximetry 99 Oxygen Delivery Room Air 05/03/25 15:00 05/03/25 15:15 05/03/25 15:15 Temperature Pulse Rate 74 73 Pulse Rate [Bilateral Radial] 73 Respiratory Rate 20 20 Blood Pressure 103/64 95/57 L Pulse Oximetry 99 100 Oxygen Delivery Room Air Room Air 05/03/25 15:30 05/03/25 15:30 05/03/25 15:45 Temperature Pulse Rate 73 Pulse Rate [Bilateral Radial] 73 72 Respiratory Rate 20 Blood Pressure 88/68 L Pulse Oximetry 96 Oxygen Delivery Room Air 05/03/25 15:45 05/03/25 16:00 05/03/25 16:00 Temperature Pulse Rate 72 75 Pulse Rate [Bilateral Radial] 75 Respiratory Rate 20 21 H Blood Pressure 96/62 L 102/60 Pulse Oximetry 96 96 Oxygen Delivery Room Air Room Air Intake/Output Intake/Output: Intake & Output 04/30/25 05/01/25 05/02/25 05/03/25 23:59 23:59 23:59 23:59 Intake Total 0 500 997 50 Balance 2049 500 997 50 Meds/Results Medications: Active Medications Generic Name Dose Route Start Last Admin Trade Name Freq PRN Reason Stop Dose Admin Acetaminophen 650 mg 04/30/25 21:43 05/01/25 21:04 Acetaminophen 325 Mg Tablet PO 650 mg Q4H PRN Administration Mild Pain (1-3) or Fever Hydrocodone Bitart/Acetaminophen 1 tab 05/01/25 22:04 05/01/25 23:26 Hydrocodone/Acetaminophen (*Crx) 5-325 Mg Tablet PO 1 tab Q12H PRN Administration Pain Rated 6 or Greater Aspirin 81 mg 05/02/25 09:00 05/03/25 08:51 Aspirin 81 Mg Enteric Tablet PO 81 mg DAILY LEANA Administration Atorvastatin Calcium 10 mg 05/01/25 22:10 05/02/25 21:28 Atorvastatin 10 Mg Tablet PO 10 mg HS LEANA Administration Dextrose 12.5 gm 04/30/25 21:43 Dextrose 50% 25 Gm/50 Ml Syringe IV PUSH PRN PRN Hypoglycemia Protocol Ferrous Sulfate 325 mg 05/02/25 09:00 05/03/25 08:52 Ferrous Sulfate [address] BY MOUTH 325 mg BID LEANA Administration Glucagon 1 mg 04/30/25 21:43 Glucagon For Inj 1 Mg Vial IM PRN PRN Hypoglycemia Protocol Glucose 15 gm 04/30/25 21:43 Glucose Oral Gel 15 Gm Of Glucse In 37.5 Gm Tube PO PRN PRN Hypoglycemia Protocol Dextrose 1,000 mls @ 100 mls/hr 04/30/25 21:43 Dextrose 5% 1,000 Ml IVPB PRN PRN Hypoglycemia Protocol Ceftriaxone Sodium 1 gm/ 50 mls @ 100 mls/hr 05/01/25 22:00 05/02/25 22:01 Sodium Chloride IVPB Infused Q24H ON LICENSE OF [facility] Infusion Insulin Aspart 2 - 5 units 05/01/25 08:00 05/03/25 07:51 Insulin Aspart (*Bkc) 100 Units/Ml SUB-Q Not Given TIDWM ON LICENSE OF [facility] Protocol Lisinopril 5 mg 05/02/25 09:00 05/03/25 08:51 Lisinopril 5 Mg Tablet PO 5 mg DAILY ON LICENSE OF [facility] Administration Metoprolol Succinate 50 mg 05/02/25 09:00 05/03/25 08:52 Metoprolol Succinate Ext Rel 50 Mg Tabcr PO 50 mg DAILY ON LICENSE OF [facility] Administration Ondansetron HCl 4 mg 04/30/25 21:43 05/02/25 22:54 Ondansetron Inj 4 Mg/2 Ml Vial IV PUSH 4 mg Q4H PRN Administration Nausea Spironolactone 25 mg 05/04/25 09:00 Spironolactone 25 Mg Tablet PO QAM ON LICENSE OF [facility] Radiology Results: ITS Impressions Abdomen/Pelvis CT 04/30/25 19:01 IMPRESSION: 1. Bilateral pleural effusion larger on the right side with adjacent atelectasis. 2. Nodule in the left lung base unchanged from previous examination. 3 months follow-up advised. 3. Left lower ureteric stone with severe left hydronephrotic changes. 4. Multiple bilateral renal stones. 5. No evidence of appendicitis, diverticulitis or intestinal obstruction. Chest X-Ray 04/30/25 22:14 IMPRESSION: Cardiomegaly with congestive dhaval. Bilateral interstitial thickening with minimal infiltrate in the lower lobes suggestive of pneumonitis versus pulmonary edema. Labs Labs: Laboratory Results - last 24 hr 05/02/25 05/02/25 05/03/25 16:31 20:49 03:25 WBC 13.7 H RBC 5.16 Hgb 12.3 Hct 39.8 MCV 77.1 L MCH 23.8 L MCHC 30.9 L RDW 17.1 H Plt Count 315 MPV 10.8 H Sodium 136 L Potassium 3.3 L Chloride 101 Carbon Dioxide 25 Anion Gap 10 BUN 25 H Creatinine 1.35 H Estim Creat Clear Calc 50 Estimated GFR 40 L Glucose 144 H POC Capillary Glucose 114 H 163 H Calcium 9.1 Magnesium 1.3 L 05/03/25 05/03/25 07:28 11:08 WBC RBC Hgb Hct MCV MCH MCHC RDW Plt Count MPV Sodium Potassium Chloride Carbon Dioxide Anion Gap BUN Creatinine Estim Creat Clear Calc Estimated GFR Glucose POC Capillary Glucose 133 H 122 H Calcium Magnesium
[2025-05-03] MEDS: POTASSIUM CHLORIDE 20 MEQ PACKET (FOR LIQUID) PO (17:11)
[2025-05-03] MEDS: cefTRIAXone 1 GM in SODIUM CHLORIDE 0.9% IV 50 ML 100 ML IVPB (20:03)
[2025-05-03] MEDS: ATORVASTATIN 10 MG TABLET PO (20:03)
[2025-05-03] MEDS: ONDANSETRON INJ 4 MG/2 ML VIAL IV PUSH (20:03)
[2025-05-04] VITALS (7 sets, daily range): BP systolic 120–145; BP diastolic 60–72; PULSE 65–90; RESP 18–33; TEMP 36.6–37.1; O2SAT 100
[2025-05-04 03:26] LABS: Hematocrit 41.4 % (37.0-47.0); Hemoglobin 12.4 g/dL (12.0-15.0); Mean Corpuscular HGB Conc 30.0 g/dl (32-36); Mean Corpuscular Hemoglobin 23.7 pg (26-34); Mean Corpuscular Volume 79.0 fl (80-100); Platelet Count Result 273 k/mm3 (150-375); Red Blood Count 5.24 M/mm3 (4.2-5.4); White Blood Count 10.8 K/mm3 (4.5-10.0)
[2025-05-04 03:48] LABS: Anion Gap 10 mmol/L (4-12); Blood Urea Nitrogen 28 mg/dL (7-17); Calcium 9.3 mg/dL (8.4-10.2); Carbon Dioxide 25 mmol/L (22-30); Chloride 104 mmol/L (98-107); Estimated CRCL calculation 55 ml/min; Estimated Glomerular Filt Rate 45; Glucose 153 mg/dL (65-110); Potassium 3.2 mmol/L (3.4-5.0); Sodium 139 mmol/L (137-145)
[2025-05-04] MEDS: ASPIRIN 81 MG ENTERIC TABLET PO (09:32)
[2025-05-04] MEDS: METOPROLOL SUCCINATE EXT REL 50 MG TABCR PO (09:32)
[2025-05-04] MEDS: SPIRONOLACTONE 25 MG TABLET PO (09:32)
[2025-05-04] MEDS: FERROUS SULFATE 325 MG TABLET DR BY MOUTH (09:32)
--- NOTE | 2025-05-04 10:19 | P.PNCA_ITS ---
Progress Note: A&P Assessment and Plan (1) Takotsubo cardiomyopathy: Code(s): I51.81 - Takotsubo syndrome Status: Acute Assessment and Plan: New finding of systolic dysfunction with EF 20-25%. Coronary angiogram performed yesterday did not show any coronary artery disease. She has Takotsubo cardiomyopathy. * Continue GDMT with lisinopril 5mg daily, metoprolol succinate 50mg daily, spironolactone 25mg daily. Blood pressures stable. * Repeat echo in the office in ~2 months to reassess heart function * OK for discharge from a cardiac standpoint. (2) Systolic and diastolic CHF, acute: Code(s): I50.41 - Acute combined systolic (congestive) and diastolic (congestive) heart failure Status: Acute Assessment and Plan: She is euvolemic at this point, no signs of decompensated heart failure. (3) Status post biventricular pacemaker: Code(s): Z95.0 - Presence of cardiac pacemaker Status: Acute Assessment and Plan: Functioning normally. (4) High degree atrioventricular block: Code(s): I44.39 - Other atrioventricular block Status: Acute Assessment and Plan: pacemaker in place. Subjective Date/time seen: 05/04/25 10:19 Interval history: Cardiology follow up visit Feeling well today and has no complaints. Denies shortness of breath. Being discharged today. Review of Systems Constitutional: Constitutional: Reports no additional constitutional complaints Eyes: Eyes: Reports no additional eye complaints ENT: Reports system reviewed and no additional complaints, except as documented Cardiovascular: Cardiovascular: Reports no additional cardiovascular complaints Respiratory: Respiratory: Reports no additional respiratory complaints Gastrointestinal: Gastrointestinal: Reports no additional gastrointestinal complaints Genitourinary: Genitourinary: Reports as per HPI and Reports flank pain Musculoskeletal: Musculoskeletal: Reports no additional musculoskeletal complaints Integumentary/Breasts: Skin/Breast: Reports system reviewed and no additional complaints, except as docu Neurologic: Reports system reviewed and no additional complaints, except as documented Endocrine: Endocrine: Reports no additional endocrine complaints Hematologic/Lymphatic: Hematologic/Lymphatic: Reports no additional hematologic/lymphatic complaints Allergic/Immunologic: Allergic/Immunologic: Reports no additional allergic/immunologic complaints Exam Const: General: comfortable and no acute distress Other: Pleasant obese lady no apparent distress HENMT: Mouth: Yes moist mucous membranes Eyes: Sclera: sclerae normal Neck: Neck: supple and no JVD Resp: Effort & Inspection: normal respiratory effort Auscultation: clear to auscultation bilaterally Cardio: Rate: regular rate Rhythm: regular rhythm GI: Auscultation: normal bowel sounds Skin: General skin exam: normal color Neuro: Other: Alert and oriented x3 Extrem: General: normal to inspection Other: Good perfusion, no edema Objective Data Vital Signs Vital Signs: Vital Signs - 24 hr 05/03/25 11:37 05/03/25 12:15 05/03/25 12:15 Temperature 36.5 C Pulse Rate 69 69 Pulse Rate [Bilateral Radial] 69 Respiratory Rate 18 20 Blood Pressure 143/73 H 88/57 L Pulse Oximetry 100 96 Oxygen Delivery Room Air 05/03/25 12:30 05/03/25 12:30 05/03/25 12:45 Temperature Pulse Rate 69 Pulse Rate [Bilateral Radial] 69 82 Respiratory Rate 19 Blood Pressure 96/56 L Pulse Oximetry 98 Oxygen Delivery Room Air 05/03/25 12:45 05/03/25 13:00 05/03/25 13:00 Temperature Pulse Rate 82 83 Pulse Rate [Bilateral Radial] 83 Respiratory Rate 15 19 Blood Pressure 90/55 L 90/69 L Pulse Oximetry 95 97 Oxygen Delivery Room Air Room Air 05/03/25 13:15 05/03/25 13:15 05/03/25 13:30 Temperature Pulse Rate 80 Pulse Rate [Bilateral Radial] 80 80 Respiratory Rate 19 Blood Pressure 89/61 L Pulse Oximetry 100 Oxygen Delivery Room Air 05/03/25 13:30 05/03/25 13:45 05/03/25 13:45 Temperature Pulse Rate 80 81 Pulse Rate [Bilateral Radial] 81 Respiratory Rate 20 20 Blood Pressure 87/56 L 84/56 L Pulse Oximetry 100 98 Oxygen Delivery Room Air Room Air 05/03/25 14:00 05/03/25 14:00 05/03/25 14:15 Temperature Pulse Rate 77 Pulse Rate [Bilateral Radial] 77 73 Respiratory Rate 17 Blood Pressure 90/55 L Pulse Oximetry 99 Oxygen Delivery Room Air 05/03/25 14:15 05/03/25 14:30 05/03/25 14:30 Temperature Pulse Rate 73 73 Pulse Rate [Bilateral Radial] 73 Respiratory Rate 16 18 Blood Pressure 95/57 L 86/55 L Pulse Oximetry 99 100 Oxygen Delivery Room Air Room Air 05/03/25 14:45 05/03/25 14:45 05/03/25 15:00 Temperature Pulse Rate 73 Pulse Rate [Bilateral Radial] 73 74 Respiratory Rate 17 Blood Pressure 94/63 L Pulse Oximetry 99 Oxygen Delivery Room Air 05/03/25 15:00 05/03/25 15:15 05/03/25 15:15 Temperature Pulse Rate 74 73 Pulse Rate [Bilateral Radial] 73 Respiratory Rate 20 20 Blood Pressure 103/64 95/57 L Pulse Oximetry 99 100 Oxygen Delivery Room Air Room Air 05/03/25 15:30 05/03/25 15:30 05/03/25 15:45 Temperature Pulse Rate 73 Pulse Rate [Bilateral Radial] 73 72 Respiratory Rate 20 Blood Pressure 88/68 L Pulse Oximetry 96 Oxygen Delivery Room Air 05/03/25 15:45 05/03/25 16:00 05/03/25 16:00 Temperature Pulse Rate 72 75 Pulse Rate [Bilateral Radial] 75 Respiratory Rate 20 21 H Blood Pressure 96/62 L 102/60 Pulse Oximetry 96 96 Oxygen Delivery Room Air Room Air 05/03/25 16:00 05/03/25 16:15 05/03/25 16:15 Temperature Pulse Rate 70 71 Pulse Rate [Bilateral Radial] 71 Respiratory Rate 20 Blood Pressure 107/66 Pulse Oximetry 98 Oxygen Delivery Room Air 05/03/25 16:30 05/03/25 16:30 05/03/25 16:50 Temperature Pulse Rate 76 74 Pulse Rate [Bilateral Radial] 76 Respiratory Rate 19 Blood Pressure 109/67 Pulse Oximetry 100 Oxygen Delivery Room Air 05/03/25 17:00 05/03/25 18:00 05/03/25 19:30 Temperature 36.6 C 36.7 C Pulse Rate 76 72 76 Pulse Rate [Bilateral Radial] Respiratory Rate 20 16 Blood Pressure 114/60 142/73 H Pulse Oximetry 97 100 Oxygen Delivery 05/03/25 20:00 05/03/25 20:00 05/03/25 20:30 Temperature 36.6 C Pulse Rate 79 86 Pulse Rate [Bilateral Radial] Respiratory Rate 18 Blood Pressure 153/90 H Pulse Oximetry 100 Oxygen Delivery Room Air 05/03/25 21:30 05/03/25 22:00 05/04/25 00:00 Temperature 36.9 C 36.9 C Pulse Rate 77 78 81 Pulse Rate [Bilateral Radial] Respiratory Rate 16 18 Blood Pressure 145/77 H 145/67 H Pulse Oximetry 99 100 Oxygen Delivery 05/04/25 00:00 05/04/25 00:00 05/04/25 02:00 Temperature Pulse Rate 76 79 Pulse Rate [Bilateral Radial] Respiratory Rate Blood Pressure Pulse Oximetry Oxygen Delivery Room Air 05/04/25 03:38 05/04/25 04:00 05/04/25 04:00 Temperature 37.1 C Pulse Rate 77 85 Pulse Rate [Bilateral Radial] Respiratory Rate 18 Blood Pressure 140/72 Pulse Oximetry 100 Oxygen Delivery Room Air 05/04/25 06:00 05/04/25 08:00 05/04/25 09:32 Temperature 36.6 C Pulse Rate 87 90 77 Pulse Rate [Bilateral Radial] Respiratory Rate 33 H Blood Pressure 120/60 Pulse Oximetry 100 Oxygen Delivery Intake/Output Intake/Output: Intake & Output 05/01/25 05/02/25 05/03/25 05/04/25 23:59 23:59 23:59 23:59 Intake Total 500 997 290 400 Balance 500 997 290 400 Meds/Results Medications: Active Medications Generic Name Dose Route Start Last Admin Trade Name Freq PRN Reason Stop Dose Admin Acetaminophen 650 mg 04/30/25 21:43 05/01/25 21:04 Acetaminophen 325 Mg Tablet PO 650 mg Q4H PRN Administration Mild Pain (1-3) or Fever Hydrocodone Bitart/Acetaminophen 1 tab 05/01/25 22:04 05/01/25 23:26 Hydrocodone/Acetaminophen (*Crx) 5-325 Mg Tablet PO 1 tab Q12H PRN Administration Pain Rated 6 or Greater Aspirin 81 mg 05/02/25 09:00 05/04/25 09:32 Aspirin 81 Mg Enteric Tablet PO 81 mg DAILY LEANA Administration Atorvastatin Calcium 10 mg 05/01/25 22:10 05/03/25 20:03 Atorvastatin 10 Mg Tablet PO 10 mg HS LEANA Administration Dextrose 12.5 gm 04/30/25 21:43 Dextrose 50% 25 Gm/50 Ml Syringe IV PUSH PRN PRN Hypoglycemia Protocol Ferrous Sulfate 325 mg 05/02/25 09:00 05/04/25 09:32 Ferrous Sulfate [address] BY MOUTH 325 mg BID LEANA Administration Glucagon 1 mg 04/30/25 21:43 Glucagon For Inj 1 Mg Vial IM PRN PRN Hypoglycemia Protocol Glucose 15 gm 04/30/25 21:43 Glucose Oral Gel 15 Gm Of Glucse In 37.5 Gm Tube PO PRN PRN Hypoglycemia Protocol Dextrose 1,000 mls @ 100 mls/hr 04/30/25 21:43 Dextrose 5% 1,000 Ml IVPB PRN PRN Hypoglycemia Protocol Ceftriaxone Sodium 1 gm/ 50 mls @ 100 mls/hr 05/01/25 22:00 05/03/25 20:03 Sodium Chloride IVPB 100 mls/hr Q24H LEANA Administration Insulin Aspart 2 - 5 units 05/01/25 08:00 05/03/25 17:00 Insulin Aspart (*Bkc) 100 Units/Ml SUB-Q Not Given TIDWM [facility] Protocol Lisinopril 5 mg 05/02/25 09:00 05/03/25 08:51 Lisinopril 5 Mg Tablet PO 5 mg DAILY LEANA Administration Metoprolol Succinate 50 mg 05/02/25 09:00 05/04/25 09:32 Metoprolol Succinate Ext Rel 50 Mg Tabcr PO 50 mg DAILY LEANA Administration Ondansetron HCl 4 mg 04/30/25 21:43 05/03/25 20:03 Ondansetron Inj 4 Mg/2 Ml Vial IV PUSH 4 mg Q4H PRN Administration Nausea Spironolactone 25 mg 05/04/25 09:00 05/04/25 09:32 Spironolactone 25 Mg Tablet PO 25 mg QAM LEANA Administration Radiology Results: ITS Impressions Abdomen/Pelvis CT 04/30/25 19:01 IMPRESSION: 1. Bilateral pleural effusion larger on the right side with adjacent atelectasis. 2. Nodule in the left lung base unchanged from previous examination. 3 months follow-up advised. 3. Left lower ureteric stone with severe left hydronephrotic changes. 4. Multiple bilateral renal stones. 5. No evidence of appendicitis, diverticulitis or intestinal obstruction. Chest X-Ray 04/30/25 22:14 IMPRESSION: Cardiomegaly with congestive dhaval. Bilateral interstitial thickening with minimal infiltrate in the lower lobes suggestive of pneumonitis versus pulmonary edema. Labs Labs: Laboratory Results - last 24 hr 05/03/25 05/03/25 05/03/25 11:08 16:51 19:55 WBC RBC Hgb Hct MCV MCH MCHC RDW Plt Count MPV Sodium Potassium Chloride Carbon Dioxide Anion Gap BUN Creatinine Estim Creat Clear Calc Estimated GFR Glucose POC Capillary Glucose 122 H 76 125 H Calcium 07/17/25 07/17/25 03:22 07:29 WBC 10.8 H RBC 5.24 Hgb 12.4 Hct 41.4 MCV 79.0 L MCH 23.7 L MCHC 30.0 L RDW 17.1 H Plt Count 273 MPV 10.6 H Sodium 139 Potassium 3.2 L Chloride 104 Carbon Dioxide 25 Anion Gap 10 BUN 28 H Creatinine 1.22 H Estim Creat Clear Calc 55 Estimated GFR 45 L Glucose 153 H POC Capillary Glucose 147 H Calcium 9.3
--- NOTE | 2025-05-04 10:40 | P.DS_ITS ---
DS: Admitting Diagnosis Discharge Date 05/04/25 Admitting Diagnosis kidney stone DS: Discharge Diagnosis Discharge Diagnosis (1) Type 2 diabetes mellitus without complications: Code(s): E11.9 - Type 2 diabetes mellitus without complications Status: Acute (2) Left ureteral calculus: Code(s): N20.1 - Calculus of ureter Status: Acute Plan Left ureteral with severe hydronephrosis Presented with left flank pain, vomiting and hematuria CT AP reviewed Continue Tamsulosin and PRN pain control with IV morphine Urine culture ordered from the ERwas unremarkable, continue keflex PRN pain control Urology on board S/P Cystoscopy, Left Ureteroscopy, Left Retrograde Pyelogram, Left Stent Placement 05/01/25 Possible UTI urine culture neg continue keflex HFrEF likely stress cardiomyopathy underwent cardiac cath yesterday which was unremarkable. spironolactone 25mg PO daily. Continue lisinopril 5mg PO daily and metoprolol succinate 50mg PO daily. Patient noted she is on pacemaker, last ECHO was in 2021 CXR showed bilateral Pleural effusions No IVF, although was given boluses in the ER monitor DM2 SSI with accucheks HTN Titrate home meds with clinical course Hx of stroke continue home meds once reconciled DVT prophylaxis on SCDs, no AC due to hematuria Full code SDM: Guanako Griggs BMI 42 morbid obesity DS: Summary Hospital Course Hospital Course: per HPi: 64-year-old female past medical history of hypertension diabetes, hypertension stroke CHF pacemaker presented to the ER on account of right flank pain and vomiting. Patient noted she had stone extraction done about 2 weeks ago however the last 2 days she has been having left multiple described as sharp 6/10 in intensity associated with vomiting and bloody urine. For worsening pain she presented to the ER for proper evaluation care. Denies any chest pain shortness a brief no fever no diarrhea no focal symptoms. ER evaluation notable for vital signs stable and within normal limits. Labs notable for WBC 15.1, UA positive for leukocyte Estrace and pyuria with bacteriuria. CT abdomen pelvis showed left ureter 8 stone with severe hydronephrosis. Bilateral pleural effusion. Urology was consulted patient was started on Rocephin IV fluid and tamsulosin. Urine culture was sent. 05/02/25 Patient was seen and examined at bedside. she is feeling better.abd pain improving.urine culture pending. continue with IV Abx. Has worsening NAINA. hold of lasix echo showed LVEF 25% cardiology team was consulted. Plan for cardiac cath tomorrow. 05/03/25 Patient was seen and examined at bedside. she is feeling fine, denies any chest apin. SOb, abd pain,N/V. underwent cardiac cath today which was unremarkable. UC unremarkable. per cardiologyteam Start spironolactone 25mg PO daily. Continue lisinopril 5mg PO daily and metoprolol succinate 50mg PO daily. 05/04/25 Patient was seen and examined at bedside. she is feeling better. denies any chest pain, SOB abd pain,N/V she needs to follow with cardiology as outpatient. follow with PCP in one week Continue Keflex for 3 more days. continue spironolactone,lisinopril and metoprolol. avoid salt intake and processed food; adhere to heart healthy diet with daily weights at home Time Spent with Patient Time attestation: Total time spent providing and/or coordinating discharge services: Exam Narrative: General: alert and comfortable Eyes: EOMI, PERRLA ENNT External ears normal, Neck is supple, no masses, Respiratory systems: Clear to auscultation Cardiovascular S1, S2, normal rhythm, no murmur, rub, or gallop; no thrill or palpable murmurs on palpation. Gastrointestinal: soft, non-tender, and non-distended abdomen with no masses; BS present Skin: no rash, lesions, ulcerations, subcutaneous nodules or induration Musculoskeletal: no abnormality and no tenderness, normal ROM Neurologic: Alert and oriented x3, non focal Mental Status Exam: normal affect DS: Data Data Completed and Pending Completed studies during hospitalization: Pending at discharge 05/01/25 15:16 Surgical [PTH] Routine Labs on day of discharge: Labs from last 24 hours 05/04/25 05/04/25 05/03/25 07:29 03:22 19:55 WBC 10.8 H RBC 5.24 Hgb 12.4 Hct 41.4 MCV 79.0 L MCH 23.7 L MCHC 30.0 L RDW 17.1 H Plt Count 273 MPV 10.6 H Sodium 139 Potassium 3.2 L Chloride 104 Carbon Dioxide 25 Anion Gap 10 BUN 28 H Creatinine 1.22 H Estim Creat Clear Calc 55 Estimated GFR 45 L Glucose 153 H POC Capillary Glucose 147 H 125 H Calcium 9.3 05/03/25 05/03/25 16:51 11:08 WBC RBC Hgb Hct MCV MCH MCHC RDW Plt Count MPV Sodium Potassium Chloride Carbon Dioxide Anion Gap BUN Creatinine Estim Creat Clear Calc Estimated GFR Glucose POC Capillary Glucose 76 122 H Calcium Discharge Plan Discharge Attending physician on discharge: Crystal Godwin Consulting providers: Crystal Godwin; Keon Chavez; Patricia Rutledge Discharging Clinician: Crystal Godwin Anticipated Discharge Date/Time: 05/04/25 10:48 Patient Disposition: Home Activity: as tolerated Diet: heart healthy Discharge Instructions: she needs to follow with cardiology as outpatient. follow with PCP in one week, follow with urology in 1-2 weeks Continue Keflex for 3 more days. continue spironolactone,lisinopril and metoprolol. avoid salt intake and processed food; adhere to heart healthy diet with daily weights at home Patient Instructions: Antibiotic Form Patient Language: Haitian Stand Alone Forms: General Discharge Information Follow-up/Referrals: Ion Ball MD [Physician] - Call for Appointment Discharge Medications: New hydrocodone-acetaminophen 5-325 mg tablet 1 tablet PO Q6H PRN (Reason: pain) Qty: 15 0RF oxybutynin chloride 5 mg tablet 5 mg PO TID Qty: 20 0RF phenazopyridine [Pyridium] 200 mg tablet 200 mg PO TID PRN (Reason: pain) Qty: 20 0RF spironolactone 25 mg Tablet 25 mg PO QAM Qty: 30 0RF cephalexin 500 mg capsule 500 mg PO Q6H Qty: 14 0RF Continued aspirin 81 mg tablet,delayed release (DR/EC) 81 mg PO DAILY ondansetron 4 mg tablet,disintegrating 4 mg PO Q8H PRN (Reason: nausea and vomiting) Qty: 14 0RF (DME) CPAP Equipment See Rx Instructions .Route .MEDSUPPLY Qty: 1 0RF Rx Instructions: Rx: Resmed AirSense 11 CPAP 9 cm H2O, CPAP mask/filters/tubing and heated humidity Dx: G47.33 Length of treatment: 99+ months *Please link me to the patient's CPAP machine through [facility]* Physician: Dr. Jessy Cobian DO warfarin 5 mg tablet See Rx Instructions .ROUTE .COMPLEX Qty: 30 5RF Dose Instruction: Take 1 tablet by mouth once daily Rx Instructions: Take 1 tablet by mouth once daily Ozempic 2 mg/dose (8 mg/3 mL) pen injector See Rx Instructions .ROUTE .COMPLEX Qty: 9 2RF Dose Instruction: INJECT 2 MG (0.75 ML) SUBCUTANEOUSLY WEEKLY Patient Comments: Fridays Rx Instructions: INJECT 2 MG (0.75 ML) SUBCUTANEOUSLY WEEKLY metformin 500 mg tablet 500 mg PO BID Qty: 180 3RF metoprolol succinate 50 mg tablet extended release 24 hr 50 mg PO DAILY Qty: 90 1RF lisinopril 5 mg tablet 5 mg PO DAILY Qty: 90 1RF atorvastatin 10 mg tablet 10 mg PO HS Qty: 90 1RF ferrous sulfate 324 mg (65 mg iron) tablet,delayed release (DR/EC) See Rx Instructions .ROUTE .COMPLEX Qty: 180 1RF Dose Instruction: TAKE 1 TABLET BY MOUTH TWICE A DAY Rx Instructions: TAKE 1 TABLET BY MOUTH TWICE A DAY Discontinued hydrocodone-acetaminophen 5-325 mg tablet 1 tablet PO Q12H PRN (Reason: pain) Qty: 14 0RF Date of admission: 05/01/25 18:39 Primary Care Provider: Deann Chavis Admitting Provider: Franki Jenkins Attending physician on admission: Franki Jenkins Condition: Stable
--- NOTE | 2025-05-08 08:00 | W.PM.PROC2 ---
Procedure Note - Detailed Date of Procedure 05/01/25 Pre-op Diagnosis L distal ureteral stone, hydronephrosis, Post-op Diagnosis Same Procedure Performed Cystoscopy, left retrograde pyelogram, left ureteroscopy, holmium laser lithotripsy, stone extraction, stent placement Surgeon Lorne Lynn MD Anesthesia General Indications She is status post lithotripsy. She has retained ureteral stone. She presents for the above. Understands risks of bleeding, infection, damage to the urinary tract, inability remove the stone. Agrees to proceed Findings Successful stone extraction Description of Procedure She was correctly identified. Informed consent was obtained. For the operating room. She was given general anesthesia. She was placed in dorsal lithotomy position. She was prepped and draped sterile fashion. Time-out performed. Cystoscopy revealed normal appearing bladder without abnormalities. No tumors or stones. I did a retrograde pyelogram on the left. This outlined the ureteral stone. Hydronephrosis proximal to the stone. Placed a guidewire to the kidney. I dilated the ureteral orifice the 810 dilator. I then performed ureteroscopy. The stone was encountered. Used holmium laser to fragment the stone into several pieces. I used a basket to extract stone pieces. The stone was sent for analysis. Once all the stones removed I re-examined the ureter. The ureter was free of stones. I then placed a 4.8 variable length stent in a standard fashion. Proximal coil in the kidney. Distal coil the bladder. The bladder was drained. She was awakened transferred to PACU in stable condition Implants Ureteral stent Estimated Blood Loss 1 Pathology Yes (Stone material) Complications No immediate complications Condition Stable Disposition PACU
== END 2025-05-04 11:56 | disposition home or self-care (01) | DRG 659 ==
LOC: ANHED 21:16 → ANH3MEDSUR 22:39 → ANHIMU 05-03 15:23 → ANH3MEDSUR 05-18 10:04 → ANHIMU 05-18 10:04
PROVIDERS: Emergency Medicine; Internal Medicine; Urology; Admitting Provider Internal Medicine; Emergency Provider Physician Assistant; PCP Family Medicine; Visit Provider Internal Medicine
PROC: BT1F1ZZ Fluoroscopy of Left Kidney, Ureter and Bladder using Low Osmolar Contrast (ICD-10-PCS; CPT 52352; principal; 2025-05-01 14:45)
PROC: 4A023N7 Measurement of Cardiac Sampling and Pressure, Left Heart, Percutaneous Approach (ICD-10-PCS; CPT 93452; principal; 2025-05-03 10:00)
DX: N13.2 Hydronephrosis with renal and ureteral calculous obstruction (principal); I50.41 Acute combined systolic (congestive) and diastolic (congestive) heart failure; I51.81 Takotsubo syndrome; Z68.41 Body mass index [BMI] 40.0-44.9, adult; N39.0 Urinary tract infection, site not specified; E11.9 Type 2 diabetes mellitus without complications; E66.01 Morbid (severe) obesity due to excess calories; I69.398 Other sequelae of cerebral infarction; H53.8 Other visual disturbances; I44.39 Other atrioventricular block; N17.9 Acute kidney failure, unspecified; Z85.72 Personal history of non-Hodgkin lymphomas; Z95.0 Presence of cardiac pacemaker; Z90.49 Acquired absence of other specified parts of digestive tract; Z79.82 Long term (current) use of aspirin; Z79.84 Long term (current) use of oral hypoglycemic drugs; Z79.85 Long-term (current) use of injectable non-insulin antidiabetic drugs; Z79.01 Long term (current) use of anticoagulants
CPT/HCPCS: 36415; 71045; 74176; 74420; 80048; 80053; 81001; 82365; 82948; 83605; 83735; 85025; 85027; 87086; 88300; 93458; 96361; 96365; 96375; 96376; 99285; A9270; C1769; C1887; C1894; C2617; C8929; G0378; J0330; J0696; J1200; J1644; J1938; J2003; J2250; J2270; J2305; J2405; J2704; J2765; J3010; J7030; J7040; J7050; J7120; Q9957; Q9966

== ENCOUNTER 2025-06-02 08:28 | Outpatient (CLI) | payer MEDICARE, BC, SELFPAY ==
--- OUTSIDE RECORDS SUMMARY | 2025-06-02 08:32 | XMS_ITS | Clinical Summary ---
Author Organization [facility] Address [address] [place] [address] Care Team Providers Care Office Machine Servicer Apprentice Name Role Phone Colby Soliz MD Primary Care Provider [phone] Source Comments [facility],non-owned Affiliates and Associated Physician Practices is amultiple site organization consisting of ambulatory clinics and hospital sitesin [place], [place], [place] and [place]. This disclosure is being madepursuant to the Care Everywhere program and may not contain all information available regarding this patient. 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 Gender Identity Not on file Sexual Orientation [...] age to complete this topic Insurance [facility] MEDICARE [facility] SELF PAY NO INSURANCE Member Subscriber Plan / Payer (Ef fective for All Dates) Name:Genesis Griggs Member ID:Not on file Relation to Subscriber:Not on file Name:GENESIS GRIGGS Subscriber ID:Not on file (Home) Address: [address] [address] Payer ID:Not on file Group ID:Not on file Type:Self Pay Address: [facility] Care Teams Office Machine Servicer Apprentice Relationship Specialty Start Date End Date Colby Soliz MD [address] [place] [id number] PCP - General Family Medicine 11/11/16
[2025-06-02 14:10] LABS: Anion Gap 7 mmol/L (4-12); Blood Urea Nitrogen 18 mg/dL (7-17); Calcium 9.1 mg/dL (8.4-10.2); Carbon Dioxide 24 mmol/L (22-30); Chloride 104 mmol/L (98-107); Estimated Glomerular Filt Rate > 60; Glucose 96 mg/dL (65-110); Potassium 5.0 mmol/L (3.4-5.0); Sodium 135 mmol/L (137-145)
== END 2025-06-02 08:29 | disposition home or self-care (01) ==
PROVIDERS: PCP Family Medicine; Visit Provider Nurse Practitioner Adult Health
DX: I51.81 Takotsubo syndrome (principal)
CPT/HCPCS: 36415; 80048; 85610

== ENCOUNTER 2025-07-31 14:52 | Outpatient (CLI) | payer MEDICARE, BC, SELFPAY ==
--- OUTSIDE RECORDS SUMMARY | 2007-01-27 10:36 | XMS_ITS | Continuity of Care Document ---
Author Organization [facility] Address [address] [facility] [address] [place] [address] Phone Care Team Providers Care Cfo Controller Name Role Phone Kam Lezama Unavailable Unavailable Procedures Procedure Date Office/outpatient Visit, Est Advance Directives Directive Yes / No Effective Date File Name No Information Encounters Encounter Description Practice Location Reason(s) For Visit Diagnoses Date Provider Providers Copied on Encounter Office/outpat ient Visit, Est [facility], [address], [place], [place], [id number], [place] tel:[phone] [facility] No Information 7 Lise Humphrey. [address] [facility] [address], [address], [place], [place], [facility], . tel:[phone] Referring Provider: Kam Sr [address] [facility], [place], [place], [facility]. tel:[phone] Family History Family Member Type Diagnosis Age At Onset No Information Payers Payer name Insurance type Covered democrat ID Authoriza tion(s) No Information Social History Type Description Quantity Date Captured Comments Sex Female Smoking Status No Information Chief Complaint And Reason For Visit No Information Reason For Referral Reason For Referral No Information History Of Present Illness Encounter Date Complaint History Of Prese nt Illness No Information Functional Status Date Functional Assessmen t No Information Instructions Date Instruction Additional Infor mation No Information Assessments Type Assessment Date No Information Patient Care Teams Name Effective Dates (start - stop) Status Members No Information
--- NOTE | ~2025-07-31 | CT_ITS ---
EXAMINATION:CT diagnostic chest wo con DATE: 07/31/2025 15:14 INDICATION: Solitary pulmonary nodule. TECHNIQUE: Computed tomography (CT) of the chest was performed without intravenous contrast. Automated exposure control and iterative reconstruction technique were employed. The dose-length product (DLP) was 255.01 mGy-cm. COMPARISON: Chest CT 08/05/2020 FINDINGS: There is a calcified 12 mm nodule in left lung lower lobe, stable from 08/05/2020. There is mild scarring paraspinal right lower lobe. Calcified right lung nodules are consistent with old granulomatous disease. There are a few scattered nodules in the lungs measuring up to 3 mm, likely benign. No pleural effusion. There are nodules in the thyroid measuring up to 14 mm, likely not clinically significant. Cardiomegaly is noted. There are coronary artery calcifications. No pericardial effusion. Pericardial calcifications are noted. There is a left chest wall pacer with leads in the right atrium and right ventricle. There are changes of cholecystectomy. There are bridging endplate osteophytes at multiple levels in the spine, consistent with diffuse idiopathic skeletal hyperostosis (DISH). There is mild chronic anterior wedging of multiple vertebral bodies. There is chronic sclerosis in T11 vertebral body, likely benign. IMPRESSION: 1. Small pulmonary nodules, likely benign. Reviewed, dictated and finalized at location E.
--- OUTSIDE RECORDS SUMMARY | 2025-07-31 15:48 | XMS_ITS | Clinical Summary ---
Author Organization [facility] Address [address] [place] [address] Care Team Providers Care Diamond Sizer And Sorter Name Role Phone Colby Soliz MD Primary Care Provider [phone] Source Comments [facility],non-owned Affiliates and Associated Physician Practices is amultiple site organization consisting of ambulatory clinics and hospital sitesin [place], [place], [place] and [place]. This disclosure is being madepursuant to the Care Everywhere program and may not contain all information available regarding this patient. 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
== END 2025-07-31 14:53 | disposition home or self-care (01) ==
PROVIDERS: PCP Family Medicine; Visit Provider Family Medicine
DX: R91.1 Solitary pulmonary nodule (principal); R91.8 Other nonspecific abnormal finding of lung field
CPT/HCPCS: 71250

== ENCOUNTER 2025-08-14 09:52 | Outpatient (CLI) | payer MEDICARE, BC, SELFPAY ==
--- OUTSIDE RECORDS SUMMARY | 2025-08-14 11:00 | XMS_ITS | Encounter Summary ---
Author Organization [facility] Address [address] [place] [address] Care Team Providers Care Cavalry Scout Name Role Phone Deann Chavis DO Primary Care Provider [phone] Encounter Details Date Type Department Care Team (Late st Contact Info) Description 04/30/2025 Orders Only [facility] Health Information Management [address] [place] [id number] Scanning, Provider Social History Tobacco Use Types Packs/Day Years Used Date Smoking Tobacco: Never Comments Unknown Sex and Gender Information Value Date Recorded Sex Assigned at Not on file 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 Gender Identity Not on file Sexual Orientation Not on file documented as of this encounter Plan of Treatment Not on file documented as of this encounter Procedures Procedure Name Priority Date/Time Associated Diagnosis Comments SCAN - RADIOLOGY/IMAGING 04/30/2025 documented in this encounter Results * SCAN - RADIOLOGY/IMAGING (04/30/2025) Anatomical Region Laterality Modality Other us Provider Scanning Final Result documented in this encounter Visit Diagnoses Not on filedocumented in this encounter Care Teams Cavalry Scout Relationship Specialty Start Date End Date Deann Chavis DO PCP - General Family Medicine 10/29/22 documented as of this encounter
--- OUTSIDE RECORDS SUMMARY | 2025-08-14 11:00 | XMS_ITS | Clinical Summary ---
Author Organization [facility] Address [address] [place] [address] Care Team Providers Care Drama Therapist Name Role Phone Colby Soliz MD Primary Care Provider [phone] Source Comments [facility],non-owned Affiliates and Associated Physician Practices is amultiple site organization consisting of ambulatory clinics and hospital sitesin [place], [place], [place] and [place]. This disclosure is being madepursuant to the Care Everywhere program and may not contain all information available regarding this patient. 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
--- OUTSIDE RECORDS SUMMARY | 2025-08-14 11:00 | XMS_ITS | Clinical Summary ---
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 Name Role Phone Deann Chavis DO Primary Care Provider [phone] Allergies No known active allergies Medications atorvastatin (LIPITOR) 10 mg tablet Take 1 tablet (10 mg total) by mouth daily 2 Active metFORMIN (GLUCOPHAGE) 500 mg tablet Take 1 tablet (500 mg total) by mouth 2 (two) times a day 3 Active warfarin (COUMADIN) 5 mg tablet Take 1 tablet (5 mg total) by mouth daily 2 Active metoprolol XL (TOPROL-XL) 50 mg extended release tablet Take 1 tablet (50 mg total) by mouth daily 2 Active aspirin 81 mg enteric coated tablet Take 1 tablet (81 mg total) by mouth daily Active ferrous sulfate ER 324 mg (65 mg iron) EC tablet Take 1 tablet (324 mg total) by mouth 2 (two) times a day 5 Active Ozempic 2 mg/dose (8 mg/3 mL) pen injector injection 5 Active spironolactone (ALDACTONE) 25 mg tabletIndications: Takotsubo cardiomyopathy Take 1 tablet (25 mg total) by mouth every morning 30 tablet 11 5 Active sacubitriL-valsart an (ENTRESTO) 24-26 mg tabletIndications: chronic heart failure Take 1 tablet by mouth 2 (two) times a day 60 tablet 11 5 08/08/20 26 Active dapagliflozin propanediol (FARXIGA) 10 mg tabletIndications: Takotsubo cardiomyopathy Take 1 tablet (10 mg total) by mouth daily 30 tablet 11 5 Active lisinopriL (PRINIVIL,ZESTRIL) 5 mg tablet Take 1 tablet (5 mg total) by mouth daily 2 08/08/20 25 Discontin ued(Alter basilio therapy) Active Problems Problem Noted Date Diagnosed Date Complete heart block 11/04/2022 Cardiac pacemaker in situ 10/22/2022 Overview (10/30/2022): Biotronik Edora Dual Pacemaker. Dx; CHB, Aflutter. DOI 10/21/2022-[employer]. Sendbloomron[employer] remote home monitoring. Hypertension 10/01/2010 Cerebrovascular accident (CVA) 10/01/2010 Hodgkin lymphoma 10/01/2010 Encounters Date Type Department Care Team Description 08/08/2025 Telephone [facility] Cardiology [address] [place] [address] [place] [phone] Tomy Mejia MD 08/04/2025 10:15 AM CDT Ancillary Procedure [facility] Cardiology at [address] [place] [phone] Takotsubo cardiomyopathy 07/18/2025 7:15 AM CDT Ancillary Procedure [facility] Cardiology [address] [place] [address] [place] [phone] Complete heart block (HCC); Cardiac pacemaker in situ 06/08/2025 Results Follow-Up [facility] Cardiology [address] [place] [address] [place] [phone] Karen Hernández NP Basic metabolic panel, Transthoracic Echo (TTE) Limited/Followup 06/01/2025 10:00 AM CDT Office Visit [facility] Cardiology [address] [place] [address] [place] [phone] Karen Hernández NP Takotsubo cardiomyopathy (Primary Dx); Hospital discharge follow-up 05/24/2025 Telephone [facility] Cardiology [address] [place] [address] [place] [phone] Karen Hernández NP from Last 3 Months Medical History Medical History Date Comments Cervical high risk human pap illomavirus (HPV) DNA test positive Cervical High Risk Human Pap illoma Virus DNA Test - (Added by TW Conv) Family History Medical History Relation Name Comments Heart failure Father Cardiac Failur e - (Added by TW Conv) Relation Name Status Comments Father Social History Tobacco Use Types Packs/Day Years Used Date Smoking Tobacco: Never Tobacco Cessation:Counseling Given: Not Answered Comments Unknown Sex and Gender Information Value Date Recorded Sex Assigned at Not on file 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 Gender Identity Not on file Sexual Orientation Not on file Obstetrics History Last Filed Vital Signs Vital Sign Reading Time Taken Comments Blood Pressure 110/60 06/01/2025 9:41 AM CDT Pulse 82 06/01/2025 9:41 AM CDT Temperature - - Respiratory Rate - - Oxygen Saturation 99% 06/01/2025 9:41 AM CDT Inhaled Oxygen Concentration - - Weight 110.7 kg (244 lb) 06/01/2025 9:41 AM CDT Height 167.6 cm (5' 6) 06/01/2025 9:41 AM CDT Body Mass Index 39.38 06/01/2025 9:41 AM CDT Plan of Treatment Health Maintenance Due Date Last Done Comments Breast Cancer Screening-Mammogram 1960 Cervical Cancer Screening 1960 Colon Cancer Screening-Colonoscopy 1960 Depression Screening 1960 Hepatitis C Screening 1961 Hepatitis B Screening 1979 Regular Well Visit/Exam 18-64 1979 Pneumococcal vaccine <65 (1 of 2 - PCV) 1980 Zoster Vaccine (1 of 2) 1980 Covid-19 Vaccine (4 - 2024-2 6 season) 2025 09/28/2021, 01/08/2021, 12/18/2020 Influenza Vaccine (#1) 2025 , 08/02/2024, 08/13/2023, Additional history exists DTaP/Tdap/Td Vaccine (3 - Td or Tdap) 04/15/2034 04/15/2024, 09/09/2013 Procedures Procedure Name Priority Date/Time Associated Diagnosis Comments TRANSTHORACIC ECHO (TTE) LIMITED/FOLLOW UP WO DOPPLER/CF W CONTRAST Routine 08/04/2025 10:43 AM CDT Takotsubo cardiomyopathy DEVICE CHECK - REMOTE Routine 07/20/2025 2:04 PM CDT Complete heart block (HCC) Cardiac pacemaker in situ BASIC METABOLIC PANEL Routine 06/02/2025 Takotsubo cardiomyopathy from Last 3 Months Results * TRANSTHORACIC ECHO (TTE) LIMITED/FOLLOW UP WO DOPPLER/CF W CONTRAST (08/04/2025 10:43 AM CDT) EF Mod BP 28 % CONS SCIMAGE Anatomical Region Laterality Modality Ultrasound 08/04/2025 10:1 5 AM CDT Narrative 08/04/2025 12:44 PM CDT [facility]iology [address], [address], [place] [address] P:[phone] P:[phone] Echocardiographic Report Patient Name: GENESIS LANZA L : 1960 Study Date: 08/04/2025 10:15:01 AM Sex: F Parer: NELSON Location: [facility] Ref Provider: KAREN HERNÁNDEZ Height(Cm): 168 BSA: 2.27 Weight(Kg): 110.7 Heart Rate: 78 BP: 131 / 80 Quality: Good Order Provider: KAREN HERNÁNDEZ PROCEDURES: Echocardiographic Report: Limited Transthoracic echocardiogram with 2D, M-Mode imaging. INDICATIONS: I51.81 Takotsubo syndrome. MEASUREMENTS: 2D/MM Value Range EF Mod BP 28 % [ 54 - 74 ] EF Teich MM 46 % [ 54 - 74 ] LVIDd MM 6.92 cm [ 3.80 - 5.20 ] LVIDs MM 5.30 cm [ 2.20 - 3.50 ] LVPWd MM 0.89 cm [ 0.60 - 0.90 ] IVSd MM 0.89 cm [ 0.60 - 0.90 ] LA Dimension MM 4.23 cm [ 2.70 - 3.80 ] AoR Diam MM 3.37 cm [ 2.70 - 3.30 ] LA Volume 78.69 ml [ 22.00 - 52.00 ] LA Volume Index 35 cc/m2 [ 16 - 28 ] ACS MM 1.96 cm RA Volume 36.75 ml 2D/MM Value Range - FINDINGS: Interpretation Site: Exam was interpreted at [facility]. Left Ventricle: Definity contrast agent used to visually enhance endocardial wall motion and contractility. Lot Number: [id number]. Mild concentric left ventricular hypertrophy. Moderate enlargement of left ventricle cavity. Severe global left ventricular systolic dysfunction. Ejection fraction is measured at 28 %. Right Ventricle: Normal right ventricular size. Normal right ventricular systolic function. Left Atrium: There is moderate enlargement of left atrium. Right Atrium: The right atrium is normal in size. Atrial Septum: Normal atrial septum. Mitral Valve: Mild mitral annular calcification. Aortic Valve: Normal appearance of the aortic valve. Tricuspid Valve: Normal appearance of the tricuspid valve. Pulmonic Valve: Pulmonic valve not well visualized. Pericardium: Normal pericardium with no significant pericardial effusion. Aorta: Moderate aortic root calcification. IVC: The IVC is not well visualized. CONCLUSIONS: Limited echo. Definity contrast agent used to visually enhance endocardial wall motion and contractility. Mild concentric left ventricular hypertrophy. Moderate enlargement of left ventricle cavity. Severe global left ventricular systolic dysfunction. Ejection fraction is measured at 28 %. Normal right ventricular size and systolic function. Moderate enlargement of left atrium. Mild mitral annular calcification. Normal appearance of the aortic valve. Electronically Signed By: Jabari Marsh MD, [facility] 08/04/2025 12:43:39 PM CDT Procedure Note Jabari Marsh MD - 08/04/2025 [facility] Cardiology [address], [address], [place] [address] P:[phone] P:[phone] Echocardiographic Report Patient Name: GENESIS LANZA L : 1960 Study Date: 08/04/2025 10:15:01 AM Sex: F Parer: NELSON Location: [facility] Ref Provider: KAREN HERNÁNDEZ Height(Cm): 168 BSA: 2.27 Weight(Kg): 110.7 Heart Rate: 78 BP: 131 / 80 Quality: Good Order Provider: KAREN HERNÁNDEZ PROCEDURES: Echocardiographic Report: Limited Transthoracic echocardiogram with 2D, M-Mode imaging. INDICATIONS: I51.81 Takotsubo syndrome. MEASUREMENTS: 2D/MM Value Range EF Mod BP 28 % [ 54 - 74 ] EF Teich MM 46 % [ 54 - 74 ] LVIDd MM 6.92 cm [ 3.80 - 5.20 ] LVIDs MM 5.30 cm [ 2.20 - 3.50 ] LVPWd MM 0.89 cm [ 0.60 - 0.90 ] IVSd MM 0.89 cm [ 0.60 - 0.90 ] LA Dimension MM 4.23 cm [ 2.70 - 3.80 ] AoR Diam MM 3.37 cm [ 2.70 - 3.30 ] LA Volume 78.69 ml [ 22.00 - 52.00 ] LA Volume Index 35 cc/m2 [ 16 - 28 ] ACS MM 1.96 cm RA Volume 36.75 ml 2D/MM Value Range - FINDINGS: Interpretation Site: Exam was interpreted at [facility]. Left Ventricle: Definity contrast agent used to visually enhance endocardial wall motionand contractility. Lot Number: [id number]. Mild concentric left ventricularhypertrophy. Moderate enlargement of left ventricle cavity. Severe global left ventricularsystolic dysfunction. Ejection fraction is measured at 28 %. Right Ventricle: Normal right ventricular size. Normal right ventricular systolicfunction. Left Atrium: There is moderate enlargement of left atrium. Right Atrium: The right atrium is normal in size. Atrial Septum: Normal atrial septum. Mitral Valve: Mild mitral annular calcification. Aortic Valve: Normal appearance of the aortic valve. Tricuspid Valve: Normal appearance of the tricuspid valve. Pulmonic Valve: Pulmonic valve not well visualized. Pericardium: Normal pericardium with no significant pericardial effusion. Aorta: Moderate aortic root calcification. IVC: The IVC is not well visualized. CONCLUSIONS: Limited echo. Definity contrast agent used to visually enhance endocardialwall motion and contractility. Mild concentric left ventricular hypertrophy. Moderateenlargement of left ventricle cavity. Severe global left ventricular systolicdysfunction. Ejection fraction is measured at 28 %. Normal right ventricular size and systolic function. Moderate enlargement of left atrium. Mild mitral annular calcification. Normal appearance of the aortic valve. Electronically Signed By: Jabari Marsh MD, FACC 08/04/2025 12:43:39 PM CDT Karen Hernández NP CV ECHO PROCEDURES Final Result * DEVICE CHECK - REMOTE (07/20/2025 2:04 PM CDT) Anatomical Region Laterality Modality Other Narrative 08/11/2025 12:31 PM CDT Biotronik Edora Dual Pacemaker. Dx; CHB, Aflutter. DOI 10/21/2022-[facility]. [employer] remote home monitoring. Routine DDD Pacemaker remote. Normal device function. Battery function-Ok, 80% remaining battery life to SIRI. Appropriate lead measurements noted. 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 AP-0%, ACCOUNT PROCESSOR-100%. 3 Atrial high rate episodes noted, iegm's AT/AF, 2 hours 17 minutes max duration. 1 Ventricular high rate episode noted on 06/08/25, iegm NSVT 12 second duration @ 160 bpm. Medications; Coumadin, Toprol XL. See scanned report. Office pacemaker f/u 07/18/2026. Biotronik remote f/u 10/17/2025. Apryl Marquez, JESSA us Tomy Mejia MD [facility] Final Result * (ABNORMAL) Basic metabolic panel (06/02/2025) SCRIBED Sodium 135(A) 137 - 145 mmol/L EXTERNAL LAB SCRIBED Potassium 5.0 3.4 - 5.0 mmol/L EXTERNAL LAB SCRIBED Chloride 104 98 - 107 mmol/L EXTERNAL LAB SCRIBED Carbon Dioxide 24 22 - 30 mmol/L EXTERNAL LAB SCRIBED Anion Gap 7 4 - 12 mmol/L EXTERNAL LAB SCRIBED Urea Nitrogen (BUN) 18(A) 7 - 17 mg/dl EXTERNAL LAB SCRIBED Creatinine 0.91 0.7 - 1.0 mg/dl EXTERNAL LAB SCRIBED Glucose 96 65 - 110 mg/dl EXTERNAL LAB SCRIBED Calcium 9.1 8.4 - 10.2 mg/dl EXTERNAL LAB SCRIBED eGFR N/A N/A EXTERNAL LAB SCRIBED eGFR >60 > or = 60 EXTERNAL LAB Blood 06/02/2025 us Karen Hernández NP LAB BLOOD ORDERABLES Kathie hassan Result EXTERNAL LAB from Last 3 Months Insurance MEDICARE [facility] ACCESS CHOICE MEDICARE [facility] ACCESS CHOICE Care Teams Roller Skate 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
[2025-08-14 13:18] LABS: Hematocrit 40.1 % (37.0-47.0); Hemoglobin 12.4 g/dL (12.0-15.0); Mean Corpuscular HGB Conc 30.9 g/dl (32-36); Mean Corpuscular Hemoglobin 25.8 pg (26-34); Mean Corpuscular Volume 83.5 fl (80-100); Platelet Count Result 260 k/mm3 (150-375); Red Blood Count 4.80 M/mm3 (4.2-5.4); White Blood Count 9.3 K/mm3 (4.5-10.0)
[2025-08-14 13:22] LABS: Alanine Aminotransferase 22 U/L (6-35); Albumin Level 4.0 g/dL (3.5-5.1); Alkaline Phosphatase 115 U/L (38-126); Anion Gap 7 mmol/L (4-12); Aspartate Amino Transferase 65 U/L (14-36); Bilirubin,Total 0.6 mg/dL (0.2-1.3); Blood Urea Nitrogen 25 mg/dL (7-17); Calcium 9.1 mg/dL (8.4-10.2); Carbon Dioxide 25 mmol/L (22-30); Chloride 103 mmol/L (98-107); Cholesterol 122 mg/dL (0-200); Estimated Glomerular Filt Rate 51; Glucose 79 mg/dL (65-110); HDL Direct 39 mg/dL; Potassium 4.4 mmol/L (3.4-5.0); Sodium 135 mmol/L (137-145); Total Protein 7.3 g/dL (6.3-8.2); Triglycerides 115 mg/dL (<150)
[2025-08-14 13:25] LABS: Iron 41 ug/dL (37-170)
[2025-08-14 13:42] LABS: Percent Iron Saturation 12 % (20-50)
[2025-08-14 13:57] LABS: Thyroid Stimulating Hormone 2.510 uIU/mL (0.465-4.680)
[2025-08-14 14:11] LABS: Ferritin 71.40 ng/mL (11.1-264)
[2025-08-14 15:05] LABS: MALB Creatinine Ratio 17.9 mg/g (0-30)
[2025-08-14 15:31] LABS: Hemoglobin A1C 5.8 % (<5.7)
== END 2025-08-14 09:53 | disposition home or self-care (01) ==
PROVIDERS: PCP Family Medicine; Visit Provider Family Medicine
DX: D64.9 Anemia, unspecified (principal); I10 Essential (primary) hypertension; E78.5 Hyperlipidemia, unspecified; E11.29 Type 2 diabetes mellitus with other diabetic kidney complication; R80.9 Proteinuria, unspecified; E66.01 Morbid (severe) obesity due to excess calories; I51.81 Takotsubo syndrome; E88.810 Metabolic syndrome
CPT/HCPCS: 36415; 80053; 80061; 82043; 82728; 83036; 83540; 83550; 84443; 85027; 85610

== ENCOUNTER 2025-08-14 09:56 | Outpatient (RCR) | payer MEDICARE, BC, SELFPAY ==
[2025-06-02 13:15] LABS: INR 2.8; Prothrombin Time 28.9 Seconds (11.1-14.7)
[2025-08-14 13:34] LABS: INR 2.2; Prothrombin Time 23.7 Seconds (11.1-14.7)
== END 2025-08-31 23:59 | disposition home or self-care (01) ==
LOC: ANHGOSHLAB 09:56
PROVIDERS: PCP Family Medicine; Visit Provider Nurse Practitioner
DX: Z51.81 Encounter for therapeutic drug level monitoring (principal); Z79.01 Long term (current) use of anticoagulants
CPT/HCPCS: 36415; 85610